=== PATIENT | female | born 1985 | race Caucasian/White ===

== ENCOUNTER 2016-05-12 15:27 | Observation (INO) | payer MEDICAID, OTHER ==
[~2016-05-12] VITALS: Ht 167.6 cm; Wt 60.0 kg
[~2016-05-12 15:27] MED LIST: HYDR-3533 PO; ROBA500T PO
[2016-05-12 15:28] VITALS: BP 114/69; PULSE 90; RESP 16; TEMP 98.4; O2SAT 98
--- NOTE | 2016-05-12 16:40 | PD ---
HPI Chief Complaint: Skin Problem Time Seen by Provider: 16:31 Travel History International Travel<30 days: No Contact w/Intl Traveler<30days: No Traveled to known affect area: No History of Present Illness HPI The patient was seen and examined in the presence of the nurse. This patient complains of infection in the left ankle. Duration one week. Severity is moderate. She has a large abscess near the medial malleolus. This is the site of an IV drug injection site done 7 days ago she reports. Heroin was injected there. She denies fever. No alleviating factors. PFSH Past Medical History Asthma: Yes Anxiety: Yes Diminished Hearing: No Tetanus Vaccination: < 5 Years Influenza Vaccination: No ?: Not LMP: 1 WEEK AGO : 3 Para: 3 Past Surgical History Surgical History: No Previous Surgery Social History Alcohol Use: No Tobacco Use: Yes Substance Use: Yes (METH, HEROIN- LAST WEEK LAST TIME) Allergies-Medications (Allergen,Severity, Reaction): Coded Allergies: Clindamycin (Verified Allergy, Severe, Hives, 05/12/16) Toradol (Verified Allergy, Severe, Hives, 05/12/16) Vancomycin (Verified Allergy, Severe, Hives, 05/12/16) Reported Meds & Prescriptions Reported Meds & Active Scripts Active No Active Prescriptions or Reported Medications Review of Systems General / Constitutional: No: Fever Eyes: No: Visual changes HENT: No: Headaches Cardiovascular: No: Chest Pain or Discomfort Respiratory: No: Shortness of Breath Gastrointestinal: No: Abdominal Pain Genitourinary: No: Dysuria Musculoskeletal: Positive: Pain Skin: Positive Lesions, No Rash Neurologic: No: Weakness Psychiatric: Positive: Substance Abuse, No: Depression Endocrine: No: Polydipsia Hematologic/Lymphatic: No: Easy Bruising Physical Exam Narrative GENERAL: Well-nourished, well-developed patient with a left ankle abscess. SKIN: Warm and dry. She has multiple areas of track todd HEAD: Atraumatic. Normocephalic. EYES: Pupils equal and round. No scleral icterus. No injection or drainage. ENT: No nasal bleeding or discharge. Mucous membranes pink and moist. NECK: Trachea midline. No JVD. CARDIOVASCULAR: Regular rate and rhythm. No murmur appreciated. RESPIRATORY: No accessory muscle use. Clear to auscultation. Breath sounds equal bilaterally. GASTROINTESTINAL: Abdomen soft, non-tender, nondistended. Hepatic and splenic margins not palpable. MUSCULOSKELETAL: No obvious deformities. No clubbing. No cyanosis. No edema. Has an abscess near the medial malleolus of the left ankle. It's fluctuant and tender. There is some surrounding erythema. NEUROLOGICAL: Awake and alert. No obvious cranial nerve deficits. Motor grossly within normal limits. Normal speech. PSYCHIATRIC: Appropriate mood and affect; insight and judgment normal. Data Data Last Documented VS Vital Signs Date Time Temp Pulse Resp B/P Pulse Ox O2 Delivery O2 Flow Rate FiO2 05/12/16 18:29 83 16 110/61 99 Room Air 05/12/16 15:28 98.4 Orders Iv Access Insert/Monitor (05/12/16 16:31) Complete Blood Count With Diff (05/12/16 16:31) Comprehensive Metabolic Panel (05/12/16 16:31) Beta Hcg (Quant/Titer) (05/12/16 16:31) Wound Culture And Gram Stain (05/12/16 16:31) Lidocai-Epi 1%-1:100,000 Inj (Xylocaine- (05/12/16 16:45) Lidocai-Epi 1%-1:100,000 Inj (Xylocaine- (05/12/16 16:45) Oxycodone-Acetamin 5-325 Mg (Percocet (05/12/16 16:45) Blood Culture (05/12/16 17:15) Vascular Access Team Consult PRN (05/12/16 17:15) Vascular Poc Ultrasound (05/12/16 ) Daptomycin Inj (Cubicin Inj) (05/12/16 18:00) Admit Order (Ed Use Only) (05/12/16 18:46) Labs Laboratory Tests Test 05/12/16 18:10 White Blood Count 10.6 TH/MM3 Red Blood Count 3.70 MIL/MM3 Hemoglobin 10.9 GM/DL Hematocrit 32.3 % Mean Corpuscular Volume 87.2 FL Mean Corpuscular Hemoglobin 29.4 PG Mean Corpuscular Hemoglobin 33.7 % Concent Red Cell Distribution Width 13.7 % Platelet Count 264 TH/MM3 Mean Platelet Volume 9.9 FL Neutrophils (%) (Auto) 74.8 % Lymphocytes (%) (Auto) 16.0 % Monocytes (%) (Auto) 8.0 % Eosinophils (%) (Auto) 1.0 % Basophils (%) (Auto) 0.2 % Neutrophils # (Auto) 7.9 TH/MM3 Lymphocytes # (Auto) 1.7 TH/MM3 Monocytes # (Auto) 0.8 TH/MM3 Eosinophils # (Auto) 0.1 TH/MM3 Basophils # (Auto) 0.0 TH/MM3 CBC Comment DIFF FINAL Differential Comment MDM Medical Decision Making Medical Screen Exam Complete: Yes Emergency Medical Condition: Yes Medical Record Reviewed: Yes Differential Diagnosis Abscess, cellulitis, boil Narrative Course I have reviewed the patient's electronic medical record. Patient very challenging IV access Vascular access team is placed a ultrasound guided IV in her left arm I gave her dose of daptomycin IV Labs have been sent but are unlikely to director strategic account management here which will be an admission for IV antibiotics given her significant left ankle area infection, combination of cellulitis and abscess Patient is verbal consent to incision and drainage of abscess SKIN: There is an indurated area in the left ankle which measures about 3 cm in diameter. It is fluctuant but there is no pointing or drainage. There is a zone of inflammation around it but no lymphangitis. I anesthetized with 5 cc of lidocaine with 1% epinephrine I opened it with an 11 blade scalpel and drained some thick yellow pus I obtained it for culture and Gram stain Tolerated reasonably well Patient requires further IV antibiotics Blood cultures were sent I reviewed with medical residents who will admit Diagnosis Primary Impression: Cellulitis of left ankle Additional Impression: Abscess Admitting Information Admitting Physician Requests: Admit Scripts No Active Prescriptions or Reported Meds Isidro Poole MD May 12, 2016 16:40
[2016-05-12] MEDS ORDERED: oxyCODONE/ACETAMINOPHEN 5 MG/325 MG TAB PO ONE (16:45)
[2016-05-12] MEDS ORDERED: LIDOCAINE 1%/EPINEPHrine 1:100,000 SOLN 20 ML VIAL INFIL ONE ×2 (16:45)
[2016-05-12] MEDS ORDERED: DAPTOMYCIN IV ONE (18:00)
[2016-05-12] MEDS ORDERED: SODIUM CHLORIDE 0.9% IV ONE (18:00)
[2016-05-12 18:29] VITALS: BP 110/61; PULSE 83; RESP 16; O2SAT 99
[2016-05-12 18:51] LABS: AUTOMATED NEUTROPHIL # 7.9 TH/MM3 (1.8-7.7); BASOPHIL % 0.2 % (0.0-2.0); EOSINOPHIL # 0.1 TH/MM3 (0-0.4); HEMATOCRIT 32.3 % (35.0-46.0); HEMO FLAGS DIFF FINAL; LYMPHOCYTE # 1.7 TH/MM3 (1.0-4.8); MEAN CELL VOLUME 87.2 FL (80.0-100.0); MEAN CORPUSCULAR HEMOGLOBIN 29.4 PG (27.0-34.0); MEAN CORPUSCULAR HGB CONC 33.7 % (32.0-36.0); NEUT % 74.8 % (16.0-70.0); PLATELET COUNT 264 TH/MM3 (150-450); RED CELL DISTRIBUTION WIDTH 13.7 % (11.6-17.2); WHITE BLOOD COUNT 10.6 TH/MM3 (4.0-11.0)
[2016-05-12 19:08] LABS: ANION GAP 8 MEQ/L (5-15); AST (GOT) 30 U/L (15-37); BICARBONATE 27.8 MEQ/L (21.0-32.0); BLOOD UREA NITROGEN 5 MG/DL (7-18); CHLORIDE 101 MEQ/L (98-107); GLOMERULAR FILTRATION RATE 123 ML/MIN (>89); POTASSIUM 3.5 MEQ/L (3.5-5.1); SODIUM (NA) 137 MEQ/L (136-145)
[2016-05-12 19:13] LABS: ALKALINE PHOSPHATASE 71 U/L (45-117); ALT (GPT) 34 U/L (10-53); BETA HCG QUANT LESS THAN 1 MIU/ML (0-5); TOTAL BILIRUBIN ADULT 0.3 MG/DL (0.2-1.0)
--- NOTE | 2016-05-12 19:14 | HHI.HP ---
HPI Service Family Medicine Primary Care Physician No Primary Care Physician Admission Diagnosis L ankle cellulitis/abcess Diagnoses: International Travel<30 Days: No Contact w/Intl Traveler<30days: No Known Affected Area: No History of Present Illness CC: Left ankle pain HPI: Approximately one week ago she was using IV drugs and injecting them into the Left ankle. Her missed the vein and injecting the drug into the surrounding tissue.She has been using IVD for approximately 1-2 years. Sine this time, her leg has been painful. Today, the foot and ankle "looked really bad". The pain is excruciating when she tries to stand on the leg. She also has constant pain in her foot. It has been changing color, more specifically from a flesh color skin to purple and red, and spreading up her leg. The lesion has been draining blood and pus; this being the main reason she came in. Pain is still present after I&D in ED. ROS: ++Chills but not fevers. Denies CP, SOB, change in vision, painful fingers or toes, abdominal pain, N, V, D, back pain, dysuria, change in vision, no sore throat. MRSA + previous skin infection arm -- 2016 (Left) (Karan Martin MD R2) Past Family Social History Past Medical History MRSA infection Left arm, Sepsis Blood clot left arm 2016 at [facility] Denies Hep C, and no HIV Past Surgical History No surgeries (Karan Martin MD R2) Allergies: Coded Allergies: Clindamycin (Verified Allergy, Severe, Hives, 05/12/16) Toradol (Verified Allergy, Severe, Hives, 05/12/16) Vancomycin (Verified Allergy, Severe, Hives, 05/12/16) Family History Mother - y/o 52 healthy Father - y/o 54 healthy Siblin brothers - healthy Social History Born in [place] , moved to [facility], ex-boyfriend Lives with -- supportive, IVDU - heroin Using IVD 2 years now, drug of choice heroin Methamphetamines for past 2 years Unemployed No etoh use Tob - 2 cigarettes day. (Karan Martin MD R2) Physical Exam Vital Signs Vital Signs Date Time Temp Pulse Resp B/P Pulse Ox O2 Delivery O2 Flow Rate FiO2 05/12/16 18:29 83 16 110/61 99 Room Air 05/12/16 18:26 18 05/12/16 16:28 92 17 05/12/16 15:28 98.4 90 16 114/69 98 Room Air Physical Exam GENERAL: NAD, crying on exam. SKIN: Erythematous around left ankle, moreover the medial malleolus. 2 cm round vesicle the is draining serosanguineous fluid. No fluctuance under the skin or crepitus on palpation. HEAD: Atraumatic. Normocephalic. No temporal or scalp tenderness. EYES: Pupils equal round and reactive. Extraocular motions intact. ENT: Nose without bleeding NECK: Trachea midline. No JVD or lymphadenopathy. CARDIOVASCULAR: Regular rate and rhythm without murmurs, gallops, or rubs. RESPIRATORY: Clear to auscultation. GASTROINTESTINAL: Abdomen soft, non-tender, nondistended. MUSCULOSKELETAL: Left ankle swollen with some erythema around medial malleolus NEUROLOGICAL: Awake and alert. Laboratory Laboratory Tests Test 05/12/16 18:10 White Blood Count 10.6 Red Blood Count 3.70 Hemoglobin 10.9 Hematocrit 32.3 Mean Corpuscular Volume 87.2 Mean Corpuscular Hemoglobin 29.4 Mean Corpuscular Hemoglobin 33.7 Concent Red Cell Distribution Width 13.7 Platelet Count 264 Mean Platelet Volume 9.9 Neutrophils (%) (Auto) 74.8 Lymphocytes (%) (Auto) 16.0 Monocytes (%) (Auto) 8.0 Eosinophils (%) (Auto) 1.0 Basophils (%) (Auto) 0.2 Neutrophils # (Auto) 7.9 Lymphocytes # (Auto) 1.7 Monocytes # (Auto) 0.8 Eosinophils # (Auto) 0.1 Basophils # (Auto) 0.0 CBC Comment DIFF FINAL Differential Comment Date/Time Procedure Status Source Growth 05/12/16 18:13 Aerobic Blood Culture Received Blood Peripheral Pending 05/12/16 18:13 Anaerobic Blood Culture Received Blood Peripheral Pending 05/12/16 17:10 Gram Stain Received Wound Ankle Pending 05/12/16 17:10 Wound Culture Received Wound Ankle Pending (Karan Martin MD R2) Result Diagram: 05/12/16 1810 Septic Shock Reassessment Heart: Regular rate and rhythm Lungs: Clear Skin: Warm Peripheral Pulses: Weak Right Posterior Tibial Weak Left Posterior Tibial Capillary Refill: <2 seconds (Karan Martin MD R2) Assessment and Plan Assessment and Plan Mrs. Luna is a 31 y/o CF with PMHx sign for sepsis, right arm cellulitis, IVDU, and new abscess of left medial malleolus. She is s/p I&D in ED and was started on daptomycin given Vanc allergy. We expanded coverge against Gram negative MOs and anaerobes with Zosyn. She will be admitted for pain control, blood and wound cultures, and IV antibiotics. Problem # 1: Left ankle Abscess Likely polymicrobial will give broad spectrum abx including MRSA coverage -Daptomycin 250 mg q 24 hours -Zosyn 3.375 q 6 hours IV -IVF 84 ml/hr NS -Percocet 5 mg pain 1-5, 10 mg pain 6-10, Morphine 2 mg q 3 hr IV breakthrough pain. -Blood cultures, no signs of infectious endocarditis at the current time (i.e. murmurs, vasculitis, immune complex deposition, etc) Problem # 2: IVDU Consult CM for inpatient rehab services upon discharge. Limit use of IV morphine, and use only as breakthrough medication after PO Meds have been given. Problem # 3: FEN Fluids as above Electrolytes at goal Nutrion - reg diet as tolerated. dvt ppx: lovenox 40 units sq daily wdw Dr. Mosher Code Status Full Code. (Karan Martin MD R2) Attending Attestation THIS CASE WAS DISCUSSED WITH THE RESIDENT PHYSICIAN. I HAVE REVIEWED THE RECORD AND AGREE WITH THE ABOVE NOTE AND PLAN OF CARE WAS DISCUSSED. I HAVE AUTHORIZED THE ORDER FOR PLACEMENT IN OUT-PATIENT OBSERVATION STATUS. (Yoni Mosher MD) Problem List: (1) Cellulitis of left ankle Status: Acute (2) Polysubstance (including opioids) dependence with physiological dependence Status: Acute (3) Nutrition, metabolism, and development symptoms Status: Acute (4) Abscess Status: Acute (Karan Martin MD R2) Karan Martin MD R2 May 12, 2016 19:14 Yoni Mosher MD May 13, 2016 11:23
[2016-05-12] MEDS ORDERED: NALOXONE HCL 0.4 MG/ML AMP IV PRN (19:15)
[2016-05-12] MEDS ORDERED: oxyCODONE/ACETAMINOPHEN 10 MG/325 MG TAB PO PRN (19:45)
[2016-05-12] MEDS: PIPERACIL-TAZO 3.375 GM PREMIX 50 ML IV SCH (20:12)
[2016-05-12] MEDS: SODIUM CHLOR 0.9% 1000 ML INJ 1,000 ML IV SCH (20:12)
[2016-05-12 20:34] VITALS: BP 115/70
[2016-05-12 21:15] VITALS: BP 114/66; PULSE 86; RESP 18; TEMP 98.2; O2SAT 96
[2016-05-12] MEDS: MORPHINE SULFATE 4 MG/ML INJ IV PUSH PRN (22:27)
[2016-05-13] VITALS (7 sets, daily range): BP systolic 97–118; BP diastolic 57–73; PULSE 68–87; RESP 17–18; TEMP 97–98.8; O2SAT 97–100
[2016-05-13] MEDS: PIPERACIL-TAZO 3.375 GM PREMIX 50 ML IV SCH ×4 (02:54→22:18)
[2016-05-13] MEDS: MORPHINE SULFATE 4 MG/ML INJ IV PUSH PRN ×4 (02:55→20:01)
[2016-05-13 04:59] LABS: AUTOMATED NEUTROPHIL # 6.2 TH/MM3 (1.8-7.7); BASOPHIL % 0.4 % (0.0-2.0); EOSINOPHIL # 0.1 TH/MM3 (0-0.4); EOSINOPHIL % 1.3 % (0.0-4.0); HEMATOCRIT 29.4 % (35.0-46.0); HEMO FLAGS DIFF FINAL; LYMPH % 16.5 % (9.0-44.0); LYMPHOCYTE # 1.4 TH/MM3 (1.0-4.8); MEAN CELL VOLUME 86.4 FL (80.0-100.0); MEAN CORPUSCULAR HEMOGLOBIN 29.4 PG (27.0-34.0); MONO % 7.2 % (0.0-8.0); NEUT % 74.6 % (16.0-70.0); PLATELET COUNT 262 TH/MM3 (150-450); RED CELL DISTRIBUTION WIDTH 13.7 % (11.6-17.2); WHITE BLOOD COUNT 8.3 TH/MM3 (4.0-11.0)
[2016-05-13 05:03] LABS: BICARBONATE 31.3 MEQ/L (21.0-32.0); POTASSIUM 3.4 MEQ/L (3.5-5.1)
[2016-05-13] MEDS: oxyCODONE/ACETAMINOPHEN 10 MG/325 MG TAB PO PRN ×2 (05:38→11:49)
[2016-05-13] MEDS: ENOXAPARIN SODIUM 40 MG/0.4 ML SYRINGE SQ SCH (09:00)
[2016-05-13] MEDS: SODIUM CHLOR 0.9% 1000 ML INJ 1,000 ML IV SCH ×2 (09:14→22:18)
--- NOTE | 2016-05-13 11:22 | HHI.FPPN ---
Subjective Remarks Patient continues to have pain on the top of the left foot this morning requiring pain medication both by mouth and through the IV. She does feel that the swelling and "pressure" has seemed to have decreased and that the erythema has decreased. She denies any fevers or chills, denies significant pain with passive movement of the ankle. Denies chest pain, palpitations, or nausea/ vomiting. In summary this is a 31-year-old female with a history of IV drug use who presents with a one-week progressive cellulitis/abscess over the left dorsum of the foot. This occurred after injecting IV drugs into the subcutaneous tissue because she missed the vein. She describes it as starting off as a small areas of redness and swelling that is progressively becoming more swollen and painful to the point where she has been unable to walk on the left foot. She does note some drainage of blood and purulent material prior to admission to the hospital. In the emergency department there was an incision and drainage performed. She does have a history of skin infections in the past and has a known history of MRSA abscess of her arm in 2016. Past Medical History MRSA infection Left arm, Sepsis Blood clot left arm 2016 at [facility] Denies Hep C, and no HIV Past Surgical History No surgeries Family History Mother - y/o 52 healthy Father - y/o 54 healthy Siblin brothers - healthy Social History Born in [place] , moved to [facility], ex-boyfriend Lives with -- supportive, IVDU - heroin Using IVD 2 years now, drug of choice heroin Methamphetamines for past 2 years Unemployed No etoh use Tob - 2 cigarettes day. Objective Vitals Vital Signs Date Time Temp Pulse Resp B/P Pulse Ox O2 Delivery O2 Flow Rate FiO2 05/13/16 07:33 97.0 77 17 97/58 98 05/13/16 05:03 97.9 87 18 108/68 97 05/13/16 00:13 98.1 72 18 118/73 97 05/12/16 21:15 98.2 86 18 114/66 96 05/12/16 20:34 80 18 115/70 98 05/12/16 18:29 83 16 110/61 99 Room Air 05/12/16 18:26 18 05/12/16 16:28 92 17 05/12/16 15:28 98.4 90 16 114/69 98 Room Air I/O 05/12/16 05/12/16 05/12/16 05/13/16 05/13/16 05/13/16 07:00 15:00 23:00 07:00 15:00 23:00 Intake Total 480 ml 844 ml Balance 480 ml 844 ml Intake Oral 480 ml 240 ml IV Total 604 ml Result Diagram: 05/13/1642905/13/16429 Objective Remarks GENERAL: Healthy-appearing young female, lying in bed comfortably, in no obvious distress SKIN: Dorsum of left foot with 3 cm area of swelling that is draining purulent and bloody material. Erythema has withdrawn from line drawn around foot. She does have some swelling of the dorsum of the foot and distal lower extremity. The area is warm and tender to touch NECK: Trachea midline. No JVD or lymphadenopathy. CARDIOVASCULAR: Regular rate and rhythm without murmurs, gallops, or rubs. RESPIRATORY: Clear to auscultation. GASTROINTESTINAL: Abdomen soft, non-tender, nondistended. MUSCULOSKELETAL: Left ankle swollen with skin findings as above NEUROLOGICAL: Awake and alert. A/P Assessment and Plan Mrs. Luna is a 31 y/o CF with PMHx sign for sepsis, right arm cellulitis, IVDU, and new abscess of left medial malleolus. She is s/p I&D in ED and was started on daptomycin given Vanc allergy. We expanded coverge against Gram negative MOs and anaerobes with Zosyn. She will be admitted for pain control, blood and wound cultures, and IV antibiotics. Problem List: (1) Cellulitis of left ankle Status: Acute Plan: Status post incision and drainage in the emergency department with removal of purulent material - Wound culture pending - Blood cultures pending She has remained afebrile with no leukocytosis She does have a history of MRSA skin infections in the past due to IV drug use Continue IV antibiotics as below: - Daptomycin 250 mg IV every 24 hours - Zosyn 3.375 g IV every 6 hours Pain control with Percocet oral medication and morphine as needed for breakthrough pain Follow wound cultures and physical exam daily (2) Abscess Status: Acute Plan: Status post incision and drainage in the emergency department Antibiotic treatment as above (3) Polysubstance (including opioids) dependence with physiological dependence Status: Acute Plan: Consult CM for inpatient rehab services upon discharge. Limit use of IV morphine, and use only as breakthrough medication after PO Meds have been given. (4) Nutrition, metabolism, and development symptoms Status: Acute Plan: Fluids with normal saline at 84 mL per hour Electrolytes at goal Nutrion - reg diet as tolerated. dvt ppx: lovenox 40 units sq daily Yoni Mosher MD May 13, 2016 11:22
[2016-05-13] MEDS: IBUPROFEN 800 MG TAB PO SCH ×2 (13:06→17:09)
[2016-05-13] MEDS: DAPTOMYCIN IV SCH (22:18)
[2016-05-13] MEDS: SODIUM CHLORIDE 0.9% IV SCH (22:18)
[2016-05-14] MEDS: IBUPROFEN 800 MG TAB PO SCH ×4 (01:13→17:21)
[2016-05-14] MEDS: MORPHINE SULFATE 4 MG/ML INJ IV PUSH PRN ×2 (01:14→05:06)
[2016-05-14] MEDS: PIPERACIL-TAZO 3.375 GM PREMIX 50 ML IV SCH ×4 (02:41→20:39)
[2016-05-14 03:55] VITALS: BP 101/55; PULSE 62; RESP 18; TEMP 98.8; O2SAT 98
[2016-05-14 06:16] LABS: AUTOMATED NEUTROPHIL # 2.4 TH/MM3 (1.8-7.7); BASOPHIL % 0.5 % (0.0-2.0); EOSINOPHIL # 0.1 TH/MM3 (0-0.4); EOSINOPHIL % 2.5 % (0.0-4.0); HEMATOCRIT 28.5 % (35.0-46.0); HEMO FLAGS DIFF FINAL; LYMPH % 38.5 % (9.0-44.0); LYMPHOCYTE # 1.8 TH/MM3 (1.0-4.8); MEAN CELL VOLUME 87.8 FL (80.0-100.0); MEAN CORPUSCULAR HEMOGLOBIN 29.4 PG (27.0-34.0); MEAN CORPUSCULAR HGB CONC 33.5 % (32.0-36.0); MONO % 8.7 % (0.0-8.0); NEUT % 49.8 % (16.0-70.0); PLATELET COUNT 222 TH/MM3 (150-450); RED BLOOD COUNT 3.25 MIL/MM3 (4.00-5.30); RED CELL DISTRIBUTION WIDTH 13.9 % (11.6-17.2); WHITE BLOOD COUNT 4.8 TH/MM3 (4.0-11.0)
[2016-05-14 06:24] LABS: BICARBONATE 28.7 MEQ/L (21.0-32.0); POTASSIUM 4.1 MEQ/L (3.5-5.1)
[2016-05-14] MEDS ORDERED: BACT800T5 PO (06:55)
[2016-05-14] MEDS ORDERED: OXYC1TAB36 PO (06:58)
[2016-05-14] MEDS ORDERED: IBUP800T23 PO (06:58)
--- NOTE | 2016-05-14 06:58 | HHI.DCPOC ---
Discharge Care Plan Diagnosis: (1) Cellulitis of left ankle (2) Abscess Goals to Promote Your Health * To prevent worsening of your condition and complications * To maintain your health at the optimal level Directions to Meet Your Goals Take your medications as prescribed Follow your dietary instruction Follow activity as directed Keep your appointments as scheduled Take your immunizations and boosters as scheduled If your symptoms worsen call your PCP, if no PCP go to Urgent Care Center or Emergency Room Smoking is Dangerous to Your Health. Avoid second hand smoke Call the 24-hour hour crisis hotline for domestic abuse at Lauren Alas MD R1 May 14, 2016 06:58
[2016-05-14 07:39] VITALS: BP 100/66; PULSE 68; RESP 17; TEMP 97.9; O2SAT 97
[2016-05-14] MEDS: SODIUM CHLOR 0.9% 1000 ML INJ 1,000 ML IV SCH (08:42)
[2016-05-14] MEDS: ENOXAPARIN SODIUM 40 MG/0.4 ML SYRINGE SQ SCH (08:43)
[2016-05-14] MEDS: oxyCODONE/ACETAMINOPHEN 10 MG/325 MG TAB PO PRN ×3 (08:50→20:39)
--- NOTE | 2016-05-14 09:08 | HHI.FPPN ---
Subjective Remarks Today foot feels the same but it looking better. Denies F C CP or SOB. Eating ok. Not ambulating 2/2 pain. (Karan Martin MD R2) Objective Vitals Vital Signs Date Time Temp Pulse Resp B/P Pulse Ox O2 Delivery O2 Flow Rate FiO2 05/14/16 07:39 97.9 68 17 100/66 97 05/14/16 03:55 98.8 62 18 101/55 98 05/13/16 23:23 98.8 68 18 105/59 97 05/13/16 21:37 97.8 76 18 107/59 98 05/13/16 16:15 98.2 72 18 100/57 100 05/13/16 12:03 97.0 75 17 105/60 97 I/O 05/13/16 05/13/16 05/13/16 05/14/16 05/14/16 05/14/16 07:00 15:00 23:00 07:00 15:00 23:00 Intake Total 844 ml 1632 ml 845 ml Balance 844 ml 1632 ml 845 ml Intake Oral 240 ml 960 ml 240 ml IV Total 604 ml 672 ml 605 ml # Voids 3 2 (Karan Martin MD R2) Result Diagram: 05/14/16 0530 05/14/16 0550 Objective Remarks GENERAL: Healthy-appearing young female, lying in bed comfortably, in no obvious distress SKIN: Dorsum of left foot with 3 cm area of swelling that is draining purulent and bloody material. Erythema has withdrawn from line drawn around foot. She does have some swelling of the dorsum of the foot and distal lower extremity. The area is warm and tender to touch. Painful w/ movement. NECK: Trachea midline. No JVD or lymphadenopathy. CARDIOVASCULAR: Regular rate and rhythm without murmurs, gallops, or rubs. RESPIRATORY: Clear to auscultation. GASTROINTESTINAL: Abdomen soft, non-tender, nondistended. MUSCULOSKELETAL: Left ankle swollen with skin findings as above NEUROLOGICAL: Awake and alert. (Karan Martin MD R2) A/P Assessment and Plan Mrs. Luna is a 31 y/o CF with PMHx sign for sepsis, right arm cellulitis, IVDU, and new abscess of left medial malleolus. She is s/p I&D in ED and was started on daptomycin given Vanc allergy. We expanded coverage against Gram negative MOs and anaerobes with Zosyn. She will be admitted for pain control, blood and wound cultures, and IV antibiotics. (Karan Martin MD R2) Attending Attestation Pt. examined and case discussed with resident physicians I have read the above note and agree with the assessment/plan as discussed with me I was involved in all medical decision making for this patient Yoni Lal MD (Yoni Lal MD) Problem List: (1) Cellulitis of left ankle Status: Acute Plan: Status post incision and drainage in the emergency department with removal of purulent material - Wound culture pending no growth x 24 hrs. - Blood cultures pending no growth x 24 hrs. - Get ESR / CRP and Xray of foot, exam concerning for possible intra-articular infection. Consult Orthopedic surgery if not improving on abx and elevated ESR. May require tap with fluid analysis. She has remained afebrile with no leukocytosis She does have a history of MRSA skin infections in the past due to IV drug use Continue IV antibiotics as below: - Daptomycin 250 mg IV every 24 hours (05/12 -- present) - Zosyn 3.375 g IV every 6 hours(05/12 -- present) Pain control with Percocet oral medication and morphine as needed for breakthrough pain Follow wound cultures and physical exam daily (2) Abscess Status: Acute Plan: Status post incision and drainage in the emergency department Antibiotic treatment as above (3) Polysubstance (including opioids) dependence with physiological dependence Status: Acute Plan: Consult CM for inpatient rehab services upon discharge. Limit use of IV morphine, and use only as breakthrough medication after PO Meds have been given. (4) Nutrition, metabolism, and development symptoms Status: Acute Plan: Fluids with normal saline at 84 mL per hour - dc IVF. Electrolytes at goal Nutrion - reg diet as tolerated. dvt ppx: lovenox 40 units sq daily dw Dr. lal. (Karan Martin MD R2) Karan Martin MD R2 May 14, 2016 09:08 Yoni Lal MD May 14, 2016 19:06
--- NOTE | 2016-05-14 09:49 | RADRPT ---
EXAM DATE/TIME: 05/14/2016 09:12 [facility] COMPARISON: No previous studies available for comparison. INDICATIONS : Needle stick to left ankle, possible infection. MEDICAL HISTORY : MRSA SURGICAL HISTORY : None. ENCOUNTER: Initial ACUITY: 2 days PAIN SCORE: Non-responsive. LOCATION: Left ankle FINDINGS: Three view exam was performed of the left ankle. The bony structures are in normal alignment. No ev idence of fracture, dislocation, or soft tissue swelling. The ankle mortise is intact. No radiopaqu e foreign bodies are seen. Bony mineralization is normal. CONCLUSION: Negative for fracture or dislocation. Follow up in 7-10 days is suggested if symptoms persist. Ta Schwartz MD FACR on May 14, 2016 at 9:47 Board Certified Radiologist. This report was verified electronically.
[2016-05-14 11:43] VITALS: BP 96/54; PULSE 59; RESP 18; TEMP 98; O2SAT 97
[2016-05-14 15:29] VITALS: BP 111/66; PULSE 72; RESP 20; TEMP 97.8; O2SAT 95
[2016-05-14] MEDS ORDERED: IOHEXOL 350 MG/ML 10 ML VIAL (for RAD DIAG) IV ONE (16:09)
--- NOTE | 2016-05-14 16:39 | RADRPT ---
EXAM DATE/TIME: 05/14/2016 16:04 [facility] COMPARISON: No previous studies available for comparison. INDICATIONS : Joint pain; evaluate for septic joint. IV CONTRAST: 75 cc Omnipaque 350 (iohexol) IV RADIATION DOSE: 7.29 CTDIvol (mGy) MEDICAL HISTORY : None SURGICAL HISTORY : None. ENCOUNTER: Initial ACUITY: 1 day PAIN SCALE: 5/10 LOCATION: Left ankle TECHNIQUE: Volumetric scanning of the ankle was performed. Using automated exposure control and adjustment of t he mA and/or kV according to patient size, radiation dose was kept as low as reasonably achievable to obtain optimal diagnostic quality images. FINDINGS: There is generalized soft tissue swelling. I do not see any significant joint effusion. I do not see any bony destruction. CONCLUSION: Limited exam to exclude a septic joint. MRI with contrast would be of benefit. Ta Schwartz MD FACR on May 14, 2016 at 16:29 Board Certified Radiologist. This report was verified electronically.
[2016-05-14 17:10] VITALS: BP 105/61; PULSE 63; RESP 18; TEMP 95.7; O2SAT 98
--- NOTE | 2016-05-14 19:01 | RADRPT ---
EXAM DATE/TIME: 05/14/2016 18:15 [facility] COMPARISON: CT ANKLE LEFT W CONTRAST, May 14, 2016, 16:04. INDICATIONS : Abscess. Rule out septic joint CONTRAST: 12 cc Omniscan (gadodiamide) IV MEDICAL HISTORY : IVDO SURGICAL HISTORY : Lumpectomy of left breast. ENCOUNTER: Initial ACUITY: 1 week PAIN SCORE: 5/10 LOCATION: Medial TECHNIQUE: Multiplanar, multisequence MRI examination was performed without contrast and after the intravenous a dministration of gadolinium. FINDINGS: There is diffuse subcutaneous edema overlying the medial and to a lesser extent lateral malleoli. Th ere is a small superficial subcutaneous abscess collection in the region of the medial malleolus janie uring 2.3 x 0.9 cm. The underlying bony structures are unremarkable without marrow edema or erosive changes. There is no significant ankle joint effusion. There is a miniscule amount of fluid within the posterior ankle joint. The visualized ligaments and tendons of the ankle are intact. There is n o fracture or dislocation. CONCLUSION: 1. Small superficial subcutaneous abscess along the medial malleolus measuring 2.3 x 0.9 cm. There i s associated subcutaneous edema which is more prominent medially than laterally. 2. No evidence of bony, ligamentous, or tendinous abnormality. 3. No evidence of significant joint effusion. Priyank Peters MD on May 14, 2016 at 18:51 Board Certified Radiologist. This report was verified electronically.
[2016-05-14 20:00] VITALS: BP 109/56; PULSE 65; RESP 21; TEMP 97.3; O2SAT 99
[2016-05-14] MEDS ORDERED: GADODIAMIDE PF 287 MG/ML 5 ML VIAL (for RAD MRI) IV ONE (20:00)
[2016-05-14] MEDS: DAPTOMYCIN IV SCH (20:39)
[2016-05-14] MEDS: SODIUM CHLORIDE 0.9% IV SCH (20:39)
[2016-05-15] VITALS: BP 98/53; PULSE 64; RESP 21; TEMP 97; O2SAT 98
[2016-05-15] MEDS: PIPERACIL-TAZO 3.375 GM PREMIX 50 ML IV SCH ×3 (02:40→14:32)
[2016-05-15] MEDS: oxyCODONE/ACETAMINOPHEN 10 MG/325 MG TAB PO PRN ×3 (02:40→14:23)
[2016-05-15] MEDS: IBUPROFEN 800 MG TAB PO SCH ×3 (03:26→12:04)
[2016-05-15 05:14] LABS: AUTOMATED NEUTROPHIL # 2.8 TH/MM3 (1.8-7.7); BASOPHIL % 0.5 % (0.0-2.0); EOSINOPHIL # 0.1 TH/MM3 (0-0.4); EOSINOPHIL % 2.4 % (0.0-4.0); HEMATOCRIT 29.5 % (35.0-46.0); HEMO FLAGS DIFF FINAL; LYMPH % 38.1 % (9.0-44.0); MEAN CELL VOLUME 87.3 FL (80.0-100.0); MEAN CORPUSCULAR HEMOGLOBIN 29.8 PG (27.0-34.0); MEAN CORPUSCULAR HGB CONC 34.1 % (32.0-36.0); MONO % 6.1 % (0.0-8.0); NEUT % 52.9 % (16.0-70.0); PLATELET COUNT 281 TH/MM3 (150-450); RED BLOOD COUNT 3.37 MIL/MM3 (4.00-5.30); RED CELL DISTRIBUTION WIDTH 13.4 % (11.6-17.2); WHITE BLOOD COUNT 5.3 TH/MM3 (4.0-11.0)
[2016-05-15 05:41] LABS: BICARBONATE 30.1 MEQ/L (21.0-32.0); POTASSIUM 3.7 MEQ/L (3.5-5.1)
[2016-05-15 08:00] VITALS: BP 102/55; PULSE 65; RESP 16; TEMP 96; O2SAT 97
[2016-05-15] MEDS: ENOXAPARIN SODIUM 40 MG/0.4 ML SYRINGE SQ SCH (09:00)
--- NOTE | 2016-05-15 11:13 | HHI.FPPN ---
Subjective Remarks Ankle feels "much better" she is able to move her ankle without pain and the redness and swelling has gone down. Asking about rehab facilities. She denies fevers chills or chest pain. No change in vision. Pain is controlled. (Karan Martin MD R2) Objective Vitals Vital Signs Date Time Temp Pulse Resp B/P Pulse Ox O2 Delivery O2 Flow Rate FiO2 05/15/16 09:37 18 05/15/16 08:00 96.0 65 16 102/55 97 05/15/16 00:00 97.0 64 21 98/53 98 05/14/16 20:00 97.3 65 21 109/56 99 05/14/16 17:10 95.7 63 18 105/61 98 05/14/16 15:29 97.8 72 20 111/66 95 05/14/16 11:43 98.0 59 18 96/54 97 I/O 05/14/16 05/14/16 05/14/16 05/15/16 05/15/16 05/15/16 07:00 15:00 23:00 07:00 15:00 23:00 Intake Total 845 ml 240 ml 480 ml Balance 845 ml 240 ml 480 ml Intake Oral 240 ml 240 ml 480 ml IV Total 605 ml # Voids 2 2 2 # Bowel Movements 0 0 (Karan Martin MD R2) Result Diagram: 05/15/16 0420 05/15/16 0420 Imaging Last Impressions Lower Extremity CT 05/14/16 0000 Signed Impressions: Service Date/Time: Saturday, May 14, 2016 16:04 - CONCLUSION: Limited exam to exclude a septic joint. MRI with contrast would be of benefit. Ta Schwartz MD FACR Ankle X-Ray 05/14/16 0000 Signed Impressions: Service Date/Time: Saturday, May 14, 2016 09:12 - CONCLUSION: Negative for fracture or dislocation. Follow up in 7-10 days is suggested if symptoms persist. Ta Schwartz MD FACR Ankle MRI 05/14/16 0000 Signed Impressions: Service Date/Time: Saturday, May 14, 2016 18:15 - CONCLUSION: 1. Small superficial subcutaneous abscess along the medial malleolus measuring 2.3 x 0.9 cm. There is associated subcutaneous edema which is more prominent medially than laterally. 2. No evidence of bony, ligamentous, or tendinous abnormality. 3. No evidence of significant joint effusion. Priyank Peters MD Objective Remarks GENERAL: Healthy-appearing young female, lying in bed comfortably, in no obvious distress SKIN: Dorsum of left foot with 3 cm area of swelling that is draining purulent and bloody material. Swelling reduced. Erythema has withdrawn from line drawn around foot. The area is warm and tender to touch. NECK: Trachea midline. No JVD or lymphadenopathy. CARDIOVASCULAR: Regular rate and rhythm without murmurs, gallops, or rubs. RESPIRATORY: Clear to auscultation. GASTROINTESTINAL: Abdomen soft, non-tender, nondistended. MUSCULOSKELETAL: Left ankle swollen with skin findings as above NEUROLOGICAL: Awake and alert. (Karan Martin MD R2) A/P Assessment and Plan Mrs. Luna is a 31 y/o CF with PMHx sign for sepsis, right arm cellulitis, IVDU, and new abscess of left medial malleolus. She is s/p I&D in ED and was started on daptomycin given Vanc allergy. We expanded coverage against Gram negative MOs and anaerobes with Zosyn. She will be admitted for pain control, blood and wound cultures, and IV antibiotics. (Karan Martin MD R2) Attending Attestation Pt. examined and case discussed with resident physician I have read the above note and agree with the assessment/plan as discussed with me I was involved in all medical decision making for this patient Yoni Lal MD (Yoni Lal MD) Problem List: (1) Cellulitis of left ankle Status: Acute Plan: Status post incision and drainage in the emergency department with removal of purulent material - Wound culture pending no growth x 2 days - heavy growth with normal skin kori. - Blood cultures pending no growth x 2 days - ESR elevated to 39 likely 2/2 from infection XRAY foot: Negative for fracture or dislocation. MRI Ankle: "Small superficial subcutaneous abscess along the medial malleolus measuring 2.3 x 0.9 cm. There are associated subcutaneous edema which is more prominent medially than laterally. No evidence of bony, ligamentous, or tendon this abnormality. No evidence of significant joint effusion." She has remained afebrile with no leukocytosis She does have a history of MRSA skin infections in the past due to IV drug use Continue IV antibiotics as below: - Daptomycin 250 mg IV every 24 hours (05/12 -- present) - Zosyn 3.375 g IV every 6 hours (05/12 -- present) Switch to PO antibiotics (Bactrim 800 mg q 12 hours) for 7 additional days and appropriate wound care recs. Pain control with Percocet oral medication. (2) Abscess Status: Acute Plan: Status post incision and drainage in the emergency department Antibiotic treatment as above (3) Polysubstance (including opioids) dependence with physiological dependence Status: Acute Plan: Consult CM for inpatient rehab services upon discharge. Have provided information on inpatient rehab. Patient will need to schedule an apt for an evaluation -- she says she is willing to do this. Sig other in room also suffering from drug addiction. Limit use of IV morphine, and use only as breakthrough medication after PO Meds have been given. (4) Nutrition, metabolism, and development symptoms Status: Acute Plan: Fluids with normal saline at 84 mL per hour - dc IVF. Electrolytes at goal Nutrion - reg diet as tolerated. dvt ppx: lovenox 40 units sq daily dw Dr. lal. (Karan Martin MD R2) Karan Martin MD R2 May 15, 2016 11:13 Yoni Lal MD May 15, 2016 16:19
[2016-05-15 12:00] VITALS: BP 102/54; PULSE 61; RESP 16; TEMP 97.1; O2SAT 98
[2016-05-15 15:14] VITALS: RESP 18
--- NOTE | 2016-05-16 11:10 | HHI.DS ---
Discharge Summary Admission Date May 12, 2016 at 18:47 Admitting Diagnosis L ankle cellulitis/abcess (1) Cellulitis of left ankle Plan: Status post incision and drainage in the emergency department with removal of purulent material - Wound culture pending no growth x 2 days - heavy growth with normal skin kori. - Blood cultures pending no growth x 2 days - ESR elevated to 39 likely 2/2 from infection XRAY foot: Negative for fracture or dislocation. MRI Ankle: "Small superficial subcutaneous abscess along the medial malleolus measuring 2.3 x 0.9 cm. There are associated subcutaneous edema which is more prominent medially than laterally. No evidence of bony, ligamentous, or tendon this abnormality. No evidence of significant joint effusion." She has remained afebrile with no leukocytosis She does have a history of MRSA skin infections in the past due to IV drug use Continue IV antibiotics as below: - Daptomycin 250 mg IV every 24 hours (05/12 -- present) - Zosyn 3.375 g IV every 6 hours (05/12 -- present) Switch to PO antibiotics (Bactrim 800 mg q 12 hours) for 7 additional days and appropriate wound care recs. Pain control with Percocet oral medication. (2) Abscess Plan: Status post incision and drainage in the emergency department Antibiotic treatment as above (3) Polysubstance (including opioids) dependence with physiological dependence Plan: Consult CM for inpatient rehab services upon discharge. Have provided information on inpatient rehab. Patient will need to schedule an apt for an evaluation -- she says she is willing to do this. Sig other in room also suffering from drug addiction. Limit use of IV morphine, and use only as breakthrough medication after PO Meds have been given. (4) Nutrition, metabolism, and development symptoms Plan: Fluids with normal saline at 84 mL per hour - dc IVF. Electrolytes at goal Nutrion - reg diet as tolerated. dvt ppx: lovenox 40 units sq daily dw Dr. lal. Brief History CC: Left ankle pain HPI: Approximately one week ago she was using IV drugs and injecting them into the Left ankle. Her missed the vein and injecting the drug into the surrounding tissue.She has been using IVD for approximately 1-2 years. Sine this time, her leg has been painful. Today, the foot and ankle "looked really bad". The pain is excruciating when she tries to stand on the leg. She also has constant pain in her foot. It has been changing color, more specifically from a flesh color skin to purple and red, and spreading up her leg. The lesion has been draining blood and pus; this being the main reason she came in. Pain is still present after I&D in ED. ROS: ++Chills but not fevers. Denies CP, SOB, change in vision, painful fingers or toes, abdominal pain, N, V, D, back pain, dysuria, change in vision, no sore throat. MRSA + previous skin infection arm -- 2016 (Left) CBC/BMP: 05/15/16 0420 05/15/16 0420 Significant Findings Laboratory Tests Test 05/14/16 05/14/16 05/14/16 05/15/16 05:20 05:30 05:50 04:20 Erythrocyte Sedimentation Rate 39 mm/hr (0-20) Red Blood Count 3.25 MIL/MM3 3.37 MIL/MM3 (4.00-5.30) (4.00-5.30) Hemoglobin 9.6 GM/DL 10.0 GM/DL (11.6-15.3) (11.6-15.3) Hematocrit 28.5 % 29.5 % (35.0-46.0) (35.0-46.0) Monocytes (%) (Auto) 8.7 % (0.0-8.0) Chloride Level 108 MEQ/L (98-107) Calcium Level 8.3 MG/DL (8.5-10.1) Random Glucose 111 MG/DL (74-106) Imaging Last 72 hours Impressions Lower Extremity CT 05/14/16 0000 Signed Impressions: Service Date/Time: Saturday, May 14, 2016 16:04 - CONCLUSION: Limited exam to exclude a septic joint. MRI with contrast would be of benefit. Ta Schwartz MD FACR Ankle X-Ray 05/14/16 0000 Signed Impressions: Service Date/Time: Saturday, May 14, 2016 09:12 - CONCLUSION: Negative for fracture or dislocation. Follow up in 7-10 days is suggested if symptoms persist. Ta Schwartz MD FACR Ankle MRI 05/14/16 0000 Signed Impressions: Service Date/Time: Sanjeev, May 14, 2016 18:15 - CONCLUSION: 1. Small superficial subcutaneous abscess along the medial malleolus measuring 2.3 x 0.9 cm. There is associated subcutaneous edema which is more prominent medially than laterally. 2. No evidence of bony, ligamentous, or tendinous abnormality. 3. No evidence of significant joint effusion. Priyank Peters MD PE at Discharge GENERAL: Healthy-appearing young female, lying in bed comfortably, in no obvious distress SKIN: Dorsum of left foot with 3 cm area of swelling that is draining purulent and bloody material. Swelling reduced. Erythema has withdrawn from line drawn around foot. The area is warm and tender to touch. NECK: Trachea midline. No JVD or lymphadenopathy. CARDIOVASCULAR: Regular rate and rhythm without murmurs, gallops, or rubs. RESPIRATORY: Clear to auscultation. GASTROINTESTINAL: Abdomen soft, non-tender, nondistended. MUSCULOSKELETAL: Left ankle swollen with skin findings as above NEUROLOGICAL: Awake and alert. Hospital Course Ms. Luna 31 yo female with a past medical history of MRSA septicemia, opiate dependence, intravenous drug use. She was admitted with a left medial malleolus abscess, that was incised and drained in the emergency department. Cultures grew normal skin kori. She was treated with daptomycin for 3 days. Her pain was controlled with IV morphine. Blood cultures were negative, and she was not septic. In order to rule out septic arthritis, we got an MRI ankle which was benign. She was discharged home on Bactrim, as well as pain control. Wound care provided instructions on dressing changes, and the patient was counseled on warning signs that would warrant a return to the hospital. She will try to seek inpatient rehabilitation for her drug addiction. Pt Condition on Discharge: Stable Discharge Disposition: Discharge Home Discharge Instructions DIET: Follow Instructions for: As Tolerated, No Restrictions Activities you can perform: Regular-No Restrictions Karan Martin MD R2 May 16, 2016 11:10
== END 2016-05-15 16:48 | disposition home or self-care (01) ==
LOC: NEPE 15:27 → INTOOBSV 18:47 → NEDA 18:47 → NEPGCP 21:05 → N07A 05-14 17:08
PROVIDERS: ADMIT Family Medicine; ATTEND Family Medicine
DX: L03.116 Cellulitis of left lower limb (principal); L02.416 Cutaneous abscess of left lower limb; F19.20 Other psychoactive substance dependence, uncomplicated; F11.20 Opioid dependence, uncomplicated; F17.210 Nicotine dependence, cigarettes, uncomplicated; Z88.8 Allergy status to other drugs, medicaments and biological substances; Z88.1 Allergy status to other antibiotic agents
CPT/HCPCS: 10060; 73610; 73701; 73723; 76937; 80048; 80053; 82948; 84702; 85025; 85652; 87040; 87070; 87205; 87641; 99284; A9579; G0378; J0878; J2270; J2543; J7030; Q9967

== ENCOUNTER 2016-08-02 10:15 | Inpatient (IN) | payer SELFPAY ==
[2016-08-02] VITALS (9 sets, daily range): BP systolic 106–136; BP diastolic 55–93; PULSE 97–116; RESP 14–20; TEMP 99.8–103.3; O2SAT 99–100
[~2016-08-02] VITALS: Ht 165.1 cm; Wt 59.7 kg
[~2016-08-02 10:15] MED LIST changes: +BACT800T5 PO; -HYDR-3533 PO; +IBUP800T23 PO; +OXYC1TAB36 PO; -ROBA500T PO
[2016-08-02] MEDS ORDERED: SODIUM CHLOR 0.9% 1000 ML INJ 400 ML IV ONE (10:30)
[2016-08-02] MEDS ORDERED: SODIUM CHLOR 0.9% 1000 ML INJ 1,000 ML IV ONE ×2 (10:30)
[2016-08-02 10:53] LABS: BLOOD GAS VENOUS BASE EXCESS -0.2 mmol/L (-2-2); BLOOD GAS VENOUS HCO3 25 mmol/L (22-26); BLOOD GAS VENOUS O2 CONTENT 4.8 Vol % (9.0-17.0); BLOOD GAS VENOUS O2 HGB SAT 33 % (70-76); BLOOD GAS VENOUS PCO2 44 mmHg (44-48); BLOOD GAS VENOUS PO2 21 mmHg (35-40); BLOOD GAS VENOUS pH 7.36 (7.360-7.400); CRITICAL VALUE YES; TEMP CORR TO 98.6
[2016-08-02 10:54] LABS: FIO2 21 %; OXYGEN DEVICE RA; STAT YES
[2016-08-02 11:17] LABS: APTT (PATIENT) 26.6 SEC (24.3-30.1)
[2016-08-02] MEDS ORDERED: LORazepam 2 MG/ML VIAL ONE (11:17)
[2016-08-02 11:23] LABS: ANION GAP 12 MEQ/L (5-15); AST (GOT) 54 U/L (15-37); BICARBONATE 23.6 MEQ/L (21.0-32.0); BLOOD UREA NITROGEN 4 MG/DL (7-18); CHLORIDE 104 MEQ/L (98-107); GLOMERULAR FILTRATION RATE 97 ML/MIN (>89); MAGNESIUM 1.3 MG/DL (1.5-2.5); POTASSIUM 3.6 MEQ/L (3.5-5.1); SODIUM (NA) 140 MEQ/L (136-145)
[2016-08-02 11:27] LABS: AUTOMATED NEUTROPHIL # 1.9 TH/MM3 (1.8-7.7); BASOPHIL % 0.3 % (0.0-2.0); EOSINOPHIL % 0.4 % (0.0-4.0); HEMATOCRIT 32.7 % (35.0-46.0); HEMO FLAGS DIFF FINAL; LYMPH % 12.4 % (9.0-44.0); LYMPHOCYTE # 0.3 TH/MM3 (1.0-4.8); MEAN CELL VOLUME 84.4 FL (80.0-100.0); MEAN CORPUSCULAR HEMOGLOBIN 27.1 PG (27.0-34.0); MEAN CORPUSCULAR HGB CONC 32.2 % (32.0-36.0); MONO % 0.7 % (0.0-8.0); NEUT % 86.2 % (16.0-70.0); PLATELET COUNT 188 TH/MM3 (150-450); RED BLOOD COUNT 3.88 MIL/MM3 (4.00-5.30); RED CELL DISTRIBUTION WIDTH 14.6 % (11.6-17.2); WHITE BLOOD COUNT 2.2 TH/MM3 (4.0-11.0)
[2016-08-02] MEDS ORDERED: LORazepam 2 MG/ML VIAL IV PUSH ONE (11:30)
[2016-08-02] MEDS ORDERED: CEFEPIME INJ 2,000 MG in SODIUM CHLORIDE 0.9% INJ 100 ML IV ONE (11:30)
[2016-08-02] MEDS ORDERED: LINEZOLID 600 MG PREMIX 300 ML IV ONE (11:30)
[2016-08-02 11:31] LABS: ALKALINE PHOSPHATASE 129 U/L (45-117); ALT (GPT) 48 U/L (10-53); BETA HCG QUANT LESS THAN 1 MIU/ML (0-5); CALCIUM-PROTEIN CORRECTED 7.8 MG/DL (8.5-10.1); TOTAL BILIRUBIN ADULT 0.5 MG/DL (0.2-1.0)
[2016-08-02 11:32] LABS: CREATINE KINASE 45 U/L (26-192)
--- NOTE | 2016-08-02 11:34 | PD ---
HPI Chief Complaint: Alcohol/Drug Intoxication Time Seen by Provider: 10:20 Travel History International Travel<30 days: No Contact w/Intl Traveler<30days: No Traveled to known affect area: No History of Present Illness HPI Patient is a 31-year-old female presents emergency department fever and altered mental status. According to EMS the patient admitted on scene to taking some "stephneson heroin" by IV route earlier this morning. She barely became febrile shortly after that and had some mild altered mental status. Her boyfriend apparently called 911. On arrival the patient is complaining of dental pain back pain abdominal pain nausea vomiting and shortness of breath as well as chest pain. She is fairly delirious and agitated, take some effort to redirect her into bed. Apparently yesterday prior to going to bed she felt just fine. Fever at 103 per EMS. PFSH Past Medical History Asthma: Yes Blood Disorders: No Anxiety: Yes Depression: Yes Cancer: No Cardiovascular Problems: No Diminished Hearing: No Endocrine: No Genitourinary: No Immune Disorder: No Musculoskeletal: No Neurologic: No Psychiatric: Yes Reproductive: No Respiratory: Yes ?: Unknown : 3 Para: 3 Social History Alcohol Use: No Tobacco Use: Yes Substance Use: Yes (Heroin, meth) Allergies-Medications (Allergen,Severity, Reaction): Coded Allergies: Clindamycin (Verified Allergy, Severe, Hives, 05/12/16) Toradol (Verified Allergy, Severe, Hives, 05/12/16) Vancomycin (Verified Allergy, Severe, Hives, 05/12/16) Reported Meds & Prescriptions Reported Meds & Active Scripts Active Oxycodone-Acetaminophen 10-325 mg Tab 1-2 Tab PO Q6H PRN Take 1-2 tabs every 6 hours as needed for pain >6/10 in severity. Ibuprofen 800 Mg Tab 800 Mg PO Q6HR Bactrim DS (Sulfamethoxazole-Trimethoprim) 800-160 Mg Tab 1 Tab PO BID Review of Systems Except as stated in HPI: all other systems reviewed are Neg Physical Exam Narrative GENERAL: Well-developed, appears older than stated age, agitated delirium. SKIN: Hot and dry. HEAD: Atraumatic. Normocephalic. EYES: Pupils equal and round. No scleral icterus. No injection or drainage. ENT: No nasal bleeding or discharge. Mucous membranes pink and moist. No obvious dental abscess, NECK: Trachea midline. No JVD. neck is supple, no lymphadenopathy. CARDIOVASCULAR: Regular rhythm with tachycardia. There is 2+ systolic murmur best heard in the left sternal border. 2+ bilateral equal pulses in all 4 extremities, no Osler nodes, no splinter hemorrhages. RESPIRATORY: No accessory muscle use. Clear to auscultation. Breath sounds equal bilaterally. GASTROINTESTINAL: Abdomen soft, non-tender, nondistended. Hepatic and splenic margins not palpable. MUSCULOSKELETAL: No obvious deformities. No clubbing. No cyanosis. No edema. No midline CT or L-spine tenderness. NEUROLOGICAL: Awake and alert. No obvious cranial nerve deficits. Motor grossly within normal limits. Normal speech. PSYCHIATRIC: Appropriate mood and affect; insight and judgment normal. Data Data Last Documented VS Vital Signs Date Time Temp Pulse Resp B/P Pulse Ox O2 Delivery O2 Flow Rate FiO2 08/02/16 13:30 110 15 116/68 100 Nasal Cannula 2 08/02/16 11:50 99.8 Orders Electrocardiogram (08/02/16 10:30) Complete Blood Count With Diff (08/02/16 10:30) Comprehensive Metabolic Panel (08/02/16 10:30) Beta Hcg (Quant/Titer) (08/02/16 10:30) Prothrombin Time / Inr (Pt) (08/02/16 10:30) Act Partial Throm Time (Ptt) (08/02/16 10:30) Lactic Acid Sepsis Protocol (08/02/16 10:30) Magnesium (Mg) (08/02/16 10:30) Phosphorus (Po4) (08/02/16 10:30) Lipase (08/02/16 10:30) Ckmb (Isoenzyme) Profile (08/02/16 10:30) Troponin I (08/02/16 10:30) Urinalysis - C+S If Indicated (08/02/16 10:30) Blood Culture (08/02/16 10:30) Chest, Single Ap (08/02/16 10:30) Blood Gas Venous (Vbg) (08/02/16 10:30) Blood Glucose (08/02/16 10:30) Ecg Monitoring (08/02/16 10:30) Iv Access Insert/Monitor (08/02/16 10:30) Oximetry (08/02/16 10:30) Oxygen Administration (08/02/16 10:30) Sodium Chlor 0.9% 1000 Ml Inj (Ns 1000 M (08/02/16 10:30) Sodium Chlor 0.9% 1000 Ml Inj (Ns 1000 M (08/02/16 10:30) Sodium Chlor 0.9% 1000 Ml Inj (Ns 1000 M (08/02/16 10:30) Mri C Spine W&W/O Contrast (08/02/16 ) Mri L Spine W&W/O Contrast (08/02/16 ) Mri T Spine W & W/O Contrast (08/02/16 ) Lorazepam Inj (Ativan Inj) (08/02/16 11:30) Lorazepam Inj (Ativan Inj) (08/02/16 11:17) Linezolid 600 Mg Premix (Zyvox 600 Mg Pr (08/02/16 11:30) Cefepime Inj (Maxipime Inj) (08/02/16 11:30) Ammonia (08/02/16 11:35) Diphenhydramine Inj (Benadryl Inj) (08/02/16 11:45) Haloperidol Inj (Haldol Inj) (08/02/16 11:45) Mri Brain W&W/O Contrast (08/02/16 ) Urine Culture (08/02/16 12:00) Magnesium Sulfate 1 Gm Premix (Magnesium (08/02/16 14:00) Calcium Gluconate Inj (Calcium Gluconate (08/02/16 14:00) Drug Screen, Random Urine (08/02/16 13:54) Admit Order (Ed Use Only) (08/02/16 ) Labs Laboratory Tests Test 08/02/16 08/02/16 08/02/16 08/02/16 10:25 10:42 11:01 12:00 White Blood Count 2.2 TH/MM3 Red Blood Count 3.88 MIL/MM3 Hemoglobin 10.5 GM/DL Hematocrit 32.7 % Mean Corpuscular Volume 84.4 FL Mean Corpuscular Hemoglobin 27.1 PG Mean Corpuscular Hemoglobin 32.2 % Concent Red Cell Distribution Width 14.6 % Platelet Count 188 TH/MM3 Mean Platelet Volume 9.2 FL Neutrophils (%) (Auto) 86.2 % Lymphocytes (%) (Auto) 12.4 % Monocytes (%) (Auto) 0.7 % Eosinophils (%) (Auto) 0.4 % Basophils (%) (Auto) 0.3 % Neutrophils # (Auto) 1.9 TH/MM3 Lymphocytes # (Auto) 0.3 TH/MM3 Monocytes # (Auto) 0.0 TH/MM3 Eosinophils # (Auto) 0.0 TH/MM3 Basophils # (Auto) 0.0 TH/MM3 CBC Comment DIFF FINAL Differential Comment Prothrombin Time 11.0 SEC Prothromb Time International 1.0 RATIO Ratio Activated Partial 26.6 SEC Thromboplast Time Sodium Level 140 MEQ/L Potassium Level 3.6 MEQ/L Chloride Level 104 MEQ/L Carbon Dioxide Level 23.6 MEQ/L Anion Gap 12 MEQ/L Blood Urea Nitrogen 4 MG/DL Creatinine 0.71 MG/DL Estimat Glomerular Filtration 97 ML/MIN Rate Random Glucose 162 MG/DL Calcium Level 7.4 MG/DL Protein Corrected Calcium 7.8 MG/DL Phosphorus Level 1.4 MG/DL Magnesium Level 1.3 MG/DL Total Bilirubin 0.5 MG/DL Aspartate Amino Transf 54 U/L (AST/SGOT) Alanine Aminotransferase 48 U/L (ALT/SGPT) Alkaline Phosphatase 129 U/L Total Creatine Kinase 45 U/L Troponin I LESS THAN 0.02 NG/ML Total Protein 6.3 GM/DL Albumin 2.7 GM/DL Lipase 48 U/L Human Chorionic Gonadotropin, LESS THAN 1 Quant MIU/ML Blood Gas Puncture Site IV BY RN Blood Gas Patient Temperature 98.6 Venous Blood pH 7.36 Venous Blood Partial Pressure 44 mmHg CO2 Venous Blood Partial Pressure 21 mmHg O2 Venous Blood HCO3 25 mmol/L Venous Blood Oxygen Saturation 33 % Venous Blood Oxygen Content 4.8 Vol % Venous Blood Base Excess -0.2 mmol/L Oxygen Delivery Device RA Blood Gas Inspired Oxygen 21 % Lactic Acid Level 3.0 mmol/L Ammonia 20 MCMOL/L Urine Color LIGHT-YELLOW Urine Turbidity CLEAR Urine pH 5.0 Urine Specific [place] 1.004 Urine Protein NEG mg/dL Urine Glucose (UA) NEG mg/dL Urine Ketones NEG mg/dL Urine Occult Blood NEG Urine Nitrite NEG Urine Bilirubin NEG Urine Urobilinogen LESS THAN 2.0 MG/DL Urine Leukocyte Esterase LARGE Urine RBC 2 /hpf Urine WBC 40 /hpf Urine Squamous Epithelial 2 /hpf Cells Urine Bacteria OCC /hpf Microscopic Urinalysis Comment CULTURE INDICATED Urine Opiates Screen NEG Urine Barbiturates Screen NEG Urine Amphetamines Screen NEG Urine Benzodiazepines Screen NEG Urine Cocaine Screen NEG Urine Cannabinoids Screen NEG MDM Medical Decision Making Medical Screen Exam Complete: Yes Emergency Medical Condition: Yes Interpretation(s) EKG shows sinus tachycardia rate of 116, normal axis and normal R-wave progression. Finer ST segment changes are limited interpretation given baseline artifact and inferior leads. No concerning ST-T segment changes seen in the other leads. This is a abnormal EKG secondary to rate. Differential Diagnosis Sepsis, bacteremia, endocarditis, spinal epidural abscess, urinary tract infection, pneumonia, septic pulmonary emboli. Narrative Course Patient is a 31-year-old female IV drug abuser who presents agitated delirium with fever and tachycardia. Delirium was controlled with Benadryl Ativan and Haldol. Chest x-ray was negative patient does have some evidence for UTI. Given her back pain history MRI was warranted which shows no epidural abscess. The patient may ultimately need a spinal tap however it is not safe to do so currently with her agitated delirium. Sometime later the patient's delirium is much better controlled, she is examined again and has no nuchal rigidity no Kernig's or Brudzinski signs. Patient was initially discussed with Dr. Julio for consultation and at this point with the patient appearing much better vital signs normalized and she thinks the patient is stable for floor, at this point on the reassessment I agree. The patient was discussed with Dr. [place] for admission. Light abnormality is a patient was replaced with calcium and magnesium. Critical Care Narrative Aggregate critical care time was [35 minutes. Time to perform other separately billable procedures was not included in the critical care time. My time did not include minutes spent treating any other patients simultaneously or on activities that did not directly contribute to the patient's treatment. The services I provided to this patient were to treat and/or prevent clinically significant deterioration that could result in: , disability, organ failure. I provided critical care services requiring my management, as noted below: Chart data review, documentation time, medication orders and management, vital sign assessments/reviewing monitor data, ordering and reviewing lab tests, ordering and interpreting/reviewing x-rays and diagnostic studies, care of the patient and discussion of the patient with the admitting physicians. Sepsis Criteria SIRS Criteria (2 or more): Temp > 100.9 or < 96.8, Heart rate over 90, WBC > 91760, < 4000 or > 10% bands Severe Sepsis (+one): Lactate >2 Diagnosis Primary Impression: Sepsis Additional Impressions: Urinary tract infection Hypocalcemia Admitting Information Admitting Physician Requests: Admit Condition: Stable Priyank Rosado MD Aug 02, 2016 11:34
[2016-08-02] MEDS ORDERED: diphenhydrAMINE HCL 50 MG/ML VIAL IV PUSH ONE (11:45)
[2016-08-02] MEDS ORDERED: HALOPERIDOL LACTATE 5 MG/ML AMP IM ONE (11:45)
--- NOTE | 2016-08-02 12:00 | RADRPT ---
EXAM DATE/TIME: 08/02/2016 10:31 [facility] COMPARISON: CHEST SINGLE AP, December 02, 2015, 20:50. INDICATIONS : Fever of unknown orgin. MEDICAL HISTORY : None. SURGICAL HISTORY : None. ENCOUNTER: Initial ACUITY: 1 day PAIN SCORE: 0/10 LOCATION: Bilateral chest FINDINGS: A single view of the chest demonstrates the lungs to be symmetrically aerated without evidence of mas s, infiltrate or effusion. The cardiomediastinal contours are unremarkable. Osseous structures are intact. CONCLUSION: No acute disease. David Nam MD on August 02, 2016 at 11:58 Board Certified Radiologist. This report was verified electronically.
[2016-08-02 12:58] LABS: BACTERIA, URINE OCC /hpf; BLOOD, URINE NEG (NEG); COMMENT (UR) CULTURE INDICATED; CULTURE IF INDICATED CULTURE INDICATED; GLUCOSE,URINE NEG (NEG); KETONE, URINE NEG (NEG); NITRITE,URINE NEG (NEG); SQUAMOUS EPITHELIAL CELL URINE 2 /hpf (0-5); URINE COLOR LIGHT-YELLOW (YELLW/STRAW)
[2016-08-02 13:17] LABS: LACTIC ACID GHOST NOT REPORTABLE
[2016-08-02] MEDS ORDERED: CALCIUM GLUCONATE 10% 1 GM/10 ML VIAL IV PUSH ONE (13:30)
[2016-08-02] MEDS ORDERED: MAGNESIUM SULFATE 1 GM PREMIX 100 ML IV ONE ×2 (14:00→23:00)
[2016-08-02] MEDS ORDERED: CALCIUM GLUCONATE INJ 1 GM in SODIUM CHLORIDE 0.9% INJ 100 ML IV ONE (14:00)
[2016-08-02] MEDS ORDERED: GADODIAMIDE PF 287 MG/ML 10 ML VIAL (for RAD MRI) IV ONE (14:37)
--- NOTE | 2016-08-02 14:54 | RADRPT ---
EXAM DATE/TIME: 08/02/2016 13:45 [facility] COMPARISON: MRI ANKLE LEFT W & W/O CONTRAST, May 14, 2016, 18:15. INDICATIONS : Encephalitis. CONTRAST: 10 cc Omniscan (gadodiamide) IV MEDICAL HISTORY : None. SURGICAL HISTORY : Breast biopsy. ENCOUNTER: Initial ACUITY: 1 day PAIN SCORE: 0/10 LOCATION: Head. TECHNIQUE: Multiplanar, multisequence MRI of the brain was performed both prior to and following the administrat ion of paramagnetic contrast. FINDINGS: CEREBRUM: The ventricles are normal for age. No evidence of midline shift, mass lesion, hemorrhage or acute in farction. No extraaxial fluid collections are seen. The pituitary gland and suprasellar cistern are normal in configuration. WHITE MATTER: No significant signal abnormalities are seen in the white matter. POSTERIOR FOSSA: The cerebellum and brainstem are intact. The 4th ventricle is midline. The cerebellopontine angle is unremarkable. The cerebellar tonsils are normal in position. DIFFUSION IMAGING: No focal areas of restricted diffusion are seen. No evidence of acute infarction. EXTRACRANIAL: The visualized portions of the orbits is unremarkable. The exam does demonstrate mucoperiosteal thick ening involving the left frontal sinus. POST-CONTRAST: No abnormal areas of parenchymal or dural enhancement. No evidence of blood-brain barrier breakdown. CONCLUSION: 1. Left frontal sinusitis. 2. The appearance of the brain parenchyma is unremarkable. No abnormal enhancement is identified. Librado Schwartz MD on August 02, 2016 at 14:49 Board Certified Radiologist. This report was verified electronically.
--- NOTE | 2016-08-02 15:05 | RADRPT ---
EXAM DATE/TIME: 08/02/2016 13:45 [facility] COMPARISON: No previous studies available for comparison. INDICATIONS : Abscess. CONTRAST: 10 cc Omniscan (gadodiamide) IV MEDICAL HISTORY : None. SURGICAL HISTORY : Breast biopsy. ENCOUNTER: Initial ACUITY: 1 day PAIN SCORE: 5/10 LOCATION: Back. TECHNIQUE: Multiplanar multisequence MRI of the lumbar spine was performed with and without contrast. FINDINGS: The most caudal appearing lumbar vertebra is numbered as L5. VERTEBRAE: Homogeneous signal. Normal alignment. CONUS: Normal level and configuration. POST CONTRAST: No abnormal areas of contrast enhancement are seen. T12-L1: The thecal sac has a normal diameter. No evidence of disc bulge or protrusion. The neural foramina are patent bilaterally. L1-L2: The thecal sac has a normal diameter. No evidence of disc bulge or protrusion. The neural foramina are patent bilaterally. L2-L3: The thecal sac has a normal diameter. No evidence of disc bulge or protrusion. The neural foramina are patent bilaterally. L3-L4: The thecal sac has a normal diameter. No evidence of disc bulge or protrusion. The neural foramina are patent bilaterally. L4-L5: The thecal sac has a normal diameter. No evidence of disc bulge or protrusion. The neural foramina are patent bilaterally. L5-S1: The thecal sac has a normal diameter. No evidence of disc bulge or protrusion. The neural foramina are patent bilaterally. CONCLUSION: Normal examination. David Nam MD on August 02, 2016 at 15:01 Board Certified Radiologist. This report was verified electronically.
--- NOTE | 2016-08-02 15:06 | RADRPT ---
EXAM DATE/TIME: 08/02/2016 13:45 [facility] COMPARISON: No previous studies available for comparison. INDICATIONS : Abscess. CONTRAST: 10 cc Omniscan (gadodiamide) IV MEDICAL HISTORY : None. SURGICAL HISTORY : Breast biopsy. ENCOUNTER: Initial ACUITY: 1 day PAIN SCORE: 4/10 LOCATION: Back. TECHNIQUE: Multiplanar, multisequence MRI examination of the cervical spine was performed. FINDINGS: VERTEBRAE: Normal vertebral body height. Homogeneous marrow signal. ALIGNMENT: No evidence of subluxation. CORD: Normal configuration and signal. POST FOSSA: The cerebellar tonsils are normal in position. POST-CONTRAST: No abnormal areas of enhancement are seen. C2-C3: The thecal sac has a normal configuration. There is no evidence of disc herniation or spinal canal stenosis. The neural foramina are patent bilaterally. C3-C4: The thecal sac has a normal configuration. There is no evidence of disc herniation or spinal canal s tenosis. The neural foramina are patent bilaterally. C4-C5: The thecal sac has a normal configuration. There is no evidence of disc herniation or spinal canal s tenosis. The neural foramina are patent bilaterally. C5-C6: The thecal sac has a normal configuration. There is no evidence of disc herniation or spinal canal s tenosis. The neural foramina are patent bilaterally. C6-C7: The thecal sac has a normal configuration. There is no evidence of disc herniation or spinal canal s tenosis. The neural foramina are patent bilaterally. C7-T1: The thecal sac has a normal configuration. There is no evidence of disc herniation or spinal canal s tenosis. The neural foramina are patent bilaterally. CONCLUSION: No acute disease. No evidence of abscess, myelitis, discitis or osteomyelitis. David Nam MD on August 02, 2016 at 15:02 Board Certified Radiologist. This report was verified electronically.
--- NOTE | 2016-08-02 15:14 | RADRPT ---
EXAM DATE/TIME: 08/02/2016 13:45 [facility] COMPARISON: No previous studies available for comparison. INDICATIONS : Abscess. CONTRAST: 10 cc Omniscan (gadodiamide) IV MEDICAL HISTORY : None. SURGICAL HISTORY : Breast biopsy. ENCOUNTER: Initial ACUITY: 1 day PAIN SCORE: 5/10 LOCATION: Back. TECHNIQUE: Multiplanar multisequence MRI of the thoracic spine was performed. FINDINGS: VERTEBRA: Normal vertebral body height. Homogeneous marrow signal. ALIGNMENT: Normal. CORD: Normal position and configuration. POST CONTRAST: No abnormal areas of contrast enhancement seen. T1-T2: Normal. T2-T3: The thecal sac has a normal diameter. No evidence of disc bulge or protrusion. T3-T4: The thecal sac has a normal diameter. No evidence of disc bulge or protrusion. T4-T5: The thecal sac has a normal diameter. No evidence of disc bulge or protrusion. T5-T6: The thecal sac has a normal diameter. No evidence of disc bulge or protrusion. T6-T7: The thecal sac has a normal diameter. No evidence of disc bulge or protrusion. T7-T8: The thecal sac has a normal diameter. No evidence of disc bulge or protrusion. T8-T9: The thecal sac has a normal diameter. No evidence of disc bulge or protrusion. T9-T10: The thecal sac has a normal diameter. No evidence of disc bulge or protrusion. T10-T11: The thecal sac has a normal diameter. No evidence of disc bulge or protrusion. T11-T12: The thecal sac has a normal diameter. No evidence of disc bulge or protrusion. T12-L1: The thecal sac has a normal diameter. No evidence of disc bulge or protrusion. CONCLUSION: No acute disease. David Nam MD on August 02, 2016 at 15:05 Board Certified Radiologist. This report was verified electronically.
[2016-08-02 15:35] LABS: AMPHETAMINE, URINE NEG (NEG); BARBITURATES, URINE NEG (NEG); COCAINE, URINE NEG (NEG)
[2016-08-02] MEDS ORDERED: SODIUM CHLORIDE 0.9% FLUSH 10 ML FLUSH IV FLUSH PRN (15:45)
[2016-08-02] MEDS ORDERED: NALOXONE HCL 0.4 MG/ML AMP IV PRN (15:45)
[2016-08-02] MEDS ORDERED: MAGNESIUM HYDROXIDE SUSP 30 ML CUP PO PRN (15:45)
[2016-08-02] MEDS ORDERED: ONDANSETRON HCL 4 MG/2 ML VIAL IVP PRN (15:45)
[2016-08-02] MEDS ORDERED: LACTULOSE SYRUP 20 GM/30 ML CUP PO PRN (15:45)
[2016-08-02] MEDS ORDERED: BISACODYL 10 MG SUPP RECTAL PRN (15:45)
[2016-08-02] MEDS ORDERED: SENNOSIDES 8.6 MG TAB PO PRN (15:45)
--- NOTE | 2016-08-02 16:29 | HHI.HP ---
HPI Service [facility] Primary Care Physician No Primary Care Physician Admission Diagnosis Sepsis Diagnoses: Chief Complaint: Heroin overdose Travel History International Travel<30 Days: No Contact w/Intl Traveler <30 Da: No Traveled to Known Affected Are: No History of Present Illness 31-year-old female with history of poly-substance abuse and IV drug use drug of choice is heroin who presented with heroin overdose. Patient is at the bedside. Patient's stated that symptoms started about 1 hour after she used heroine through an IV. He stated otherwise she's been relatively healthy. Patient's stated that the past few days she has been fatigued and thought it was because she was withdrawing. He stated that patient did not complain of any fevers or chills. She did complain of lower back pain. Otherwise he stated that she's been relatively normal. Patient was initially admitted to the pick pulling machine tender care physician but since she showed improvement in the emergency department she was downgraded. Patient was given Zyvox and cefepime in emergency department. She was also given multiple boluses in the emergency department. This improved her tachycardia. Review of Systems ROS Limitations: Intoxication, Unresponsive Past Family Social History Past Medical History Patient is sedated and unable to give a history. History obtained from recent admission in the EMR. hx of MRSA infection Blood clot left arm 2016 at [facility] Past Surgical History Denies any past medical history. History obtained from EMR. Reported Medications Per patient is not taking any medication home except for heroin. Allergies: Coded Allergies: Clindamycin (Verified Allergy, Severe, Hives, 05/12/16) Toradol (Verified Allergy, Severe, Hives, 05/12/16) Vancomycin (Verified Allergy, Severe, Hives, 05/12/16) Active Ordered Medications Current Medications Sodium Chloride 1,000 ml @ 1,000 mls/hr Q1H ONCE IV Last administered on t 10:42; Start 08/02/16 at 10:30; Stop 08/02/16 at 11:29; Status DC Sodium Chloride 1,000 ml @ 1,000 mls/hr Q1H ONCE IV Last administered on 10:42; Start 08/02/16 at 10:30; Stop 08/02/16 at 11:29; Status DC Sodium Chloride (NS 1000 ml Inj) 400 ml @ 1,000 mls/hr Q24M ONCE IV Last administered on 08/02/16 10:42; Start 08/02/16 at 10:30; Stop 08/02/16 at 10:53 ; Status DC Lorazepam (Ativan Inj) 2 mg ONCE ONCE IV PUSH Last administered on 08/02/16 11:20; Start 08/02/16 at 11:30; Stop 08/02/16 at 11:31; Status DC Lorazepam 2 mg 2 mg STK-MED ONCE .ROUTE ; Start 08/02/16 at 11:17; Stop at 11:18; Status DC Linezolid 300 ml @ 300 mls/hr ONCE ONCE IV Last administered on 08/02/16 11: 38; Start 08/02/16 at 11:30; Stop 08/02/16 at 12:29; Status DC Cefepime HCl/ Sodium Chloride (Maxipime Inj/NS Inj) 100 ml @ 200 mls/hr ONCE ONCE IV Last administered on 08/02/16 12:11; Start 08/02/16 at 11:30; Stop at 11:59; Status DC Diphenhydramine HCl (Benadryl Inj) 25 mg ONCE ONCE IV PUSH ; Start 08/02/16 at 11:45; Stop 08/02/16 at 11:46; Status DC Haloperidol Lactate (Haldol Inj) 5 mg ONCE ONCE IM Last administered on 13:27; Start 08/02/16 at 11:45; Stop 08/02/16 at 11:46; Status DC Calcium Gluconate 1 gm 1 gm ONCE ONCE IV PUSH ; Start 08/02/16 at 13:30; Stop 08/02/16 at 13:31; Status UNV Magnesium Sulfate/ Dextrose 100 ml @ 100 mls/hr ONCE ONCE IV ; Start 08/02/16 at 14:00; Stop 08/02/16 at 14:59; Status DC Calcium Gluconate/ Sodium Chloride (Calcium Gluconate Inj/NS Inj) 110 ml @ 110 mls/hr ONCE ONCE IV ; Start 08/02/16 at 14:00; Stop 08/02/16 at 14:59; Status DC Gadodiamide 10 ml 10 ml STK-MED ONCE IV Last administered on 08/02/16t 14:37; Start 08/02/16 at 14:37; Stop 08/02/16 at 14:38; Status DC Sodium Chloride (NS 1000 ml Inj) 1,000 ml @ 100 mls/hr Q10H IV ; Start at 16:00 Sodium Chloride (NS Flush) 2 ml UNSCH PRN IV FLUSH FLUSH AFTER USING IV ACCESS ; Start 08/02/16 at 15:45 Sodium Chloride (NS Flush) 2 ml BID IV FLUSH ; Start 08/02/16 at 21:00 Ondansetron HCl (Zofran Inj) 4 mg Q6H PRN IVP NAUSEA OR VOMITING; Start at 15:45 Naloxone HCl (Narcan Inj) 0.4 mg UNSCH PRN IV SEE LABEL COMMENTS; Start at 15:45 Senna/Docusate Sodium (Dede-Colace) 1 tab BID PO ; Start 08/02/16 at 21:00 Magnesium Hydroxide (Milk Of Magnesia Liq) 30 ml Q12H PRN PO MILD - MODERATE CONSTIPATION; Start 08/02/16 at 15:45 Sennosides (Senokot) 17.2 mg Q12H PRN PO MODERATE - SEVERE CONSTIPATION; Start 08/02/16 at 15:45 Bisacodyl (Dulcolax Supp) 10 mg DAILY PRN RECTAL SEVERE CONSITIPATION; Start at 15:45 Lactulose 30 ml 30 ml DAILY PRN PO SEVERE CONSITIPATION; Start 08/02/16 at 15: 45 Ceftriaxone Sodium 1000 mg/ Sodium Chloride 100 ml @ 200 mls/hr Q24H IV ; Start 08/02/16 at 22:00 Linezolid (Zyvox 600 Mg Premix) 300 ml @ 300 mls/hr Q12H IV ; Start 08/02/16 at 22:00; Status UNV Family History Mother - y/o 52 healthy Father - y/o 54 healthy [place] brothers - healthy Social History Born in [place] , moved to [facility], ex-boyfriend Lives with -- supportive, IVDU - heroin Using IVD 2 years now, drug of choice heroin Methamphetamines for past 2 years Unemployed No etoh use Tob - 2 cigarettes day. Physical Exam Vital Signs Vital Signs Date Time Temp Pulse Resp B/P Pulse Ox O2 Delivery O2 Flow Rate FiO2 08/02/16 13:30 110 15 116/68 100 Nasal Cannula 2 08/02/16 11:50 97 Nasal Cannula 2 08/02/16 11:50 99.8 111 15 129/80 99 Nasal Cannula 2 08/02/16 10:23 100.4 116 18 136/93 99 08/02/16 10:20 120 18 97 Room Air Physical Exam GENERAL: Patient is sedated due to heroin overdose. She is in no acute distress. She nods to a couple questions otherwise could not get a history. SKIN: No rashes, ecchymoses or lesions. Body is very warm. HEAD: Atraumatic. Normocephalic. No temporal or scalp tenderness. EYES: Pupils equal round and reactive.No scleral icterus. No injection or drainage. ENT: Nose without bleeding, purulent drainage or septal hematoma. Throat without erythema, tonsillar hypertrophy or exudate. Uvula midline. Airway patent. NECK: Trachea midline. No JVD or lymphadenopathy. Supple, nontender, no meningeal signs. CARDIOVASCULAR: Regular rate and rhythm. Positive for a 4/6 systolic murmur. RESPIRATORY: Clear to auscultation. Breath sounds equal bilaterally. No wheezes , rales, or rhonchi. GASTROINTESTINAL: Abdomen soft, non-tender, nondistended. No hepato-splenomegaly , or palpable masses. No guarding. MUSCULOSKELETAL: Extremities without clubbing, cyanosis, or edema. No joint tenderness, effusion, or edema noted. No calf tenderness. Negative Homans sign bilaterally. NEUROLOGICAL: Sedated, but able to arouse quickly. Motor grossly intact. Laboratory Laboratory Tests Test 08/02/16 08/02/16 08/02/16 08/02/16 10:25 10:42 11:01 12:00 White Blood Count 2.2 Red Blood Count 3.88 Hemoglobin 10.5 Hematocrit 32.7 Mean Corpuscular Volume 84.4 Mean Corpuscular Hemoglobin 27.1 Mean Corpuscular Hemoglobin 32.2 Concent Red Cell Distribution Width 14.6 Platelet Count 188 Mean Platelet Volume 9.2 Neutrophils (%) (Auto) 86.2 Lymphocytes (%) (Auto) 12.4 Monocytes (%) (Auto) 0.7 Eosinophils (%) (Auto) 0.4 Basophils (%) (Auto) 0.3 Neutrophils # (Auto) 1.9 Lymphocytes # (Auto) 0.3 Monocytes # (Auto) 0.0 Eosinophils # (Auto) 0.0 Basophils # (Auto) 0.0 CBC Comment DIFF FINAL Differential Comment Prothrombin Time 11.0 Prothromb Time International 1.0 Ratio Activated Partial 26.6 Thromboplast Time Sodium Level 140 Potassium Level 3.6 Chloride Level 104 Carbon Dioxide Level 23.6 Anion Gap 12 Blood Urea Nitrogen 4 Creatinine 0.71 Estimat Glomerular Filtration 97 Rate Random Glucose 162 Calcium Level 7.4 Protein Corrected Calcium 7.8 Phosphorus Level 1.4 Magnesium Level 1.3 Total Bilirubin 0.5 Aspartate Amino Transf 54 (AST/SGOT) Alanine Aminotransferase 48 (ALT/SGPT) Alkaline Phosphatase 129 Total Creatine Kinase 45 Troponin I LESS THAN 0.02 Total Protein 6.3 Albumin 2.7 Lipase 48 Human Chorionic Gonadotropin, LESS THAN 1 Quant Blood Gas Puncture Site IV BY RN Blood Gas Patient Temperature 98.6 Venous Blood pH 7.36 Venous Blood Partial Pressure 44 CO2 Venous Blood Partial Pressure 21 O2 Venous Blood HCO3 25 Venous Blood Oxygen Saturation 33 Venous Blood Oxygen Content 4.8 Venous Blood Base Excess -0.2 Oxygen Delivery Device RA Blood Gas Inspired Oxygen 21 Lactic Acid Level 3.0 Ammonia 20 Urine Color LIGHT-YELLOW Urine Turbidity CLEAR Urine pH 5.0 Urine Specific [place] 1.004 Urine Protein NEG Urine Glucose (UA) NEG Urine Ketones NEG Urine Occult Blood NEG Urine Nitrite NEG Urine Bilirubin NEG Urine Urobilinogen LESS THAN 2.0 Urine Leukocyte Esterase LARGE Urine RBC 2 Urine WBC 40 Urine Squamous Epithelial 2 Cells Urine Bacteria OCC Microscopic Urinalysis Comment CULTURE INDICATED Urine Opiates Screen NEG Urine Barbiturates Screen NEG Urine Amphetamines Screen NEG Urine Benzodiazepines Screen NEG Urine Cocaine Screen NEG Urine Cannabinoids Screen NEG Date/Time Procedure Status Source Growth 08/02/16 12:00 Urine Culture Received Urine Clean Catch Pending 08/02/16 11:00 Aerobic Blood Culture Received Blood Peripheral Pending 08/02/16 11:00 Anaerobic Blood Culture Received Blood Peripheral Pending Result Diagram: 08/02/16 1025 08/02/16 1025 Imaging Last Impressions Chest X-Ray 08/02/16 1030 Signed Impressions: Service Date/Time: July 10:31 - CONCLUSION: No acute disease. David Nam MD Thoracic Spine MRI 08/02/16 0000 Signed Impressions: Service Date/Time: July 13:45 - CONCLUSION: No acute disease. David Nam MD Lumbar Spine MRI 08/02/16 Signed Impressions: Service Date/Time: July 13:45 - CONCLUSION: Normal examination. David Nam MD Cervical Spine MRI 08/02/16 Signed Impressions: Service Date/Time: July 13:45 - CONCLUSION: No acute disease. No evidence of abscess, myelitis, discitis or osteomyelitis. David Nam MD Brain MRI 08/02/16 0000 Signed Impressions: Service Date/Time: July 13:45 - CONCLUSION: 1. Left frontal sinusitis. 2. The appearance of the brain parenchyma is unremarkable. No abnormal enhancement is identified. Librado Schwartz MD Assessment and Plan Assessment and Plan 31-year-old female with current IV drug use with heroin Metabolic encephalopathy/heroin overdose -Improving where patient was downgraded to Med Surg floor from the ICU. -Labs reviewed. -Will continue with supportive care with IV fluids. -Neuro checks. -Continue to monitor clinically. Fever -May be due to heroin overdose. -Patient does have a new cardiac murmur. We'll get an echo to rule out any vegetation/endocarditis. Patient also received an MRI of her back which was all negative. Patient was given Zyvox and cefepime in the ED. Will continue with Zyvox and give Rocephin. -Blood cultures already obtained. -Patient also received multiple boluses of IV fluids in emergency department. We will continue with IV maintenance fluids. DVT prophylaxis -Lovenox. Code Status Full code Discussed Condition With Patient's at bedside. Physician Certification 2 Midnight Certification Type: Admission for Inpatient Services Order for Inpatient Services The services are ordered in accordance with Medicare regulations or non- Medicare payer requirements, as applicable. In the case of services not specified as inpatient-only, they are appropriately provided as inpatient services in accordance with the 2-midnight benchmark. Estimated LOS (days): 3 3 days is the estimated time the patient will need to remain in the hospital, assuming treatment plan goals are met and no additional complications. Post-Hospital Plan: Ev Foster MD Aug 02, 2016 16:29
[2016-08-02] MEDS: SODIUM CHLOR 0.9% 1000 ML INJ 1,000 ML IV SCH (16:38)
[2016-08-02] MEDS: ENOXAPARIN SODIUM 40 MG/0.4 ML SYRINGE SQ SCH (18:18)
[2016-08-02] MEDS: SODIUM CHLORIDE 0.9% FLUSH 10 ML FLUSH IV FLUSH SCH (20:53)
[2016-08-02] MEDS: DOCUSATE SODIUM 50 MG/SENNA 8.6 MG TAB PO SCH (20:53)
[2016-08-02] MEDS: cefTRIAXone INJ 1,000 MG in SODIUM CHLORIDE 0.9% INJ 100 ML IV SCH (20:53)
[2016-08-02] MEDS: LINEZOLID 600 MG PREMIX 300 ML IV SCH (22:19)
[2016-08-02] MEDS ORDERED: ACETAMINOPHEN 325 MG TAB PO ONE (23:00)
[2016-08-02] MEDS ORDERED: LORazepam 0.5 MG TAB PO ONE (23:15)
[2016-08-03] VITALS: BP 97/55; PULSE 81; RESP 16; TEMP 98; O2SAT 98
[2016-08-03] MEDS: SODIUM CHLOR 0.9% 1000 ML INJ 1,000 ML IV SCH ×3 (00:12→22:00)
[2016-08-03 04:00] VITALS: BP 99/52; PULSE 82; RESP 16; TEMP 98; O2SAT 99
[2016-08-03 08:00] VITALS: BP 102/56; PULSE 93; RESP 18; TEMP 98.6; O2SAT 98
[2016-08-03 08:37] LABS: HEMATOCRIT 28.8 % (35.0-46.0); MEAN CELL VOLUME 82.5 FL (80.0-100.0); MEAN CORPUSCULAR HEMOGLOBIN 27.6 PG (27.0-34.0); MEAN CORPUSCULAR HGB CONC 33.5 % (32.0-36.0); PLATELET COUNT 173 TH/MM3 (150-450); RED BLOOD COUNT 3.49 MIL/MM3 (4.00-5.30); RED CELL DISTRIBUTION WIDTH 14.8 % (11.6-17.2); REVIEW FLAG FINAL; WHITE BLOOD COUNT 16.9 TH/MM3 (4.0-11.0)
[2016-08-03] MEDS: SODIUM CHLORIDE 0.9% FLUSH 10 ML FLUSH IV FLUSH SCH ×2 (09:00→21:00)
[2016-08-03 09:13] LABS: BICARBONATE 26.1 MEQ/L (21.0-32.0); POTASSIUM 3.1 MEQ/L (3.5-5.1)
--- NOTE | 2016-08-03 10:25 | HHI.PR ---
Subjective Remarks Follow-up for overdose on heroin when and possible infection Patient lying in bed comfortably taxing on her phone. When I introduced myself to the patient she continued to text on her phone. She made no eye contact. When I asked patient she had any concerns she said no. I explained to patient what happened and she stated okay. I also explained to patient current lab results, possible diagnosis and management and patient stated okay. Last fever was last night. Objective Vitals Vital Signs Date Time Temp Pulse Resp B/P Pulse Ox O2 Delivery O2 Flow Rate FiO2 08/03/16 08:00 98.6 93 18 102/56 98 08/03/16 04:00 98.0 82 16 99/52 99 08/03/16 03:17 98 Room Air 08/03/16 00:00 98.0 81 16 97/55 98 08/02/16 21:32 97 08/02/16 20:45 99.8 103 20 107/56 99 08/02/16 20:04 103.3 102 14 110/60 99 Room Air 08/02/16 19:08 100 14 120/58 100 Room Air 08/02/16 18:00 108 16 106/57 99 Room Air 08/02/16 16:30 104 16 108/55 100 Room Air 08/02/16 13:30 110 15 116/68 100 Nasal Cannula 2 08/02/16 11:50 97 Nasal Cannula 2 08/02/16 11:50 99.8 111 15 129/80 99 Nasal Cannula 2 08/02/16 10:23 100.4 116 18 136/93 99 I/O 08/02/16 08/02/16 08/02/16 08/03/16 08/03/16 08/03/16 07:00 15:00 23:00 07:00 15:00 23:00 Intake Total 200 ml 792 ml Balance 200 ml 792 ml Intake Oral 0 ml 0 ml IV Total 200 ml 792 ml # Voids 0 2 Result Diagram: 08/03/16 0759 08/03/16 0759 Imaging Last Impressions Chest X-Ray 08/02/16 1030 Signed Impressions: Service Date/Time: July 10:31 - CONCLUSION: No acute disease. David Nam MD Thoracic Spine MRI 08/02/16 0000 Signed Impressions: Service Date/Time: July 13:45 - CONCLUSION: No acute disease. David Nam MD Lumbar Spine MRI 08/02/16 0000 Signed Impressions: Service Date/Time: July 13:45 - CONCLUSION: Normal examination. David Nam MD Cervical Spine MRI 08/02/16 0000 Signed Impressions: Service Date/Time: July 13:45 - CONCLUSION: No acute disease. No evidence of abscess, myelitis, discitis or osteomyelitis. David Nam MD Brain MRI 08/02/16 0000 Signed Impressions: Service Date/Time: July 13:45 - CONCLUSION: 1. Left frontal sinusitis. 2. The appearance of the brain parenchyma is unremarkable. No abnormal enhancement is identified. Librado Schwartz MD Objective Remarks GENERAL: In no acute distress. Laying in bed comfortably detecting on her phone. SKIN: Warm and dry. HEAD: Normocephalic. EYES: No scleral icterus. No injection or drainage. NECK: Supple, trachea midline. No JVD or lymphadenopathy. CARDIOVASCULAR: Regular rate and rhythm positive for a 6 systolic murmur. RESPIRATORY: Breath sounds equal bilaterally. No accessory muscle use. GASTROINTESTINAL: Abdomen soft, non-tender, nondistended. MUSCULOSKELETAL: No cyanosis, or edema. BACK: Nontender without obvious deformity. No CVA tenderness. Medications and IVs Current Medications Sodium Chloride 1,000 ml @ 1,000 mls/hr Q1H ONCE IV Last administered on 10:42; Start 08/02/16 at 10:30; Stop 08/02/16 at 11:29; Status DC Sodium Chloride 1,000 ml @ 1,000 mls/hr Q1H ONCE IV Last administered on 10:42; Start 08/02/16 at 10:30; Stop 08/02/16 at 11:29; Status DC Sodium Chloride (NS 1000 ml Inj) 400 ml @ 1,000 mls/hr Q24M ONCE IV Last administered on 08/02/16 10:42; Start 08/02/16 at 10:30; Stop 08/02/16 at 10:53 ; Status DC Lorazepam (Ativan Inj) 2 mg ONCE ONCE IV PUSH Last administered on 08/02/16 11:20; Start 08/02/16 at 11:30; Stop 08/02/16 at 11:31; Status DC Lorazepam 2 mg 2 mg STK-MED ONCE .ROUTE ; Start 08/02/16 at 11:17; Stop at 11:18; Status DC Linezolid 300 ml @ 300 mls/hr ONCE ONCE IV Last administered on 08/02/16 11: 38; Start 08/02/16 at 11:30; Stop 08/02/16 at 12:29; Status DC Cefepime HCl/ Sodium Chloride (Maxipime Inj/NS Inj) 100 ml @ 200 mls/hr ONCE ONCE IV Last administered on 08/02/16 12:11; Start 08/02/16 at 11:30; Stop at 11:59; Status DC Diphenhydramine HCl (Benadryl Inj) 25 mg ONCE ONCE IV PUSH ; Start 08/02/16 at 11:45; Stop 08/02/16 at 11:46; Status DC Haloperidol Lactate (Haldol Inj) 5 mg ONCE ONCE IM Last administered on 13:27; Start 08/02/16 at 11:45; Stop 08/02/16 at 11:46; Status DC Calcium Gluconate 1 gm 1 gm ONCE ONCE IV PUSH ; Start 08/02/16 at 13:30; Stop 08/02/16 at 13:31; Status UNV Magnesium Sulfate/ Dextrose 100 ml @ 100 mls/hr ONCE ONCE IV Last administered on 08/02/16 16:36; Start 08/02/16 at 14:00; Stop 08/02/16 at 14:59 ; Status DC Calcium Gluconate/ Sodium Chloride (Calcium Gluconate Inj/NS Inj) 110 ml @ 110 mls/hr ONCE ONCE IV Last administered on 08/02/16 16:38; Start 08/02/16 at 14 :00; Stop 08/02/16 at 14:59; Status DC Gadodiamide 10 ml 10 ml STK-MED ONCE IV Last administered on 08/02/16 14:37; Start 08/02/16 at 14:37; Stop 08/02/16 at 14:38; Status DC Sodium Chloride (NS 1000 ml Inj) 1,000 ml @ 100 mls/hr Q10H IV Last administered on 08/03/16 00:12; Start 08/02/16 at 16:00 Sodium Chloride (NS Flush) 2 ml UNSCH PRN IV FLUSH FLUSH AFTER USING IV ACCESS ; Start 08/02/16 at 15:45 Sodium Chloride (NS Flush) 2 ml BID IV FLUSH ; Start 08/02/16 at 21:00 Ondansetron HCl (Zofran Inj) 4 mg Q6H PRN IVP NAUSEA OR VOMITING; Start at 15:45 Naloxone HCl (Narcan Inj) 0.4 mg UNSCH PRN IV SEE LABEL COMMENTS; Start at 15:45 Senna/Docusate Sodium (Dede-Colace) 1 tab BID PO Last administered on 20:53; Start 08/02/16 at 21:00 Magnesium Hydroxide (Milk Of Magnesia Liq) 30 ml Q12H PRN PO MILD - MODERATE CONSTIPATION; Start 08/02/16 at 15:45 Sennosides (Senokot) 17.2 mg Q12H PRN PO MODERATE - SEVERE CONSTIPATION; Start 08/02/16 at 15:45 Bisacodyl (Dulcolax Supp) 10 mg DAILY PRN RECTAL SEVERE CONSITIPATION; Start at 15:45 Lactulose 30 ml 30 ml DAILY PRN PO SEVERE CONSITIPATION; Start 08/02/16 at 15: 45 Ceftriaxone Sodium 1000 mg/ Sodium Chloride 100 ml @ 200 mls/hr Q24H IV Last administered on 08/02/16 20:53; Start 08/02/16 at 22:00 Linezolid (Zyvox 600 Mg Premix) 300 ml @ 300 mls/hr Q12H IV Last administered on 08/02/16 22:19; Start 08/02/16 at 23:00 Enoxaparin Sodium 40 mg 40 mg Q24H SQ Last administered on 08/02/16 18:18; Start 08/02/16 at 18:00 Magnesium Sulfate/ Dextrose (Magnesium Sulfate 1 Gm Premix) 100 ml @ 100 mls/ hr ONCE ONCE IV Last administered on 08/03/16 01:10; Start 08/02/16 at 23:00 ; Stop 08/02/16 at 23:59; Status DC Acetaminophen (Tylenol) 650 mg ONCE ONCE PO ; Start 08/02/16 at 23:00; Stop at 23:03; Status DC Lorazepam (Ativan) 0.5 mg ONCE ONCE PO ; Start 08/02/16 at 23:15; Stop at 23:16; Status DC A/P Assessment and Plan 31-year-old female with current IV drug use with heroin Metabolic encephalopathy/heroin overdose -resolved. Secondary to heroin overdose. Fever -May be due to heroin overdose versus infection. -Patient does have a new cardiac murmur. Pending Echo vegetation/endocarditis. Patient also received an MRI of her back which was all negative. Currently on Zyvox and Rocephin. -Blood cultures already obtained and 1 out of 4 positive for gram positive cocci. Patient is on Zyvox and Rocephin. She is allergic to vancomycin and clindamycin. -Consult infectious disease for possible bacteremia and endocarditis. Hypokalemia -Replenish when necessary. DVT prophylaxis -Lovenox. Discharge Planning Patient has 1 culture positive for gram-positive cocci. Will needs to continue with IV antibiotic since patient is high risk for infection due to IV drug use pending further workup. Ev Washington MD Aug 03, 2016 10:25
[2016-08-03] MEDS ORDERED: POTASSIUM CHLORIDE 10 MEQ CONTROLLED RELEASE TAB PO ONE (10:30)
[2016-08-03] MEDS ORDERED: MELATONIN 5 MG TAB PO PRN (10:30)
[2016-08-03 12:00] VITALS: BP 102/56; PULSE 75; RESP 18; TEMP 97.3; O2SAT 100
--- NOTE | 2016-08-03 12:32 | PD.ID.CON ---
History of Present Illness Service ID Consult Requested By Dr Van Reason for Consult bactermia Primary Care Physician No Primary Care Physician Diagnoses: History of Present Illness 31 yo F with active IVDU presented yday with fever of 103.3 and altered mental status. According to EMS the patient admitted on scene to taking some "stephenson heroin" by IV route earlier this morning. On arrival the patient was complaining of dental pain back pain abdominal pain nausea vomiting and shortness of breath as well as chest pain and was delirious and agitated She has lactic acidosis on arrival which she cleared and leukopenia ,now WBC up to 16K BC growing coag neg staph 02/21 reports allegic reaction to vancomycin in the form f hives she was started onzyvox and Rocephin She is afebrile for > 24 hrs CXR showed No acute disease. MRI entrire spine was negative Brain MRI with sinusitis SHe c/o "withdrawl" SHe is not very cooperative and prefers to dose off Yasmin does acknowledge to shareing needles occasionally KLAst HIV test negative in 2011 Review of Systems ROS Limitations: Poor Historian Past Family Social History Allergies: Coded Allergies: Clindamycin (Verified Allergy, Severe, Hives, 05/12/16) Toradol (Verified Allergy, Severe, Hives, 05/12/16) Vancomycin (Verified Allergy, Severe, Hives, 05/12/16) Past Medical History IVDU hx of MRSA infection Blood clot left arm 2016 at [facility] Past Surgical History none indicated Active Ordered Medications Medications where reviewed in EMR Antibiotics Include: CFTX zyvox Family History Mother - y/o 52 healthy Father - y/o 54 healthy Siblin brothers - healthy Social History IVDU Using IVD 2 years now, drug of choice heroin Methamphetamines for past 2 years No etoh use Tob - 2 cigarettes day Physical Exam Vital Signs Vital Signs Date Time Temp Pulse Resp B/P Pulse Ox O2 Delivery O2 Flow Rate FiO2 08/03/16 12:00 97.3 75 18 102/56 100 08/03/16 08:00 98.6 93 18 102/56 98 08/03/16 04:00 98.0 82 16 99/52 99 08/03/16 03:17 98 Room Air 08/03/16 00:00 98.0 81 16 97/55 98 08/02/16 21:32 97 08/02/16 20:45 99.8 103 20 107/56 99 08/02/16 20:04 103.3 102 14 110/60 99 Room Air 08/02/16 19:08 100 14 120/58 100 Room Air 08/02/16 18:00 108 16 106/57 99 Room Air 08/02/16 16:30 104 16 108/55 100 Room Air 08/02/16 13:30 110 15 116/68 100 Nasal Cannula 2 Physical Exam CONSTITUTIONAL/GENERAL: This is an adequately nourished patient, in no apparent distress. TUBES/LINES/DRAINS: SKIN: No jaundice, rashes, or lesions. Skin temperature appropriate. Not diaphoretic. HEAD: Atraumatic. Normocephalic. EYES: Pupils equal and round and reactive. Extraocular motions intact. No scleral icterus. No injection or drainage. Fundi not examined. ENT: Hearing grossly normal. Nose without bleeding or purulent drainage. Throat without visible erythema, exudates, masses, or lesions. NECK: Trachea midline. Supple, nontender. No palpable thyroid enlargement or nodularity. CARDIOVASCULAR: Regular rate and rhythm without murmurs, gallops, or rubs. No JVD. Peripheral pulses symmetric. RESPIRATORY/CHEST: Symmetric, unlabored respirations. Clear to auscultation. Breath sounds equal bilaterally. No wheezes, rales, or rhonchi. GASTROINTESTINAL: Abdomen soft, non-tender, nondistended. No hepato-splenomegaly , or palpable masses. No guarding. Bowel sounds present. GENITOURINARY: Without palpable bladder distension. MUSCULOSKELETAL: Extremities without clubbing, cyanosis, or edema. No joint tenderness or effusion noted. No calf tenderness. No mottling or clubbing. LYMPHATICS: No palpable cervical or supraclavicular adenopathy. NEUROLOGICAL:Sleepy but arousable. WHen awake is oriented x 3 . Motor and sensory grossly within normal limits. Follows commands. Clear speech. Moves all extremities. PSYCHIATRIC: No obvious anxiety/depression. calm Laboratory Laboratory Tests Test 08/02/16 08/02/16 08/03/16 17:00 20:00 07:59 Lactic Acid Level 1.1 Magnesium Level 1.4 2.0 White Blood Count 16.9 Red Blood Count 3.49 Hemoglobin 9.7 Hematocrit 28.8 Mean Corpuscular Volume 82.5 Mean Corpuscular Hemoglobin 27.6 Mean Corpuscular Hemoglobin 33.5 Concent Red Cell Distribution Width 14.8 Platelet Count 173 Mean Platelet Volume 9.5 Sodium Level 141 Potassium Level 3.1 Chloride Level 106 Carbon Dioxide Level 26.1 Anion Gap 9 Blood Urea Nitrogen 10 Creatinine 0.58 Estimat Glomerular Filtration 123 Rate Random Glucose 94 Calcium Level 8.0 Date/Time Procedure Status Source Growth 08/02/16 12:00 Urine Culture Received Urine Clean Catch Pending 08/02/16 11:00 Aerobic Blood Culture - Preliminary Resulted Blood Peripheral Staphylococcus Epidermidis 08/02/16 11:00 Anaerobic Blood Culture - Preliminary Resulted Blood Peripheral NO GROWTH IN 1 DAY Result Diagram: 08/03/16 0759 08/03/16 0759 Imaging Last Impressions Chest X-Ray 08/02/16 1030 Signed Impressions: Service Date/Time: July 10:31 - CONCLUSION: No acute disease. David Nam MD Thoracic Spine MRI 08/02/16 0000 Signed Impressions: Service Date/Time: July 13:45 - CONCLUSION: No acute disease. David Nam MD Lumbar Spine MRI 08/02/16 0000 Signed Impressions: Service Date/Time: July 13:45 - CONCLUSION: Normal examination. David Nam MD Cervical Spine MRI 08/02/16 0000 Signed Impressions: Service Date/Time: July 13:45 - CONCLUSION: No acute disease. No evidence of abscess, myelitis, discitis or osteomyelitis. David Nam MD Brain MRI 08/02/16 0000 Signed Impressions: Service Date/Time: July 13:45 - CONCLUSION: 1. Left frontal sinusitis. 2. The appearance of the brain parenchyma is unremarkable. No abnormal enhancement is identified. Librado Schwartz MD Assessment and Plan Assessment and Plan Fever in IVDU - fever resolved with abx - low grade bacteremia, 1/4 IVDU, presented with mental status change andf fever, both resolved - ? related to drugs Staph epi low grade bactermeia, doubt clin significance - no e/o endocarditis on PE, no septic emboli on High risk for HIV Puyria, ? UTI REC's: leukopenia on presentation, now leukocytosis dc zyvox if no more + BC MACARIO cont cefepime for now then change to levaquine after screened fro - repeat UA, C+S - 2 D echo Scarlet Power MD Aug 03, 2016 12:32
[2016-08-03] MEDS: LINEZOLID 600 MG PREMIX 300 ML IV SCH ×2 (12:33→22:55)
[2016-08-03] MEDS: DOCUSATE SODIUM 50 MG/SENNA 8.6 MG TAB PO SCH ×2 (12:33→21:00)
[2016-08-03 16:00] VITALS: BP 96/63; PULSE 82; RESP 20; TEMP 97.9; O2SAT 100
[2016-08-03 17:31] LABS: BETA HCG QUANT LESS THAN 1 MIU/ML (0-5)
--- NOTE | 2016-08-03 17:33 | ECHRPT ---
Indication: Endocarditis and heart valve disorders in diseases classified elsewhere CONCLUSIONS Normal left ventricular size and wall thickness. The left ventricular systolic function is normal wi th an estimated ejection fraction in the range of 60-65%. Left ventricular diastolic function parameters a re normal. Structurally normal tricuspid valve. There is mild tricuspid valve regurgitation. The estimated pulmonary arterial pressure is 36 mmHg. BP: 136 / 93 HR: 120 Rhythm: Sinus MEASUREMENTS (Male / Female) Normal Values Technical Quality:Good 2D ECHO LV Diastolic Diameter PLAX 4.6 cm 4.2 - 5.9 / 3.9 - 5.3 cm LV Systolic Diameter PLAX 3.3 cm IVS Diastolic Thickness 0.9 cm 0.6 - 1.0 / 0.6 - 0.9 cm LVPW Diastolic Thickness 0.9 cm 0.6 - 1.0 / 0.6 - 0.9 cm LV Relative Wall Thickness 0.4 LVOT Diameter 1.9 cm M-MODE Aortic Root Diameter MM 2.5 cm LA Systolic Diameter MM 3.0 cm LA Ao Ratio MM 1.2 AV Cusp Separation MM 2.3 cm DOPPLER AV Peak Velocity 185.0 cm/s AV Peak Gradient 13.7 mmHg LVOT Peak Velocity 135.0 cm/s LVOT Peak Gradient 7.3 mmHg AV Area Cont Eq pk 2.1 cm Mitral E Point Velocity 90.8 cm/s Mitral A Point Velocity 44.9 cm/s Mitral E to A Ratio 2.0 LV E' Lateral Velocity 18.5 cm/s Mitral E to LV E' Lateral Ratio 4.9 LV E' Septal Velocity 15.4 cm/s Mitral E to LV E' Septal Ratio 5.9 TR Peak Velocity 255.0 cm/s TR Peak Gradient 26.0 mmHg PV Peak Velocity 144.0 cm/s PV Peak Gradient 8.3 mmHg FINDINGS LEFT VENTRICLE Normal left ventricular size and wall thickness. The left ventricular systolic function is normal wi th an estimated ejection fraction in the range of 60-65%. Left ventricular diastolic function parameters a re normal. RIGHT VENTRICLE Normal right ventricular size and systolic function. LEFT ATRIUM The left atrial size is normal. RIGHT ATRIUM The right atrial size is normal. ATRIAL SEPTUM Normal atrial septal thickness without atrial level shunting by limited color doppler interrogation. AORTA The aortic root and proximal ascending aorta are normal in size on limited imaging. MITRAL VALVE Structurally normal mitral valve. No mitral valve stenosis or regurgitation. AORTIC VALVE Trileaflet aortic valve. No aortic valve stenosis or regurgitation. TRICUSPID VALVE Structurally normal tricuspid valve. There is mild tricuspid valve regurgitation. The estimated pulmonary arterial pressure is 36 mmHg. PULMONARY VALVE The pulmonary valve is not well visualized. VESSELS The inferior vena cava is normal in size. PERICARDIUM No pericardial effusion. Jalil Power MD, FACC, [facility] [place] (Electronically Signed) Final Date:03 August 2016 17:32
[2016-08-03] MEDS: ENOXAPARIN SODIUM 40 MG/0.4 ML SYRINGE SQ SCH (18:00)
[2016-08-03 20:00] VITALS: BP 104/59; PULSE 63; PULSE 74; RESP 16; TEMP 97.8; O2SAT 100
[2016-08-03] MEDS: cefTRIAXone INJ 1,000 MG in SODIUM CHLORIDE 0.9% INJ 100 ML IV SCH (22:00)
--- NOTE | 2016-08-03 22:58 | EKG ---
Date Performed: 08/02/2016 Time Performed: 10:36:32 PTAGE: 31 years EKG: SINUS TACHYCARDIA NONSPECIFIC ST & T-WAVE ABNORMALITY ABNORMAL RHYTHM ECG PREVIOUS TRACING : 04/18/2011 20.51 DOCTOR: Kavya Vargas Interpretating Date/Time 08/03/2016 22:58:12
[2016-08-04] VITALS (8 sets, daily range): BP systolic 97–113; BP diastolic 50–68; PULSE 50–99; RESP 16–20; TEMP 97.5–98.4; O2SAT 96–100
[2016-08-04] MEDS: DOCUSATE SODIUM 50 MG/SENNA 8.6 MG TAB PO SCH ×2 (08:28→19:44)
[2016-08-04] MEDS: SODIUM CHLORIDE 0.9% FLUSH 10 ML FLUSH IV FLUSH SCH ×2 (08:29→19:45)
[2016-08-04] MEDS: SODIUM CHLOR 0.9% 1000 ML INJ 1,000 ML IV SCH (08:29)
[2016-08-04] MEDS ORDERED: TETANUS IMMUNE GLOBULIN (HUMAN) 250 UNITS/ML SYRINGE IM ONE (10:45)
--- NOTE | 2016-08-04 10:51 | HHI.PR ---
Subjective Remarks f/u for ? infection patient stated she cannot speak because of she feels like her jaw wont open up. When I initially saw patient her mouth was shut closed but then I told her to open and close her mouth and she did it was no difficulty. other bermeo she had no complaints. When I left the room she began to yell stating "I can't close my jaw!" Patient later ran out her room hysterical. d/w patient's nurse who stated early this morning patient was talking normally and was able to open and close her mouth with no difficulty, otherwise patient remains afebrile. patient stated she last got her tetanus shot about 5 years ago. Objective Vitals Vital Signs Date Time Temp Pulse Resp B/P Pulse Ox O2 Delivery O2 Flow Rate FiO2 08/04/16 08:45 Room Air 08/04/16 08:00 98.0 99 18 106/68 99 08/04/16 04:00 Room Air 08/04/16 04:00 98.4 65 20 97/54 100 08/04/16 00:00 Room Air 08/04/16 00:00 97.9 71 16 113/60 99 08/03/16 22:00 Room Air 08/03/16 20:00 97.8 74 16 104/59 100 08/03/16 20:00 63 08/03/16 16:00 97.9 82 20 96/63 100 08/03/16 12:00 97.3 75 18 102/56 100 I/O 08/03/16 08/03/16 08/03/16 08/04/16 08/04/16 08/04/16 07:00 15:00 23:00 07:00 15:00 23:00 Intake Total 792 ml 1030 ml 1919 ml 1080 ml Output Total 1 ml Balance 792 ml 1029 ml 1919 ml 1080 ml Intake Oral 0 ml 1030 ml 720 ml 1080 ml IV Total 792 ml 1199 ml Output Stool Total 1 ml # Voids 2 2 2 6 # Bowel Movements 2 4 Result Diagram: 08/03/16 0759 08/03/16 0759 Objective Remarks GENERAL: In no acute distress. Laying in bed comfortably with her at her bedside. SKIN: Warm and dry. HEAD: Normocephalic. EYES: No scleral icterus. No injection or drainage. JAW: no muscle spasm noted and she was open to close and open mouth with no difficulty when I asked her to, but when I she would answered my questions she wouldnt close her mouth completely. Later when I came back to see patient since she was screaming patient would not close her mouth. no spasm noted. NECK: Supple, trachea midline. No JVD or lymphadenopathy. CARDIOVASCULAR: Regular rate and rhythm positive 4/6 systolic murmur. RESPIRATORY: Breath sounds equal bilaterally. No accessory muscle use. GASTROINTESTINAL: Abdomen soft, non-tender, nondistended. MUSCULOSKELETAL: No cyanosis, or edema. normal muscle tome. BACK: Nontender without obvious deformity. No CVA tenderness. Medications and IVs Current Medications Sodium Chloride 1,000 ml @ 1,000 mls/hr Q1H ONCE IV Last administered on 10:42; Start 08/02/16 at 10:30; Stop 08/02/16 at 11:29; Status DC Sodium Chloride 1,000 ml @ 1,000 mls/hr Q1H ONCE IV Last administered on 10:42; Start 08/02/16 at 10:30; Stop 08/02/16 at 11:29; Status DC Sodium Chloride (NS 1000 ml Inj) 400 ml @ 1,000 mls/hr Q24M ONCE IV Last administered on 08/02/16 10:42; Start 08/02/16 at 10:30; Stop 08/02/16 at 10:53 ; Status DC Lorazepam (Ativan Inj) 2 mg ONCE ONCE IV PUSH Last administered on 08/02/16 11:20; Start 08/02/16 at 11:30; Stop 08/02/16 at 11:31; Status DC Lorazepam 2 mg 2 mg STK-MED ONCE .ROUTE ; Start 08/02/16 at 11:17; Stop at 11:18; Status DC Linezolid 300 ml @ 300 mls/hr ONCE ONCE IV Last administered on 08/02/16 11: 38; Start 08/02/16 at 11:30; Stop 08/02/16 at 12:29; Status DC Cefepime HCl/ Sodium Chloride (Maxipime Inj/NS Inj) 100 ml @ 200 mls/hr ONCE ONCE IV Last administered on 08/02/16 12:11; Start 08/02/16 at 11:30; Stop at 11:59; Status DC Diphenhydramine HCl (Benadryl Inj) 25 mg ONCE ONCE IV PUSH ; Start 08/02/16 at 11:45; Stop 08/02/16 at 11:46; Status DC Haloperidol Lactate (Haldol Inj) 5 mg ONCE ONCE IM Last administered on 13:27; Start 08/02/16 at 11:45; Stop 08/02/16 at 11:46; Status DC Calcium Gluconate 1 gm 1 gm ONCE ONCE IV PUSH ; Start 08/02/16 at 13:30; Stop 08/02/16 at 13:31; Status UNV Magnesium Sulfate/ Dextrose 100 ml @ 100 mls/hr ONCE ONCE IV Last administered on 08/02/16 16:36; Start 08/02/16 at 14:00; Stop 08/02/16 at 14:59 ; Status DC Calcium Gluconate/ Sodium Chloride (Calcium Gluconate Inj/NS Inj) 110 ml @ 110 mls/hr ONCE ONCE IV Last administered on 08/02/16 16:38; Start 08/02/16 at 14 :00; Stop 08/02/16 at 14:59; Status DC Gadodiamide 10 ml 10 ml STK-MED ONCE IV Last administered on 08/02/16 14:37; Start 08/02/16 at 14:37; Stop 08/02/16 at 14:38; Status DC Sodium Chloride (NS 1000 ml Inj) 1,000 ml @ 100 mls/hr Q10H IV Last administered on 08/04/16 08:29; Start 08/02/16 at 16:00 Sodium Chloride (NS Flush) 2 ml UNSCH PRN IV FLUSH FLUSH AFTER USING IV ACCESS ; Start 08/02/16 at 15:45 Sodium Chloride (NS Flush) 2 ml BID IV FLUSH Last administered on 08/04/16 08: 29; Start 08/02/16 at 21:00 Ondansetron HCl (Zofran Inj) 4 mg Q6H PRN IVP NAUSEA OR VOMITING; Start at 15:45 Naloxone HCl (Narcan Inj) 0.4 mg UNSCH PRN IV SEE LABEL COMMENTS; Start at 15:45 Senna/Docusate Sodium (Dede-Colace) 1 tab BID PO Last administered on 12:33; Start 08/02/16 at 21:00 Magnesium Hydroxide (Milk Of Magnmaria m Liq) 30 ml Q12H PRN PO MILD - MODERATE CONSTIPATION; Start 08/02/16 at 15:45 Sennosides (Senokot) 17.2 mg Q12H PRN PO MODERATE - SEVERE CONSTIPATION; Start 08/02/16 at 15:45 Bisacodyl (Dulcolax Supp) 10 mg DAILY PRN RECTAL SEVERE CONSITIPATION; Start at 15:45 Lactulose 30 ml 30 ml DAILY PRN PO SEVERE CONSITIPATION; Start 08/02/16 at 15: 45 Ceftriaxone Sodium 1000 mg/ Sodium Chloride 100 ml @ 200 mls/hr Q24H IV Last administered on 08/03/16 22:00; Start 08/02/16 at 22:00; Stop 08/04/16 at 11:15 ; Status DC Linezolid (Zyvox 600 Mg Premix) 300 ml @ 300 mls/hr Q12H IV Last administered on 08/03/16 22:55; Start 08/02/16 at 23:00; Stop 08/04/16 at 11:15; Status DC Enoxaparin Sodium 40 mg 40 mg Q24H SQ Last administered on 08/02/16 18:18; Start 08/02/16 at 18:00 Magnesium Sulfate/ Dextrose (Magnesium Sulfate 1 Gm Premix) 100 ml @ 100 mls/ hr ONCE ONCE IV Last administered on 08/03/16 01:10; Start 08/02/16 at 23:00 ; Stop 08/02/16 at 23:59; Status DC Acetaminophen (Tylenol) 650 mg ONCE ONCE PO ; Start 08/02/16 at 23:00; Stop at 23:03; Status DC Lorazepam (Ativan) 0.5 mg ONCE ONCE PO ; Start 08/02/16 at 23:15; Stop at 23:16; Status DC Potassium Chloride (KCl) 30 meq ONCE ONCE PO Last administered on 08/03/16 12 :33; Start 08/03/16 at 10:30; Stop 08/03/16 at 13:44; Status DC Acetaminophen (Tylenol) 500 mg Q6H PRN PO pain 1-10; Start 08/03/16 at 10:30 Melatonin (Melatonin) 5 mg HS PRN PO insomnia; Start 08/03/16 at 10:30 Loperamide HCl 2 mg 2 mg Q4H PRN PO diarrhea; Start 08/04/16 at 09:30 Metronidazole (Flagyl 500 Mg Inj) 100 ml @ 100 mls/hr Q6H IV Last administered on 08/04/16 11:00; Start 08/04/16 at 11:00 Tetanus Immune Globulin (Hypertet S/D) 1,000 units ONCE ONCE IM Last administered on 08/04/16 11:14; Start 08/04/16 at 10:45; Stop 08/04/16 at 10:46 ; Status DC Lorazepam (Ativan Inj) 1 mg Q6H PRN IV PUSH anxiety Last administered on 11:00; Start 08/04/16 at 10:45 Tetanus/ Diphtheria Toxoids 0.5 ml 0.5 ml ONCE ONCE IM Last administered on 11:15; Start 08/04/16 at 11:00; Stop 08/04/16 at 11:01; Status DC Levofloxacin/ Dextrose (Levaquin 500 Mg Premix Inj) 100 ml @ 100 mls/hr Q24H IV ; Start 08/04/16 at 12:00 A/P Assessment and Plan 31-year-old female with current IV drug use with heroin Metabolic encephalopathy -resolved. urine drug screen negative. -per patient she was using heroin. Fever -May be due to heroin overdose versus infection. -Patient does have a new cardiac murmur. Pending Echo negative which suggest most likely flow murmur. Patient also received an MRI of her back which was all negative. d/c Zyvox and Rocephin today. -Blood cultures already obtained and 1 out of 4 positive for s/p staph epidermitis which most likely containment. -+ UTI so started on levaquin. -ID ff. ? lock jaw -symptoms were abrupt and not consistent -able to talk in morning and move jaw then quickly cannot move jaw. patient tone is normal. no spasm noted on exam. -? psych vs tetanus -? tdap about 5 years ago. -since patient high risk due to IVDU she is being treated empirically for tetanus by ID. patient on Flagyl IV, TDAP immunization today, and tetanus immunoglobulin. Hypokalemia -Replenish when necessary. anxiety/depression -noted in EMR. -patient not on any medication. -will give ativan PRN. DVT prophylaxis -Lovenox. Discharge Planning treating empirically for tetanus Ev Washington MD Aug 04, 2016 10:51
[2016-08-04] MEDS: LORazepam 2 MG/ML VIAL IV PUSH PRN ×3 (11:00→23:09)
[2016-08-04] MEDS ORDERED: TETANUS/DIPHTHERIA TOXOID ADULT 0.5 ML VIAL IM ONE (11:00)
[2016-08-04] MEDS: metroNIDAZOLE 500 MG INJ 100 ML IV SCH ×3 (11:00→22:19)
--- NOTE | 2016-08-04 11:13 | HHI.IDPN ---
Subjective Subjective Remarks pt is co sever jaw lock , spasm unable to close her mouth at all drooling crying on the floor from pain Last tetanus shot unknown per records, pt thinks 5 yrs or so Uses R FA for injections no fever Antibiotics zyvox cftx Allergies: Coded Allergies: Clindamycin (Verified Allergy, Severe, Hives, 05/12/16) Toradol (Verified Allergy, Severe, Hives, 05/12/16) Vancomycin (Verified Allergy, Severe, Hives, 05/12/16) Objective . Vital Signs Date Time Temp Pulse Resp B/P Pulse Ox O2 Delivery O2 Flow Rate FiO2 08/04/16 08:45 Room Air 08/04/16 08:00 98.0 99 18 106/68 99 08/04/16 04:00 Room Air 08/04/16 04:00 98.4 65 20 97/54 100 08/04/16 00:00 Room Air 08/04/16 00:00 97.9 71 16 113/60 99 08/03/16 22:00 Room Air 08/03/16 20:00 97.8 74 16 104/59 100 08/03/16 20:00 63 08/03/16 16:00 97.9 82 20 96/63 100 08/03/16 12:00 97.3 75 18 102/56 100 08/03/16 08/03/16 08/04/16 15:00 23:00 07:00 Intake Total 1030 ml 1919 ml 1080 ml Output Total 1 ml Balance 1029 ml 1919 ml 1080 ml Intake Oral 1030 ml 720 ml 1080 ml IV Total 1199 ml Output Stool Total 1 ml # Voids 2 2 6 # Bowel Movements 2 4 . Laboratory Tests Test 08/03/16 07:59 White Blood Count 16.9 TH/MM3 Red Blood Count 3.49 MIL/MM3 Hemoglobin 9.7 GM/DL Hematocrit 28.8 % Mean Corpuscular Volume 82.5 FL Mean Corpuscular Hemoglobin 27.6 PG Mean Corpuscular Hemoglobin 33.5 % Concent Red Cell Distribution Width 14.8 % Platelet Count 173 TH/MM3 Mean Platelet Volume 9.5 FL Laboratory Tests Test 08/02/16 08/02/16 08/03/16 08/03/16 17:00 20:00 07:59 16:13 Lactic Acid Level 1.1 mmol/L Magnesium Level 1.4 MG/DL 2.0 MG/DL Sodium Level 141 MEQ/L Potassium Level 3.1 MEQ/L Chloride Level 106 MEQ/L Carbon Dioxide Level 26.1 MEQ/L Anion Gap 9 MEQ/L Blood Urea Nitrogen 10 MG/DL Creatinine 0.58 MG/DL Estimat Glomerular Filtration 123 ML/MIN Rate Random Glucose 94 MG/DL Calcium Level 8.0 MG/DL Human Chorionic Gonadotropin, LESS THAN 1 Quant MIU/ML Microbiology Date/Time Procedure Status Source Growth 08/02/16 10:25 Aerobic Blood Culture - Preliminary Resulted Blood Peripheral NO GROWTH IN 1 DAY 08/02/16 10:25 Anaerobic Blood Culture - Preliminary Resulted Blood Peripheral NO GROWTH IN 1 DAY 08/02/16 11:00 Aerobic Blood Culture - Preliminary Resulted Blood Peripheral Staphylococcus Epidermidis 08/02/16 11:00 Anaerobic Blood Culture - Preliminary Resulted Blood Peripheral NO GROWTH IN 1 DAY 08/02/16 12:00 Urine Culture - Final Complete Urine Clean Catch 50-100,000 CFU/ML MIXED CORAL... Imaging Last Impressions Chest X-Ray 08/02/16 1030 Signed Impressions: Service Date/Time: July 10:31 - CONCLUSION: No acute disease. David Nam MD Thoracic Spine MRI 08/02/16 0000 Signed Impressions: Service Date/Time: July 13:45 - CONCLUSION: No acute disease. David Nam MD Lumbar Spine MRI 08/02/16 0000 Signed Impressions: Service Date/Time: July 13:45 - CONCLUSION: Normal examination. David Nam MD Cervical Spine MRI 08/02/16 0000 Signed Impressions: Service Date/Time: July 13:45 - CONCLUSION: No acute disease. No evidence of abscess, myelitis, discitis or osteomyelitis. David Nam MD Brain MRI 08/02/16 0000 Signed Impressions: Service Date/Time: July 13:45 - CONCLUSION: 1. Left frontal sinusitis. 2. The appearance of the brain parenchyma is unremarkable. No abnormal enhancement is identified. Librado Schwartz MD Physical Exam CONSTITUTIONAL/GENERAL: This is an adequately nourished patient, in major distress.2/2 paulie and inability to close her mouth TUBES/LINES/DRAINS: SKIN: No jaundice, rashes, or lesions. Skin temperature appropriate. Not diaphoretic. HEAD: Atraumatic. Normocephalic. EYES: Pupils equal and round and reactive. Extraocular motions intact. No scleral icterus. No injection or drainage. Fundi not examined. ENT: Jaw wide open unable to close, muscles firm Throat without visible erythema, exudates, masses, or lesions. Drooling Teeth w/o acute infx NECK: Trachea midline. Supple, nontender. CARDIOVASCULAR: Regular rate and rhythm without murmurs, gallops, or rubs. No JVD. Peripheral pulses symmetric. RESPIRATORY/CHEST: Symmetric, unlabored respirations. Clear to auscultation. Breath sounds equal bilaterally. No wheezes, rales, or rhonchi. GASTROINTESTINAL: Abdomen soft, non-tender, nondistended. No hepato-splenomegaly , or palpable masses. No guarding. Bowel sounds present. MUSCULOSKELETAL: Extremities without clubbing, cyanosis, or edema. No joint tenderness or effusion noted. No calf tenderness. No mottling or clubbing. NEUROLOGICAL fully awake and alert . Motor and sensory grossly within normal limits. Follows commands. Speech is markedly slurred . Moves all extremities. PSYCHIATRIC: Agitated, Assessment & Plan Remarks Fever in IVDU - fever resolved with abx - low grade bacteremia, 1/4 IVDU, presented with mental status change andf fever, both resolved - ? related to drugs Staph epi low grade bactermeia, doubt clin significance - no e/o endocarditis on PE, no septic emboli on - 2 D echo negative High risk for HIV Puyria, ? UTI Jaw lock ? tetauns risk factor: IV heroin use reports last booster 5 yrs, no record confirmation REC's: leukopenia on presentation, now leukocytosis dc zyvox if no more + BC MACARIO dc cefepime start levaquine for UTI - repeat UA, C+S start IV flagyl Tetanus immunoglobulin + booster - observe for respp issue dw RN dw pharmacist Scarlet Macdonald Dr, MD Aug 04, 2016 11:13
[2016-08-04 12:30] LABS: AUTOMATED NEUTROPHIL # 11.1 TH/MM3 (1.8-7.7); BASOPHIL % 0.1 % (0.0-2.0); EOSINOPHIL % 0.1 % (0.0-4.0); HEMO FLAGS DIFF FINAL; LYMPH % 8.9 % (9.0-44.0); LYMPHOCYTE # 1.1 TH/MM3 (1.0-4.8); MEAN CELL VOLUME 83.5 FL (80.0-100.0); MEAN CORPUSCULAR HEMOGLOBIN 27.4 PG (27.0-34.0); MEAN CORPUSCULAR HGB CONC 32.8 % (32.0-36.0); MONO % 2.9 % (0.0-8.0); PLATELET COUNT 191 TH/MM3 (150-450); RED BLOOD COUNT 3.96 MIL/MM3 (4.00-5.30); RED CELL DISTRIBUTION WIDTH 14.7 % (11.6-17.2); WHITE BLOOD COUNT 12.5 TH/MM3 (4.0-11.0)
[2016-08-04 12:50] LABS: ALT (GPT) 43 U/L (10-53); ANION GAP 6 MEQ/L (5-15); AST (GOT) 38 U/L (15-37); BICARBONATE 29.6 MEQ/L (21.0-32.0); BLOOD UREA NITROGEN 7 MG/DL (7-18); CHLORIDE 107 MEQ/L (98-107); GLOMERULAR FILTRATION RATE 121 ML/MIN (>89); POTASSIUM 3.3 MEQ/L (3.5-5.1); SODIUM (NA) 143 MEQ/L (136-145)
[2016-08-04 12:54] LABS: ALKALINE PHOSPHATASE 149 U/L (45-117); CREATINE KINASE 140 U/L (26-192); TOTAL BILIRUBIN ADULT 0.2 MG/DL (0.2-1.0)
[2016-08-04] MEDS: LEVOFLOXACIN 500 MG PREMIX INJ 100 ML IV SCH (13:47)
[2016-08-04] MEDS: LOPERAMIDE HCL 2 MG CAP PO PRN (13:50)
[2016-08-04] MEDS: ACETAMINOPHEN 500 MG CPLT PO PRN ×2 (13:53→19:44)
[2016-08-04] MEDS ORDERED: POTASSIUM CHLORIDE 10 MEQ CONTROLLED RELEASE TAB PO ONE (14:00)
[2016-08-04] MEDS: CALCIUM CARBONATE 500 MG CHEWABLE TAB CHEW SCH ×2 (16:02→18:00)
[2016-08-04] MEDS: ENOXAPARIN SODIUM 40 MG/0.4 ML SYRINGE SQ SCH (17:06)
[2016-08-05] VITALS: BP 132/58; PULSE 70; RESP 16; TEMP 97.9; O2SAT 100
[2016-08-05 04:00] VITALS: BP 118/69; PULSE 69; RESP 16; TEMP 98; O2SAT 100
[2016-08-05] MEDS: metroNIDAZOLE 500 MG INJ 100 ML IV SCH ×2 (04:48→10:37)
[2016-08-05] MEDS: LORazepam 2 MG/ML VIAL IV PUSH PRN ×2 (04:48→11:26)
[2016-08-05 08:00] VITALS: BP 122/60; PULSE 65; RESP 20; TEMP 98.3; O2SAT 98
[2016-08-05] MEDS: DOCUSATE SODIUM 50 MG/SENNA 8.6 MG TAB PO SCH (08:06)
[2016-08-05] MEDS: ACETAMINOPHEN 500 MG CPLT PO PRN (08:10)
[2016-08-05] MEDS: CALCIUM CARBONATE 500 MG CHEWABLE TAB CHEW SCH ×2 (08:10→12:43)
[2016-08-05] MEDS: LOPERAMIDE HCL 2 MG CAP PO PRN (08:10)
[2016-08-05] MEDS: SODIUM CHLORIDE 0.9% FLUSH 10 ML FLUSH IV FLUSH SCH (08:10)
[2016-08-05 08:14] VITALS: PULSE 68
--- NOTE | 2016-08-05 10:10 | HHI.PR ---
Subjective Remarks Follow-up for shaw Patient stated that her shaw went away last night. She has no complaints she. She stated that her jaw is normal now and she is able to talk without any difficulty. Patient remains afebrile. Her was at the bedside also had no complaints. Objective Vitals Vital Signs Date Time Temp Pulse Resp B/P Pulse Ox O2 Delivery O2 Flow Rate FiO2 08/05/16 08:14 Room Air 08/05/16 08:14 68 08/05/16 08:00 98.3 65 20 122/60 98 08/05/16 04:00 Room Air 08/05/16 04:00 98.0 69 16 118/69 100 08/05/16 00:00 Room Air 08/05/16 00:00 97.9 70 16 132/58 100 08/04/16 20:00 Room Air 08/04/16 20:00 97.5 79 16 105/58 100 08/04/16 19:57 57 08/04/16 16:00 98.0 50 18 113/67 100 08/04/16 16:00 Room Air 08/04/16 12:00 Room Air 08/04/16 12:00 97.9 72 20 100/50 99 I/O 08/04/16 08/04/16 08/04/16 08/05/16 08/05/16 08/05/16 07:00 15:00 23:00 07:00 15:00 23:00 Intake Total 1080 ml 816 ml 720 ml 960 ml Balance 1080 ml 816 ml 720 ml 960 ml Intake Oral 1080 ml 360 ml 720 ml 960 ml IV Total 456 ml # Voids 6 4 3 4 # Bowel Movements 4 3 4 3 Result Diagram: 08/04/16 1148 08/04/16 1141 Objective Remarks GENERAL: In no acute distress. sleeping in bed, but when I woke her up she answers questions but keeps her eyes closed. SKIN: Warm and dry. HEAD: Normocephalic. EYES: No scleral icterus. No injection or drainage. JAW: No spasms noted in the jaw. Patient has full range of motion. NECK: Supple, trachea midline. No JVD or lymphadenopathy. CARDIOVASCULAR: Regular rate and rhythm positive 4/6 systolic murmur. RESPIRATORY: Breath sounds equal bilaterally. No accessory muscle use. GASTROINTESTINAL: Abdomen soft, non-tender, nondistended. MUSCULOSKELETAL: No cyanosis, or edema. normal muscle tome. BACK: Nontender without obvious deformity. No CVA tenderness. Medications and IVs Current Medications Sodium Chloride 1,000 ml @ 1,000 mls/hr Q1H ONCE IV Last administered on 10:42; Start 08/02/16 at 10:30; Stop 08/02/16 at 11:29; Status DC Sodium Chloride 1,000 ml @ 1,000 mls/hr Q1H ONCE IV Last administered on 10:42; Start 08/02/16 at 10:30; Stop 08/02/16 at 11:29; Status DC Sodium Chloride (NS 1000 ml Inj) 400 ml @ 1,000 mls/hr Q24M ONCE IV Last administered on 08/02/16 10:42; Start 08/02/16 at 10:30; Stop 08/02/16 at 10:53 ; Status DC Lorazepam (Ativan Inj) 2 mg ONCE ONCE IV PUSH Last administered on 08/02/16 11:20; Start 08/02/16 at 11:30; Stop 08/02/16 at 11:31; Status DC Lorazepam 2 mg 2 mg STK-MED ONCE .ROUTE ; Start 08/02/16 at 11:17; Stop at 11:18; Status DC Linezolid 300 ml @ 300 mls/hr ONCE ONCE IV Last administered on 08/02/16 11: 38; Start 08/02/16 at 11:30; Stop 08/02/16 at 12:29; Status DC Cefepime HCl/ Sodium Chloride (Maxipime Inj/NS Inj) 100 ml @ 200 mls/hr ONCE ONCE IV Last administered on 08/02/16 12:11; Start 08/02/16 at 11:30; Stop at 11:59; Status DC Diphenhydramine HCl (Benadryl Inj) 25 mg ONCE ONCE IV PUSH ; Start 08/02/16 at 11:45; Stop 08/02/16 at 11:46; Status DC Haloperidol Lactate (Haldol Inj) 5 mg ONCE ONCE IM Last administered on 13:27; Start 08/02/16 at 11:45; Stop 08/02/16 at 11:46; Status DC Calcium Gluconate 1 gm 1 gm ONCE ONCE IV PUSH ; Start 08/02/16 at 13:30; Stop 08/02/16 at 13:31; Status UNV Magnesium Sulfate/ Dextrose 100 ml @ 100 mls/hr ONCE ONCE IV Last administered on 08/02/16 16:36; Start 08/02/16 at 14:00; Stop 08/02/16 at 14:59 ; Status DC Calcium Gluconate/ Sodium Chloride (Calcium Gluconate Inj/NS Inj) 110 ml @ 110 mls/hr ONCE ONCE IV Last administered on 08/02/16 16:38; Start 08/02/16 at 14 :00; Stop 08/02/16 at 14:59; Status DC Gadodiamide 10 ml 10 ml STK-MED ONCE IV Last administered on 08/02/16 14:37; Start 08/02/16 at 14:37; Stop 08/02/16 at 14:38; Status DC Sodium Chloride (NS 1000 ml Inj) 1,000 ml @ 100 mls/hr Q10H IV Last administered on 08/04/16 08:29; Start 08/02/16 at 16:00; Stop 08/04/16 at 14:56 ; Status DC Sodium Chloride (NS Flush) 2 ml UNSCH PRN IV FLUSH FLUSH AFTER USING IV ACCESS ; Start 08/02/16 at 15:45 Sodium Chloride (NS Flush) 2 ml BID IV FLUSH Last administered on 08/05/16 08: 10; Start 08/02/16 at 21:00 Ondansetron HCl (Zofran Inj) 4 mg Q6H PRN IVP NAUSEA OR VOMITING; Start at 15:45 Naloxone HCl (Narcan Inj) 0.4 mg UNSCH PRN IV SEE LABEL COMMENTS; Start at 15:45 Senna/Docusate Sodium (Dede-Colace) 1 tab BID PO Last administered on 19:44; Start 08/02/16 at 21:00 Magnesium Hydroxide (Milk Of Magnesia Liq) 30 ml Q12H PRN PO MILD - MODERATE CONSTIPATION; Start 08/02/16 at 15:45 Sennosides (Senokot) 17.2 mg Q12H PRN PO MODERATE - SEVERE CONSTIPATION; Start 08/02/16 at 15:45 Bisacodyl (Dulcolax Supp) 10 mg DAILY PRN RECTAL SEVERE CONSITIPATION; Start at 15:45 Lactulose 30 ml 30 ml DAILY PRN PO SEVERE CONSITIPATION; Start 08/02/16 at 15: 45 Ceftriaxone Sodium 1000 mg/ Sodium Chloride 100 ml @ 200 mls/hr Q24H IV Last administered on 08/03/16 22:00; Start 08/02/16 at 22:00; Stop 08/04/16 at 11:15 ; Status DC Linezolid (Zyvox 600 Mg Premix) 300 ml @ 300 mls/hr Q12H IV Last administered on 08/03/16 22:55; Start 08/02/16 at 23:00; Stop 08/04/16 at 11:15; Status DC Enoxaparin Sodium 40 mg 40 mg Q24H SQ Last administered on 08/04/16 17:06; Start 08/02/16 at 18:00 Magnesium Sulfate/ Dextrose (Magnesium Sulfate 1 Gm Premix) 100 ml @ 100 mls/ hr ONCE ONCE IV Last administered on 08/03/16 01:10; Start 08/02/16 at 23:00 ; Stop 08/02/16 at 23:59; Status DC Acetaminophen (Tylenol) 650 mg ONCE ONCE PO ; Start 08/02/16 at 23:00; Stop at 23:03; Status DC Lorazepam (Ativan) 0.5 mg ONCE ONCE PO ; Start 08/02/16 at 23:15; Stop at 23:16; Status DC Potassium Chloride (KCl) 30 meq ONCE ONCE PO Last administered on 08/03/16 12 :33; Start 08/03/16 at 10:30; Stop 08/03/16 at 13:44; Status DC Acetaminophen (Tylenol) 500 mg Q6H PRN PO pain 1-10 Last administered on 08:10; Start 08/03/16 at 10:30 Melatonin (Melatonin) 5 mg HS PRN PO insomnia Last administered on 08/04/16 23 :08; Start 08/03/16 at 10:30 Loperamide HCl 2 mg 2 mg Q4H PRN PO diarrhea Last administered on 08/05/16 08: 10; Start 08/04/16 at 09:30 Metronidazole (Flagyl 500 Mg Inj) 100 ml @ 100 mls/hr Q6H IV Last administered on 08/05/16 04:48; Start 08/04/16 at 11:00 Tetanus Immune Globulin (Hypertet S/D) 1,000 units ONCE ONCE IM Last administered on 08/04/16 11:14; Start 08/04/16 at 10:45; Stop 08/04/16 at 10:46 ; Status DC Lorazepam (Ativan Inj) 1 mg Q6H PRN IV PUSH anxiety Last administered on 04:48; Start 08/04/16 at 10:45 Tetanus/ Diphtheria Toxoids 0.5 ml 0.5 ml ONCE ONCE IM Last administered on 11:15; Start 08/04/16 at 11:00; Stop 08/04/16 at 11:01; Status DC Levofloxacin/ Dextrose (Levaquin 500 Mg Premix Inj) 100 ml @ 100 mls/hr Q24H IV Last administered on 08/04/16 13:47; Start 08/04/16 at 12:00 Calcium Carbonate (Tums Chew) 500 mg TID CHEW Last administered on 08/05/16 08 :10; Start 08/04/16 at 14:00 Potassium Chloride (KCl) 30 meq ONCE ONCE PO Last administered on 08/04/16 16 :03; Start 08/04/16 at 14:00; Stop 08/04/16 at 14:03; Status DC A/P Assessment and Plan 31-year-old female with current IV drug use with heroin Metabolic encephalopathy -resolved. urine drug screen negative. -per patient she was using heroin but urine drug screen is negative. Fever -May be due to heroin overdose versus infection. -Patient does have a new cardiac murmur. Echo negative which suggest most likely flow murmur. Patient also received an MRI of her back which was all negative. d/c Zyvox and Rocephin om 08/04 -Blood cultures already obtained and 1 out of 4 positive for s/p staph epidermitis which most likely containment. -+ UTI so on levaquin. -ID ff. ? lock jaw -? psych -symptoms were abrupt and not consistent. Resolved last night. -Patient was treated empirically for tetanus by infectious disease. She was given tetanus immunoglobulin and T2. Patients on Flagyl. -Symptoms resolved. Pending recommendations from infectious disease. Hypokalemia -Replenish when necessary. anxiety/depression -noted in EMR. -patient not on any medication. - ativan PRN. DVT prophylaxis -Lovenox. Discharge Planning At the moment patient is asymptomatic. She is being treated empirically for tetanus. Ev Washington MD Aug 05, 2016 10:10
[2016-08-05 12:00] VITALS: BP 120/61; PULSE 68; RESP 20; TEMP 98.1; O2SAT 95
[2016-08-05 12:17] LABS: AUTOMATED NEUTROPHIL # 5.6 TH/MM3 (1.8-7.7); BASOPHIL % 0.4 % (0.0-2.0); EOSINOPHIL % 0.1 % (0.0-4.0); HEMATOCRIT 33.5 % (35.0-46.0); HEMO FLAGS AUTO DIFF; LYMPH % 21.3 % (9.0-44.0); LYMPHOCYTE # 1.6 TH/MM3 (1.0-4.8); MEAN CELL VOLUME 86.2 FL (80.0-100.0); MEAN CORPUSCULAR HEMOGLOBIN 27.5 PG (27.0-34.0); MEAN CORPUSCULAR HGB CONC 31.9 % (32.0-36.0); MONO % 3.8 % (0.0-8.0); NEUT % 74.4 % (16.0-70.0); PLATELET COUNT 196 TH/MM3 (150-450); RED BLOOD COUNT 3.88 MIL/MM3 (4.00-5.30); RED CELL DISTRIBUTION WIDTH 15.1 % (11.6-17.2); WHITE BLOOD COUNT 7.5 TH/MM3 (4.0-11.0)
[2016-08-05 12:33] LABS: BANDS 4 % (0-6); MYELOCYTES 1 % (0-0); NEUTROPHIL # MANUAL DIFF 5.9 TH/MM3 (1.8-7.7); POLYS (SEG NEUTROPHILS) 73 % (16-70); WBC DIFF SAMPLE 100
[2016-08-05 12:35] LABS: SCAN/DIFF FINAL DIFF MANUAL
[2016-08-05 12:37] LABS: BICARBONATE 27.5 MEQ/L (21.0-32.0); POTASSIUM 3.7 MEQ/L (3.5-5.1)
[2016-08-05] MEDS: LEVOFLOXACIN 500 MG PREMIX INJ 100 ML IV SCH (12:42)
[2016-08-05] MEDS ORDERED: METR-1 PO (15:04)
--- NOTE | 2016-08-05 15:07 | HHI.DCPOC ---
Discharge Care Plan Diagnosis: (1) Metabolic encephalopathy (2) jaw locked Goals to Promote Your Health * To prevent worsening of your condition and complications * To maintain your health at the optimal level Directions to Meet Your Goals Take your medications as prescribed Follow your dietary instruction Follow activity as directed Keep your appointments as scheduled Take your immunizations and boosters as scheduled If your symptoms worsen call your PCP, if no PCP go to Urgent Care Center or Emergency Room Smoking is Dangerous to Your Health. Avoid second hand smoke Call the 24-hour hour crisis hotline for domestic abuse at Ev Washington MD Aug 05, 2016 15:07
--- NOTE | 2016-08-05 15:11 | HHI.DS ---
Discharge Summary Admission Date Aug 02, 2016 at 14:02 Discharge Date: Aug 05, 2016 Admitting Diagnosis Sepsis (1) Metabolic encephalopathy ICD Code: G93.41 Diagnosis: Principal (2) jaw locked Diagnosis: Principal (3) Anxiety ICD Code: F41.9 Diagnosis: Principal (4) Heroin abuse ICD Code: F11.10 Diagnosis: Principal Procedures see hospital course Brief History - From Admission 31-year-old female with history of poly-substance abuse and IV drug use drug of choice is heroin who presented with heroin overdose. Patient is at the bedside. Patient's stated that symptoms started about 1 hour after she used heroine through an IV. He stated otherwise she's been relatively healthy. Patient's stated that the past few days she has been fatigued and thought it was because she was withdrawing. He stated that patient did not complain of any fevers or chills. She did complain of lower back pain. Otherwise he stated that she's been relatively normal. Patient was initially admitted to the [facility] care physician but since she showed improvement in the emergency department she was downgraded. Patient was given Zyvox and cefepime in emergency department. She was also given multiple boluses in the emergency department. This improved her tachycardia. CBC/BMP: 08/05/16 1201 08/05/16 1201 Significant Findings Laboratory Tests Test 08/02/16 08/03/16 08/04/16 08/04/16 20:00 07:59 11:41 11:48 Magnesium Level 1.4 MG/DL (1.5-2.5) White Blood Count 16.9 TH/MM3 12.5 TH/MM3 (4.0-11.0) (4.0-11.0) Red Blood Count 3.49 MIL/MM3 3.96 MIL/MM3 (4.00-5.30) (4.00-5.30) Hemoglobin 9.7 GM/DL 10.8 GM/DL (11.6-15.3) (11.6-15.3) Hematocrit 28.8 % 33.0 % (35.0-46.0) (35.0-46.0) Potassium Level 3.1 MEQ/L 3.3 MEQ/L (3.5-5.1) (3.5-5.1) Calcium Level 8.0 MG/DL 8.4 MG/DL (8.5-10.1) (8.5-10.1) Random Glucose 113 MG/DL (74-106) Aspartate Amino Transf 38 U/L (15-37) (AST/SGOT) Alkaline Phosphatase 149 U/L (45-117) Albumin 2.9 GM/DL (3.4-5.0) Neutrophils (%) (Auto) 88.0 % (16.0-70.0) Lymphocytes (%) (Auto) 8.9 % (9.0-44.0) Neutrophils # (Auto) 11.1 TH/MM3 (1.8-7.7) Test 08/05/16 12:01 Red Blood Count 3.88 MIL/MM3 (4.00-5.30) Hemoglobin 10.7 GM/DL (11.6-15.3) Hematocrit 33.5 % (35.0-46.0) Mean Corpuscular Hemoglobin 31.9 % Concent (32.0-36.0) Neutrophils (%) (Auto) 74.4 % (16.0-70.0) Neutrophils % (Manual) 73 % (16-70) Myelocytes 1 % (0-0) Chloride Level 108 MEQ/L (98-107) Blood Urea Nitrogen 3 MG/DL (7-18) Calcium Level 8.3 MG/DL (8.5-10.1) Imaging Last Impressions Chest X-Ray 08/02/16 1030 Signed Impressions: Service Date/Time: July 10:31 - CONCLUSION: No acute disease. David Nam MD Thoracic Spine MRI 08/02/16 0000 Signed Impressions: Service Date/Time: July 13:45 - CONCLUSION: No acute disease. David Nam MD Lumbar Spine MRI 08/02/16 0000 Signed Impressions: Service Date/Time: July 13:45 - CONCLUSION: Normal examination. David Nam MD Cervical Spine MRI 08/02/16 0000 Signed Impressions: Service Date/Time: July 13:45 - CONCLUSION: No acute disease. No evidence of abscess, myelitis, discitis or osteomyelitis. David Nam MD Brain MRI 08/02/16 0000 Signed Impressions: Service Date/Time: July 13:45 - CONCLUSION: 1. Left frontal sinusitis. 2. The appearance of the brain parenchyma is unremarkable. No abnormal enhancement is identified. Librado Schwartz MD PE at Discharge GENERAL: In no acute distress. sleeping in bed, but when I woke her up she answers questions but keeps her eyes closed. SKIN: Warm and dry. HEAD: Normocephalic. EYES: No scleral icterus. No injection or drainage. JAW: No spasms noted in the jaw. Patient has full range of motion. NECK: Supple, trachea midline. No JVD or lymphadenopathy. CARDIOVASCULAR: Regular rate and rhythm positive 4/6 systolic murmur. RESPIRATORY: Breath sounds equal bilaterally. No accessory muscle use. GASTROINTESTINAL: Abdomen soft, non-tender, nondistended. MUSCULOSKELETAL: No cyanosis, or edema. normal muscle tome. BACK: Nontender without obvious deformity. No CVA tenderness. Hospital Course 31-year-old female with current IV drug use with heroin Metabolic encephalopathy -resolved quickly the next day. urine drug screen negative. -per patient she was using heroin but urine drug screen is negative. Fever -May be due to heroin overdose versus infection. --ID was consulted and helped with management. -Patient did have a new cardiac murmur. Echo negative which suggest most likely flow murmur. Patient also received an MRI of her back which was all negative. treated empirically with zyvox and rocephin. d/c Zyvox and Rocephin on 08/04 -Blood cultures already obtained and 1 out of 4 positive for s/p staph epidermitis which most likely containment. -treated empirically for UTI based on UA with levaquin but then cultures suggest a containment and asymptomatic so d/c on discharge. . ? lock jaw -? psych vs tetanus -symptoms were abrupt and not consistent. symptoms resolved the same day. -Patient was treated empirically for tetanus by infectious disease. She was given tetanus immunoglobulin and TDAP and flagy since she was high risk due to IVDU and was symptomatic with lock jawed. d/w Dr. Power on day of discharge and she stated can send home with total of 7 days of flagyl. Hypokalemia -Replenish when necessary. anxiety/depression -noted in EMR. -patient not on any medication. - ativan PRN. Pt Condition on Discharge: Good Discharge Disposition: Discharge Home Discharge Time: <= 30 minutes Discharge Instructions DIET: Follow Instructions for: As Tolerated, No Restrictions Activities you can perform: Regular-No Restrictions Follow up Referrals: PCP Follow-up - 1 Week New Medications: Metronidazole (Flagyl) 500 Mg Tab 500 MG PO QID Infection Days 6 Ref 0 TAB Discontinued Medications: Ibuprofen (Ibuprofen) 800 Mg Tab 800 MG PO Q6HR #30 TAB Oxycodone-Acetaminophen (Oxycodone-Acetaminophen) 10-325 mg Tab 1-2 TAB PO Q6H Take 1-2 tabs every 6 hours as needed for pain >6/10 in severity. PRN PAIN SCALE 6 TO 10 #40 TAB Sulfamethoxazole-Trimethoprim (Bactrim DS) 800-160 Mg Tab 1 TAB PO BID Infection #14 Ref 0 TAB Ev Washington MD Aug 05, 2016 15:11
== END 2016-08-05 16:15 | disposition home or self-care (01) | DRG 917 ==
LOC: NEPC 10:15 → NEDA 14:02 → N04A 20:34
PROVIDERS: ADMIT Family Medicine; ATTEND Family Medicine
DX: T40.1X1A Poisoning by heroin, accidental (unintentional), initial encounter (principal); G93.41 Metabolic encephalopathy; N39.0 Urinary tract infection, site not specified; E83.42 Hypomagnesemia; E83.51 Hypocalcemia; J45.909 Unspecified asthma, uncomplicated; F32.9 Major depressive disorder, single episode, unspecified; F41.9 Anxiety disorder, unspecified; F17.210 Nicotine dependence, cigarettes, uncomplicated; F11.10 Opioid abuse, uncomplicated; F15.10 Other stimulant abuse, uncomplicated; E87.6 Hypokalemia; E83.39 Other disorders of phosphorus metabolism
CPT/HCPCS: 70553; 71010; 72156; 72157; 72158; 76937; 80048; 80053; 80307; 81001; 82140; 82550; 82805; 83605; 83690; 83735; 84100; 84484; 84702; 85007; 85025; 85027; 85610; 85730; 86703; 87040; 87086; 87149; 87186; 87205; 90714; 93005; 93306; 96361; 96365; 96368; 96375; A9579; J0610; J0692; J0696; J1630; J1650; J1670; J1956; J2020; J2060; J3475; J7030

== ENCOUNTER 2017-08-25 10:45 | Inpatient (IN) ==
[2017-08-25] MEDS ORDERED: Acetaminophen 325 MG Tablet PO ONE (11:20)
[2017-08-25] MEDS ORDERED: Morphine Inj 4 MG/ML Vial IV.PUSH ONE (11:20)
[2017-08-25] MEDS ORDERED: Sod Chloride 0.9% Inj 1,000 ML IV.SIG ONE ×3 (11:20→14:50)
[2017-08-25] MEDS ORDERED: Piperacil/Tazo 3.375 GM Premix 50 ML IV.SIG ONE (11:46)
[2017-08-25 11:52] LABS: Baso % (Auto) 0.3 % (0.0-2.0); Eos % (Auto) 0.1 % (0.0-4.0); Hematocrit 33.3 % (35.0-46.0); Hemoglobin 10.8 gm/dL (11.6-15.3); Lymph # (Auto) 0.6 th/mm3 (1.0-4.8); Lymph % (Auto) 4.8 % (9.0-44.0); Mean Corpuscular HGB Conc 32.5 % (32.0-36.0); Mean Corpuscular Hemoglobin 26.9 pg (27.0-34.0); Mean Corpuscular Volume 82.8 fL (80.0-100.0); Mean Platelet Volume 8.8 fL (7.0-11.0); Mono # (Auto) 0.3 th/mm3 (0.0-0.9); Mono % (Auto) 2.6 % (0.0-8.0); Neut # (Auto) 11.5 th/mm3 (1.8-7.7); Neut % (Auto) 92.2 % (16.0-70.0); Platelet Count 279 th/mm3 (150-450); Red Blood Count 4.02 mil/mm3 (4.00-5.30); Red Cell Distribution Width 14.2 % (11.6-17.2); White Blood Count 12.5 th/mm3 (4.0-11.0)
--- NOTE | 2017-08-25 11:54 | XR ---
EXAM DATE: 08/25/2017 11:50 AM EDT AGE/SEX: 32 years / Female INDICATIONS: Chest pain and shortness of breath. CLINICAL DATA: This is the patient's initial encounter. Patient reports that signs and symptoms have been present for 1 day and indicates a pain score of 6/10. MEDICAL/SURGICAL HISTORY: None. None. COMPARISON: [facility] [place], [place]. . FINDINGS: A single AP view of the chest demonstrates diminished lung volumes and minimal bibasilar densities. N o evidence of mass, infiltrate or effusion. The cardiomediastinal contours are unremarkable. Osseou s structures are intact. CONCLUSION: Diminished lung volumes with bibasilar atelectasis Electronically signed by: Tony Tripp MD 08/25/2017 11:53 AM EDT
[2017-08-25 12:01] LABS: Activated Partial Thrombo Time 30.7 sec (24.3-30.1); Prothrombin Time 10.5 sec (9.8-11.6)
[2017-08-25 12:18] LABS: Alanine Aminotransferase 55 U/L (10-53); Albumin 2.9 g/dL (3.4-5.0); Anion Gap 10 meq/L (5-15); Aspartate Aminotransferase 36 U/L (15-37); Blood Urea Nitrogen 6 mg/dL (7-18); Carbon Dioxide 27.2 meq/L (21.0-32.0); Chloride 102 meq/L (98-107); Glomerular Filtration Rate 83 mL/min (>89); Glucose,Random 113 mg/dL (74-106); Potassium 3.1 meq/L (3.5-5.1); Sodium 139 meq/L (136-145)
[2017-08-25 12:22] LABS: Alkaline Phosphatase 143 U/L (45-117); Total Protein 7.2 g/dL (6.4-8.2)
--- NOTE | 2017-08-25 12:32 | CT ---
EXAM DATE: 08/25/2017 12:12 PM EDT AGE/SEX: 32 years / Female INDICATIONS: Left side chest pain. CLINICAL DATA: This is the patient's initial encounter. Patient reports that signs and symptoms have been present for 1 day and indicates a pain score of 6/10. MEDICAL/SURGICAL HISTORY: . Blood clot in arm. . Blood clot removed from arm. RADIATION DOSE: 8.56 CTDI (mGy) COMPARISON: [facility], CHEST 1V SINGLE AP, 08/25/2017. . TECHNIQUE: Volumetric scanning was performed using a multi-row detector CT scanner during bolus infu sarah of 100 ml Omnipaque 350 (iohexol) nonionic water-soluble contrast as a cumulative dose for mult iple exams. The data was post processed with a variety of visualization algorithms including full vol ume maximum intensity projection and sliding thin slab reformation. Using automated exposure control and adjustment of the mA and/or kV according to patient size, radiation dose was kept as low as reaso nably achievable to obtain optimal diagnostic quality images. DICOM format image data is available e lectronically for review and comparison. FINDINGS: Pulmonary Arteries: No filling defects are seen in the pulmonary arteries out to the subsegmental ve ssels. The left and right pulmonary arteries are normal in diameter. Lung: Scattered bilateral groundglass nodules including one in the right upper lobe posteriorly janie uring 15 mm. One in the right lower lobe measures 14 mm. Peripheral one in the left lower lobe measur es 2 cm. Multiple other smaller nodules bilaterally. There is congestion of some minimal cavitation. Effusion: None. Mediastinum: No evidence of mediastinal or hilar adenopathy. Other: Prominent right axillary lymph node. CONCLUSION: 1. Bilateral scattered groundglass nodules with suggestion of minimal cavitation likely infectious/i nflammatory. Septic emboli is also a consideration. Treatment and follow-up. 2. No evidence for pulmonary motion. 3. Prominent right axillary lymph node. Electronically signed by: Tony Tripp MD 08/25/2017 12:31 PM EDT
[2017-08-25 12:40] LABS: Creatine Kinase 36 U/L (26-192)
[2017-08-25] MEDS ORDERED: Ibuprofen 600 MG Tablet PO ONE (13:11)
--- NOTE | 2017-08-25 13:12 | CT ---
EXAM DATE: 08/25/2017 1:00 PM EDT AGE/SEX: 32 years / Female INDICATIONS: Right arm pain and swelling. CLINICAL DATA: This is the patient's initial encounter. Patient reports that signs and symptoms have been present for 2 days and indicates a pain score of 8/10. MEDICAL/SURGICAL HISTORY: . Blood clot in arm. IV drug abuse. . Blood clot removed from arm. RADIATION DOSE: 31.38 CTDI (mGy) ; Combined studies COMPARISON: [facility], CT HAND RIGHT W CONTRAST, 08/25/2017. . TECHNIQUE: Multiple contiguous axial images were acquired using a multi-row detector CT scanner afte r the intravenous administration of 100 ml Omnipaque 350 (iohexol) nonionic water-soluble contrast a s a cumulative dose for multiple exams. Multiplanar reconstruction was performed in the sagittal an d coronal planes. Using automated exposure control and adjustment of the mA and/or kV according to p atient size, radiation dose was kept as low as reasonably achievable to obtain optimal diagnostic ramin lity images. DICOM format image data is available electronically for review and comparison. FINDINGS: Bones: The bony structures about the forefoot are in normal alignment. The metatarsi, phalanges, an d distal tarsal row osseous structures are intact. No fracture is seen. Joints: No significant arthropathy or bony hypertrophy is seen. Soft Tissues: Diffuse soft tissue swelling. There is a broken needle seen within the posterior soft tissues of the mid forearm posteriorly measuring 3 and 8 mm. A second broken needle is seen within th e soft tissues posteriorly measuring 3 to 5 mm in the distal forearm at the level of the patient's wr ist band. No abscess. Other: No foreign bodies seen. Post Contrast: No abnormal areas of enhancement are seen in the marrow or soft tissues. CONCLUSION: 1. 2 needles are seen within the soft tissue as described above. 2. No abscess. 3. Diffuse soft tissue swelling likely cellulitis. Electronically signed by: Tony rTipp MD 08/25/2017 1:10 PM EDT
--- NOTE | 2017-08-25 13:13 | CT ---
EXAM DATE: 08/25/2017 12:51 PM EDT AGE/SEX: 32 years / Female INDICATIONS: Right arm swelling and pain. CLINICAL DATA: This is the patient's initial encounter. Patient reports that signs and symptoms have been present for 2 days and indicates a pain score of 9/10. MEDICAL/SURGICAL HISTORY: . Blood clot in arm, IV drug abuse. . Blood clot removed from arm. RADIATION DOSE: 31.38 CTDI (mGy) COMPARISON: [facility] – [place], CT FOREARM RIGHT W CONTRAST, 08/25/2017. . TECHNIQUE: Multiple contiguous axial images were acquired using a multi-row detector CT scanner afte r the intravenous administration of 100 ml Omnipaque 350 (iohexol) nonionic water-soluble contrast a s a cumulative dose for multiple exams. Multiplanar reconstruction was performed in the sagittal an d coronal planes. Using automated exposure control and adjustment of the mA and/or kV according to p atient size, radiation dose was kept as low as reasonably achievable to obtain optimal diagnostic ramin lity images. DICOM format image data is available electronically for review and comparison. FINDINGS: Bones: The bony structures about the hand are in normal alignment. The distal radius, distal ulna a nd carpus are intact. No fracture is seen. Joints: No significant arthropathy or bony hypertrophy is seen. Soft Tissues: Soft tissue swelling. Other: No foreign bodies seen. Post Contrast: No abnormal areas of enhancement are seen in the marrow or soft tissues. CONCLUSION: 1. Soft tissue swelling without abscess or fluid collection. Electronically signed by: Tony Tripp MD 08/25/2017 1:12 PM EDT
--- NOTE | 2017-08-25 13:50 | ED ---
HPI General Chief complaint: Fever Stated complaint: EVAC/fever,sob Time Seen by Provider: 08/25/17 11:06 Source: patient Mode of arrival: EMS Limitations: no limitations History of Present Illness HPI narrative: Patient is a 32-year-old female who comes in complaining of chest pain and shortness of breath. States that this started in the past couple of days and is gotten worse. She says the pain is in her left side of her chest. She says it hurts to take a deep breath. She used IV heroin yesterday. She has not taken anything to help with her symptoms. She also has large swelling to her right hand and right forearm, which she says has been there for about a week. Severity is moderate. Related Data Home Medications Medication Instructions Recorded Confirmed No Known Home Medications 08/25/17 08/25/17 Allergies Allergy/AdvReac Type Severity Reaction Status Date / Time clindamycin Allergy Severe Hives Verified 08/25/17 11:06 ketorolac Allergy Severe Hives Verified 08/25/17 11:06 vancomycin Allergy Severe Hives Verified 08/25/17 11:06 Review of Systems Except as stated in HPI: all other systems reviewed are negative Constitutional Reports fever(s) Cardiovascular Reports chest pain, Reports edema and Reports dyspnea Respiratory Reports dyspnea Gastrointestinal Denies nausea and Denies vomiting Musculoskeletal Reports myalgias and Reports arthralgias Integumentary/Breasts Reports change in pigmentation and Reports lesions Neurologic Denies focal weakness PMFSH Medical History Medical History Arm vein blood clot (Acute) Surgical History Surgical History History of surgery on arm (Acute) Social History Social History Substance History: Active Abuse Second Hand Smoke Exposure: Yes Smoking Status: Current some day smoker Tobacco Type: Cigarettes How Often Do You Have a Drink Containing Alcohol: Never Recent Travel in [facility] within the Last 8 Weeks: No Recent Out of Country Travel within the Last 8 Weeks: No Substance Abuse Detail Heroin: Substance Use Status: Active Route Used Substance Abuse: Intravenously Substance Frequency: DAILY Last Used: YESTERDAY Immunization History Tetanus Immunization: <5 Years Tetanus Immunization Year if Known: 2018 Hx Influenza Vaccine This Season: No Exam Narrative Exam Narrative: GENERAL: Awake and alert, in mild distress due to pain. SKIN: Erythema and warmth to the right forearm and right thumb. HEAD: Atraumatic. Normocephalic. EYES: Pupils equal and round. No scleral icterus. ENT: Mucous membranes pink and moist. NECK: Trachea midline. No JVD. CARDIOVASCULAR: Tachycardia. No murmur appreciated. RESPIRATORY: No accessory muscle use. Clear to auscultation. Breath sounds equal bilaterally. GASTROINTESTINAL: Abdomen soft, non-tender, nondistended. MUSCULOSKELETAL: No obvious deformities. No clubbing. No cyanosis. Large edema of the right forearm, tender to palpation. Distal tip of the right thumb is purple in color. No defined abscess seen. Radial pulse intact. NEUROLOGICAL: Awake and alert. No obvious cranial nerve deficits. Motor grossly within normal limits. Normal speech. PSYCHIATRIC: Appropriate mood and affect; insight and judgment normal. Course Hospital Course: IV established, labs sent. Patient given IV fluids, Tylenol, antibiotics. CT chest performed to rule out PE. CT of the forearm and hand performed to look for abscess. Reevaluation(s) Reevaluation #1: Patient resting comfortably. Still febrile, given ibuprofen. Given additional fluids. Time: 13:39 Initial Documented Vital Signs Temperature 99.8 F H 08/25/17 10:57 Pulse Rate 102 H 08/25/17 10:57 Respiratory Rate 22 08/25/17 10:57 Blood Pressure 133/74 08/25/17 10:57 Pulse Oximetry 99 08/25/17 10:57 Last Documented Vital Signs Temperature 103.0 F H 08/25/17 13:01 Pulse Rate 100 H 08/25/17 13:59 Respiratory Rate 16 08/25/17 13:59 Blood Pressure 141/77 H 08/25/17 13:59 Pulse Oximetry 100 08/25/17 13:59 Medical Decision Making [facility] Narrative Medical decision making narrative: Patient is a 32-year-old female who comes in complaining of chest pain and shortness of breath. She also has large swelling to her right arm. Exam shows tachycardia, erythema and warmth to the right arm. IV established, labs sent. Labs show a lactic acid of 3.4. CTA of the chest is concerning for septic emboli. Patient covered with Zosyn and linezolid, as she is allergic to vancomycin. CT of the forearm and hand shows large swelling, no defined abscess. There are 2 needles stuck in the patient's arm as well. Patient will be admitted to medicine for further management. Differential Diagnosis Differential Diagnosis: Endocarditis versus septic emboli versus pneumonia versus cellulitis versus abscess Medical Records Medical records reviewed: Yes I reviewed the patient's medical records. Lab Data Lab results reviewed: Yes I reviewed the patient's lab results. Result diagrams: 08/25/17 11:20 08/25/17 11:20 Lab Results 08/25/17 08/25/17 08/25/17 Range/Units 11:20 11:20 11:20 WBC 12.5 H (4.0-11.0) th/mm3 RBC 4.02 (4.00-5.30) mil/mm3 Hgb 10.8 L (11.6-15.3) gm/dL Hct 33.3 L (35.0-46.0) % MCV 82.8 (80.0-100.0) fL MCH 26.9 L (27.0-34.0) pg MCHC 32.5 (32.0-36.0) % RDW 14.2 (11.6-17.2) % Plt Count 279 (150-450) th/mm3 MPV 8.8 (7.0-11.0) fL Neut % (Auto) 92.2 H (16.0-70.0) % Lymph % (Auto) 4.8 L (9.0-44.0) % [place] % (Auto) 2.6 (0.0-8.0) % Eos % (Auto) 0.1 (0.0-4.0) % Baso % (Auto) 0.3 (0.0-2.0) % Neut # (Auto) 11.5 H (1.8-7.7) th/mm3 Lymph # (Auto) 0.6 L (1.0-4.8) th/mm3 [place] # (Auto) 0.3 (0.0-0.9) th/mm3 Eos # (Auto) 0.0 (0.0-0.4) th/mm3 Baso # (Auto) 0.0 (0.0-0.2) th/mm3 WBC Differential . Differential Comment Auto diff final PT 10.5 (9.8-11.6) sec INR 1.0 Ratio APTT 30.7 H (24.3-30.1) sec Sodium 139 (136-145) meq/L Potassium 3.1 L (3.5-5.1) meq/L Chloride 102 (98-107) meq/L Carbon Dioxide 27.2 (21.0-32.0) meq/L Anion Gap 10 (5-15) meq/L BUN 6 L (7-18) mg/dL Creatinine 0.81 (0.50-1.00) mg/dL Estimated GFR 83 L (>89) mL/min POC Glucose (68-110) mg/dl Random Glucose 113 H (74-106) mg/dL Lactic Acid (0.4-2.0) mmol/L Calcium 8.0 L (8.5-10.1) mg/dL Total Bilirubin 0.3 (0.2-1.0) mg/dL AST 36 (15-37) U/L ALT 55 H (10-53) U/L Alkaline Phosphatase 143 H (45-117) U/L Total Creatine Kinase 36 (26-192) U/L Troponin I Less than 0.02 L (0.02-0.05) ng/mL Total Protein 7.2 (6.4-8.2) g/dL Albumin 2.9 L (3.4-5.0) g/dL 08/25/17 08/25/17 Range/Units 11:20 11:32 WBC (4.0-11.0) th/mm3 RBC (4.00-5.30) mil/mm3 Hgb (11.6-15.3) gm/dL Hct (35.0-46.0) % MCV (80.0-100.0) fL MCH (27.0-34.0) pg MCHC (32.0-36.0) % RDW (11.6-17.2) % Plt Count (150-450) th/mm3 MPV (7.0-11.0) fL Neut % (Auto) (16.0-70.0) % Lymph % (Auto) (9.0-44.0) % [place] % (Auto) (0.0-8.0) % Eos % (Auto) (0.0-4.0) % Baso % (Auto) (0.0-2.0) % Neut # (Auto) (1.8-7.7) th/mm3 Lymph # (Auto) (1.0-4.8) th/mm3 [place] # (Auto) (0.0-0.9) th/mm3 Eos # (Auto) (0.0-0.4) th/mm3 Baso # (Auto) (0.0-0.2) th/mm3 WBC Differential Differential Comment PT (9.8-11.6) sec INR Ratio APTT (24.3-30.1) sec Sodium (136-145) meq/L Potassium (3.5-5.1) meq/L Chloride (98-107) meq/L Carbon Dioxide (21.0-32.0) meq/L Anion Gap (5-15) meq/L BUN (7-18) mg/dL Creatinine (0.50-1.00) mg/dL Estimated GFR (>89) mL/min POC Glucose 111 H (68-110) mg/dl Random Glucose (74-106) mg/dL Lactic Acid 3.4 H (0.4-2.0) mmol/L Calcium (8.5-10.1) mg/dL Total Bilirubin (0.2-1.0) mg/dL AST (15-37) U/L ALT (10-53) U/L Alkaline Phosphatase (45-117) U/L Total Creatine Kinase (26-192) U/L Troponin I (0.02-0.05) ng/mL Total Protein (6.4-8.2) g/dL Albumin (3.4-5.0) g/dL Imaging Data Radiologist's impression: ITS Impressions Chest X-Ray 08/25/17 11:20 CONCLUSION: Diminished lung volumes with bibasilar atelectasis Chest CTA 08/25/17 11:22 CONCLUSION: 1. Bilateral scattered groundglass nodules with suggestion of minimal cavitation likely infectious/inflammatory. Septic emboli is also a consideration. Treatment and follow-up. 2. No evidence for pulmonary motion. 3. Prominent right axillary lymph node. Forearm CT 08/25/17 11:22 CONCLUSION: 1. 2 needles are seen within the soft tissue as described above. 2. No abscess. 3. Diffuse soft tissue swelling likely cellulitis. Hand CT 08/25/17 11:22 CONCLUSION: 1. Soft tissue swelling without abscess or fluid collection. Discharge Plan Discharge Disposition Patient Disposition: 32 Still Patient Discharge Condition Condition: Stable Discharge Details Discharge Problem: Sepsis, Acute septic pulmonary embolism, Cellulitis Physicians Team ED Provider: Josefa Jim Primary Care Provider: UNKNOWN, Rxs /Orders / Referrals /Forms Prescriptions: No Action No Known Home Medications RF: 0 Status ED Status: With Nurse
--- NOTE | 2017-08-25 14:00 | ECG ---
Date Performed: 08/25/2017 Time Performed: 11:21:48 PTAGE: 32 years EKG: Sinus rhythm NORMAL ECG PREVIOUS TRACING : 08/02/2016 10.36 Compared to previous tracing, nonspecific ST changes have r esolved. DOCTOR: Km Llamas Interpretating Date/Time 08/25/2017 13:59:47
--- NOTE | 2017-08-25 14:35 | P.HPFP ---
History of Present Illness Primary Care Physician: UNKNOWN History of Present Illness: This patient is a 32 year old F who presents with 1 day history of chest pain and right arm/ hand swelling. Patient reports that the chest pain started at 8am this morning, is constant, characterized as sharp and does not radiate. There are no aggravating or alleviating factors. The pain is located just under the left breast. She reports nausea, vomiting, chills and fever that began last night which was also the time that she noticed her right arm/ hand beginning to swell. Patient reports chest pain is worse when breathing but unrelated to position, food or activity. 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 She also reports that uses her left hand to shoot up and not her right. Of note: At time of examination patient was difficult to awaken and was not conversational due to the pain but became more awake and cooperative towards the end of interview. - Diagnosis (1) Sepsis (2) Acute septic pulmonary embolism (3) Cellulitis (4) Nutrition, metabolism, and development symptoms Inpatient Certification: I certify that the inpatient services were ordered in accordance with Medicare regulations governing the order. This includes certification that hospital inpatient services are reasonable and necessary and in the case of services not specified as inpatient-only under 42 CFR 419.22(n), that they are appropriately provided as inpatient services in accordance to with the 2-midnight benchmark under 43 CFR 412.3(e) Review of Systems Constitutional: Reports body ache(s), Reports chills, Reports fever(s), Reports malaise, Reports weakness Eyes: Denies blurry vision Cardiovascular: Reports chest pain, Reports chest pain at rest, Reports shortness of breath, Denies chest pain with activity, Denies fainting, Denies rapid, pounding, or irregular heartbeat Respiratory: Denies cough Gastrointestinal: Reports nausea, Reports vomiting, Denies abdominal pain, Denies belching Comments: Right thumb is noticable swollen with cyanosis on tip of the first digit. Patient also has right mid forearm swelling. Neurologic: Reports abnormal speech, Reports behavioral changes PMFSH - History History Provided By: Patient - Medical History Medical History: Medical History (Last Reviewed 08/25/17 @ 13:51 by Josefa Jim MD) Arm vein blood clot - Surgical History Surgical History: Surgical History (Last Reviewed 08/25/17 @ 13:51 by Josefa Jim MD) History of surgery on arm - Tobacco History Second Hand Smoke Exposure: Yes Tobacco Use In Past 30 Days: Yes Smoking Status: Current some day smoker Tobacco Type: Cigarettes - Alcohol History How Often Do You Have a Drink Containing Alcohol: Never - Substance Use History Substance History: Active Abuse - Substance Use Type Heroin Status: Active Route Used: Intravenously Frequency: DAILY Last Used: YESTERDAY - Travel History Recent Travel in the [place] Within the Last 8 Weeks: No Recent Travel Out of the Country Within the Last 8 Weeks: No - Immunization History Tetanus Immunization: <5 Years Tetanus Immunization Year if Known: 2017 Hx Influenza Vaccine This Season: No Medications and Allergies Allergies Allergy/AdvReac Type Severity Reaction Status Date / Time clindamycin Allergy Severe Hives Verified 08/25/17 11:06 ketorolac Allergy Severe Hives Verified 08/25/17 11:06 vancomycin Allergy Severe Hives Verified 08/25/17 11:06 Home Medications Medication Instructions Recorded Confirmed Type No Known Home Medications 08/25/17 08/25/17 History Exam Vital signs: Vital Signs 08/25/17 10:57 08/25/17 11:05 08/25/17 11:26 Temperature 99.8 F H 99.8 F H Pulse Rate 102 H 102 H 96 H Respiratory Rate 22 22 Blood Pressure 133/74 133/74 Pulse Oximetry 99 99 100 08/25/17 13:01 08/25/17 13:59 Temperature 103.0 F H Pulse Rate 92 H 100 H Respiratory Rate 15 16 Blood Pressure 140/78 141/77 H Pulse Oximetry 100 100 Intake & Output 08/24/17 08/25/17 08/25/17 18:59 06:59 18:59 Intake Total 1050 / 1050 Balance 1050 / 1050 Weight 53.524 kg Intake: IV 1050 / 1050 Zosyn 3.375 GM Premix 50 ML @ 50 / 50 100 mls/hr IV.SIG ONCE ONE Rx#: [id number] NS Inj 1,000 ML @ Wide Open IV. 1000 / 1000 SIG BOLUS ONE Rx#:[id number] - Constitutional moderate distress, thin, chronically ill appearing, somnolent - Routine HEENT Exam Head: Present: normocephalic, atraumatic - Routine Respiratory Exam Present: decreased breath sounds, CTA bilaterally. Absent: rales, rhonchi, stridor, wheezes, crackles - Routine Cardiovascular Exam Present: RRR, murmur Comments: 3/6 Holosystolic murmur that does not radiate - Routine Abdominal Exam Present: soft, normoactive bowel sounds. Absent: tenderness, guarding - Routine Skin Exam Present: cyanosis, lesions, wounds Comments: Patient has cyanotic right thumb and swollen right forearm with breaks in skin across her arm - Routine Neurological Exam Present: altered mental status, moving all extremities. Absent: alert, motor deficit, normal speech Patient was initially difficult but after repeated awakening was able to give a brief and short history Results - Labs Result diagrams: 08/25/17 11:20 08/25/17 11:20 Abnormal lab results 08/25/17 08/25/17 08/25/17 Range/Units 11:20 11:20 11:20 WBC 12.5 H (4.0-11.0) th/mm3 Hgb 10.8 L (11.6-15.3) gm/dL Hct 33.3 L (35.0-46.0) % MCH 26.9 L (27.0-34.0) pg Neut % (Auto) 92.2 H (16.0-70.0) % Lymph % (Auto) 4.8 L (9.0-44.0) % Neut # (Auto) 11.5 H (1.8-7.7) th/mm3 Lymph # (Auto) 0.6 L (1.0-4.8) th/mm3 APTT 30.7 H (24.3-30.1) sec Potassium 3.1 L (3.5-5.1) meq/L BUN 6 L (7-18) mg/dL Estimated GFR 83 L (>89) mL/min POC Glucose (68-110) mg/dl Random Glucose 113 H (74-106) mg/dL Lactic Acid (0.4-2.0) mmol/L Calcium 8.0 L (8.5-10.1) mg/dL ALT 55 H (10-53) U/L Alkaline Phosphatase 143 H (45-117) U/L Troponin I Less than 0.02 L (0.02-0.05) ng/mL Albumin 2.9 L (3.4-5.0) g/dL 08/25/17 08/25/17 Range/Units 11:20 11:32 WBC (4.0-11.0) th/mm3 Hgb (11.6-15.3) gm/dL Hct (35.0-46.0) % MCH (27.0-34.0) pg Neut % (Auto) (16.0-70.0) % Lymph % (Auto) (9.0-44.0) % Neut # (Auto) (1.8-7.7) th/mm3 Lymph # (Auto) (1.0-4.8) th/mm3 APTT (24.3-30.1) sec Potassium (3.5-5.1) meq/L BUN (7-18) mg/dL Estimated GFR (>89) mL/min POC Glucose 111 H (68-110) mg/dl Random Glucose (74-106) mg/dL Lactic Acid 3.4 H (0.4-2.0) mmol/L Calcium (8.5-10.1) mg/dL ALT (10-53) U/L Alkaline Phosphatase (45-117) U/L Troponin I (0.02-0.05) ng/mL Albumin (3.4-5.0) g/dL Short CBC 08/25/17 Range/Units 11:20 WBC 12.5 H (4.0-11.0) th/mm3 Hgb 10.8 L (11.6-15.3) gm/dL Hct 33.3 L (35.0-46.0) % Plt Count 279 (150-450) th/mm3 BMP 08/25/17 11:20 Sodium 139 Potassium 3.1 L Chloride 102 Carbon Dioxide 27.2 BUN 6 L Creatinine 0.81 Calcium 8.0 L Cardiac Enzymes 08/25/17 Range/Units 11:20 Total Creatine Kinase 36 (26-192) U/L Troponin I Less than 0.02 L (0.02-0.05) ng/mL Liver Function 08/25/17 Range/Units 11:20 Total Bilirubin 0.3 (0.2-1.0) mg/dL AST 36 (15-37) U/L ALT 55 H (10-53) U/L Alkaline Phosphatase 143 H (45-117) U/L Albumin 2.9 L (3.4-5.0) g/dL - Imaging Impressions Chest X-Ray 08/25/17 11:20 CONCLUSION: Diminished lung volumes with bibasilar atelectasis Chest CTA 08/25/17 11:22 CONCLUSION: 1. Bilateral scattered groundglass nodules with suggestion of minimal cavitation likely infectious/inflammatory. Septic emboli is also a consideration. Treatment and follow-up. 2. No evidence for pulmonary motion. 3. Prominent right axillary lymph node. Forearm CT 08/25/17 11:22 CONCLUSION: 1. 2 needles are seen within the soft tissue as described above. 2. No abscess. 3. Diffuse soft tissue swelling likely cellulitis. Hand CT 08/25/17 11:22 CONCLUSION: 1. Soft tissue swelling without abscess or fluid collection. EK08/25/17 Normal Sinus rhythm Caprini VTE Risk Assessment Caprini VTE Risk Assessment: No/Low Risk (score <= 1) Caprini Risk Assessment Model: Point Value = 1 Point Value = 2 Point Value = 3 Point Value = 5 Age 41-60 Minor surgery BMI > 25 kg/m2 Swollen legs Varicose veins or History of unexplained or recurrent spontaneous Oral contraceptives or hormone replacement Sepsis (< 1 month) Serious lung disease, including pneumonia (< 1 month) Abnormal pulmonary function Acute myocardial infarction Congestive heart failure (< 1 month) History of inflammatory bowel disease Medical patient at bed rest Age 61-74 Arthroscopic surgery Major open surgery (> 45 min) Laparoscopic surgery (> 45 min) Malignancy Confined to bed (> 72 hours) Immobilizing plaster cast Central venous access Age >= 75 History of VTE Family history of VTE Factor V Leiden Prothrombin [id number] Lupus anticoagulant Anticardiolipin antibodies Elevated serum homocysteine Heparin-induced thrombocytopenia Other congenital or acquired thrombophilia Stroke (< 1 month) Elective arthroplasty Hip, pelvis, or leg fracture Acute spinal cord injury (< 1 month) Prophylaxis Regimen: Total Risk Factor Score Risk Level Prophylaxis Regimen 0-1 Low Early ambulation 2 Moderate Order ONE of the following: *Sequential Compression Device (SCD) *Heparin 5000 units SQ BID 3-4 Higher Order ONE of the following medications: *Heparin 5000 units SQ TID *Enoxaparin/Lovenox 40 mg SQ daily (WT < 150 kg, CrCl > 30 mL/min) *Enoxaparin/Lovenox 30 mg SQ daily (WT < 150 kg, CrCl > 10-29 mL/min) *Enoxaparin/Lovenox 30 mg SQ BID (WT < 150 kg, CrCl > 30 mL/min) AND/OR *Sequential Compression Device (SCD) 5 or more Highest Order ONE of the following medications: *Heparin 5000 units SQ TID (Preferred with Epidurals) *Enoxaparin/Lovenox 40 mg SQ daily (WT < 150 kg, CrCl > 30 mL/min) *Enoxaparin/Lovenox 30 mg SQ daily (WT < 150 kg, CrCl > 10-29 mL/min) *Enoxaparin/Lovenox 30 mg SQ BID (WT < 150 kg, CrCl > 30 mL/min) AND *Sequential Compression Device (SCD) Assessment and Plan - Assessment (1) Sepsis Code(s): A41.9 - Sepsis, unspecified organism Status: Acute Plan: This patient presented to the ED with a Tmax of 103.0, pulse of 92, RR 15 and lactic acid of 3.4 in the setting of chest pain, prior IV drug use, cellulitis, WBC of 12.5 and a CXR showing ground glass opacities and cavitations. Patient received Linezolid due to vanco contraindication as well as zosyn in the ED. Lactic acid now 0.8 and Temp now 98.9. - Sepsis work up - Follow up with ID consult and recommendations - Follow up with blood cultures - Continue linexolid and zosyn until blood cultures and sensitivities return - Trend Lactic Acid - Monitor vitals Nutition: Normal diet FNE: NS IV DVT Prophylaxis: SCDs (2) Acute septic pulmonary embolism Code(s): I26.90 - Septic pulmonary embolism without acute cor pulmonale Status : Acute Plan: Patients presents with 1 day history of acute chest pain. Her chest CT shows patchy opacities and cavitations most consistent with septic embolism in the setting of sepsis and new heart murmur in known IV drug user. These findings lead to likely infective endocarditis vs ACS. US venous doppler lower extremities was negative for DVT. - Continue zosyn and linezolid until cultures and sensitives return - Follow up with 2D echo - Follow up with serial EKG - Monitor on Telemetry - Continue to trend troponin - Continue to trend CK-MB - Monitor Vitals - Monitor CBC (3) Cellulitis Code(s): L03.90 - Cellulitis, unspecified Status: Acute Plan: Patient presents with significant hand and arm swelling in the setting of sepsis and known IV drug use. On presentation in the ED hand CT showed soft tissue swelling without abscess or fluid collection. Ct of forearm showed 2 needles within the soft tissue, no abscess, and diffuse soft tissue swelling likely cellulitis. - Continue Zosyn and Linezolid until cultures and sensitivities return - Follow up with general surgery for needle removal - Follow up with ID consult and recommendations - Follow with blood cultures - Trend Temp - Trend CBC (4) Nutrition, metabolism, and development symptoms Code(s): R63.8 - Other symptoms and signs concerning food and fluid intake Status: Acute Plan: Patient received a total of 3 fluid boluses of NS and is currently on a maintenance fluid rate of 100 ml/ hour. Resume normal diet as tolerated DVT Prophylaxis: SCDs (1) Sepsis Qualifiers: Sepsis type: sepsis due to unspecified organism Qualified Code(s): A41.9 - Sepsis, unspecified organism (2) Acute septic pulmonary embolism Qualifiers: Acute cor pulmonale presence: without acute cor pulmonale Qualified Code(s): I26.90 - Septic pulmonary embolism without acute cor pulmonale (3) Cellulitis Qualifiers: Site of cellulitis: extremity Site of cellulitis of extremity: upper extremity Laterality: right Qualified Code(s): L03.113 - Cellulitis of right upper limb
[2017-08-25] MEDS ORDERED: Bisacodyl 10 MG Supp RECTAL PRN (14:38)
[2017-08-25] MEDS ORDERED: Senna/Docusate Sodium 8.6/50 MG Tablet PO PRN (14:38)
[2017-08-25 14:42] LABS: Bacteria,Urine Occasional /hpf; Bilirubin,Urine Negative (Negative); Clarity,Urine Clear (Clear); Color,Urine Yellow (Yellw/Straw); Glucose,Urine (UA) Negative (Negative); Leukocyte Esterase,Urine Trace (Negative); Mucus,Urine Few /lpf (Occasional); Nitrite,Urine Negative (Negative); Specific Gravity,Urine 1.033 (1.002-1.035); Squamous Epithelial Cell,Urine 1 /hpf (0-5)
[2017-08-25] MEDS ORDERED: Acetaminophen 325 MG Tablet PO PRN (14:51)
[2017-08-25] MEDS ORDERED: Naloxone Inj 0.4 MG/ML Vial IV.PUSH PRN (14:51)
[2017-08-25] MEDS: Sod Chloride 0.9% Inj 1,000 ML IV.CONT SCH (15:44)
--- NOTE | 2017-08-25 16:21 | US ---
EXAM DATE: 08/25/2017 4:10 PM EDT AGE/SEX: 32 years / Female INDICATIONS: Left leg swelling. CLINICAL DATA: This is the patient's initial encounter. Patient reports that signs and symptoms have been present for 1 day and indicates a pain score of Nonresponsive. MEDICAL/SURGICAL HISTORY: . Deep vein arm thrombosis. . Arm surgery. COMPARISON: No prior exams available for comparison. TECHNIQUE: Venous ultrasound of both lower extremities was performed from the inguinal ligament to t he proximal calf. Real-time, color Doppler and spectral tracing, compression and augmentation techni ques were used. FINDINGS: Normal compression of the deep venous system from the inguinal region to the proximal calf . No echogenic clot is seen. Normal response of the venous system to augmentation and respiration. CONCLUSION: 1. The study is negative for lower extremity deep venous thrombosis. Electronically signed by: Volodymyr Trevino MD 08/25/2017 4:20 PM EDT
[2017-08-25 18:27] LABS: Creatine Kinase 28 U/L (26-192)
[2017-08-25] MEDS: Piperacil/Tazo 4.5 GM Premix 4.5 GM/100 ML BAG IV.SIG SCH (19:52)
[2017-08-25 23:37] LABS: Creatine Kinase 36 U/L (26-192)
[2017-08-25] MEDS: Morphine Inj 4 MG/ML Vial IV.PUSH PRN (23:59)
[2017-08-26] MEDS: Piperacil/Tazo 4.5 GM Premix 4.5 GM/100 ML BAG IV.SIG SCH ×4 (01:22→20:44)
[2017-08-26] MEDS: Sod Chloride 0.9% Inj 1,000 ML IV.CONT SCH ×3 (01:23→23:56)
[2017-08-26 01:30] LABS: Amphetamine Screen,Urine Neg (Neg); Barbiturate Screen,Urine Neg (Neg); Cannabinoid Screen,Urine Neg (Neg); Cocaine Screen,Urine Pos (Neg)
[2017-08-26 01:32] LABS: Opiate Screen,Urine Pos (Neg)
[2017-08-26] MEDS: Morphine Inj 4 MG/ML Vial IV.PUSH PRN ×4 (05:57→23:23)
--- NOTE | 2017-08-26 09:53 | ECG ---
Date Performed: 08/25/2017 Time Performed: 22:31:29 PTAGE: 32 years EKG: SINUS TACHYCARDIA NONSPECIFIC T-WAVE ABNORMALITY ABNORMAL RHYTHM ECG Since the PREVIOUS TRACING , no significant change noted PREVIOUS TRACIN08/25/2017 17.36 DOCTOR: Orlin Alas Interpretating Date/Time 08/26/2017 09:49:48
--- NOTE | 2017-08-26 09:57 | P.HPFP ---
History of Present Illness Primary Care Physician: UNKNOWN History of Present Illness: Shira Luna is a 32 year old F who presented with 1 day history of chest pain and right arm/ hand swelling. Patient reports that the chest pain started at 8am this morning, is constant, characterized as sharp and does not radiate. There are no aggravating or alleviating factors. The pain is located just under the left breast. She reports nausea, vomiting, chills and fever that began last night which was also the time that she noticed her right arm/ hand beginning to swell. Patient reports chest pain is worse when breathing but unrelated to position, food or activity. 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 She also reports that uses her left hand to shoot up and not her right. Of note: At time of examination patient was difficult to awaken and was not conversational due to the pain but became more awake and cooperative towards the end of interview. Her was in her room today and reported she had been sick for a week with respiratory problems. She has had worsening of her hand and arm overnight. Her hand had minimal or no edema yesterday but today is very swollen and she cannot make a fist. Also, she was sedated yesterday and hard to wake up and remained "in and out" with more somnolence than the average patient. when awakened she could answer the orientation questions but then would fall back asleep. during today's interview, she complained of feeling very SOB. Her respiratory rate was quite elevated over 30 even when she was lying still with her eyes closed. Because of her very swollen and worsening hand/arm and her dyspnea a Halicat was called and she was transferred to the [facility] [place]. On discussions with her , she wants to be placed on a ventilator if necessary. Her did have a big bag in the room with him when we entered and left with the bag when told that people would be coming with the Halicat. It is unknown what was in his bag. He reported her friend that she would shoot up with a few weeks ago from "blood poisoning". - Diagnosis (1) Sepsis (2) Acute septic pulmonary embolism (3) Cellulitis (4) Nutrition, metabolism, and development symptoms (5) Endocarditis (6) Compartment syndrome of left upper extremity Inpatient Certification: I certify that the inpatient services were ordered in accordance with Medicare regulations governing the order. This includes certification that hospital inpatient services are reasonable and necessary and in the case of services not specified as inpatient-only under 42 CFR 419.22(n), that they are appropriately provided as inpatient services in accordance to with the 2-midnight benchmark under 43 CFR 412.3(e) Estimated Total Length of Stay (Days): 7 Plans for Post Hospital Care: Not yet determined Review of Systems unobtainable due to mental status see ROS from H&P done yesterday PMFSH - History History Provided By: Patient - Medical History Medical History: Medical History (Last Reviewed 08/26/17 @ 10:59 by Lashon Carney) Arm vein blood clot - Surgical History Surgical History: Surgical History (Last Reviewed 08/25/17 @ 13:51 by Josefa Jim MD) History of surgery on arm - Tobacco History Second Hand Smoke Exposure: Yes Tobacco Use In Past 30 Days: Yes Smoking Status: Current some day smoker Tobacco Type: Cigarettes - Alcohol History How Often Do You Have a Drink Containing Alcohol: Never - Substance Use History Substance History: Active Abuse - Substance Use Type Heroin Status: Active Route Used: Intravenously Frequency: DAILY Last Used: YESTERDAY Reason for Use: Feels Good, Peer Pressure - Travel History Recent Travel in the [place] Within the Last 8 Weeks: No Recent Travel Out of the Country Within the Last 8 Weeks: No - Immunization History Tetanus Immunization: <5 Years Tetanus Immunization Year if Known: 2017 Hx Influenza Vaccine This Season: No Medications and Allergies Active Medications: Active Medications Acetaminophen (Tylenol) 650 mg PO Q6HR PRN PRN Reason: PAIN SCALE 1 TO 2 Hydrocodone Bitart/Acetaminophen ([place] 5/325) 1 tab PO Q4H PRN PRN Reason: PAIN SCALE 3 TO 5 Hydrocodone Bitart/Acetaminophen ([place] 10/325) 1 tab PO Q4H PRN PRN Reason: PAIN SCALE 6 TO 10 Last Admin: 08/26/17 08:50 Dose: 1 tab Al Hydroxide/Mg Hydroxide (Milk Of Magnesia Liq) 30 ml PO Q12H PRN PRN Reason: Mild Constipation Bisacodyl (Dulcolax Supp) 10 mg RECTAL DAILY PRN PRN Reason: SEVERE CONSITIPATION Sodium Chloride (Ns Inj) 1,000 mls @ 100 mls/hr IV.CONT .Q10H [facility] Last Admin: 08/26/17 01:23 Dose: 100 mls/hr Linezolid (Zyvox 600 Mg Premix) 300 mls @ 300 mls/hr IV.SIG Q12H [facility] Last Infusion: 08/26/17 01:22 Dose: Infused Piperacillin/Tazobactam/Dextrose (Zosyn 4.5 Gm Premix) 4.5 gm in 100 mls @ 200 mls/hr IV.SIG Q6H [facility] Last Admin: 08/26/17 08:50 Dose: 200 mls/hr Lactulose (Lactulose Liq) 30 ml PO DAILY PRN PRN Reason: SEVERE CONSITIPATION Lorazepam (Ativan Inj) 1 mg IV.PUSH Q4H PRN PRN Reason: ANXIETY Last Admin: 08/26/17 05:58 Dose: 1 mg Morphine Sulfate (Morphine Inj) 2 mg IV.PUSH Q3H PRN PRN Reason: BREAKTHROUGH PAIN Last Admin: 08/26/17 05:57 Dose: 2 mg Naloxone HCl (Narcan Inj) 0.4 mg IV.PUSH UNSCH PRN PRN Reason: SEE LABEL COMMENTS Ondansetron HCl (Zofran Inj) 4 mg IV.PUSH Q6H PRN PRN Reason: NAUSEA OR VOMITING Senna/Docusate Sodium (Dede-Colace) 1 tab PO BID PRN PRN Reason: CONSTIPATION Sennosides (Senokot) 17.2 mg PO Q12H PRN PRN Reason: Moderate Constipation Temazepam (Restoril) 15 mg PO HS PRN PRN Reason: INSOMNIA Allergies Allergy/AdvReac Type Severity Reaction Status Date / Time clindamycin Allergy Severe Hives Verified 08/25/17 11:06 ketorolac Allergy Severe Hives Verified 08/25/17 11:06 vancomycin Allergy Severe Hives Verified 08/25/17 11:06 Home Medications Medication Instructions Recorded Confirmed Type No Known Home Medications 08/25/17 08/25/17 History Exam Vital signs: Vital Signs 08/25/17 10:57 08/25/17 11:05 08/25/17 11:26 Temperature 99.8 F H 99.8 F H Pulse Rate 102 H 102 H 96 H Respiratory Rate 22 22 Blood Pressure 133/74 133/74 Pulse Oximetry 99 99 100 08/25/17 13:01 08/25/17 13:59 08/25/17 14:23 Temperature 103.0 F H Pulse Rate 92 H 100 H 89 Respiratory Rate 15 16 18 Blood Pressure 140/78 141/77 H 117/66 Pulse Oximetry 100 100 100 08/25/17 15:38 08/25/17 15:40 08/25/17 16:22 Temperature 98.9 F Pulse Rate 78 82 Respiratory Rate 16 20 Blood Pressure 119/70 119/70 Pulse Oximetry 98 98 98 08/25/17 16:48 08/25/17 20:00 08/26/17 00:00 Temperature 96.2 F L 98.7 F 98.5 F Pulse Rate 74 93 H 103 H Respiratory Rate 19 16 16 Blood Pressure 117/64 119/67 120/69 Pulse Oximetry 97 96 98 08/26/17 02:01 08/26/17 03:26 08/26/17 03:57 Temperature 98.9 F Pulse Rate 112 H 107 H Respiratory Rate 18 19 Blood Pressure 121/85 Pulse Oximetry 97 08/26/17 08:00 Temperature 98.8 F Pulse Rate 107 H Respiratory Rate 19 Blood Pressure 136/82 Pulse Oximetry 97 Intake & Output 08/25/17 08/26/17 08/26/17 18:59 06:59 18:59 Intake Total 1050 / 1050 5500 / 5500 Balance 1050 / 1050 5500 / 5500 Weight 53.524 kg 52.9 kg Intake: IV 1050 / 1050 1500 / 1500 NS Inj 1,000 ML @ 100 mls/hr IV 1000 / 1000 .CONT .Q10H [facility] Rx#:[id number] Zyvox 600 mg Premix 300 ML @ 300 / 300 300 mls/hr IV.SIG Q12H [facility] Rx#: [id number] Zosyn 3.375 GM Premix 50 ML @ 50 / 50 100 mls/hr IV.SIG ONCE ONE Rx#: [id number] Zosyn 4.5 GM Premix 4.5 gm In 200 / 200 100 ml @ 200 mls/hr IV.SIG Q6H [facility] Rx#:[id number] NS Inj 1,000 ML @ Wide Open IV. 1000 / 1000 SIG BOLUS ONE Rx#:[id number] Oral 4000 / 4000 Other: # Voids 3 - Constitutional moderate distress, cachectic, chronically ill appearing, somnolent - Routine HEENT Exam Head: Present: normocephalic Eye: Present: EOMI ENT: Present: mucous membranes moist - Routine Neck Exam Present: supple - Routine Chest/Breast/Axilla Exam Chest wall: Absent: pacemaker - Routine Respiratory Exam Present: accessory muscle use, respiratory distress. Absent: patient mechanically ventilated - Routine Cardiovascular Exam Present: RRR, murmur (systolic ). Absent: irregular rhythm, irregularly irregular - Routine Abdominal Exam Absent: distended, ostomy - Routine Extremities Exam Present: cyanosis, edema, pulses intact. Absent: calf tenderness, joint swelling, extremity cold to touch - Routine Skin Exam Present: erythema, mottling, ecchymosis. Absent: petechiae, scars - Routine Neurological Exam Present: oriented X3, altered mental status. Absent: sensory deficit, motor deficit Results - Labs Result diagrams: 08/26/17 10:14 08/26/17 10:14 Abnormal lab results 08/25/17 08/25/17 08/25/17 Range/Units 11:20 11:20 11:20 WBC 12.5 H (4.0-11.0) th/mm3 Hgb 10.8 L (11.6-15.3) gm/dL Hct 33.3 L (35.0-46.0) % MCH 26.9 L (27.0-34.0) pg Neut % (Auto) 92.2 H (16.0-70.0) % Lymph % (Auto) 4.8 L (9.0-44.0) % Neut # (Auto) 11.5 H (1.8-7.7) th/mm3 Lymph # (Auto) 0.6 L (1.0-4.8) th/mm3 APTT 30.7 H (24.3-30.1) sec Potassium 3.1 L (3.5-5.1) meq/L BUN 6 L (7-18) mg/dL Estimated GFR 83 L (>89) mL/min POC Glucose (68-110) mg/dl Random Glucose 113 H (74-106) mg/dL Lactic Acid (0.4-2.0) mmol/L Calcium 8.0 L (8.5-10.1) mg/dL ALT 55 H (10-53) U/L Alkaline Phosphatase 143 H (45-117) U/L Troponin I Less than 0.02 L (0.02-0.05) ng/mL Albumin 2.9 L (3.4-5.0) g/dL Urine Occult Blood (Negative) Ur Leukocyte Esterase (Negative) Urine WBC (0-5) /hpf Urine Bacteria (None) /hpf Urine Mucus (Occasional) /lpf Urine Opiates Screen (Neg) 08/25/17 08/25/17 08/25/17 Range/Units 11:20 11:32 14:05 WBC (4.0-11.0) th/mm3 Hgb (11.6-15.3) gm/dL Hct (35.0-46.0) % MCH (27.0-34.0) pg Neut % (Auto) (16.0-70.0) % Lymph % (Auto) (9.0-44.0) % Neut # (Auto) (1.8-7.7) th/mm3 Lymph # (Auto) (1.0-4.8) th/mm3 APTT (24.3-30.1) sec Potassium (3.5-5.1) meq/L BUN (7-18) mg/dL Estimated GFR (>89) mL/min POC Glucose 111 H (68-110) mg/dl Random Glucose (74-106) mg/dL Lactic Acid 3.4 H (0.4-2.0) mmol/L Calcium (8.5-10.1) mg/dL ALT (10-53) U/L Alkaline Phosphatase (45-117) U/L Troponin I (0.02-0.05) ng/mL Albumin (3.4-5.0) g/dL Urine Occult Blood Small H (Negative) Ur Leukocyte Esterase Trace H (Negative) Urine WBC 29 H (0-5) /hpf Urine Bacteria Occasional H (None) /hpf Urine Mucus Few H (Occasional) /lpf Urine Opiates Screen (Neg) 08/25/17 08/25/17 08/25/17 Range/Units 14:05 17:31 22:57 WBC (4.0-11.0) th/mm3 Hgb (11.6-15.3) gm/dL Hct (35.0-46.0) % MCH (27.0-34.0) pg Neut % (Auto) (16.0-70.0) % Lymph % (Auto) (9.0-44.0) % Neut # (Auto) (1.8-7.7) th/mm3 Lymph # (Auto) (1.0-4.8) th/mm3 APTT (24.3-30.1) sec Potassium (3.5-5.1) meq/L BUN (7-18) mg/dL Estimated GFR (>89) mL/min POC Glucose (68-110) mg/dl Random Glucose (74-106) mg/dL Lactic Acid (0.4-2.0) mmol/L Calcium (8.5-10.1) mg/dL ALT (10-53) U/L Alkaline Phosphatase (45-117) U/L Troponin I Less than 0.02 L Less than 0.02 L (0.02-0.05) ng/mL Albumin (3.4-5.0) g/dL Urine Occult Blood (Negative) Ur Leukocyte Esterase (Negative) Urine WBC (0-5) /hpf Urine Bacteria (None) /hpf Urine Mucus (Occasional) /lpf Urine Opiates Screen Pos H (Neg) Short CBC 08/25/17 Range/Units 11:20 WBC 12.5 H (4.0-11.0) th/mm3 Hgb 10.8 L (11.6-15.3) gm/dL Hct 33.3 L (35.0-46.0) % Plt Count 279 (150-450) th/mm3 BMP 08/25/17 11:20 Sodium 139 Potassium 3.1 L Chloride 102 Carbon Dioxide 27.2 BUN 6 L Creatinine 0.81 Calcium 8.0 L Cardiac Enzymes 08/25/17 08/25/17 08/25/17 Range/Units 11:20 17:31 22:57 Total Creatine Kinase 36 28 36 (26-192) U/L Troponin I Less than 0.02 L Less than 0.02 L Less than 0.02 L (0.02-0.05) ng/mL Liver Function 08/25/17 Range/Units 11:20 Total Bilirubin 0.3 (0.2-1.0) mg/dL AST 36 (15-37) U/L ALT 55 H (10-53) U/L Alkaline Phosphatase 143 H (45-117) U/L Albumin 2.9 L (3.4-5.0) g/dL Urine 08/25/17 Range/Units 14:05 Urine Color Yellow (Yellw/Straw) Urine Clarity Clear (Clear) Urine pH 6.0 (5.0-8.5) Ur Specific [place]ell 1.033 (1.002-1.035) Urine Protein Negative (Neg-Trace) mg/dL Urine Glucose (UA) Negative (Negative) mg/dL - Imaging Impressions Venous Doppler Study 08/25/17 00:00 CONCLUSION: 1. The study is negative for lower extremity deep venous thrombosis. Chest X-Ray 08/25/17 11:20 CONCLUSION: Diminished lung volumes with bibasilar atelectasis Chest CTA 08/25/17 11:22 CONCLUSION: 1. Bilateral scattered groundglass nodules with suggestion of minimal cavitation likely infectious/inflammatory. Septic emboli is also a consideration. Treatment and follow-up. 2. No evidence for pulmonary motion. 3. Prominent right axillary lymph node. Forearm CT 08/25/17 11:22 CONCLUSION: 1. 2 needles are seen within the soft tissue as described above. 2. No abscess. 3. Diffuse soft tissue swelling likely cellulitis. Hand CT 08/25/17 11:22 CONCLUSION: 1. Soft tissue swelling without abscess or fluid collection. Caprini VTE Risk Assessment Caprini VTE Risk Assessment: No/Low Risk (score <= 1) Caprini Risk Assessment Model: Point Value = 1 Point Value = 2 Point Value = 3 Point Value = 5 Age 41-60 Minor surgery BMI > 25 kg/m2 Swollen legs Varicose veins or History of unexplained or recurrent spontaneous Oral contraceptives or hormone replacement Sepsis (< 1 month) Serious lung disease, including pneumonia (< 1 month) Abnormal pulmonary function Acute myocardial infarction Congestive heart failure (< 1 month) History of inflammatory bowel disease Medical patient at bed rest Age 61-74 Arthroscopic surgery Major open surgery (> 45 min) Laparoscopic surgery (> 45 min) Malignancy Confined to bed (> 72 hours) Immobilizing plaster cast Central venous access Age >= 75 History of VTE Family history of VTE Factor V Leiden Prothrombin 54022L Lupus anticoagulant Anticardiolipin antibodies Elevated serum homocysteine Heparin-induced thrombocytopenia Other congenital or acquired thrombophilia Stroke (< 1 month) Elective arthroplasty Hip, pelvis, or leg fracture Acute spinal cord injury (< 1 month) Prophylaxis Regimen: Total Risk Factor Score Risk Level Prophylaxis Regimen 0-1 Low Early ambulation 2 Moderate Order ONE of the following: *Sequential Compression Device (SCD) *Heparin 5000 units SQ BID 3-4 Higher Order ONE of the following medications: *Heparin 5000 units SQ TID *Enoxaparin/Lovenox 40 mg SQ daily (WT < 150 kg, CrCl > 30 mL/min) *Enoxaparin/Lovenox 30 mg SQ daily (WT < 150 kg, CrCl > 10-29 mL/min) *Enoxaparin/Lovenox 30 mg SQ BID (WT < 150 kg, CrCl > 30 mL/min) AND/OR *Sequential Compression Device (SCD) 5 or more Highest Order ONE of the following medications: *Heparin 5000 units SQ TID (Preferred with Epidurals) *Enoxaparin/Lovenox 40 mg SQ daily (WT < 150 kg, CrCl > 30 mL/min) *Enoxaparin/Lovenox 30 mg SQ daily (WT < 150 kg, CrCl > 10-29 mL/min) *Enoxaparin/Lovenox 30 mg SQ BID (WT < 150 kg, CrCl > 30 mL/min) AND *Sequential Compression Device (SCD) Assessment and Plan - Assessment (1) Sepsis Code(s): A41.9 - Sepsis, unspecified organism Status: Acute Plan: This patient presented to the ED with a Tmax of 103.0, pulse of 92, RR 15 and lactic acid of 3.4 in the setting of chest pain, prior IV drug use, cellulitis, WBC of 12.5 and a CXR showing ground glass opacities and cavitations. Patient received Linezolid due to vanco contraindication as well as zosyn in the ED. Lactic acid now 0.8 and Temp now 98.9. - Sepsis work up initiated - Follow up with ID consult and recommendations - Follow up with blood cultures - Continue linexolid and zosyn until blood cultures and sensitivities return - Trend Lactic Acid - Monitor vitals she was transferred to [facility] with her condition deteriorating. She may have compartment syndrome. Her antibiotics were broadened to include anaerobes with her arm looking worse. her blood cultures are 4/4 positive for gram positives. Nutition: Normal diet FNE: NS IV DVT Prophylaxis: SCDs (2) Acute septic pulmonary embolism Code(s): I26.90 - Septic pulmonary embolism without acute cor pulmonale Status : Acute Plan: Patients presents with 1 day history of acute chest pain. Her chest CT shows patchy opacities and cavitations most consistent with septic embolism in the setting of sepsis and new heart murmur in known IV drug user. These findings lead to likely infective endocarditis vs ACS. US venous doppler lower extremities was negative for DVT. - Continue zosyn and linezolid until cultures and sensitives return - Follow up with 2D echo - Follow up with serial EKG - Monitor on Telemetry - Continue to trend troponin - Continue to trend CK-MB - Monitor Vitals - Monitor CBC (3) Cellulitis Code(s): L03.90 - Cellulitis, unspecified Status: Acute Plan: Patient presents with significant hand and arm swelling in the setting of sepsis and known IV drug use. On presentation in the ED hand CT showed soft tissue swelling without abscess or fluid collection. Ct of forearm showed 2 needles within the soft tissue, no abscess, and diffuse soft tissue swelling likely cellulitis. - Continue Zosyn and Linezolid until cultures and sensitivities return - Follow up with general surgery for needle removal - Follow up with ID consult and recommendations - Follow with blood cultures - Trend Temp - Trend CBC (4) Nutrition, metabolism, and development symptoms Code(s): R63.8 - Other symptoms and signs concerning food and fluid intake Status: Acute Plan: Patient received a total of 3 fluid boluses of NS and is currently on a maintenance fluid rate of 100 ml/ hour. Resume normal diet as tolerated DVT Prophylaxis: SCDs (5) Endocarditis Code(s): I38 - Endocarditis, valve unspecified Status: Acute Plan: With her new murmur, septic pulmonary emboli and 4/4 positive blood cultures, she has endocarditis. echo ordered as she is an iv drug abuser specifically heroin and the presence and size of any vegetation needs to be noted. appreciate help of ID (6) Compartment syndrome of left upper extremity Code(s): T79.A12A - Traumatic compartment syndrome of left upper extremity, initial encounter Status: Acute Onset Date: ~08/26/17 Plan: consulted orthopedics and hand surgery. her hand has become significantly more swollen overnight. she does have pulses but her skin is cyanotic on her thumb H&P: Quality - VTE Deep Vein Thrombosis/Pulmonary Embolism Present on Admission: Yes (1) Sepsis Qualifiers: Sepsis type: sepsis due to unspecified organism Qualified Code(s): A41.9 - Sepsis, unspecified organism (2) Acute septic pulmonary embolism Qualifiers: Acute cor pulmonale presence: without acute cor pulmonale Qualified Code(s): I26.90 - Septic pulmonary embolism without acute cor pulmonale (3) Cellulitis Qualifiers: Site of cellulitis: extremity Site of cellulitis of extremity: upper extremity Laterality: right Qualified Code(s): L03.113 - Cellulitis of right upper limb (5) Endocarditis Qualifiers: Endocarditis type: infective Infective endocarditis organism: bacterial Chronicity: acute Qualified Code(s): I33.0 - Acute and subacute infective endocarditis (6) Compartment syndrome of left upper extremity Qualifiers: Encounter type: initial encounter Qualified Code(s): T79.A12A - Traumatic compartment syndrome of left upper extremity, initial encounter
[2017-08-26 10:27] LABS: ABG Base Excess 3.5 mmol/L (-2-2); ABG PCO2 44 mmHg (38-42); ABG PO2 36 mmHg (61-120)
[2017-08-26 10:31] LABS: Baso # (Auto) 0.1 th/mm3 (0.0-0.2); Baso % (Auto) 0.4 % (0.0-2.0); Hematocrit 32.3 % (35.0-46.0); Hemoglobin 10.7 gm/dL (11.6-15.3); Lymph # (Auto) 0.9 th/mm3 (1.0-4.8); Lymph % (Auto) 5.7 % (9.0-44.0); Mean Corpuscular HGB Conc 33.1 % (32.0-36.0); Mean Corpuscular Hemoglobin 27.1 pg (27.0-34.0); Mean Corpuscular Volume 81.8 fL (80.0-100.0); Mean Platelet Volume 8.2 fL (7.0-11.0); Mono # (Auto) 0.4 th/mm3 (0.0-0.9); Mono % (Auto) 2.6 % (0.0-8.0); Neut # (Auto) 15.1 th/mm3 (1.8-7.7); Neut % (Auto) 91.3 % (16.0-70.0); Platelet Count 282 th/mm3 (150-450); Red Blood Count 3.95 mil/mm3 (4.00-5.30); Red Cell Distribution Width 14.2 % (11.6-17.2); White Blood Count 16.6 th/mm3 (4.0-11.0)
--- NOTE | 2017-08-26 10:34 | XR ---
EXAM DATE: 08/26/2017 10:30 AM EDT AGE/SEX: 32 years / Female INDICATIONS: Shortness of breath. Possible pneumonia. CLINICAL DATA: This is the patient's subsequent encounter. Patient reports that signs and symptoms h ave been present for 2 days and indicates a pain score of 4/10. MEDICAL/SURGICAL HISTORY: . Deep vein arm thrombosis. . Arm surgery. . Deep vein arm thrombosi s. . Arm surgery. COMPARISON: [facility] [place], CHEST 1V SINGLE AP, 08/25/2017. . FINDINGS: Lungs are under aerated. Cardiac silhouette is prominent. Increasing parenchymal changes of air bronc hograms in left base. Right lung reasonably clear. No significant failure. No pneumothorax. CONCLUSION: Increasing consolidative changes left base with developing air bronchograms. Electronically signed by: Ta Schwartz MD 08/26/2017 10:33 AM EDT
[2017-08-26] MEDS ORDERED: Morphine Sulfate Inj 8 MG/ML Vial ONE (10:47)
[2017-08-26] MEDS: GENTAMICIN IV.SIG SCH ×2 (11:02→21:29)
[2017-08-26] MEDS: SODIUM CHLOR 0.9% IV.SIG SCH ×3 (11:02→21:29)
[2017-08-26 11:04] LABS: Albumin 2.2 g/dL (3.4-5.0); Anion Gap 11 meq/L (5-15); Blood Urea Nitrogen 7 mg/dL (7-18); Calcium 8.3 mg/dL (8.5-10.1); Carbon Dioxide 25.1 meq/L (21.0-32.0); Chloride 102 meq/L (98-107); Glomerular Filtration Rate Greater Than 89 mL/min (>89); Glucose,Random 127 mg/dL (74-106); Potassium 3.6 meq/L (3.5-5.1); Sodium 138 meq/L (136-145)
[2017-08-26 11:08] LABS: Alanine Aminotransferase 40 U/L (10-53); Alkaline Phosphatase 154 U/L (45-117); Aspartate Aminotransferase 22 U/L (15-37); Total Protein 6.6 g/dL (6.4-8.2)
--- NOTE | 2017-08-26 11:13 | P.CONCC ---
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 Her chest pain is pleuritic in nature located underneath the left breast and worsens with deep breath. She also reported subjective chills and fever and increasing swelling of the right upper extremity. Patient's workup included a CT pulmonary angiogram which did not show any large pulmonary artery embolus, but showed multiple scattered septic emboli. Also patient was started by ID on linezolid and Zosyn. Today a Halicat was called as patient was in severe respiratory distress, and severe right arm pain. I evaluated the patient immediately in the ICU. She complains of severe pain in the right upper extremity which is swollen and tender with blister formation, possible abscess dorsum of right thumb. Her respiratory distress seems to be predominantly from pain and anxiety, also from chest pain preventing deep breaths. She is severely septic and ID has added daptomycin and tobramycin. Blood cultures are growing GPC 4 out of 4 bottles. Consult from hand surgery had been requested and is pending at this time. 2D Echo aslo pending Review of Systems unobtainable due to mental condition, other (Severe distress prevents detailed review of system) PMFSH - History History Provided By: Patient - Medical / Surgical Hx Neg / Unobtainable Medical Problems Denied: Unable to Obtain - Medical History Medical History: Medical History (Last Reviewed 08/26/17 @ 10:59 by Lashon Carney) Arm vein blood clot - Surgical History Surgical History: Surgical History (Last Reviewed 08/25/17 @ 13:51 by Josefa Jim MD) History of surgery on arm - Tobacco History Second Hand Smoke Exposure: Yes Tobacco Use In Past 30 Days: Yes Smoking Status: Current some day smoker Tobacco Type: Cigarettes - Alcohol History How Often Do You Have a Drink Containing Alcohol: Never - Substance Use History Substance History: Active Abuse - Substance Use Type Heroin Status: Active Route Used: Intravenously Frequency: DAILY Last Used: YESTERDAY Reason for Use: Feels Good, Peer Pressure - Travel History Recent Travel in the [place] Within the Last 8 Weeks: No Recent Travel Out of the Country Within the Last 8 Weeks: No - Immunization History Tetanus Immunization: <5 Years Tetanus Immunization Year if Known: 2017 Hx Influenza Vaccine This Season: No Medications and Allergies Active Medications: Active Medications Acetaminophen (Tylenol) 650 mg PO Q6HR PRN PRN Reason: PAIN SCALE 1 TO 2 Hydrocodone Bitart/Acetaminophen ([place] 5/325) 1 tab PO Q4H PRN PRN Reason: PAIN SCALE 3 TO 5 Hydrocodone Bitart/Acetaminophen ([place] 10/325) 1 tab PO Q4H PRN PRN Reason: PAIN SCALE 6 TO 10 Last Admin: 08/26/17 08:50 Dose: 1 tab Al Hydroxide/Mg Hydroxide (Milk Of Magnesia Liq) 30 ml PO Q12H PRN PRN Reason: Mild Constipation Bisacodyl (Dulcolax Supp) 10 mg RECTAL DAILY PRN PRN Reason: SEVERE CONSITIPATION Hydromorphone HCl (Dilaudid Pf Inj) 2 mg IV.PUSH Q4H PRN PRN Reason: AGITATION AND/OR HALLUCINATION Sodium Chloride (Ns Inj) 1,000 mls @ 100 mls/hr IV.CONT .Q10H VANESSA Last Infusion: 08/26/17 10:58 Dose: Infused Linezolid (Zyvox 600 Mg Premix) 300 mls @ 300 mls/hr IV.SIG Q12H VANESSA Last Infusion: 08/26/17 01:22 Dose: Infused Piperacillin/Tazobactam/Dextrose (Zosyn 4.5 Gm Premix) 4.5 gm in 100 mls @ 200 mls/hr IV.SIG Q6H VANESSA Last Admin: 08/26/17 08:50 Dose: 200 mls/hr Daptomycin 416 mg/ Sodium (Chloride) 100 mls @ 200 mls/hr IV.SIG Q24H VANESSA Gentamicin Sulfate 50 mg/ (Sodium Chloride) 101.25 mls @ 100 mls/hr IV.SIG Q8H VANESSA Last Admin: 08/26/17 11:02 Dose: 100 mls/hr Lactulose (Lactulose Liq) 30 ml PO DAILY PRN PRN Reason: SEVERE CONSITIPATION Lorazepam (Ativan Inj) 1 mg IV.PUSH Q4H PRN PRN Reason: ANXIETY Last Admin: 08/26/17 05:58 Dose: 1 mg Morphine Sulfate (Morphine Inj) 2 mg IV.PUSH Q3H PRN PRN Reason: BREAKTHROUGH PAIN Last Admin: 08/26/17 05:57 Dose: 2 mg Naloxone HCl (Narcan Inj) 0.4 mg IV.PUSH UNSCH PRN PRN Reason: SEE LABEL COMMENTS Ondansetron HCl (Zofran Inj) 4 mg IV.PUSH Q6H PRN PRN Reason: NAUSEA OR VOMITING Senna/Docusate Sodium (Dede-Colace) 1 tab PO BID PRN PRN Reason: CONSTIPATION Sennosides (Senokot) 17.2 mg PO Q12H PRN PRN Reason: Moderate Constipation Temazepam (Restoril) 15 mg PO HS PRN PRN Reason: INSOMNIA Allergies Allergy/AdvReac Type Severity Reaction Status Date / Time clindamycin Allergy Severe Hives Verified 08/25/17 11:06 ketorolac Allergy Severe Hives Verified 08/25/17 11:06 vancomycin Allergy Severe Hives Verified 08/25/17 11:06 Home Medications Medication Instructions Recorded Confirmed Type No Known Home Medications 08/25/17 08/25/17 History Physical Exam Vital signs: Vital Signs 08/25/17 11:26 08/25/17 13:01 08/25/17 13:59 Temperature 103.0 F H Pulse Rate 96 H 92 H 100 H Respiratory Rate 15 16 Blood Pressure 140/78 141/77 H Pulse Oximetry 100 100 100 08/25/17 14:23 08/25/17 15:38 08/25/17 15:40 Temperature 98.9 F Pulse Rate 89 78 Respiratory Rate 18 16 Blood Pressure 117/66 119/70 Pulse Oximetry 100 98 98 08/25/17 16:22 08/25/17 16:48 08/25/17 20:00 Temperature 96.2 F L 98.7 F Pulse Rate 82 74 93 H Respiratory Rate 20 19 16 Blood Pressure 119/70 117/64 119/67 Pulse Oximetry 98 97 96 08/26/17 00:00 08/26/17 02:01 08/26/17 03:26 Temperature 98.5 F Pulse Rate 103 H 112 H Respiratory Rate 16 18 Blood Pressure 120/69 Pulse Oximetry 98 08/26/17 03:57 08/26/17 08:00 08/26/17 10:10 Temperature 98.9 F 98.8 F Pulse Rate 107 H 107 H Respiratory Rate 19 19 20 Blood Pressure 121/85 136/82 Pulse Oximetry 97 97 08/26/17 10:25 08/26/17 10:58 Temperature Pulse Rate Respiratory Rate Blood Pressure Pulse Oximetry 98 95 Intake & Output 08/25/17 08/26/17 08/26/17 18:59 06:59 18:59 Intake Total 1050 / 1050 5500 / 5500 1000 / 1000 Balance 1050 / 1050 5500 / 5500 1000 / 1000 Weight 53.524 kg 52.9 kg Intake: IV 1050 / 1050 1500 / 1500 1000 / 1000 NS Inj 1,000 ML @ 100 mls/hr IV 1000 / 1000 1000 / 1000 .CONT .Q10H VANESSA Rx#:[id number] Zyvox 600 mg Premix 300 ML @ 300 / 300 300 mls/hr IV.SIG Q12H VANESSA Rx#: [id number] Zosyn 3.375 GM Premix 50 ML @ 50 / 50 100 mls/hr IV.SIG ONCE ONE Rx#: [id number] Zosyn 4.5 GM Premix 4.5 gm In 200 / 200 100 ml @ 200 mls/hr IV.SIG Q6H VANESSA Rx#:[id number] NS Inj 1,000 ML @ Wide Open IV. 1000 / 1000 SIG BOLUS ONE Rx#:[id number] Oral 4000 / 4000 Other: # Voids 3 Narrative: Exam Narrative: GENERAL: Awake and alert, in moderate to severe distress due to pain and tachypnea respiratory distress SKIN/MSK: Lower right arm and right forearm is erythematous, tender to palpation and edematous with blister formation. Distal tip of the right thumb is purple with probable abscess formation on dorsum. Radial pulses are palpable HEAD: Atraumatic. Normocephalic. EYES: Pupils equal and round. No scleral icterus. ENT: Mucous membranes pink and moist. NECK: Trachea midline. No JVD. CARDIOVASCULAR: Tachycardia. No murmur appreciated. RESPIRATORY: Tachypneic breathing about 35-40 breaths per minute. Clear to auscultation anteriorly. GASTROINTESTINAL: Abdomen soft, non-tender, nondistended. NEUROLOGICAL: Awake and alert. Motor grossly within normal limits. Normal speech. Septic Shock Reassessment Septic shock perfusion: reassessment completed Assessment and Plan - Assessment and Plan Plan: ASSESSMENT: Severe sepsis Probable infective endocarditis GPC bacteremia Pulmonary septic emboli Right thumb dorsum abscess R/o RUE compartment syndrome PLAN: NEURO: -As needed IV Dilaudid, p.o. [place] for pain. Ativan as needed for anxiety -Watch for drug withdrawal RESP: -Nasal cannula oxygen -DuoNeb every 6 hours -Pulmonary angiogram shows bilateral pulmonary septic emboli without evidence of pulmonary arterial embolism -No indication for anticoagulation at this time CV: -Normal saline IV fluids 1L and 100 ml per hour -wait for 2d echo, follow troponin. Bedside echo shows probable TV vegetation -Chest pain seems to be pleuritic in nature GI: -Heart healthy diet -IV famotidine : -Monitor renal function closely. Place Navarrete catheter if needed. ID: -Patient is currently on Zyvox and Zosyn, ID has added daptomycin and tobramycin -2D echo pending, GPC in 4 out of 4 bottles -Clinical picture consistent with infective endocarditis -Hand surgery consulted for abscess formation of the dorsum of right thumb and possible compartment syndrome -Broad-spectrum antibiotics as above will cover HEME: -Monitor CBC, CMP, coag ENDO: -Electrolyte replacement per protocol PROPH: -Bilateral lower extremity SCDs. Start Lovenox in 24 hours if no OR intervention planned by hand surgery LINES: -Utilize peripheral IVs, central line if needed CC time 45 min Code Status: Full Discussed Condition With: Dr. Hannon, Dr. Rudolph, patient and , bedside RN
[2017-08-26] MEDS ORDERED: Potassium Chlor 20 mEq Premix 20 MEQ/100 ML PIGGYBACK IV.SIG PRN ×2 (11:39)
[2017-08-26] MEDS ORDERED: Potassium Phosphate Inj 30 MMOL in Sodium Chlor 0.9% Inj 250 ML IV.SIG PRN (11:39)
[2017-08-26] MEDS: DAPTOMYCIN IV.SIG SCH (11:39)
[2017-08-26] MEDS ORDERED: Magnesium Sulfate Inj 4 GM in Sodium Chlor 0.9% Inj 92 ML IV.SIG PRN (11:39)
[2017-08-26] MEDS ORDERED: Sodium Phosphate Inj 30 MMOL in Sodium Chlor 0.9% Inj 250 ML IV.SIG PRN (11:39)
[2017-08-26] MEDS ORDERED: Magnesium Sulfate Inj 2 GM in Sodium Chlor 0.9% Inj 96 ML IV.SIG PRN (11:39)
[2017-08-26] MEDS ORDERED: Potassium Phosphate 500 MG Soluble Tablet PO PRN ×2 (11:39)
[2017-08-26] MEDS ORDERED: Magnesium Oxide 400 MG Tablet PO PRN (11:39)
[2017-08-26] MEDS ORDERED: Potassium Chlor 40 mEq Premix 40 MEQ/100 ML PIGGYBACK IV.SIG PRN ×2 (11:39)
[2017-08-26] MEDS ORDERED: Potassium Chloride 25 MEQ Effervescent Tablet PO PRN (11:39)
--- NOTE | 2017-08-26 12:05 | US ---
EXAM DATE: 08/26/2017 12:00 PM EDT AGE/SEX: 32 years / Female INDICATIONS: Right arm redness, pain, and swelling. CLINICAL DATA: This is the patient's initial encounter. Patient reports that signs and symptoms have been present for 1 week and indicates a pain score of 10/10. MEDICAL/SURGICAL HISTORY: . Upper extremity blood clot. Substance abuse. . Surgery on right a rm. COMPARISON: [facility] [place], CT FOREARM RIGHT W CONTRAST, 08/25/2017. . FINDINGS: There is no abscess. Extensive induration is noted with thrombosis of the cephalic vein. The deep venous system is currently patent. Again seen are the metallic foreign bodies thought to be retained needle fragments. CONCLUSION: 1. No drainable abscess is yet. Excessive induration over the cephalic vein partial thrombosis of th e cephalic vein. Electronically signed by: Ta Schwartz MD 08/26/2017 12:03 PM EDT
[2017-08-26] MEDS: HYDROmorphone PF Inj 2 MG/ML Vial IV.PUSH PRN ×3 (12:38→21:12)
--- NOTE | 2017-08-26 13:02 | MB ---
cc: Lorraine Hannon MD DATE: 08/26/2017 REQUESTING PHYSICIAN: Dr. Miguelina Irwin REASON FOR CONSULTATION: Possible forearm compartment syndrome. HISTORY OF PRESENT ILLNESS: The patient is a 32-year-old female with a history of IV drug abuse, who presents with 1-day history of chest pain, right arm pain and swelling. The patient reports that the chest pain started at 8:00 o'clock this morning. This is apparently localized in the left breast. In addition to her symptoms, the patient notes that some needles broke off in her forearm approximately 2 months ago. She also notes that she shoots up into her left arm, but not her right arm. The patient had a CT scan of her right upper extremity, which noted no evidence of an abscess. She also had an ultrasound which showed no evidence of DVT or abscess formation. Consultation is requested regarding evaluation and treatment of this patient. PAST MEDICAL HISTORY: The patient has a history of arm vein clot. SURGICAL HISTORY: The patient did have surgery on one of her arms. SOCIAL HISTORY: Tobacco history is positive. The patient does smoke. Alcohol history, the patient denies alcohol use, although she admits to IV drug abuse. MEDICATIONS: Listed on the chart. PHYSICAL EXAMINATION: GENERAL: The patient is lying in bed. She is complaining of pain in her right upper extremity. VITAL SIGNS: Her temperature is 98.8, pulse 107, respirations 19, blood pressure 136/82, pulse oximetry is 95 percent on 2 liters of oxygen. HEAD, EARS, EYES, NOSE AND THROAT: Her extraocular muscles are intact. Pupils are equal, round and reactive to light. Her mouth is clear. EXTREMITIES: Examination of her right upper extremity reveals some swelling to the dorsal aspect of the arm. The swelling is mid forearm over the radial side. It does not appear to be fluctuant. The volar surface of the forearm is soft. The areas where there are retained needles, which appear to be mid ulnar bone and distal ulna bone ulnar side are completely soft and without evidence of involvement. The dorsal swelling is quite distant from the areas of these retained bodies. The patient does have swelling of her hand. She has a very obvious abscess involving the dorsal radial aspect of her thumb. There appears to be quite a significant amount of pus and the skin is quite thinned over it constituting an abscess and a blister. IMPRESSION: 1. There is no evidence of compartment syndrome. 2. The foreign bodies which are retained and have been there for a while are insignificant regarding this patient's present admission. 3. There is a significant abscess of the thumb, which is full of pus and should be drained. PLAN: I have offered the patient drainage at the bedside. She has been waiting for pain medicine. If she allows me, I will drain the abscess at the bedside. MD DARYL Bonilla/LAKESHIA , 12:37 PM , 01:00 PM
--- NOTE | 2017-08-26 13:34 | MP ---
cc: Lorraine Hannon MD DATE OF OPERATION: 08/26/2017 PREOPERATIVE DIAGNOSIS: Superficial abscess of right thumb. POSTOPERATIVE DIAGNOSIS: Superficial abscess of right thumb. PROCEDURE PERFORMED: 1. Incision and drainage of abscess, right thumb. 2. Excisional debridement of skin of abscess of right thumb. ANESTHESIA: None. SURGEON: Lorraine Hannon MD INDICATIONS: A 32-year-old female with a superficial abscess, possibly septic embolism to the dorsal aspect of her right thumb. It measured initially 2.5 x 1.5 cm in dimension. Upon incising it, the fluid did squirt out approximately 4 inches indicating that there was significant amount of pressure. After debriding, it was noted that there was some pus beneath the nail plate. This may necessitate removal of the nail plate in the future. PROCEDURE: The patient was in a supine position and gave verbal consent for the operation. The thumb was prepped with Betadine and draped in the usual sterile fashion. A sterile 11 blade was used to make the incision with the findings as above. Thick pus came out approximately 3 mL. This was cultured. The tissue, which was blistered and devitalized, was removed surgically. The patient was then given back to the care of the ICU staff for soaking and wound care. Orders were written. Lorraine Hannon MD LHB/DL , 01:20 PM , 01:32 PM
[2017-08-26 13:59] LABS: Hepatitits B Surface Antigen Nonreactive (Nonreactive)
--- NOTE | 2017-08-26 13:59 | ECG ---
Date Performed: 08/25/2017 Time Performed: 17:36:32 PTAGE: 32 years EKG: Sinus rhythm NONSPECIFIC T-WAVE ABNORMALITY BORDERLINE ECG Compared to PREVIOUS TRACING NON SPECIFIC T WAVE CHANGES ARE NOW PRESENT PREVIOUS TRACIN 8 11.21 DOCTOR: Orlin Alas Interpretating Date/Time 08/26/2017 13:58:38
[2017-08-26 14:28] LABS: Hepatitis A IgM Antibody Nonreactive (Nonreactive)
--- NOTE | 2017-08-26 14:47 | MB ---
cc: Connor Kauffman MD DATE: 08/26/2017 REQUESTING PHYSICIAN: Dr. Irwin. REASON FOR CONSULTATION: Septic emboli, history of IV drug use, recommendations on antibiotics course. HISTORY OF PRESENT ILLNESS: This is a 32-year-old white female who uses IV drugs. The patient reports that she last used IV drugs 2 days ago. She was brought to the emergency department complaining of chest pain and shortness of breath. She reportedly noted that it started a couple days ago. The pain is located at the left side of her chest and she has difficulty breathing. The patient used IV heroin prior to the admission. She was noted to have large area of swelling and erythema on the right forearm and hand, which is markedly swollen and she has an area of grayish discoloration with swelling at the right thumb. She was evaluated in the emergency department. She had temperature of 99.8 and heart rate of 102 and the temperature increased to 103 degrees and a white blood cell count was elevated at 12.5. Lactic acid was 3.4. The patient had blood cultures taken and all 4 bottles of the blood cultures have gram-positive cocci. White blood cell count has increased to 16.6. She HAS ALLERGY TO VANCOMYCIN AND CLINDAMYCIN. She was started on Zyvox. There was concern about possible fasciitis of the left upper extremity. Hand surgeon was called to evaluate the patient and the right thumb was debrided. She is moaning in pain, but otherwise awake. The patient reports that she had sepsis back in 2016 and at that time, she also had deep venous thrombosis of her left arm. PAST MEDICAL HISTORY: Left upper extremity deep venous thrombosis, history of sepsis, IV drug abuse. ALLERGIES: 1. VANCOMYCIN. 2. CLINDAMYCIN. 3. KETOROLAC. MEDICATIONS: 1. Daptomycin. 2. Mcwilliams 10 p.r.n. 3. Dilaudid p.r.n. 4. Ativan. 5. Zyvox 6. Morphine sulfate p.r.n. 7. Piperacillin/tazobactam. 8. Gentamicin. SOCIAL HISTORY: Positive for IV drug use. Positive tobacco use. No alcohol. FAMILY HISTORY: Noncontributory. REVIEW OF SYSTEMS: Significant for pain in the right arm and shortness of breath and also chest pain. PHYSICAL EXAMINATION: GENERAL: Slender female who is in moderate distress because of pain. She is otherwise awake, although appears drowsy. VITAL SIGNS: Includes a temperature 98.8, blood pressure 136/82, heart rate 101. The patient is on 2 liters O2 and O2 saturation 88%. HEAD, EARS, EYES, NOSE AND THROAT: Her head is atraumatic. Extraocular movements are grossly intact. Pupils reactive to light. No icterus. No conjunctival erythema. Oropharynx mucosa is moist. No visible lesions. NECK: Supple without adenopathy. LUNGS: Decreased breath sounds bilaterally. HEART: Regular rate and rhythm without audible murmurs, rubs or gallops. ABDOMEN: Bowel sounds present. Soft, no tenderness appreciated. RECTAL: Not performed. EXTREMITIES: Marked swelling with erythema at the upper aspect of the right forearm with area of pale discoloration at the mid forearm. The dorsum of the right hand is markedly swollen and the thumb is post-debridement with the epidermis having been debrided revealing underlying granular tissue. Multiple track todd at the upper extremities. Right arm above the elbow is also swollen, but not erythematous. No visible embolic lesions. SKIN: No diffuse rash. NEUROLOGIC: No gross focal findings. PSYCHOLOGIC: The patient is calm and cooperative. LABORATORY DATA: WBC 16.6, platelet count 282, 91% neutrophils, hemoglobin 10.7, creatinine 0.72, estimated GFR greater than 89. LFTs normal. CTA of the chest shows bilateral scattered ground glass nodules with suggestion of minimal cavitary, likely infectious/inflammatory. Septic emboli is also a consideration. IMPRESSION: 1. Sepsis due to gram-positive bacteria. 2. Septic emboli of the lung. 3. Severe cellulitis of the right forearm with abscess of the left thumb. 4. IV drug abuse. 5. Hypoxemia. 6. Probable endocarditis in a patient with IV drug abuse. RECOMMENDATIONS: 1. Continue Zyvox for pulmonary coverage. 2. Continue daptomycin until further information on the blood culture becomes available. 3. Continue gentamicin. 4. I will monitor the clinical status and monitor blood cultures and white blood cell count. Also, follow the echocardiogram, which has been ordered in order to rule out endocarditis. Thank you for this consultation. I will follow the patient's progress along with you and will make further recommendations upon followup. Connor F. Dontfraid, MD FFD/TL , 01:56 PM , 02:45 PM MTDJai
--- NOTE | 2017-08-26 16:24 | ECHRPT ---
Indication: SEPSIS CONCLUSIONS The left ventricular systolic function is normal with an estimated ejection fraction in the range of 55-60%. Left ventricular diastolic function parameters are normal. Trace mitral valve regurgitation. There is trace tricuspid valve regurgitation. BP: / HR: Rhythm: Sinus MEASUREMENTS (Male / Female) Normal Values Technical Quality:Excellent 2D ECHO LV Diastolic Diameter PLAX 4.7 cm 4.2 - 5.9 / 3.9 - 5.3 cm LV Systolic Diameter PLAX 3.5 cm IVS Diastolic Thickness 0.9 cm 0.6 - 1.0 / 0.6 - 0.9 cm LVPW Diastolic Thickness 1.0 cm 0.6 - 1.0 / 0.6 - 0.9 cm LV Relative Wall Thickness 0.4 LVOT Diameter 1.9 cm LA Systolic Diameter LX 2.8 cm 3.0 - 4.0 / 2.7 - 3.8 cm LV Ejection Fraction MOD 4C 55.1 % LV Ejection Fraction 4C AL 56.6 % M-MODE Aortic Root Diameter MM 1.7 cm AV Cusp Separation MM 2.2 cm DOPPLER AV Peak Velocity 191.0 cm/s AV Peak Gradient 14.6 mmHg LVOT Peak Velocity 139.0 cm/s LVOT Peak Gradient 7.7 mmHg AV Area Cont Eq pk 2.1 cm MV Area PHT 3.8 cm Mitral E Point Velocity 83.9 cm/s Mitral A Point Velocity 65.6 cm/s Mitral E to A Ratio 1.3 LV E' Lateral Velocity 15.1 cm/s Mitral E to LV E' Lateral Ratio 5.6 LV E' Septal Velocity 14.2 cm/s Mitral E to LV E' Septal Ratio 5.9 TR Peak Velocity 270.0 cm/s TR Peak Gradient 29.2 mmHg Right Atrial Pressure 10.0 mmHg Pulmonary Artery Systolic Pressu 39.2 mmHg Right Ventricular Systolic Press 39.2 mmHg PV Peak Velocity 111.0 cm/s PV Peak Gradient 4.9 mmHg FINDINGS LEFT VENTRICLE The left ventricular systolic function is normal with an estimated ejection fraction in the range of 55-60%. Normal left ventricular size. Wall thickness is normal. No regional wall motion abnormalities are present. Left ventricular diastolic function parameters are normal. RIGHT VENTRICLE Normal right ventricular size and systolic function. LEFT ATRIUM The left atrial size is normal. RIGHT ATRIUM The right atrial size is normal. ATRIAL SEPTUM Normal atrial septal thickness AORTA The aortic root and proximal ascending aorta are normal in size on limited imaging. MITRAL VALVE Structurally normal mitral valve. Trace mitral valve regurgitation. No mitral valve stenosis. AORTIC VALVE Trileaflet aortic valve. No aortic valve stenosis or regurgitation. TRICUSPID VALVE Structurally normal tricuspid valve. No tricuspid valve stenosis. There is trace tricuspid valve regurgitation. PULMONARY VALVE No pulmonary valve regurgitation or stenosis. VESSELS The inferior vena cava is normal in size. PERICARDIUM No pericardial effusion. Phill Leung DO (Electronically Signed) Final Date:26 August 2017 16:23
[2017-08-26] MEDS: Famotidine PF Inj 20 MG/2 ML Vial IV.PUSH SCH (20:44)
[2017-08-27] MEDS: HYDROmorphone PF Inj 2 MG/ML Vial IV.PUSH PRN ×6 (01:25→22:06)
[2017-08-27] MEDS: Piperacil/Tazo 4.5 GM Premix 4.5 GM/100 ML BAG IV.SIG SCH ×2 (01:40→07:23)
[2017-08-27] MEDS: Morphine Inj 4 MG/ML Vial IV.PUSH PRN ×5 (03:09→20:02)
[2017-08-27] MEDS: SODIUM CHLOR 0.9% IV.SIG SCH ×4 (03:10→19:17)
[2017-08-27] MEDS: GENTAMICIN IV.SIG SCH ×3 (03:10→19:17)
[2017-08-27] MEDS: Famotidine PF Inj 20 MG/2 ML Vial IV.PUSH SCH ×2 (08:41→20:05)
[2017-08-27] MEDS: Sod Chloride 0.9% Inj 1,000 ML IV.CONT SCH ×2 (08:41→22:14)
--- NOTE | 2017-08-27 09:23 | P.PNCC ---
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 Her chest pain is pleuritic in nature located underneath the left breast and worsens with deep breath. She also reported subjective chills and fever and increasing swelling of the right upper extremity. Patient's workup included a CT pulmonary angiogram which did not show any large pulmonary artery embolus, but showed multiple scattered septic emboli. Also patient was started by ID on linezolid and Zosyn. Today a Halicat was called as patient was in severe respiratory distress, and severe right arm pain. I evaluated the patient immediately in the ICU. She complains of severe pain in the right upper extremity which is swollen and tender with blister formation, possible abscess dorsum of right thumb. Her respiratory distress seems to be predominantly from pain and anxiety, also from chest pain preventing deep breaths. She is severely septic and ID has added daptomycin and tobramycin. Blood cultures are growing GPC 4 out of 4 bottles. Consult from hand surgery had been requested and is pending at this time. 2D Echo aslo pending 08/27: Lying in bed complains about pleuritic chest pain but clinically improving. RN reports pain medicine seeking behavior. Patient apparently refuses to take p.o. pain medication requests IV Dilaudid only. 2D echo did not show any evidence of vegetation. Objective Vital Signs / I&O: Vital Signs 08/26/17 10:10 08/26/17 10:25 08/26/17 10:58 Temperature Pulse Rate Respiratory Rate 20 Blood Pressure Pulse Oximetry 98 95 08/26/17 11:18 08/26/17 12:00 08/26/17 12:01 Temperature Pulse Rate 100 H 97 H 98 H Respiratory Rate Blood Pressure 131/94 H Pulse Oximetry 100 98 65 L 08/26/17 12:20 08/26/17 13:00 08/26/17 13:01 Temperature Pulse Rate 55 L 100 H 99 H Respiratory Rate Blood Pressure 135/84 Pulse Oximetry 100 98 08/26/17 13:08 08/26/17 14:00 08/26/17 14:15 Temperature Pulse Rate 99 H Respiratory Rate 12 12 Blood Pressure 128/83 Pulse Oximetry 100 08/26/17 15:00 08/26/17 16:00 08/26/17 17:00 Temperature Pulse Rate 101 H 102 H 109 H Respiratory Rate Blood Pressure 120/76 124/80 138/90 Pulse Oximetry 100 97 97 08/26/17 17:55 08/26/17 18:00 08/26/17 19:00 Temperature Pulse Rate 109 H 120 H Respiratory Rate 15 Blood Pressure 129/74 136/79 Pulse Oximetry 08/26/17 19:34 08/26/17 20:00 08/26/17 20:47 Temperature 100.0 F H Pulse Rate 123 H Respiratory Rate 16 26 H Blood Pressure 137/74 Pulse Oximetry 97 97 08/27/17 00:00 08/27/17 04:00 08/27/17 07:00 Temperature 99.9 F H 98.2 F 98 F Pulse Rate 121 H 113 H 105 H Respiratory Rate 25 H 24 16 Blood Pressure 136/82 130/77 124/64 Pulse Oximetry 97 100 100 08/27/17 07:28 08/27/17 07:30 08/27/17 08:00 Temperature Pulse Rate 111 H 108 H Respiratory Rate Blood Pressure 123/74 132/76 Pulse Oximetry 100 100 100 Intake & Output 08/26/17 08/27/17 08/27/17 18:59 06:59 18:59 Intake Total 2420 / 2420 2663.75 / 2663.75 1100 / 1100 Output Total 2550 / 2550 Balance 2420 / 2420 113.75 / 113.75 1100 / 1100 Weight 54.3 kg Intake: IV 1700 / 1700 1703.75 / 1703.75 1100 / 1100 NS Inj 1,000 ML @ 100 mls/hr IV 1000 / 1000 1000 / 1000 1000 / 1000 .CONT .Q10H VANESSA Rx#:[id number] Cubicin Inj 416 MG In NS Inj 100 / 100 100 ML @ 200 mls/hr IV.SIG Q24H VANESSA Rx#:[id number] Gentamicin Inj 50 MG In NS Inj 100 / 100 203.75 / 203.75 100 ML @ 100 mls/hr IV.SIG Q8H VANESSA Rx#:[id number] Zyvox 600 mg Premix 300 ML @ 300 / 300 300 / 300 300 mls/hr IV.SIG Q12H VANESSA Rx#: [id number] Zosyn 4.5 GM Premix 4.5 gm In 200 / 200 200 / 200 100 / 100 100 ml @ 200 mls/hr IV.SIG Q6H VANESSA Rx#:[id number] Oral 720 / 720 960 / 960 Output: Urine 2550 / 2550 Other: # Voids 2 2 # Bowel Movements 0 Result Diagrams: 08/26/17 10:14 08/26/17 10:14 Objective Remarks: GENERAL: Awake and alert, in pain and tachypneic SKIN/MSK: Right forearm is erythematous, tender to palpation and edematous with blister formation. Right thumb dose of the abscess drained now dressing in place. Blister formation on forearm HEAD: Atraumatic. Normocephalic. EYES: Pupils equal and round. No scleral icterus. ENT: Mucous membranes pink and moist. NECK: Trachea midline. No JVD. CARDIOVASCULAR: Tachycardia. No murmur appreciated. Limited bedside echo no vegetation RESPIRATORY: Tachypneic. Clear to auscultation anteriorly. Complaints of left- sided pleuritic chest pain GASTROINTESTINAL: Abdomen soft, non-tender, nondistended. NEUROLOGICAL: Awake and alert. Motor grossly within normal limits. Normal speech. Assessment and Plan - Assessment and Plan Plan: ASSESSMENT: Severe sepsis Probable infective endocarditis GPC bacteremia Pulmonary septic emboli Right thumb dorsum abscess R/o RUE compartment syndrome PLAN: NEURO: -As needed IV Dilaudid, p.o. Narco for pain. Ativan as needed for anxiety -Watch for drug withdrawal -Patient is showing drug-seeking behavior however she has pleuritic pain from septic pulmonary emboli -We will treat acute pain as above RESP: -Nasal cannula oxygen -DuoNeb every 6 hours -Pulmonary angiogram shows bilateral pulmonary septic emboli without evidence of pulmonary arterial embolism -No indication for anticoagulation at this time CV: -Normal saline 100 ml per hour -2D echo did not show any vegetation -Chest pain seems to be pleuritic in nature GI: -Heart healthy diet -IV famotidine : -Monitor renal function closely. ID: -Patient is currently on Zyvox, Zosyn, daptomycin and tobramycin -2D echo no vegetation but clinical picture consistent with infective endocarditis, GPC in 4 out of 4 bottles-staph aureus in 1 bottle -Hand surgery consulted for abscess formation of the dorsum of right thumb - status post bedside drainage HEME: -Monitor CBC, CMP, coag ENDO: -Electrolyte replacement per protocol PROPH: -Bilateral lower extremity SCDs. Start Lovenox in 24 hours if no OR intervention planned by hand surgery LINES: -Utilize peripheral IVs, central line if needed Level2 Critical care will sign off, transfer to [facility]. Discussed with the family practice residents
[2017-08-27] MEDS: Povidone Iodine 10% Top Soln 118 ML Bottle TOPICAL SCH ×2 (10:39→10:46)
--- NOTE | 2017-08-27 12:15 | P.PNFP ---
Subjective Interval history: Patient was seen this morning at bedside in the ICU. At examination her Trino was present. This morning upon initial encounter the patient was sleeping and difficult to awaken but eventually did wake up and respond. Patient continues to report chest pain as well as pain in the right arm. She also reports being hungry but unable to eat due to the pain and requested "8 of dilauded". She did not respond to any other questioning. <Jomar Madison - 08/27/17 15:07> Results - Labs Result diagrams: 08/28/17 05:10 08/28/17 05:10 <Miguelina Irwin - 08/28/17 14:09> Abnormal lab results 08/28/17 08/28/17 Range/Units 05:10 05:10 RBC 3.15 L (4.00-5.30) mil/mm3 Hgb 8.6 L D (11.6-15.3) gm/dL Hct 26.0 L (35.0-46.0) % Random Glucose 121 H (74-106) mg/dL Calcium 8.2 L (8.5-10.1) mg/dL Short CBC 08/28/17 Range/Units 05:10 WBC 7.8 (4.0-11.0) th/mm3 Hgb 8.6 L D (11.6-15.3) gm/dL Hct 26.0 L (35.0-46.0) % Plt Count 275 (150-450) th/mm3 BMP 08/28/17 05:10 Sodium 141 Potassium 3.7 Chloride 105 Carbon Dioxide 26.0 BUN 7 Creatinine 0.67 Calcium 8.2 L <Miguelina Irwin - 08/28/17 14:09> Abnormal lab results 08/26/17 Range/Units 12:38 Hep C IgG Ab Reactive H (Nonreactive) <Jomar Madison - 08/27/17 12:15> - Imaging Echocardiogram 08/26/17 CONCLUSIONS The left ventricular systolic function is normal with an estimated ejection fraction in the range of 55-60%. Left ventricular diastolic function parameters are normal. Trace mitral valve regurgitation. There is trace tricuspid valve regurgitation. <Jomar Madison - 08/27/17 15:07> Physical Exam Vital signs: Vital Signs 08/27/17 16:00 08/27/17 20:00 07/11/18 00:00 Temperature 98.1 F 98.2 F 99.3 F Pulse Rate 110 H 121 H 116 H Respiratory Rate 18 24 22 Blood Pressure 121/64 137/77 135/75 Pulse Oximetry 97 95 92 L 08/28/17 04:00 08/28/17 08:00 08/28/17 12:00 Temperature 97.5 F L 97.6 F 98.3 F Pulse Rate 94 H 76 101 H Respiratory Rate 20 16 16 Blood Pressure 108/55 L 124/57 L 111/70 Pulse Oximetry 97 98 96 Intake & Output 08/27/17 08/28/17 08/28/17 18:59 06:59 18:59 Intake Total 2450 / 2450 2407.75 / 2407.75 200 / 200 Output Total 1500 / 1500 Balance 2450 / 2450 907.75 / 907.75 200 / 200 Weight 55.5 kg Intake: IV 2450 / 2450 1603.75 / 1603.75 200 / 200 NS Inj 1,000 ML @ 100 mls/hr IV 1999 / 1999 1000 / 1000 .CONT .Q10H VANESSA Rx#:[id number] Cubicin Inj 416 MG In NS Inj 100 / 100 100 ML @ 200 mls/hr IV.SIG Q24H VANESSA Rx#:[id number] Gentamicin Inj 50 MG In NS Inj 0 / 0 303.75 / 303.75 100 ML @ 100 mls/hr IV.SIG Q8H VANESSA Rx#:[id number] Zyvox 600 mg Premix 300 ML @ 150 / 150 300 mls/hr IV.SIG Q12H VANESSA Rx#: [id number] Prostaphlin Inj 2 GM In NS Inj 100 / 100 300 / 300 200 / 200 100 ML @ 200 mls/hr IV.SIG Q4H VANESSA Rx#:[id number] Zosyn 4.5 GM Premix 4.5 gm In 100 / 100 100 ml @ 200 mls/hr IV.SIG Q6H VANESSA Rx#:[id number] Oral 804 / 804 Output: Urine 1500 / 1500 Other: # Bowel Movements 0 <Miguelina Irwin - 08/28/17 14:09> Vital Signs 08/26/17 12:20 08/26/17 13:00 08/26/17 13:01 Temperature Pulse Rate 55 L 100 H 99 H Respiratory Rate Blood Pressure 135/84 Pulse Oximetry 100 98 08/26/17 13:08 08/26/17 14:00 08/26/17 14:15 Temperature Pulse Rate 99 H Respiratory Rate 12 12 Blood Pressure 128/83 Pulse Oximetry 100 08/26/17 15:00 08/26/17 16:00 08/26/17 17:00 Temperature Pulse Rate 101 H 102 H 109 H Respiratory Rate Blood Pressure 120/76 124/80 138/90 Pulse Oximetry 100 97 97 08/26/17 17:55 08/26/17 18:00 08/26/17 19:00 Temperature Pulse Rate 109 H 120 H Respiratory Rate 15 Blood Pressure 129/74 136/79 Pulse Oximetry 08/26/17 19:34 08/26/17 20:00 08/26/17 20:47 Temperature 100.0 F H Pulse Rate 123 H Respiratory Rate 16 26 H Blood Pressure 137/74 Pulse Oximetry 97 97 08/27/17 00:00 08/27/17 04:00 08/27/17 07:00 Temperature 99.9 F H 98.2 F 98 F Pulse Rate 121 H 113 H 105 H Respiratory Rate 25 H 24 16 Blood Pressure 136/82 130/77 124/64 Pulse Oximetry 97 100 100 08/27/17 07:28 08/27/17 07:30 08/27/17 08:00 Temperature Pulse Rate 111 H 108 H Respiratory Rate Blood Pressure 123/74 132/76 Pulse Oximetry 100 100 100 08/27/17 09:00 08/27/17 10:39 Temperature Pulse Rate 95 H Respiratory Rate 16 Blood Pressure Pulse Oximetry Intake & Output 08/26/17 08/27/17 08/27/17 18:59 06:59 18:59 Intake Total 2420 / 2420 2663.75 / 2663.75 1100 / 1100 Output Total 2550 / 2550 Balance 2420 / 2420 113.75 / 113.75 1100 / 1100 Weight 54.3 kg Intake: IV 1700 / 1700 1703.75 / 1703.75 1100 / 1100 NS Inj 1,000 ML @ 100 mls/hr IV 1000 / 1000 1000 / 1000 1000 / 1000 .CONT .Q10H VANESSA Rx#:[id number] Cubicin Inj 416 MG In NS Inj 100 / 100 100 ML @ 200 mls/hr IV.SIG Q24H VANESSA Rx#:[id number] Gentamicin Inj 50 MG In NS Inj 100 / 100 203.75 / 203.75 0 / 0 100 ML @ 100 mls/hr IV.SIG Q8H VANESSA Rx#:[id number] Zyvox 600 mg Premix 300 ML @ 300 / 300 300 / 300 300 mls/hr IV.SIG Q12H VANESSA Rx#: [id number] Zosyn 4.5 GM Premix 4.5 gm In 200 / 200 200 / 200 100 / 100 100 ml @ 200 mls/hr IV.SIG Q6H VANESSA Rx#:[id number] Oral 720 / 720 960 / 960 Output: Urine 2550 / 2550 Other: # Voids 2 2 # Bowel Movements 0 <Jomar Madison 08/27/17 12:15> - Constitutional moderate distress, thin, chronically ill appearing, somnolent <Jomar Madison 08/27/17 15:07> - Routine HEENT Exam Head: Present: normocephalic, atraumatic <Jomar Madison 08/27/17 15:07> - Routine Respiratory Exam Present: CTA bilaterally, diminished air movement. Absent: accessory muscle use , rhonchi, stridor, wheezes, crackles <Jomar Madison 08/27/17 15:07> Comments: Patient initially breathing normally while sleeping but became very tachypneic once she was awaken. Tachypnea decreased to normal whilst speaking. <Jomar Madison 08/27/17 15:07> - Routine Cardiovascular Exam Present: RRR, murmur. Absent: gallop, rubs <Jomar Madison 08/27/17 15:07> Comments: Holosystolic murmur that does not radiate <Jomar Madison 08/27/17 15:07> - Routine Abdominal Exam Present: soft, normoactive bowel sounds. Absent: tenderness, distended, rebound , guarding <Jomar Madison 08/27/17 15:07> - Routine Extremities Exam Present: cyanosis, edema, pulses intact <Jomar Mdaison 08/27/17 15:07> Comments: Right arm was very similar to yesterday's examination with exception of a newly formed abscess on the anterior surface of the midforearm that was estimated to be about 8-10cm in length but was not measured at the time. Abscess had white tip at its apex and looked like it was close to draining naturally. Pulses in all extremities were intact and capillary refill was less than 2 seconds in right fingertips. <Jomar Madison - 08/27/17 15:07> - Routine Neurological Exam Present: altered mental status, moving all extremities. Absent: alert, oriented X3, sensory deficit, motor deficit <Jomar Madison 08/27/17 15:07> Patient difficult to arouse and was not conversational. <Jomar Madison Candice 08/27/17 15:07> - Detailed Neurological Exam: Coma Scale Eye Opening: To sound <Jomar Madison 08/27/17 15:07> Verbal Response: Confused <Jomar Madison 08/27/17 15:07> Motor Response: Obey commands <Jomar Madison 08/27/17 15:07> Donnell[place] Coma Scale Total: 13 <Jomar Madison Candice 08/28/17 06:09> - Routine Psychiatric Exam Present: unable to assess. Absent: normal affect, normal thought process < Jomar Madison 08/27/17 15:07> Assessment and Plan - Assessment (1) Sepsis Code(s): A41.9 - Sepsis, unspecified organism Status: Acute (2) Endocarditis Code(s): I38 - Endocarditis, valve unspecified Status: Resolved (3) Acute septic pulmonary embolism Code(s): I26.90 - Septic pulmonary embolism without acute cor pulmonale Status : Acute (4) Cellulitis Code(s): L03.90 - Cellulitis, unspecified Status: Acute (5) Compartment syndrome of left upper extremity Code(s): T79.A12A - Traumatic compartment syndrome of left upper extremity, initial encounter Status: Suspected Onset Date: ~08/26/17 (6) Nutrition, metabolism, and development symptoms Code(s): R63.8 - Other symptoms and signs concerning food and fluid intake Status: Acute <Miguelina Irwin - 08/28/17 14:09> (1) Sepsis Code(s): A41.9 - Sepsis, unspecified organism Status: Acute Plan: This patient presented to the ED with a Tmax of 103.0, pulse of 92, RR 15 and lactic acid of 3.4 in the setting of chest pain, prior IV drug use, cellulitis, WBC of 12.5 and a CXR showing ground glass opacities and cavitations. Patient received Linezolid due to vanco contraindication as well as zosyn in the ED. Patient consulted by ID who stopped zyvox and daptomycin, and zosyn and started oxacillin. Blood cultures grew staph aureus in 4 bottles. Patient in ICU this morning and transferred to the floors. - Follow ID recommendations - Continue Gentamicin - Continue Oxacillin - Trend Lactic Acid - Monitor vitals (2) Endocarditis Code(s): I38 - Endocarditis, valve unspecified Status: Resolved Plan: Patient known IV drug user who according to was sharing needles with friend who has unfortunately last week due to bacteremia. Alejo criteria level at possible. Patient presented with a previously existing murmur , septic pulmonary emboli and 4/4 positive blood cultures for staph aureus, it is extremely likely that she has endocarditis. Transthoracic echo showed trace mitral and tricuspid regurgitation but no vegetations. Chest CT showed most likely septic emboli with cavitations. ID following. - Continue with ID recommendations - Consider SETH - Repeat blood cultures in 4 days (3) Acute septic pulmonary embolism Code(s): I26.90 - Septic pulmonary embolism without acute cor pulmonale Status : Acute Plan: Patients presents with 1 day history of acute chest pain. Her chest CT shows patchy opacities and cavitations most consistent with septic embolism in the setting of sepsis and new heart murmur in known IV drug user. These findings lead to likely infective endocarditis vs ACS. US venous Doppler lower extremities was negative for DVT. Transthoracic echo negative for vegetations. Patient tachypneic yesterday but breathing at a more regular pace today and satting well. - Continue with ID recommendations - Monitor O2 saturation - Monitor CBC (4) Cellulitis Code(s): L03.90 - Cellulitis, unspecified Status: Acute Plan: Patient presents with significant hand and arm swelling in the setting of sepsis and known IV drug use. On presentation in the ED hand CT showed soft tissue swelling without abscess or fluid collection. Ct of forearm showed 2 needles within the soft tissue, no abscess, and diffuse soft tissue swelling likely cellulitis. Patient developed abcess on right thumb which was drained on 08/26/17. Right thumb wound culture grew staph aureus. This morning patient has developed another abscess on right anterior forearm over night that looks like it will rupture and drain naturally. Per surgery needles in arm are not of critical concern, removal will not be attempted during inpatient therapy. - Continue with ID recommendations - Follow up with general surgery for needle removal - Reassess abscess in AM for possible I&D at bedside - Trend Temp - Trend CBC (5) Compartment syndrome of left upper extremity Code(s): T79.A12A - Traumatic compartment syndrome of left upper extremity, initial encounter Status: Suspected Onset Date: ~08/26/17 Plan: Hand surgery consulter, compartment syndrome not likely at this point and time. Hand and forearm still swollen but radial pulse is 2+ in right hand and capillary refill less than 2 seconds in right finger tips. - Continue to monitor (6) Nutrition, metabolism, and development symptoms Code(s): R63.8 - Other symptoms and signs concerning food and fluid intake Status: Acute Plan: Patient received a total of 3 fluid boluses of NS and is currently on a maintenance fluid rate of 100 ml/ hour. Resume normal diet as tolerated DVT Prophylaxis: SCDs <Jomar Madison - 08/28/17 06:08> - Attending Attestation The exam, history, and the medical decision-making described in the above note were completed with the assistance of the resident physician. I reviewed and agree with the findings presented. I attest that I had a [id number] encounter with the patient on the same day, and personally performed and documented my assessment and findings in the medical record. Fortunately she has remained stable clinically and will be able to transfer to a medical floor later today <Miguelina Irwin M - 08/28/17 14:09> <Jomar Madison O - Last Filed: 08/28/17 06:08> (1) Sepsis Qualifiers: Sepsis type: sepsis due to unspecified organism Qualified Code(s): A41.9 - Sepsis, unspecified organism (2) Endocarditis Qualifiers: Endocarditis type: infective Infective endocarditis organism: bacterial Chronicity: acute Qualified Code(s): I33.0 - Acute and subacute infective endocarditis (3) Acute septic pulmonary embolism Qualifiers: Acute cor pulmonale presence: without acute cor pulmonale Qualified Code(s): I26.90 - Septic pulmonary embolism without acute cor pulmonale (4) Cellulitis Qualifiers: Site of cellulitis: extremity Site of cellulitis of extremity: upper extremity Laterality: right Qualified Code(s): L03.113 - Cellulitis of right upper limb (5) Compartment syndrome of left upper extremity Qualifiers: Encounter type: initial encounter Qualified Code(s): T79.A12A - Traumatic compartment syndrome of left upper extremity, initial encounter <Miguelina Irwin M - Last Filed: 08/28/17 14:09> (1) Sepsis Qualifiers: Sepsis type: sepsis due to unspecified organism Qualified Code(s): A41.9 - Sepsis, unspecified organism (2) Endocarditis Qualifiers: Endocarditis type: infective Infective endocarditis organism: bacterial Chronicity: acute Qualified Code(s): I33.0 - Acute and subacute infective endocarditis (3) Acute septic pulmonary embolism Qualifiers: Acute cor pulmonale presence: without acute cor pulmonale Qualified Code(s): I26.90 - Septic pulmonary embolism without acute cor pulmonale (4) Cellulitis Qualifiers: Site of cellulitis: extremity Site of cellulitis of extremity: upper extremity Laterality: right Qualified Code(s): L03.113 - Cellulitis of right upper limb (5) Compartment syndrome of left upper extremity Qualifiers: Encounter type: initial encounter Qualified Code(s): T79.A12A - Traumatic compartment syndrome of left upper extremity, initial encounter <Jomar Madison O - Last Filed: 08/28/17 06:08> (1) Sepsis Qualifiers: Sepsis type: sepsis due to unspecified organism Qualified Code(s): A41.9 - Sepsis, unspecified organism (2) Endocarditis Qualifiers: Endocarditis type: infective Infective endocarditis organism: bacterial Chronicity: acute Qualified Code(s): I33.0 - Acute and subacute infective endocarditis (3) Acute septic pulmonary embolism Qualifiers: Acute cor pulmonale presence: without acute cor pulmonale Qualified Code(s): I26.90 - Septic pulmonary embolism without acute cor pulmonale (4) Cellulitis Qualifiers: Site of cellulitis: extremity Site of cellulitis of extremity: upper extremity Laterality: right Qualified Code(s): L03.113 - Cellulitis of right upper limb (5) Compartment syndrome of left upper extremity Qualifiers: Encounter type: initial encounter Qualified Code(s): T79.A12A - Traumatic compartment syndrome of left upper extremity, initial encounter <Miguelina Irwin M - Last Filed: 08/28/17 14:09> (1) Sepsis Qualifiers: Sepsis type: sepsis due to unspecified organism Qualified Code(s): A41.9 - Sepsis, unspecified organism (2) Endocarditis Qualifiers: Endocarditis type: infective Infective endocarditis organism: bacterial Chronicity: acute Qualified Code(s): I33.0 - Acute and subacute infective endocarditis (3) Acute septic pulmonary embolism Qualifiers: Acute cor pulmonale presence: without acute cor pulmonale Qualified Code(s): I26.90 - Septic pulmonary embolism without acute cor pulmonale (4) Cellulitis Qualifiers: Site of cellulitis: extremity Site of cellulitis of extremity: upper extremity Laterality: right Qualified Code(s): L03.113 - Cellulitis of right upper limb (5) Compartment syndrome of left upper extremity Qualifiers: Encounter type: initial encounter Qualified Code(s): T79.A12A - Traumatic compartment syndrome of left upper extremity, initial encounter
[2017-08-27] MEDS: DAPTOMYCIN IV.SIG SCH (12:25)
--- NOTE | 2017-08-27 13:55 | P.PNID ---
Subjective Remarks: Patient is moaning with pain. Notes that she has severe pain in her right hand and right arm. Afebrile. No other complaints. Culture has staph aureus. This is a 32-year-old white female who uses IV drugs. The patient reports that she last used IV drugs 2 days ago. She was brought to the emergency department complaining of chest pain and shortness of breath. She reportedly noted that it started a couple days ago. The pain is located at the left side of her chest and she has difficulty breathing. The patient used IV heroin prior to the admission. She was noted to have large area of swelling and erythema on the right forearm and hand, which is markedly swollen and she has an area of grayish discoloration with swelling at the right thumb. She was evaluated in the emergency department. She had temperature of 99.8 and heart rate of 102 and the temperature increased to 103 degrees and a white blood cell count was elevated at 12.5. Lactic acid was 3.4. The patient had blood cultures taken and all 4 bottles of the blood cultures have gram-positive cocci. White blood cell count has increased to 16.6. There was concern about possible fasciitis of the left upper extremity. Hand surgeon was called to evaluate the patient and the right thumb was debrided. She is moaning in pain, but otherwise awake. The patient reports that she had sepsis back in 2016 and at that time, she also had deep venous thrombosis of her left arm. Antibiotics: Gentamicin Daptomycin Linezolid Piperacillin/tazobactam Lines: Peripheral IV Allergies/Adverse Reactions: Allergies clindamycin Allergy (Severe, Verified 08/25/17 11:06) Hives "CAN'T BREATHE" ketorolac Allergy (Severe, Verified 08/25/17 11:06) Hives "CAN'T BREATHE" vancomycin Allergy (Severe, Verified 08/25/17 11:06) Hives "CAN'T BREATHE" Objective Vital Signs Temp Pulse Resp BP Pulse Ox 08/27/17 12:00 132/76 08/27/17 10:39 16 08/27/17 09:00 95 H 08/27/17 08:00 108 H 132/76 100 08/27/17 07:30 111 H 123/74 100 08/27/17 07:28 100 08/27/17 07:00 98 F 105 H 16 124/64 100 08/27/17 04:00 98.2 F 113 H 24 130/77 100 08/25/17 11:25 Blood - Peripheral Aerobic Blood Culture - Preliminary Staphylococcus aureus 08/25/17 11:25 Blood - Peripheral Anaerobic Blood Culture - Preliminary Staphylococcus aureus 08/25/17 11:20 Blood - Peripheral Aerobic Blood Culture - Preliminary Staphylococcus aureus 08/25/17 11:20 Blood - Peripheral Anaerobic Blood Culture - Preliminary Staphylococcus aureus 08/26/17 13:00 Wound - Thumb Gram Stain - Final 08/26/17 13:00 Wound - Thumb Wound Culture - Pending 08/26/17 11:00 Wound - Finger Gram Stain - Final 08/26/17 11:00 Wound - Finger Wound Culture - Pending 08/25/17 14:05 Clean Catch Urine Urine Culture - Final 10-50,000 cfu/mL mixed kori (probable contaminants) Lab - Hematology Results 08/26/17 10:14 WBC 16.6 H RBC 3.95 L Hgb 10.7 L Hct 32.3 L MCV 81.8 MCH 27.1 MCHC 33.1 RDW 14.2 Plt Count 282 MPV 8.2 Neut % (Auto) 91.3 H Lymph % (Auto) 5.7 L Benson % (Auto) 2.6 Eos % (Auto) 0.0 Baso % (Auto) 0.4 Neut # (Auto) 15.1 H Lymph # (Auto) 0.9 L Benson # (Auto) 0.4 Eos # (Auto) 0.0 Baso # (Auto) 0.1 WBC Differential . Differential Comment Auto diff final Lab - Chemistry Results 08/25/17 08/25/17 08/25/17 16:00 17:31 22:57 Sodium Potassium Chloride Carbon Dioxide Anion Gap BUN Creatinine Estimated GFR POC Glucose Random Glucose Lactic Acid 0.8 Calcium Total Bilirubin AST ALT Alkaline Phosphatase Total Creatine Kinase 28 36 Troponin I Less than 0.02 L Less than 0.02 L Total Protein Albumin 08/25/17 08/26/17 08/26/17 22:57 10:10 10:14 Sodium 138 Potassium 3.6 Chloride 102 Carbon Dioxide 25.1 Anion Gap 11 BUN 7 Creatinine 0.72 Estimated GFR Greater than 89 POC Glucose 166 H Random Glucose 127 H Lactic Acid 1.6 Calcium 8.3 L Total Bilirubin 0.5 AST 22 ALT 40 Alkaline Phosphatase 154 H Total Creatine Kinase Troponin I Total Protein 6.6 D Albumin 2.2 L D Venous Doppler Study 08/25/17 00:00 CONCLUSION: 1. The study is negative for lower extremity deep venous thrombosis. Chest CTA 08/25/17 11:22 CONCLUSION: 1. Bilateral scattered groundglass nodules with suggestion of minimal cavitation likely infectious/inflammatory. Septic emboli is also a consideration. Treatment and follow-up. 2. No evidence for pulmonary motion. 3. Prominent right axillary lymph node. Forearm CT 08/25/17 11:22 CONCLUSION: 1. 2 needles are seen within the soft tissue as described above. 2. No abscess. 3. Diffuse soft tissue swelling likely cellulitis. Hand CT 08/25/17 11:22 CONCLUSION: 1. Soft tissue swelling without abscess or fluid collection. Upper Extremity Ultrasound 08/26/17 00:00 CONCLUSION: 1. No drainable abscess is yet. Excessive induration over the cephalic vein partial thrombosis of the cephalic vein. Chest X-Ray 08/26/17 10:03 CONCLUSION: Increasing consolidative changes left base with developing air bronchograms. Imaging: ITS Impressions Physical Exam: PHYSICAL EXAMINATION: GENERAL: Slender female who is in moderate distress because of pain. Appears drowsy. HEAD, EARS, EYES, NOSE AND THROAT: head is atraumatic. Extraocular movements are grossly intact. Pupils reactive to light. No icterus. No conjunctival erythema. Oropharynx mucosa is moist. No visible lesions. NECK: Supple without adenopathy. LUNGS: Decreased breath sounds. HEART: Regular rate and rhythm without audible murmurs, rubs or gallops. ABDOMEN: Bowel sounds present. Soft, no tenderness appreciated. EXTREMITIES: Marked swelling with erythema at the upper aspect of the right forearm with area of pale discoloration at the mid forearm. The dorsum of the right hand is markedly swollen and the thumb is post-debridement with the epidermis having been debrided revealing underlying granular tissue. No visible embolic lesions. SKIN: No diffuse rash. NEUROLOGIC: No gross focal findings. PSYCHOLOGIC: Calm and cooperative. Assessment and Plan - Plan IMPRESSION: 1. Sepsis due to staph aureus. 2. Septic emboli of the lung. 3. Severe cellulitis of the right forearm with abscess of the left thumb. 4. IV drug abuse. 5. Hypoxemia. 6. Probable endocarditis in a patient with IV drug abuse. RECOMMENDATIONS: 1. Stop Zyvox. 2. Stop Daptomycin. 3. Continue Gentamicin. 4. Begin Oxacillin for staph aureus bacteremia/possible endocarditis. 5. Stop piperacillin/tazobactam. 6. Follow echocardiogram. 7. Monitor arm swelling.
--- NOTE | 2017-08-27 16:14 | P.PNPLA ---
Subjective Remarks: The patient is complaining of pain. Objective Vital Signs: Vital Signs - 24 hr 08/26/17 17:00 08/26/17 17:55 08/26/17 18:00 Temperature Pulse Rate 109 H 109 H Respiratory Rate 15 Blood Pressure 138/90 129/74 Pulse Oximetry 97 08/26/17 19:00 08/26/17 19:34 08/26/17 20:00 Temperature 100.0 F H Pulse Rate 120 H 123 H Respiratory Rate 16 26 H Blood Pressure 136/79 137/74 Pulse Oximetry 97 08/26/17 20:47 08/27/17 00:00 08/27/17 04:00 Temperature 99.9 F H 98.2 F Pulse Rate 121 H 113 H Respiratory Rate 25 H 24 Blood Pressure 136/82 130/77 Pulse Oximetry 97 97 100 08/27/17 07:00 08/27/17 07:28 08/27/17 07:30 Temperature 98 F Pulse Rate 105 H 111 H Respiratory Rate 16 Blood Pressure 124/64 123/74 Pulse Oximetry 100 100 100 08/27/17 08:00 08/27/17 09:00 08/27/17 10:39 Temperature Pulse Rate 108 H 95 H Respiratory Rate 16 Blood Pressure 132/76 Pulse Oximetry 100 08/27/17 12:00 Temperature Pulse Rate Respiratory Rate Blood Pressure 132/76 Pulse Oximetry Intake & Output 08/25/17 08/26/17 08/27/17 08/28/17 06:59 06:59 06:59 06:59 Intake Total 6550 / 6550 5083.75 / 5083.75 1350 / 1350 Output Total 2550 / 2550 Balance 6550 / 6550 2533.75 / 2533.75 1350 / 1350 Weight 52.9 kg 54.3 kg Laboratory Results: Laboratory Results - last 24 hr 08/26/17 12:38 HIV (1&2) Ag & Ab Refer Negative Microbiology 08/26/17 13:00 Gram Stain - Final Wound - Thumb Wound Culture - Preliminary Staphylococcus aureus 08/26/17 11:00 Gram Stain - Final Wound - Finger Wound Culture - Preliminary Staphylococcus aureus 08/25/17 11:25 Aerobic Blood Culture - Preliminary Blood - Peripheral Staphylococcus aureus Anaerobic Blood Culture - Preliminary Staphylococcus aureus 08/25/17 11:20 Aerobic Blood Culture - Preliminary Blood - Peripheral Staphylococcus aureus Anaerobic Blood Culture - Preliminary Staphylococcus aureus 08/25/17 14:05 Urine Culture - Final Clean Catch Urine 10-50,000 cfu/mL mixed kori (probable contaminants) Result Diagrams: 08/26/17 10:14 08/26/17 10:14 Exam Findings: The swollen area on the dorsum of the forearm is now a small blister of pus. The swelling of the forearm has diminished. There is no tension of the forearm soft tissues. The thumb dressing is intact. Assessment and Plan - Plan Impression: The patient has improved and now has a superficial abscess on the dorsum of the forearm. Plan: The patient is offered incision and drainage of the forearm abscess but declined intervention at this point.
[2017-08-28] MEDS: Morphine Inj 4 MG/ML Vial IV.PUSH PRN ×3 (00:14→09:44)
[2017-08-28] MEDS: HYDROmorphone PF Inj 2 MG/ML Vial IV.PUSH PRN ×5 (02:18→22:15)
[2017-08-28] MEDS: Sod Chloride 0.9% Inj 1,000 ML IV.CONT SCH ×2 (03:19→18:45)
[2017-08-28] MEDS: SODIUM CHLOR 0.9% IV.SIG SCH ×2 (03:21→10:54)
[2017-08-28] MEDS: GENTAMICIN IV.SIG SCH ×2 (03:21→10:54)
[2017-08-28 05:58] LABS: Hemoglobin 8.6 gm/dL (11.6-15.3); Mean Corpuscular HGB Conc 33.2 % (32.0-36.0); Mean Corpuscular Hemoglobin 27.5 pg (27.0-34.0); Mean Corpuscular Volume 82.7 fL (80.0-100.0); Mean Platelet Volume 8.3 fL (7.0-11.0); Platelet Count 275 th/mm3 (150-450); Red Blood Count 3.15 mil/mm3 (4.00-5.30); Red Cell Distribution Width 14.1 % (11.6-17.2); White Blood Count 7.8 th/mm3 (4.0-11.0)
[2017-08-28 06:04] LABS: Anion Gap 10 meq/L (5-15); Blood Urea Nitrogen 7 mg/dL (7-18); Calcium 8.2 mg/dL (8.5-10.1); Chloride 105 meq/L (98-107); Glomerular Filtration Rate Greater Than 89 mL/min (>89); Glucose,Random 121 mg/dL (74-106); Potassium 3.7 meq/L (3.5-5.1); Sodium 141 meq/L (136-145)
[2017-08-28] MEDS: Famotidine PF Inj 20 MG/2 ML Vial IV.PUSH SCH ×2 (09:43→20:40)
--- NOTE | 2017-08-28 09:44 | P.PNFP ---
Subjective Interval history: Patient was seen this morning at bedside. Patient was sleeping comfortably in her bed and was somewhat difficult to arouse but much easier to arouse than yesterday. Patient was a little more conversational than before and reports continued pain in chest and in arm. She also reports being hungry but unable to eat due to the pain. She denies shortness of breath, subjective fever, chills, nausea or vomiting. She had no questions at this time. <Jomar Madison O - 08/28/17 11:55> Results - Labs Result diagrams: 08/28/17 05:10 08/28/17 05:10 <Miguelina Irwin M - 08/28/17 14:11> Abnormal lab results 08/28/17 08/28/17 Range/Units 05:10 05:10 RBC 3.15 L (4.00-5.30) mil/mm3 Hgb 8.6 L D (11.6-15.3) gm/dL Hct 26.0 L (35.0-46.0) % Random Glucose 121 H (74-106) mg/dL Calcium 8.2 L (8.5-10.1) mg/dL Short CBC 08/28/17 Range/Units 05:10 WBC 7.8 (4.0-11.0) th/mm3 Hgb 8.6 L D (11.6-15.3) gm/dL Hct 26.0 L (35.0-46.0) % Plt Count 275 (150-450) th/mm3 BMP 08/28/17 05:10 Sodium 141 Potassium 3.7 Chloride 105 Carbon Dioxide 26.0 BUN 7 Creatinine 0.67 Calcium 8.2 L <Miguelina Irwin M - 08/28/17 14:11> Abnormal lab results 08/28/17 08/28/17 Range/Units 05:10 05:10 RBC 3.15 L (4.00-5.30) mil/mm3 Hgb 8.6 L D (11.6-15.3) gm/dL Hct 26.0 L (35.0-46.0) % Random Glucose 121 H (74-106) mg/dL Calcium 8.2 L (8.5-10.1) mg/dL Short CBC 08/28/17 Range/Units 05:10 WBC 7.8 (4.0-11.0) th/mm3 Hgb 8.6 L D (11.6-15.3) gm/dL Hct 26.0 L (35.0-46.0) % Plt Count 275 (150-450) th/mm3 BMP 08/28/17 05:10 Sodium 141 Potassium 3.7 Chloride 105 Carbon Dioxide 26.0 BUN 7 Creatinine 0.67 Calcium 8.2 L <Jomar Madison O - 08/28/17 09:44> Physical Exam Vital signs: Vital Signs 08/27/17 16:00 08/27/17 20:00 08/28/17 00:00 Temperature 98.1 F 98.2 F 99.3 F Pulse Rate 110 H 121 H 116 H Respiratory Rate 18 24 22 Blood Pressure 121/64 137/77 135/75 Pulse Oximetry 97 95 92 L 08/28/17 04:00 08/28/17 08:00 08/28/17 12:00 Temperature 97.5 F L 97.6 F 98.3 F Pulse Rate 94 H 76 101 H Respiratory Rate 20 16 16 Blood Pressure 108/55 L 124/57 L 111/70 Pulse Oximetry 97 98 96 Intake & Output 08/27/17 08/28/17 08/28/17 18:59 06:59 18:59 Intake Total 2450 / 2450 2407.75 / 2407.75 200 / 200 Output Total 1500 / 1500 Balance 2450 / 2450 907.75 / 907.75 200 / 200 Weight 55.5 kg Intake: IV 2450 / 2450 1603.75 / 1603.75 200 / 200 NS Inj 1,000 ML @ 100 mls/hr IV 1999 / 1999 1000 / 1000 .CONT .Q10H VANESSA Rx#:[id number] Cubicin Inj 416 MG In NS Inj 100 / 100 100 ML @ 200 mls/hr IV.SIG Q24H VANESSA Rx#:[id number] Gentamicin Inj 50 MG In NS Inj 0 / 0 303.75 / 303.75 100 ML @ 100 mls/hr IV.SIG Q8H VANESSA Rx#:[id number] Zyvox 600 mg Premix 300 ML @ 150 / 150 300 mls/hr IV.SIG Q12H VANESSA Rx#: [id number] Prostaphlin Inj 2 GM In NS Inj 100 / 100 300 / 300 200 / 200 100 ML @ 200 mls/hr IV.SIG Q4H VANESSA Rx#:[id number] Zosyn 4.5 GM Premix 4.5 gm In 100 / 100 100 ml @ 200 mls/hr IV.SIG Q6H VANESSA Rx#:[id number] Oral 804 / 804 Output: Urine 1500 / 1500 Other: # Bowel Movements 0 <Miguelina Irwin M - 08/28/17 14:11> Vital Signs 08/27/17 10:39 08/27/17 12:00 08/27/17 14:00 Temperature 98.0 F Pulse Rate 119 H Respiratory Rate 16 18 Blood Pressure 132/76 120/65 Pulse Oximetry 100 08/27/17 16:00 08/27/17 20:00 08/28/17 00:00 Temperature 98.1 F 98.2 F 99.3 F Pulse Rate 110 H 121 H 116 H Respiratory Rate 18 24 22 Blood Pressure 121/64 137/77 135/75 Pulse Oximetry 97 95 92 L 08/28/17 04:00 Temperature 97.5 F L Pulse Rate 94 H Respiratory Rate 20 Blood Pressure 108/55 L Pulse Oximetry 97 Intake & Output 08/27/17 08/28/17 08/28/17 18:59 06:59 18:59 Intake Total 2450 / 2450 2407.75 / 2407.75 Output Total 1500 / 1500 Balance 2450 / 2450 907.75 / 907.75 Weight 55.5 kg Intake: IV 2450 / 2450 1603.75 / 1603.75 NS Inj 1,000 ML @ 100 mls/hr IV 2000 / 2000 1000 / 1000 .CONT .Q10H VANESSA Rx#:[id number] Cubicin Inj 416 MG In NS Inj 100 / 100 100 ML @ 200 mls/hr IV.SIG Q24H VANESSA Rx#:[id number] Gentamicin Inj 50 MG In NS Inj 0 / 0 303.75 / 303.75 100 ML @ 100 mls/hr IV.SIG Q8H VANESSA Rx#:[id number] Zyvox 600 mg Premix 300 ML @ 150 / 150 300 mls/hr IV.SIG Q12H VANESSA Rx#: [id number] Prostaphlin Inj 2 GM In NS Inj 100 / 100 300 / 300 100 ML @ 200 mls/hr IV.SIG Q4H VANESSA Rx#:[id number] Zosyn 4.5 GM Premix 4.5 gm In 100 / 100 100 ml @ 200 mls/hr IV.SIG Q6H VANESSA Rx#:[id number] Oral 804 / 804 Output: Urine 1500 / 1500 Other: # Bowel Movements 0 <Jomar Madison 08/28/17 09:44> - Constitutional mild distress, chronically ill appearing, somnolent <Jomar Madison 08/28/17 10:28> - Routine HEENT Exam Head: Present: normocephalic, atraumatic <Jomar Madison 08/28/17 10:28> - Routine Neck Exam Present: lymphadenopathy <Jomar Madison 08/28/17 10:28> Comments: 2 pea sized submandibular nodes palpated on left side <Jomar Madison 08/28/17 10:28> - Routine Respiratory Exam Present: CTA bilaterally. Absent: accessory muscle use, prolonged expiratory phase, rales, respiratory distress, rhonchi, stridor, wheezes, crackles, distant breath sounds <Jomar Madison 08/28/17 10:28> - Routine Cardiovascular Exam Present: RRR, murmur. Absent: gallop, rubs <Jomar Madison 08/28/17 10:28> Comments: Holosystolic murmur without radiation to axilla or carotids <Jomar Madison 08/28/17 10:28> - Routine Abdominal Exam Present: soft, normoactive bowel sounds. Absent: tenderness, distended, rebound , guarding <Jomar Madison 08/28/17 10:28> - Routine Extremities Exam Present: pulses intact, normal capillary refill. Absent: cyanosis, clubbing, calf tenderness <Jomar Madison 08/28/17 10:28> Comments: Abscess on right arm appears smaller and the skin over it less tense than yesterday. Swelling of dorsum of right hand decreased in size overnight. No Osler nodes, Janeway lesions, or petechia noted on extremities. Nail beds not visualized due to nail urdu. <Jomar Madison 08/28/17 10:46> - Routine Skin Exam Present: intact. Absent: cyanosis, erythema, petechiae <Jomar Madison 08/28 10:28> - Routine Neurological Exam Present: altered mental status, moving all extremities. Absent: alert, motor deficit <Jomar Madison 08/28/17 10:28> Patient very groggy and non-conversational, mental status difficult to assess. <Jomar Madison 08/28/17 10:28> - Detailed Neurological Exam: Coma Scale Eye Opening: To sound <Jomar Madison 08/28/17 10:28> Verbal Response: Confused <Jomar Madison 08/28/17 10:28> Motor Response: Obey commands <Jomar Madison 08/28/17 10:28> Rakesh Coma Scale Total: 13 <Jomar Madison 08/28/17 11:55> - Routine Psychiatric Exam Present: unable to assess <Jomar Madison 08/28/17 10:28> Assessment and Plan - Assessment (1) Sepsis Code(s): A41.9 - Sepsis, unspecified organism Status: Acute (2) Endocarditis Code(s): I38 - Endocarditis, valve unspecified Status: Resolved (3) Acute septic pulmonary embolism Code(s): I26.90 - Septic pulmonary embolism without acute cor pulmonale Status : Acute (4) Cellulitis Code(s): L03.90 - Cellulitis, unspecified Status: Acute (5) Compartment syndrome of left upper extremity Code(s): T79.A12A - Traumatic compartment syndrome of left upper extremity, initial encounter Status: Suspected Onset Date: ~08/26/17 (6) Nutrition, metabolism, and development symptoms Code(s): R63.8 - Other symptoms and signs concerning food and fluid intake Status: Acute <Miguelina Irwin - 08/28/17 14:11> (1) Sepsis Code(s): A41.9 - Sepsis, unspecified organism Status: Acute Plan: This patient presented to the ED with a Tmax of 103.0, pulse of 92, RR 15 and lactic acid of 3.4 in the setting of chest pain, prior IV drug use, cellulitis, WBC of 12.5 and a CXR showing ground glass opacities and cavitations. Patient initially received Linezolid due to vanco contraindication as well as zosyn in the ED. Patient consulted by ID who stopped zyvox and daptomycin, and zosyn and started oxacillin. Blood cultures grew staph aureus in 4 bottles as well as would cultures from drained arm abscess. Patient looking much better today and was able to be aroused easier than previous days. She is still having significant chest pain as well as arm pain. Patient afebrile, with normal heart and respiratory rate and satting well. - Follow ID recommendations - Continue Gentamicin - Continue Oxacillin - Monitor vitals (2) Endocarditis Code(s): I38 - Endocarditis, valve unspecified Status: Resolved Plan: Patient known IV drug user who according to was sharing needles with friend who has unfortunately last week due to bacteremia. Alejo criteria level at possible. Patient presented with a previously existing murmur , septic pulmonary emboli and 4/4 positive blood cultures for staph aureus, as well as wound cultures from arm abscess also grew staph aureus. It is extremely likely that she has infective endocarditis. Transthoracic echo showed trace mitral and tricuspid regurgitation but no vegetations. Chest CT showed most likely septic emboli with cavitations. ID following. - Continue with ID recommendations - Consider SETH - Repeat blood cultures in 4 days (3) Acute septic pulmonary embolism Code(s): I26.90 - Septic pulmonary embolism without acute cor pulmonale Status : Acute Plan: Patients presents with 1 day history of acute chest pain. Her chest CT shows patchy opacities and cavitations most consistent with septic embolism in the setting of sepsis and new heart murmur in known IV drug user. These findings lead to likely infective endocarditis vs ACS. US venous Doppler lower extremities was negative for DVT. Transthoracic echo negative for vegetations. Patient tachypneic previously but breathing at a more regular pace today and satting well. - Continue with ID recommendations - Monitor O2 saturation - Monitor CBC (4) Cellulitis Code(s): L03.90 - Cellulitis, unspecified Status: Acute Plan: Patient presents with significant hand and arm swelling in the setting of sepsis and known IV drug use. On presentation in the ED hand CT showed soft tissue swelling without abscess or fluid collection. Ct of forearm showed 2 needles within the soft tissue, no abscess, and diffuse soft tissue swelling likely cellulitis. Patient developed abscess on right thumb which was drained on 08/26/17. Right thumb wound culture grew staph aureus. Yesterday patient has developed another abscess on right anterior forearm over that today appears much smaller and overlying skin less tense. Patient refused initial I&D of forearm abscess by hand surgery. Per surgery needles in arm are not of critical concern, removal will not be attempted during inpatient therapy. - Continue with ID recommendations - Reassess abscess tomorrow AM - Trend Temp - Trend CBC (5) Compartment syndrome of left upper extremity Code(s): T79.A12A - Traumatic compartment syndrome of left upper extremity, initial encounter Status: Suspected Onset Date: ~08/26/17 Plan: Hand surgery consulter, compartment syndrome not likely at this point and time. Hand and forearm still swollen but radial pulse is 2+ in right hand and capillary refill less than 2 seconds in right finger tips. - Continue to monitor (6) Nutrition, metabolism, and development symptoms Code(s): R63.8 - Other symptoms and signs concerning food and fluid intake Status: Acute Plan: Fluids: 100ml/hr NS for maintenance. Electrolytes: Replete as needed Diet: Normal diet as tolerated. DVT Prophylaxis: SCDs <Jomar Madison O - 08/28/17 11:50> - Attending Attestation The exam, history, and the medical decision-making described in the above note were completed with the assistance of the resident physician. I reviewed and agree with the findings presented. I attest that I had a [id number] encounter with the patient on the same day, and personally performed and documented my assessment and findings in the medical record. She is somnolent nearly every time I have seen her. I asked and she said she stays up all night normally and she is a "night owl" and is always sleepy during the day. Her arm does not need to be I&D today <Miguelina Irwin M - 08/28/17 14:11> <MadisonJomar gan O - Last Filed: 08/28/17 11:50> (1) Sepsis Qualifiers: Sepsis type: sepsis due to unspecified organism Qualified Code(s): A41.9 - Sepsis, unspecified organism (2) Endocarditis Qualifiers: Endocarditis type: infective Infective endocarditis organism: bacterial Chronicity: acute Qualified Code(s): I33.0 - Acute and subacute infective endocarditis (3) Acute septic pulmonary embolism Qualifiers: Acute cor pulmonale presence: without acute cor pulmonale Qualified Code(s): I26.90 - Septic pulmonary embolism without acute cor pulmonale (4) Cellulitis Qualifiers: Site of cellulitis: extremity Site of cellulitis of extremity: upper extremity Laterality: right Qualified Code(s): L03.113 - Cellulitis of right upper limb (5) Compartment syndrome of left upper extremity Qualifiers: Encounter type: initial encounter Qualified Code(s): T79.A12A - Traumatic compartment syndrome of left upper extremity, initial encounter <Miguelina Irwin M - Last Filed: 08/28/17 14:11> (1) Sepsis Qualifiers: Sepsis type: sepsis due to unspecified organism Qualified Code(s): A41.9 - Sepsis, unspecified organism (2) Endocarditis Qualifiers: Endocarditis type: infective Infective endocarditis organism: bacterial Chronicity: acute Qualified Code(s): I33.0 - Acute and subacute infective endocarditis (3) Acute septic pulmonary embolism Qualifiers: Acute cor pulmonale presence: without acute cor pulmonale Qualified Code(s): I26.90 - Septic pulmonary embolism without acute cor pulmonale (4) Cellulitis Qualifiers: Site of cellulitis: extremity Site of cellulitis of extremity: upper extremity Laterality: right Qualified Code(s): L03.113 - Cellulitis of right upper limb (5) Compartment syndrome of left upper extremity Qualifiers: Encounter type: initial encounter Qualified Code(s): T79.A12A - Traumatic compartment syndrome of left upper extremity, initial encounter <Jomar Madison O - Last Filed: 08/28/17 11:50> (1) Sepsis Qualifiers: Sepsis type: sepsis due to unspecified organism Qualified Code(s): A41.9 - Sepsis, unspecified organism (2) Endocarditis Qualifiers: Endocarditis type: infective Infective endocarditis organism: bacterial Chronicity: acute Qualified Code(s): I33.0 - Acute and subacute infective endocarditis (3) Acute septic pulmonary embolism Qualifiers: Acute cor pulmonale presence: without acute cor pulmonale Qualified Code(s): I26.90 - Septic pulmonary embolism without acute cor pulmonale (4) Cellulitis Qualifiers: Site of cellulitis: extremity Site of cellulitis of extremity: upper extremity Laterality: right Qualified Code(s): L03.113 - Cellulitis of right upper limb (5) Compartment syndrome of left upper extremity Qualifiers: Encounter type: initial encounter Qualified Code(s): T79.A12A - Traumatic compartment syndrome of left upper extremity, initial encounter <Miguelina Irwin M - Last Filed: 08/28/17 14:11> (1) Sepsis Qualifiers: Sepsis type: sepsis due to unspecified organism Qualified Code(s): A41.9 - Sepsis, unspecified organism (2) Endocarditis Qualifiers: Endocarditis type: infective Infective endocarditis organism: bacterial Chronicity: acute Qualified Code(s): I33.0 - Acute and subacute infective endocarditis (3) Acute septic pulmonary embolism Qualifiers: Acute cor pulmonale presence: without acute cor pulmonale Qualified Code(s): I26.90 - Septic pulmonary embolism without acute cor pulmonale (4) Cellulitis Qualifiers: Site of cellulitis: extremity Site of cellulitis of extremity: upper extremity Laterality: right Qualified Code(s): L03.113 - Cellulitis of right upper limb (5) Compartment syndrome of left upper extremity Qualifiers: Encounter type: initial encounter Qualified Code(s): T79.A12A - Traumatic compartment syndrome of left upper extremity, initial encounter
--- NOTE | 2017-08-28 18:02 | P.PNID ---
Subjective Remarks: Patient complains of pain in the r. arm. Also C/O pain in the left chest and left abdomen with inspiration. Afebrile. Right arm wound culture has staph aureus. Blood culture has staph aureus. ECHO 2D on 08/26/17 without mention of vegetations. This is a 32-year-old white female who uses IV drugs. The patient reports that she last used IV drugs 2 days ago. She was brought to the emergency department complaining of chest pain and shortness of breath. She reportedly noted that it started a couple days ago. The pain is located at the left side of her chest and she has difficulty breathing. The patient used IV heroin prior to the admission. She was noted to have large area of swelling and erythema on the right forearm and hand, which is markedly swollen and she has an area of grayish discoloration with swelling at the right thumb. She was evaluated in the emergency department. She had temperature of 99.8 and heart rate of 102 and the temperature increased to 103 degrees and a white blood cell count was elevated at 12.5. Lactic acid was 3.4. The patient had blood cultures taken and all 4 bottles of the blood cultures have gram-positive cocci. White blood cell count has increased to 16.6. Hand surgeon was called to evaluate the patient and the right thumb was debrided. Antibiotics: Gentamicin Oxacillin Lines: Peripheral IV Past Medical History: Medical History (Last Reviewed 08/27/17 @ 07:41 by SHIRLEY Molina) Arm vein blood clot (Acute) Allergies/Adverse Reactions: Allergies clindamycin Allergy (Severe, Verified 08/25/17 11:06) Hives "CAN'T BREATHE" ketorolac Allergy (Severe, Verified 08/25/17 11:06) Hives "CAN'T BREATHE" vancomycin Allergy (Severe, Verified 08/25/17 11:06) Hives "CAN'T BREATHE" Objective Vital Signs 08/27/17 20:00 08/28/17 00:00 08/28/17 04:00 Temperature 98.2 F 99.3 F 97.5 F L Pulse Rate 121 H 116 H 94 H Respiratory Rate 24 22 20 Blood Pressure 137/77 135/75 108/55 L Pulse Oximetry 95 92 L 97 08/28/17 08:00 08/28/17 12:00 Temperature 97.6 F 98.3 F Pulse Rate 76 101 H Respiratory Rate 16 16 Blood Pressure 124/57 L 111/70 Pulse Oximetry 98 96 Intake & Output 08/27/17 08/28/17 08/28/17 18:59 06:59 18:59 Intake Total 2450 / 2450 2407.75 / 2407.75 200 / 200 Output Total 1500 / 1500 Balance 2450 / 2450 907.75 / 907.75 200 / 200 Weight 55.5 kg Intake: IV 2450 / 2450 1603.75 / 1603.75 200 / 200 NS Inj 1,000 ML @ 100 mls/hr IV 2000 / 2000 1000 / 1000 .CONT .Q10H VANESSA Rx#:[id number] Cubicin Inj 416 MG In NS Inj 100 / 100 100 ML @ 200 mls/hr IV.SIG Q24H VANESSA Rx#:[id number] Gentamicin Inj 50 MG In NS Inj 0 / 0 303.75 / 303.75 100 ML @ 100 mls/hr IV.SIG Q8H VANESSA Rx#:[id number] Zyvox 600 mg Premix 300 ML @ 150 / 150 300 mls/hr IV.SIG Q12H VANESSA Rx#: [id number] Prostaphlin Inj 2 GM In NS Inj 100 / 100 300 / 300 200 / 200 100 ML @ 200 mls/hr IV.SIG Q4H VANESSA Rx#:[id number] Zosyn 4.5 GM Premix 4.5 gm In 100 / 100 100 ml @ 200 mls/hr IV.SIG Q6H VANESSA Rx#:[id number] Oral 804 / 804 Output: Urine 1500 / 1500 Other: # Bowel Movements 0 08/25/17 11:25 Blood - Peripheral Aerobic Blood Culture - Final Staphylococcus aureus 08/25/17 11:25 Blood - Peripheral Anaerobic Blood Culture - Final Staphylococcus aureus 08/25/17 11:20 Blood - Peripheral Aerobic Blood Culture - Final Staphylococcus aureus 08/25/17 11:20 Blood - Peripheral Anaerobic Blood Culture - Final Staphylococcus aureus 08/26/17 13:00 Wound - Thumb Gram Stain - Final 08/26/17 13:00 Wound - Thumb Wound Culture - Final Staphylococcus aureus 08/26/17 11:00 Wound - Finger Gram Stain - Final 08/26/17 11:00 Wound - Finger Wound Culture - Final Staphylococcus aureus 08/25/17 14:05 Clean Catch Urine Urine Culture - Final 10-50,000 cfu/mL mixed kori (probable contaminants) Lab - Hematology Results 08/28/17 05:10 WBC 7.8 RBC 3.15 L Hgb 8.6 L D Hct 26.0 L MCV 82.7 MCH 27.5 MCHC 33.2 RDW 14.1 Plt Count 275 MPV 8.3 Lab - Chemistry Results 08/28/17 05:10 Sodium 141 Potassium 3.7 Chloride 105 Carbon Dioxide 26.0 Anion Gap 10 BUN 7 Creatinine 0.67 Estimated GFR Greater than 89 Random Glucose 121 H Calcium 8.2 L Imaging: ITS Impressions Venous Doppler Study 08/25/17 00:00 CONCLUSION: 1. The study is negative for lower extremity deep venous thrombosis. Chest CTA 08/25/17 11:22 CONCLUSION: 1. Bilateral scattered groundglass nodules with suggestion of minimal cavitation likely infectious/inflammatory. Septic emboli is also a consideration. Treatment and follow-up. 2. No evidence for pulmonary motion. 3. Prominent right axillary lymph node. Forearm CT 08/25/17 11:22 CONCLUSION: 1. 2 needles are seen within the soft tissue as described above. 2. No abscess. 3. Diffuse soft tissue swelling likely cellulitis. Hand CT 08/25/17 11:22 CONCLUSION: 1. Soft tissue swelling without abscess or fluid collection. Upper Extremity Ultrasound 08/26/17 00:00 CONCLUSION: 1. No drainable abscess is yet. Excessive induration over the cephalic vein partial thrombosis of the cephalic vein. Chest X-Ray 08/26/17 10:03 CONCLUSION: Increasing consolidative changes left base with developing air bronchograms. Physical Exam: GENERAL: No acute distress. HEAD, EARS, EYES, NOSE AND THROAT: head is atraumatic. Extraocular movements are grossly intact. Pupils reactive to light. No icterus. No conjunctival erythema. Oropharynx mucosa is moist. No visible lesions. NECK: Supple without adenopathy. LUNGS: Decreased breath sounds. HEART: Regular rate and rhythm without audible murmurs, rubs or gallops. ABDOMEN: Bowel sounds present. Soft, no tenderness appreciated. EXTREMITIES: Less swelling with erythema at the aspect of the right forearm with erythema at the mid forearm. The dorsum of the right hand is less swollen and the thumb is post-debridement No visible embolic lesions. SKIN: No diffuse rash. NEUROLOGIC: No gross focal findings. PSYCHOLOGIC: Calm and cooperative. Assessment and Plan - Plan IMPRESSION: 1. Sepsis due to staph aureus. 2. Septic emboli of the lung. 3. Severe cellulitis of the right forearm with abscess of the left thumb. 4. IV drug abuse. 5. Hypoxemia. 6. Probable endocarditis in a patient with IV drug abuse. RECOMMENDATIONS: 1. Continue Oxacillin. 2. Stop Gentamicin. 3. Repeat blood culture. 4. Monitor arm swelling.
[2017-08-28] MEDS: Povidone Iodine 10% Top Soln 118 ML Bottle TOPICAL SCH (18:16)
[2017-08-28] MEDS: Acetaminophen 325 MG Tablet PO SCH ×3 (18:45→23:25)
[2017-08-29] MEDS: HYDROmorphone PF Inj 2 MG/ML Vial IV.PUSH PRN ×5 (02:13→21:18)
[2017-08-29] MEDS: Sod Chloride 0.9% Inj 1,000 ML IV.CONT SCH ×3 (02:43→22:56)
[2017-08-29] MEDS: Acetaminophen 325 MG Tablet PO SCH ×4 (05:59→23:05)
--- NOTE | 2017-08-29 10:33 | P.PNFP ---
Subjective Interval history: Patient was seen this morning at bedside. Patient was sleeping comfortably in her bed and was easy to arouse. Patient was more conversational than before and reports continued pain in chest and in arm. Overnight patient reports picking at her abscess and draining it herself because "it looked like it was about to pop". She denies shortness of breath, subjective fever, chills, nausea or vomiting. Her only question involved changing her medication. She requested that we give Dilaudid 4mg because the morphine did not work. Her pain scale and deescalation of pain medication was discussed and patient was okay with the plan. <Jomar Madison O - 08/29/17 10:33> Results - Labs Result diagrams: 08/30/17 14:19 08/30/17 14:24 <Miguelina Irwin - 08/31/17 09:20> Abnormal lab results 08/30/17 08/30/17 Range/Units 14:19 14:24 RBC 3.67 L (4.00-5.30) mil/mm3 Hgb 10.0 L (11.6-15.3) gm/dL Hct 30.3 L (35.0-46.0) % Random Glucose 107 H (74-106) mg/dL Calcium 8.3 L (8.5-10.1) mg/dL Short CBC 08/30/17 Range/Units 14:19 WBC 10.3 (4.0-11.0) th/mm3 Hgb 10.0 L (11.6-15.3) gm/dL Hct 30.3 L (35.0-46.0) % Plt Count 438 (150-450) th/mm3 BMP 08/30/17 14:24 Sodium 139 Potassium 4.0 Chloride 103 Carbon Dioxide 26.9 BUN 10 Creatinine 0.55 Calcium 8.3 L <Miguelina Irwin - 08/31/17 09:20> Physical Exam Vital signs: Vital Signs 08/30/17 09:34 08/30/17 12:00 08/30/17 12:09 Temperature 98.1 F Pulse Rate 88 92 H Respiratory Rate 18 17 Blood Pressure 101/61 Pulse Oximetry 95 08/30/17 16:00 08/30/17 17:44 08/30/17 20:00 Temperature 98.9 F 97.7 F Pulse Rate 92 H 96 H Respiratory Rate 17 18 Blood Pressure 106/61 101/55 L Pulse Oximetry 94 L 94 L 98 08/30/17 21:38 08/30/17 23:44 08/31/17 00:00 Temperature 98.2 F Pulse Rate 94 H 92 H 93 H Respiratory Rate 16 Blood Pressure 103/58 L Pulse Oximetry 95 08/31/17 04:00 08/31/17 04:01 Temperature 97.3 F L Pulse Rate 77 78 Respiratory Rate 16 Blood Pressure 97/58 L Pulse Oximetry 97 Intake & Output 08/30/17 08/31/17 08/31/17 18:59 06:59 18:59 Intake Total 4100 / 4100 300 / 300 100 / 100 Output Total 1500 / 1500 Balance 2600 / 2600 300 / 300 100 / 100 Weight 58 kg Intake: IV 2300 / 2300 300 / 300 100 / 100 NS Inj 1,000 ML @ 100 mls/hr IV 1999 / 1999 .CONT .Q10H VANESSA Rx#:[id number] Prostaphlin Inj 2 GM In NS Inj 300 / 300 300 / 300 100 / 100 100 ML @ 200 mls/hr IV.SIG Q4H VANESSA Rx#:[id number] Oral 1800 / 1800 Output: Urine 1500 / 1500 Other: Date of Last Bowel Movement 08/30/17 # Bowel Movements 2 <iMguelina Irwin M - 08/31/17 09:20> Vital Signs 08/28/17 12:00 08/28/17 16:00 08/28/17 18:00 Temperature 98.3 F 99.6 F Pulse Rate 101 H 106 H 94 H Respiratory Rate 16 16 Blood Pressure 111/70 116/66 Pulse Oximetry 96 95 08/28/17 20:00 08/29/17 00:00 08/29/17 00:25 Temperature 98.1 F 98.8 F Pulse Rate 108 H 97 H 107 H Respiratory Rate 18 18 Blood Pressure 120/62 114/65 Pulse Oximetry 98 100 08/29/17 04:00 08/29/17 04:05 Temperature 99 F Pulse Rate 93 H 92 H Respiratory Rate 18 Blood Pressure 108/65 Pulse Oximetry 97 Intake & Output 08/28/17 08/29/17 08/29/17 18:59 06:59 18:59 Intake Total 1400 / 1400 1999 Output Total 5150 / 5150 Balance 1400 / 1400 -3150 / -3150 Weight 58.9 kg Intake: IV 1400 / 1400 200 / 200 NS Inj 1,000 ML @ 100 mls/hr IV 1000 / 1000 .CONT .Q10H VANESSA Rx#:[id number] Prostaphlin Inj 2 GM In NS Inj 400 / 400 200 / 200 100 ML @ 200 mls/hr IV.SIG Q4H VANESSA Rx#:[id number] Oral 1800 / 1800 Output: Urine 5150 / 5150 Other: Date of Last Bowel Movement 08/29/17 # Bowel Movements 1 <Jomar Madison 08/29/17 10:33> - Constitutional no acute distress, thin, cooperative <Jomar Madison 08/29/17 10:33> - Routine HEENT Exam Head: Present: normocephalic, atraumatic <GriceldaJomar Harvey 08/29/17 10:33> - Routine Respiratory Exam Present: CTA bilaterally. Absent: accessory muscle use, prolonged expiratory phase, rales, respiratory distress, rhonchi, stridor, wheezes, crackles, diminished air movement <GriceldaJomar Candice 08/29/17 10:33> - Routine Cardiovascular Exam Present: RRR, murmur <MadisonJomar Candice 08/29/17 10:33> Comments: Non radiating holosystolic murmur <MadisonJomar Candice 08/29/17 10:33> - Routine Abdominal Exam Present: soft, normoactive bowel sounds. Absent: tenderness, distended, rebound , guarding <MadisonJomar gan 08/29/17 10:33> - Routine Extremities Exam Present: pulses intact. Absent: cyanosis, clubbing, edema <MadisonJomar Candice 10:33> - Detailed Upper Extremity Exam Forearm: Right swelling, Right wound, Right erythema <Jomar Madison 10:33> Hand/Fingers: Right erythema <MadisonJomar gan 08/29/17 10:33> - Routine Back/Spine/Pelvis Exam Back/Spine: Present: scoliosis <Jomar Madison 08/29/17 10:33> - Routine Skin Exam Present: intact, erythema <Jomar Madison 08/29/17 10:33> Comments: Skin overlying previous abscess on right forearm was erythematous and with a firm constancy Much less sowllen than yesterday. Swelling on dorsum of hand much improved from presentation. <Jomar Madison 08/29/17 10:33> - Routine Neurological Exam Present: alert, oriented X3, moving all extremities, hearing grossly intact, normal speech. Absent: motor deficit, altered mental status, facial asymmetry <Jomar Madison 08/29/17 10:33> - Detailed Neurological Exam: Coma Scale Eye Opening: Spontaneous <Jomar Madison 08/29/17 10:33> Verbal Response: Oriented <Jomar Madison 08/29/17 10:33> Motor Response: Obey commands <Jomar Madison 08/29/17 10:33> [place] Coma Scale Total: 15 <Jomar Madison 08/29/17 10:33> Assessment and Plan - Assessment (1) Sepsis Code(s): A41.9 - Sepsis, unspecified organism Status: Resolved (2) Endocarditis Code(s): I38 - Endocarditis, valve unspecified Status: Resolved (3) Acute septic pulmonary embolism Code(s): I26.90 - Septic pulmonary embolism without acute cor pulmonale Status : Acute (4) Cellulitis Code(s): L03.90 - Cellulitis, unspecified Status: Acute (5) Nutrition, metabolism, and development symptoms Code(s): R63.8 - Other symptoms and signs concerning food and fluid intake Status: Acute <Miguelina Irwin - 08/31/17 09:20> (1) Sepsis Code(s): A41.9 - Sepsis, unspecified organism Status: Acute Plan: This patient presented to the ED with a Tmax of 103.0, pulse of 92, RR 15 and lactic acid of 3.4 in the setting of chest pain, prior IV drug use, cellulitis, WBC of 12.5 and a CXR showing ground glass opacities and cavitations. Patient initially received Linezolid due to vanco contraindication as well as zosyn in the ED. Patient consulted by ID who stopped zyvox and daptomycin, and zosyn and started oxacillin. Blood cultures grew staph aureus in 4 bottles as well as wound cultures from drained arm abscess. Patient looking much better today. She reports still having significant chest pain as well as arm pain. Patient afebrile, with normal heart and respiratory rate and satting well. - Follow ID recommendations - Continue Oxacillin - Continue to de-escalate pain medication and transition to PO - Monitor vitals (2) Endocarditis Code(s): I38 - Endocarditis, valve unspecified Status: Resolved Plan: Patient known IV drug user who according to was sharing needles with friend who has unfortunately last week due to bacteremia. Alejo criteria level at possible. Patient presented with a previously existing murmur , septic pulmonary emboli and 4/4 positive blood cultures for staph aureus, as well as wound cultures from arm abscess also grew staph aureus. It is extremely likely that she has infective endocarditis. Transthoracic echo showed trace mitral and tricuspid regurgitation but no vegetations. Chest CT showed most likely septic emboli with cavitations. ID following. - Continue with ID recommendations - Consider Oxacillin - Follow up with recent blood cultures (3) Acute septic pulmonary embolism Code(s): I26.90 - Septic pulmonary embolism without acute cor pulmonale Status : Acute Plan: Patients presents with 1 day history of acute chest pain. Her chest CT shows patchy opacities and cavitations most consistent with septic embolism in the setting of sepsis and new heart murmur in known IV drug user. These findings lead to likely infective endocarditis vs ACS. US venous Doppler lower extremities was negative for DVT. Transthoracic echo negative for vegetations. Patient tachypneic previously but breathing at a more regular pace today and satting well. - Continue with ID recommendations - Monitor O2 saturation (4) Cellulitis Code(s): L03.90 - Cellulitis, unspecified Status: Acute Plan: Patient presents with significant hand and arm swelling in the setting of sepsis and known IV drug use. On presentation in the ED hand CT showed soft tissue swelling without abscess or fluid collection. Ct of forearm showed 2 needles within the soft tissue, no abscess, and diffuse soft tissue swelling likely cellulitis. Patient developed abscess on right thumb which was drained on 08/26/17. Right thumb wound culture grew staph aureus. Recently patient developed another abscess on right anterior forearm that the patient lanced herself by picking at her arm. Arm and hand look much better day, less swollen, less erythematous and the skin is no longer taut. Per surgery needles in arm are not of critical concern, removal will not be attempted during inpatient therapy. - Continue with ID recommendations - Trend Temp - Trend CBC (5) Compartment syndrome of left upper extremity Code(s): T79.A12A - Traumatic compartment syndrome of left upper extremity, initial encounter Status: Suspected Onset Date: ~08/26/17 Plan: Hand surgery consulter, compartment syndrome not likely at this point and time. Hand and forearm still swollen but radial pulse is 2+ in right hand and capillary refill less than 2 seconds in right finger tips. Arm abscess has been decompressed and hand swelling is significantly better. - Continue to monitor fir any new abscesses (6) Nutrition, metabolism, and development symptoms Code(s): R63.8 - Other symptoms and signs concerning food and fluid intake Status: Acute Plan: Fluids: 100ml/hr NS for maintenance. Electrolytes: Replete as needed Diet: Normal diet as tolerated. DVT Prophylaxis: SCDs <Jomar Madison O - 08/29/17 10:06> - Attending Attestation The exam, history, and the medical decision-making described in the above note were completed with the assistance of the resident physician. I reviewed and agree with the findings presented. I attest that I had a [id number] encounter with the patient on the same day, and personally performed and documented my assessment and findings in the medical record. she does have pain with her cellulitis but will need to be weaned down on her pain meds <Miguelina Irwin M - 08/31/17 09:20> <Jomar Madison - Last Filed: 08/29/17 10:06> (1) Sepsis Qualifiers: Sepsis type: sepsis due to unspecified organism Qualified Code(s): A41.9 - Sepsis, unspecified organism (2) Endocarditis Qualifiers: Endocarditis type: infective Infective endocarditis organism: bacterial Chronicity: acute Qualified Code(s): I33.0 - Acute and subacute infective endocarditis (3) Acute septic pulmonary embolism Qualifiers: Acute cor pulmonale presence: without acute cor pulmonale Qualified Code(s): I26.90 - Septic pulmonary embolism without acute cor pulmonale (4) Cellulitis Qualifiers: Site of cellulitis: extremity Site of cellulitis of extremity: upper extremity Laterality: right Qualified Code(s): L03.113 - Cellulitis of right upper limb (5) Compartment syndrome of left upper extremity Qualifiers: Encounter type: initial encounter Qualified Code(s): T79.A12A - Traumatic compartment syndrome of left upper extremity, initial encounter <Miguelina Irwin M - Last Filed: 08/31/17 09:20> (1) Sepsis Qualifiers: Sepsis type: sepsis due to unspecified organism Qualified Code(s): A41.9 - Sepsis, unspecified organism (2) Endocarditis Qualifiers: Endocarditis type: infective Infective endocarditis organism: bacterial Chronicity: acute Qualified Code(s): I33.0 - Acute and subacute infective endocarditis (3) Acute septic pulmonary embolism Qualifiers: Acute cor pulmonale presence: without acute cor pulmonale Qualified Code(s): I26.90 - Septic pulmonary embolism without acute cor pulmonale (4) Cellulitis Qualifiers: Site of cellulitis: extremity Site of cellulitis of extremity: upper extremity Laterality: right Qualified Code(s): L03.113 - Cellulitis of right upper limb <Jomar Madison O - Last Filed: 08/29/17 10:06> (1) Sepsis Qualifiers: Sepsis type: sepsis due to unspecified organism Qualified Code(s): A41.9 - Sepsis, unspecified organism (2) Endocarditis Qualifiers: Endocarditis type: infective Infective endocarditis organism: bacterial Chronicity: acute Qualified Code(s): I33.0 - Acute and subacute infective endocarditis (3) Acute septic pulmonary embolism Qualifiers: Acute cor pulmonale presence: without acute cor pulmonale Qualified Code(s): I26.90 - Septic pulmonary embolism without acute cor pulmonale (4) Cellulitis Qualifiers: Site of cellulitis: extremity Site of cellulitis of extremity: upper extremity Laterality: right Qualified Code(s): L03.113 - Cellulitis of right upper limb (5) Compartment syndrome of left upper extremity Qualifiers: Encounter type: initial encounter Qualified Code(s): T79.A12A - Traumatic compartment syndrome of left upper extremity, initial encounter <Miguelina Irwin - Last Filed: 08/31/17 09:20> (1) Sepsis Qualifiers: Sepsis type: sepsis due to unspecified organism Qualified Code(s): A41.9 - Sepsis, unspecified organism (2) Endocarditis Qualifiers: Endocarditis type: infective Infective endocarditis organism: bacterial Chronicity: acute Qualified Code(s): I33.0 - Acute and subacute infective endocarditis (3) Acute septic pulmonary embolism Qualifiers: Acute cor pulmonale presence: without acute cor pulmonale Qualified Code(s): I26.90 - Septic pulmonary embolism without acute cor pulmonale (4) Cellulitis Qualifiers: Site of cellulitis: extremity Site of cellulitis of extremity: upper extremity Laterality: right Qualified Code(s): L03.113 - Cellulitis of right upper limb
[2017-08-29] MEDS: Famotidine PF Inj 20 MG/2 ML Vial IV.PUSH SCH ×2 (11:05→21:18)
[2017-08-29] MEDS: Povidone Iodine 10% Top Soln 118 ML Bottle TOPICAL SCH (11:06)
[2017-08-29 12:19] LABS: Hematocrit 29.7 % (35.0-46.0); Hemoglobin 9.7 gm/dL (11.6-15.3); Mean Corpuscular HGB Conc 32.8 % (32.0-36.0); Mean Corpuscular Hemoglobin 26.6 pg (27.0-34.0); Mean Corpuscular Volume 81.2 fL (80.0-100.0); Platelet Count 351 th/mm3 (150-450); Red Blood Count 3.65 mil/mm3 (4.00-5.30); Red Cell Distribution Width 14.5 % (11.6-17.2); White Blood Count 8.7 th/mm3 (4.0-11.0)
[2017-08-29 12:45] LABS: Alanine Aminotransferase 29 U/L (10-53); Albumin 2.1 g/dL (3.4-5.0); Anion Gap 9 meq/L (5-15); Aspartate Aminotransferase 19 U/L (15-37); Blood Urea Nitrogen 8 mg/dL (7-18); Calcium 8.4 mg/dL (8.5-10.1); Carbon Dioxide 29.5 meq/L (21.0-32.0); Chloride 100 meq/L (98-107); Glomerular Filtration Rate Greater Than 89 mL/min (>89); Glucose,Random 124 mg/dL (74-106); Potassium 3.9 meq/L (3.5-5.1); Sodium 138 meq/L (136-145)
[2017-08-29 12:47] LABS: Alkaline Phosphatase 138 U/L (45-117); Total Protein 6.8 g/dL (6.4-8.2)
[2017-08-30] MEDS: HYDROmorphone PF Inj 2 MG/ML Vial IV.PUSH PRN ×3 (01:37→20:57)
[2017-08-30] MEDS: Acetaminophen 325 MG Tablet PO SCH ×4 (05:36→23:18)
[2017-08-30] MEDS: Famotidine PF Inj 20 MG/2 ML Vial IV.PUSH SCH ×2 (08:52→20:51)
[2017-08-30] MEDS: Sod Chloride 0.9% Inj 1,000 ML IV.CONT SCH ×3 (08:54→23:49)
[2017-08-30] MEDS: oxyCODONE/Acetaminophen 10/325 Tablet PO PRN ×3 (11:59→22:19)
[2017-08-30] MEDS: LORazepam 1 MG Tablet PO PRN ×2 (12:37→19:05)
--- NOTE | 2017-08-30 13:36 | P.PNFP ---
Subjective Interval history: Patient seen and examined this morning. No acute events overnight. Patient reports that she is overall better. This morning she is complaining of pleuritic chest pain left-sided chest. Denies any shortness of breath, fever, chills, or N/V. She reports her appetite is improving she is eating well. Her right arm pain and swelling has also improved. It has been explained to the patient that we will be weaning off of pain medication. <Keisha Fernandes D - 08/30/17 13:35> Results - Labs Result diagrams: 08/30/17 14:19 08/30/17 14:24 <Miguelina Irwin M - 08/31/17 13:12> Abnormal lab results 08/30/17 08/30/17 Range/Units 14:19 14:24 RBC 3.67 L (4.00-5.30) mil/mm3 Hgb 10.0 L (11.6-15.3) gm/dL Hct 30.3 L (35.0-46.0) % Random Glucose 107 H (74-106) mg/dL Calcium 8.3 L (8.5-10.1) mg/dL Short CBC 08/30/17 Range/Units 14:19 WBC 10.3 (4.0-11.0) th/mm3 Hgb 10.0 L (11.6-15.3) gm/dL Hct 30.3 L (35.0-46.0) % Plt Count 438 (150-450) th/mm3 BMP 08/30/17 14:24 Sodium 139 Potassium 4.0 Chloride 103 Carbon Dioxide 26.9 BUN 10 Creatinine 0.55 Calcium 8.3 L <Miguelina Irwin M - 08/31/17 13:12> Physical Exam Vital signs: Vital Signs 08/30/17 16:00 08/30/17 17:44 08/30/17 20:00 Temperature 98.9 F 97.7 F Pulse Rate 92 H 96 H Respiratory Rate 17 18 Blood Pressure 106/61 101/55 L Pulse Oximetry 94 L 94 L 98 08/30/17 21:38 08/30/17 23:44 08/31/17 00:00 Temperature 98.2 F Pulse Rate 94 H 92 H 93 H Respiratory Rate 16 Blood Pressure 103/58 L Pulse Oximetry 95 08/31/17 04:00 08/31/17 04:01 08/31/17 08:00 Temperature 97.3 F L 98.0 F Pulse Rate 77 78 84 Respiratory Rate 16 20 Blood Pressure 97/58 L 99/56 L Pulse Oximetry 97 96 08/31/17 09:00 Temperature Pulse Rate 87 Respiratory Rate Blood Pressure Pulse Oximetry Intake & Output 08/30/17 08/31/17 08/31/17 18:59 06:59 18:59 Intake Total 4100 / 4100 300 / 300 1200 / 1200 Output Total 1500 / 1500 Balance 2600 / 2600 300 / 300 1200 / 1200 Weight 58 kg Intake: IV 2300 / 2300 300 / 300 1200 / 1200 NS Inj 1,000 ML @ 100 mls/hr IV 2000 / 2000 1000 / 1000 .CONT .Q10H VANESSA Rx#:[id number] Prostaphlin Inj 2 GM In NS Inj 300 / 300 300 / 300 200 / 200 100 ML @ 200 mls/hr IV.SIG Q4H VANESSA Rx#:[id number] Oral 1800 / 1800 Output: Urine 1500 / 1500 Other: Date of Last Bowel Movement 08/30/17 08/30/17 # Bowel Movements 2 <Miguelina Irwin M - 08/31/17 13:12> Vital Signs 08/29/17 15:34 08/29/17 16:00 08/29/17 20:00 Temperature 97.6 F 99.2 F Pulse Rate 107 H 105 H 103 H Respiratory Rate 18 16 Blood Pressure 114/60 105/71 Pulse Oximetry 95 97 08/29/17 21:16 08/30/17 00:00 08/30/17 04:00 Temperature 97.9 F 97.9 F Pulse Rate 90 75 Respiratory Rate 16 16 Blood Pressure 98/69 L 108/68 Pulse Oximetry 98 98 97 08/30/17 08:00 08/30/17 08:15 08/30/17 09:34 Temperature 97.8 F Pulse Rate 84 78 Respiratory Rate 17 18 Blood Pressure 116/81 Pulse Oximetry 98 08/30/17 12:00 Temperature 98.1 F Pulse Rate 88 Respiratory Rate 17 Blood Pressure 101/61 Pulse Oximetry 95 Intake & Output 08/29/17 08/30/17 08/30/17 18:59 06:59 18:59 Intake Total 1500 / 1500 1979 1100 / 1100 Output Total 900 / 900 800 / 800 Balance 600 / 600 1180 / 1180 1100 / 1100 Weight 59 kg Intake: IV 300 / 300 1300 / 1300 1100 / 1100 NS Inj 1,000 ML @ 100 mls/hr IV 1000 / 1000 1000 / 1000 .CONT .Q10H VANESSA Rx#:[id number] Prostaphlin Inj 2 GM In NS Inj 300 / 300 300 / 300 100 / 100 100 ML @ 200 mls/hr IV.SIG Q4H VANESSA Rx#:[id number] Oral 1200 / 1200 680 / 680 Output: Urine 900 / 900 800 / 800 Other: Date of Last Bowel Movement 08/29/17 <Keisha Fernandes 08/30/17 13:35> - Constitutional no acute distress <Keisha Fernandes 08/30/17 13:35> - Routine HEENT Exam Eye: Present: EOMI, PERRL <Keisha Fernandes 08/30/17 13:35> ENT: Present: mucous membranes moist <Keisha Fernandes 08/30/17 13:35> - Routine Neck Exam Present: supple, full ROM. Absent: JVD <Keisha Fernandes 08/30/17 13:35> - Routine Respiratory Exam Present: CTA bilaterally. Absent: accessory muscle use <Keisha Fernandes 13:35> Comments: Tenderness to palpation along the left side of chest <Keisha Fernandes 08/30/17 13:35> - Routine Cardiovascular Exam Present: RRR, S1, S2, murmur. Absent: gallop, rubs <Keisha Fernandes 13:35> - Routine Abdominal Exam Present: soft, normoactive bowel sounds. Absent: tenderness, distended, rebound , guarding <Keisha Fernandes 08/30/17 13:35> - Routine Neurological Exam Present: alert, oriented X3, CN II-XII intact, normal reflexes, moving all extremities <Keisha Fernandes 08/30/17 13:35> No erythema of right arm. small pustule on the dorsum aspect of right arm forearm. Bandage in place around right thumb, attempted to remove bandages to look at incision from I&D patient refused. She will be okay with having nurse soak bandages in normal saline to aid in removal. Swelling of right arm has significantly improved. 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 <Keisha Fernandes D - 08/30/17 13:35> - Routine Psychiatric Exam Present: normal affect <Keisha Fernandes D - 08/30/17 13:35> Assessment and Plan - Assessment (1) Sepsis Code(s): A41.9 - Sepsis, unspecified organism Status: Resolved (2) Endocarditis Code(s): I38 - Endocarditis, valve unspecified Status: Resolved (3) Acute septic pulmonary embolism Code(s): I26.90 - Septic pulmonary embolism without acute cor pulmonale Status : Acute (4) Cellulitis Code(s): L03.90 - Cellulitis, unspecified Status: Acute (5) Nutrition, metabolism, and development symptoms Code(s): R63.8 - Other symptoms and signs concerning food and fluid intake Status: Acute <Miguelina Irwin Areli - 08/31/17 13:12> (1) Sepsis Code(s): A41.9 - Sepsis, unspecified organism Status: Resolved Plan: This patient presented to the ED with a Tmax of 103.0, pulse of 92, RR 15 and lactic acid of 3.4 in the setting of chest pain, prior IV drug use, cellulitis, WBC of 12.5 and a CXR showing ground glass opacities and cavitations. Patient initially received Linezolid due to vanco contraindication as well as zosyn in the ED. ID consulted, appreciate recommendations Discontinued: Zyvox, daptomycin and gentamicin. c/w oxacillin Blood cultures grew staph aureus in 4 bottles as well as wound cultures from drained arm abscess. Patient continues to improve clinically. Vital signs within normal limits. Repeat blood cultures from 08/29/17--no growth x1 day - Continue to de-escalate pain medication and transition to PO - Monitor vitals (2) Endocarditis Code(s): I38 - Endocarditis, valve unspecified Status: Resolved Plan: Patient known IV drug user who according to was sharing needles with friend who has unfortunately recently due to bacteremia. Alejo criteria level at possible. Patient presented with a previously existing murmur , septic pulmonary emboli and 4/4 positive blood cultures taken at admission grew staph aureus, as well as wound cultures from arm abscess also grew staph aureus. It is extremely likely that she has infective endocarditis. Transthoracic echo showed trace mitral and tricuspid regurgitation but no vegetations. Chest CT showed most likely septic emboli with cavitations. ID following. - Continue with ID recommendations - Follow up with recent blood cultures (3) Acute septic pulmonary embolism Code(s): I26.90 - Septic pulmonary embolism without acute cor pulmonale Status : Acute Plan: Patients presented with 1 day history of acute chest pain. Her chest CT shows patchy opacities and cavitations most consistent with septic embolism in the setting of sepsis and new heart murmur in known IV drug user. These findings lead to likely infective endocarditis vs ACS. US venous Doppler lower extremities was negative for DVT. Transthoracic echo negative for vegetations. ACS was ruled out. -Patient with complaints of pleuritic left-sided chest pain this morning, reproducible upon palpation. Continue with pain medication per pain scale. -Patient is on telemetry monitoring - Continue with ID recommendations - Monitor VS (4) Cellulitis Code(s): L03.90 - Cellulitis, unspecified Status: Acute Plan: Patient presented with significant hand and arm swelling in the setting of sepsis and known IV drug use. On presentation in the ED hand CT showed soft tissue swelling without abscess or fluid collection. Ct of forearm showed 2 needles within the soft tissue, no abscess, and diffuse soft tissue swelling likely cellulitis. Patient developed abscess on right thumb which was drained on 08/26/17. Right thumb wound culture grew staph aureus. Recently patient developed another abscess on right anterior forearm that the patient lanced herself by picking at her arm. Arm and hand continues to look clinically better , minimal swelling swollen, no erythematous and the skin is no longer taut. Per surgery needles in arm are not of critical concern, removal will not be attempted during inpatient therapy. - Continue with ID recommendations - Trend Temp - Trend CBC -Nurse advised to remove wrapping from right thumb including area (5) Nutrition, metabolism, and development symptoms Code(s): R63.8 - Other symptoms and signs concerning food and fluid intake Status: Acute Plan: Fluids: 100ml/hr NS for maintenance. Electrolytes: Replete as needed Diet: Normal diet as tolerated. DVT Prophylaxis: SCDs <Keisha Fernandes D - 08/30/17 13:04> - Assessment and Plan The exam, history, and the medical decision-making described in the above note were completed with the assistance of the resident physician. I reviewed and agree with the findings presented. I attest that I had a [id number] encounter with the patient on the same day, and personally performed and documented my assessment and findings in the medical record. she is improving overall day to day <Miguelina Irwin M - 08/31/17 13:12> <Keisha Fernandes D - Last Filed: 08/30/17 13:04> (1) Sepsis Qualifiers: Sepsis type: sepsis due to unspecified organism Qualified Code(s): A41.9 - Sepsis, unspecified organism (2) Endocarditis Qualifiers: Endocarditis type: infective Infective endocarditis organism: bacterial Chronicity: acute Qualified Code(s): I33.0 - Acute and subacute infective endocarditis (3) Acute septic pulmonary embolism Qualifiers: Acute cor pulmonale presence: without acute cor pulmonale Qualified Code(s): I26.90 - Septic pulmonary embolism without acute cor pulmonale (4) Cellulitis Qualifiers: Site of cellulitis: extremity Site of cellulitis of extremity: upper extremity Laterality: right Qualified Code(s): L03.113 - Cellulitis of right upper limb <Miguelina Irwin M - Last Filed: 08/31/17 13:12> (1) Sepsis Qualifiers: Sepsis type: sepsis due to unspecified organism Qualified Code(s): A41.9 - Sepsis, unspecified organism (2) Endocarditis Qualifiers: Endocarditis type: infective Infective endocarditis organism: bacterial Chronicity: acute Qualified Code(s): I33.0 - Acute and subacute infective endocarditis (3) Acute septic pulmonary embolism Qualifiers: Acute cor pulmonale presence: without acute cor pulmonale Qualified Code(s): I26.90 - Septic pulmonary embolism without acute cor pulmonale (4) Cellulitis Qualifiers: Site of cellulitis: extremity Site of cellulitis of extremity: upper extremity Laterality: right Qualified Code(s): L03.113 - Cellulitis of right upper limb <Keisha Fernandes D - Last Filed: 08/30/17 13:04> (1) Sepsis Qualifiers: Sepsis type: sepsis due to unspecified organism Qualified Code(s): A41.9 - Sepsis, unspecified organism (2) Endocarditis Qualifiers: Endocarditis type: infective Infective endocarditis organism: bacterial Chronicity: acute Qualified Code(s): I33.0 - Acute and subacute infective endocarditis (3) Acute septic pulmonary embolism Qualifiers: Acute cor pulmonale presence: without acute cor pulmonale Qualified Code(s): I26.90 - Septic pulmonary embolism without acute cor pulmonale (4) Cellulitis Qualifiers: Site of cellulitis: extremity Site of cellulitis of extremity: upper extremity Laterality: right Qualified Code(s): L03.113 - Cellulitis of right upper limb <Miguelina Irwin M - Last Filed: 08/31/17 13:12> (1) Sepsis Qualifiers: Sepsis type: sepsis due to unspecified organism Qualified Code(s): A41.9 - Sepsis, unspecified organism (2) Endocarditis Qualifiers: Endocarditis type: infective Infective endocarditis organism: bacterial Chronicity: acute Qualified Code(s): I33.0 - Acute and subacute infective endocarditis (3) Acute septic pulmonary embolism Qualifiers: Acute cor pulmonale presence: without acute cor pulmonale Qualified Code(s): I26.90 - Septic pulmonary embolism without acute cor pulmonale (4) Cellulitis Qualifiers: Site of cellulitis: extremity Site of cellulitis of extremity: upper extremity Laterality: right Qualified Code(s): L03.113 - Cellulitis of right upper limb
[2017-08-30 14:58] LABS: Hematocrit 30.3 % (35.0-46.0); Mean Corpuscular HGB Conc 32.9 % (32.0-36.0); Mean Corpuscular Hemoglobin 27.1 pg (27.0-34.0); Mean Corpuscular Volume 82.5 fL (80.0-100.0); Mean Platelet Volume 8.5 fL (7.0-11.0); Platelet Count 438 th/mm3 (150-450); Red Blood Count 3.67 mil/mm3 (4.00-5.30); Red Cell Distribution Width 14.7 % (11.6-17.2); White Blood Count 10.3 th/mm3 (4.0-11.0)
[2017-08-30 15:23] LABS: Anion Gap 9 meq/L (5-15); Blood Urea Nitrogen 10 mg/dL (7-18); Calcium 8.3 mg/dL (8.5-10.1); Carbon Dioxide 26.9 meq/L (21.0-32.0); Chloride 103 meq/L (98-107); Glomerular Filtration Rate Greater Than 89 mL/min (>89); Glucose,Random 107 mg/dL (74-106); Sodium 139 meq/L (136-145)
[2017-08-30] MEDS: Povidone Iodine 10% Top Soln 118 ML Bottle TOPICAL SCH (17:14)
[2017-08-30] MEDS: Temazepam 15 MG Capsule PO PRN (23:18)
[2017-08-31] MEDS: HYDROmorphone PF Inj 2 MG/ML Vial IV.PUSH PRN ×4 (01:06→21:56)
[2017-08-31] MEDS: LORazepam 1 MG Tablet PO PRN ×3 (01:06→18:17)
[2017-08-31] MEDS: oxyCODONE/Acetaminophen 10/325 Tablet PO PRN ×3 (04:42→18:16)
[2017-08-31] MEDS: Acetaminophen 325 MG Tablet PO SCH (06:58)
[2017-08-31] MEDS: Famotidine PF Inj 20 MG/2 ML Vial IV.PUSH SCH (08:20)
[2017-08-31] MEDS: Povidone Iodine 10% Top Soln 118 ML Bottle TOPICAL SCH (08:22)
[2017-08-31] MEDS: Sod Chloride 0.9% Inj 1,000 ML IV.CONT SCH (12:03)
--- NOTE | 2017-08-31 12:51 | P.PNFP ---
Subjective Interval history: Ms Luna was soundly sleeping when we entered the room today at around noon. She was arousable and talkative once she woke up but not happy. she does not like the idea of weaning down on her iv dilaudid and stated that her current dose did not let her sleep. she also was unhappy about her thumb. the bandage was to be removed yesterday but the dried blood made removal difficult. we asked the pt to soak her wound prior to removal but evidently she pulled the bandage off and now it bled and was painful so she refuses to allow anyone to check her thumb today. her cellulitis is very much better in the arm. she still complains about her chronic noncardiac chest pain but no changes fortunately, her latest blood cultures are negative so far. appreciate help of ID. Results - Labs Result diagrams: 08/30/17 14:19 08/30/17 14:24 Abnormal lab results 08/30/17 08/30/17 Range/Units 14:19 14:24 RBC 3.67 L (4.00-5.30) mil/mm3 Hgb 10.0 L (11.6-15.3) gm/dL Hct 30.3 L (35.0-46.0) % Random Glucose 107 H (74-106) mg/dL Calcium 8.3 L (8.5-10.1) mg/dL Short CBC 08/30/17 Range/Units 14:19 WBC 10.3 (4.0-11.0) th/mm3 Hgb 10.0 L (11.6-15.3) gm/dL Hct 30.3 L (35.0-46.0) % Plt Count 438 (150-450) th/mm3 BMP 08/30/17 14:24 Sodium 139 Potassium 4.0 Chloride 103 Carbon Dioxide 26.9 BUN 10 Creatinine 0.55 Calcium 8.3 L Physical Exam Vital signs: Vital Signs 08/30/17 16:00 08/30/17 17:44 08/30/17 20:00 Temperature 98.9 F 97.7 F Pulse Rate 92 H 96 H Respiratory Rate 17 18 Blood Pressure 106/61 101/55 L Pulse Oximetry 94 L 94 L 98 08/30/17 21:38 08/30/17 23:44 08/31/17 00:00 Temperature 98.2 F Pulse Rate 94 H 92 H 93 H Respiratory Rate 16 Blood Pressure 103/58 L Pulse Oximetry 95 08/31/17 04:00 08/31/17 04:01 08/31/17 08:00 Temperature 97.3 F L 98.0 F Pulse Rate 77 78 84 Respiratory Rate 16 20 Blood Pressure 97/58 L 99/56 L Pulse Oximetry 97 96 08/31/17 09:00 Temperature Pulse Rate 87 Respiratory Rate Blood Pressure Pulse Oximetry Intake & Output 08/30/17 08/31/17 08/31/17 18:59 06:59 18:59 Intake Total 4100 / 4100 300 / 300 1100 / 1100 Output Total 1500 / 1500 Balance 2600 / 2600 300 / 300 1100 / 1100 Weight 58 kg Intake: IV 2300 / 2300 300 / 300 1100 / 1100 NS Inj 1,000 ML @ 100 mls/hr IV 2000 / 2000 1000 / 1000 .CONT .Q10H VANESSA Rx#:[id number] Prostaphlin Inj 2 GM In NS Inj 300 / 300 300 / 300 100 / 100 100 ML @ 200 mls/hr IV.SIG Q4H VANESSA Rx#:[id number] Oral 1800 / 1800 Output: Urine 1500 / 1500 Other: Date of Last Bowel Movement 08/30/17 08/30/17 # Bowel Movements 2 - Constitutional no acute distress, thin - Routine HEENT Exam Head: Present: normocephalic, atraumatic. Absent: cushingoid faces, laceration Eye: Present: EOMI. Absent: conjunctival icterus, scleral injection ENT: Present: mucous membranes moist - Routine Neck Exam Absent: tracheal deviation, meningismus - Routine Respiratory Exam Present: CTA bilaterally. Absent: accessory muscle use, patient mechanically ventilated, decreased breath sounds, prolonged expiratory phase, rales, respiratory distress - Routine Cardiovascular Exam Present: RRR. Absent: bradycardia, tachycardia, irregular rhythm, irregularly irregular, JVD - Routine Abdominal Exam Present: soft. Absent: tenderness, rebound, guarding, firm, rigid - Routine Extremities Exam Present: full ROM. Absent: cyanosis, clubbing, edema, AV fistula - Routine Skin Exam Present: intact, normal turgor. Absent: cyanosis, erythema, lesions, jaundice, gangrene (her right arm is markedly reduced in size with decreased erythema) - Routine Neurological Exam Present: alert, oriented X3. Absent: sensory deficit, motor deficit - Detailed Neurological Exam: Coma Scale Eye Opening: To sound Verbal Response: Oriented Motor Response: Obey commands Rakesh Coma Scale Total: 14 - Routine Psychiatric Exam Present: normal thought process. Absent: cooperative Assessment and Plan - Assessment (1) Sepsis Code(s): A41.9 - Sepsis, unspecified organism Status: Resolved Plan: This patient presented to the ED with a Tmax of 103.0, pulse of 92, RR 15 and lactic acid of 3.4 in the setting of chest pain, prior IV drug use, cellulitis, WBC of 12.5 and a CXR showing ground glass opacities and cavitations. Patient initially received Linezolid due to vanco contraindication as well as zosyn in the ED. ID consulted, appreciate recommendations Discontinued: Zyvox, daptomycin and gentamicin. c/w oxacillin Blood cultures grew staph aureus in 4 bottles as well as wound cultures from drained arm abscess. Patient continues to improve clinically. Vital signs within normal limits. Repeat blood cultures from 08/29/17--no growth so far - Continue to de-escalate pain medication and transition to PO - Monitor vitals (2) Endocarditis Code(s): I38 - Endocarditis, valve unspecified Status: Resolved Plan: Patient known IV drug user who according to was sharing needles with friend who has unfortunately recently due to bacteremia. Alejo criteria level at possible. Patient presented with a previously existing murmur , septic pulmonary emboli and 4/4 positive blood cultures taken at admission grew staph aureus, as well as wound cultures from arm abscess also grew staph aureus. It is extremely likely that she has infective endocarditis. Transthoracic echo showed trace mitral and tricuspid regurgitation but no vegetations. Chest CT showed most likely septic emboli with cavitations. ID following. - Continue with ID recommendations - Follow up with recent blood cultures thankfully are no growth so far (3) Acute septic pulmonary embolism Code(s): I26.90 - Septic pulmonary embolism without acute cor pulmonale Status : Acute Plan: Patients presented with 1 day history of acute chest pain. Her chest CT shows patchy opacities and cavitations most consistent with septic embolism in the setting of sepsis and new heart murmur in known IV drug user. These findings lead to likely infective endocarditis vs ACS. US venous Doppler lower extremities was negative for DVT. Transthoracic echo negative for vegetations. ACS was ruled out. -Patient had complaints of pleuritic left-sided chest pain continuing, reproducible upon palpation. Continue with pain medication per pain scale. will work on stopping iv narcotics and transitioning to po and then off -Patient is on telemetry monitoring - Continue with ID recommendations - Monitor VS (4) Cellulitis Code(s): L03.90 - Cellulitis, unspecified Status: Acute Plan: Patient presented with significant hand and arm swelling in the setting of sepsis and known IV drug use. On presentation in the ED hand CT showed soft tissue swelling without abscess or fluid collection. Ct of forearm showed 2 needles within the soft tissue, no abscess, and diffuse soft tissue swelling likely cellulitis. Patient developed abscess on right thumb which was drained on 08/26/17. Right thumb wound culture grew staph aureus. Recently patient developed another abscess on right anterior forearm that the patient lanced herself by picking at her arm. Arm and hand continues to look clinically better , minimal swelling swollen, no erythematous and the skin is no longer taut. Per surgery needles in arm are not of critical concern, removal will not be attempted during inpatient therapy. - Continue with ID recommendations - Trend Temp - Trend CBC -Nurse advised to remove wrapping from right thumb including area (5) Nutrition, metabolism, and development symptoms Code(s): R63.8 - Other symptoms and signs concerning food and fluid intake Status: Acute Plan: Fluids: 100ml/hr NS for maintenance. can stop now. Electrolytes: Replete as needed Diet: Normal diet as tolerated. DVT Prophylaxis: SCDs (1) Sepsis Qualifiers: Sepsis type: sepsis due to unspecified organism Qualified Code(s): A41.9 - Sepsis, unspecified organism (2) Endocarditis Qualifiers: Endocarditis type: infective Infective endocarditis organism: bacterial Chronicity: acute Qualified Code(s): I33.0 - Acute and subacute infective endocarditis (3) Acute septic pulmonary embolism Qualifiers: Acute cor pulmonale presence: without acute cor pulmonale Qualified Code(s): I26.90 - Septic pulmonary embolism without acute cor pulmonale (4) Cellulitis Qualifiers: Site of cellulitis: extremity Site of cellulitis of extremity: upper extremity Laterality: right Qualified Code(s): L03.113 - Cellulitis of right upper limb
[2017-08-31 13:58] LABS: Baso % (Auto) 0.3 % (0.0-2.0); Eos # (Auto) 0.3 th/mm3 (0.0-0.4); Eos % (Auto) 2.7 % (0.0-4.0); Hematocrit 28.4 % (35.0-46.0); Hemoglobin 9.4 gm/dL (11.6-15.3); Lymph # (Auto) 1.6 th/mm3 (1.0-4.8); Lymph % (Auto) 14.3 % (9.0-44.0); Mean Corpuscular Hemoglobin 27.2 pg (27.0-34.0); Mean Corpuscular Volume 82.6 fL (80.0-100.0); Mean Platelet Volume 8.6 fL (7.0-11.0); Mono # (Auto) 0.6 th/mm3 (0.0-0.9); Mono % (Auto) 5.8 % (0.0-8.0); Neut # (Auto) 8.4 th/mm3 (1.8-7.7); Neut % (Auto) 76.9 % (16.0-70.0); Platelet Count 427 th/mm3 (150-450); Red Blood Count 3.44 mil/mm3 (4.00-5.30); Red Cell Distribution Width 14.8 % (11.6-17.2); White Blood Count 10.9 th/mm3 (4.0-11.0)
[2017-08-31 14:22] LABS: Anion Gap 11 meq/L (5-15); Blood Urea Nitrogen 13 mg/dL (7-18); Calcium 8.4 mg/dL (8.5-10.1); Carbon Dioxide 26.9 meq/L (21.0-32.0); Chloride 101 meq/L (98-107); Glomerular Filtration Rate Greater Than 89 mL/min (>89); Glucose,Random 98 mg/dL (74-106); Potassium 4.3 meq/L (3.5-5.1); Sodium 139 meq/L (136-145)
[2017-09-01] MEDS: LORazepam 1 MG Tablet PO PRN ×3 (00:09→18:56)
[2017-09-01] MEDS: oxyCODONE/Acetaminophen 10/325 Tablet PO PRN ×4 (00:09→22:43)
[2017-09-01] MEDS: HYDROmorphone PF Inj 2 MG/ML Vial IV.PUSH PRN ×2 (03:12→18:50)
[2017-09-01] MEDS: Povidone Iodine 10% Top Soln 118 ML Bottle TOPICAL SCH (09:23)
--- NOTE | 2017-09-01 10:29 | P.PNFP ---
Subjective Interval history: Patient seen and examined at bedside. patient had Tmax of 100.5F overnight. Patient still with c/o of pleuritic chest pain. She reports she does not want to work with physical therapy today. No N/V. No pain on Right arm. <Keisha Fernandes D - 09/01/17 10:29> Results - Labs Result diagrams: 09/03/17 09:04 09/03/17 09:04 <Miguelina Irwin M - 09/03/17 12:56> Abnormal lab results 09/03/17 09/03/17 Range/Units 09:04 09:04 WBC 14.3 H (4.0-11.0) th/mm3 Hgb 11.4 L (11.6-15.3) gm/dL MCH 26.4 L (27.0-34.0) pg Plt Count 495 H (150-450) th/mm3 Neut % (Auto) 80.2 H (16.0-70.0) % Neut # (Auto) 11.5 H (1.8-7.7) th/mm3 Sodium 134 L (136-145) meq/L Short CBC 09/03/17 Range/Units 09:04 WBC 14.3 H (4.0-11.0) th/mm3 Hgb 11.4 L (11.6-15.3) gm/dL Hct 35.1 (35.0-46.0) % Plt Count 495 H (150-450) th/mm3 BMP 09/03/17 09:04 Sodium 134 L Potassium 4.3 Chloride 99 Carbon Dioxide 22.9 BUN 12 Creatinine 0.67 Calcium 9.0 <Miguelina Irwin M - 09/03/17 12:56> Abnormal lab results 08/31/17 08/31/17 Range/Units 13:16 13:16 RBC 3.44 L (4.00-5.30) mil/mm3 Hgb 9.4 L (11.6-15.3) gm/dL Hct 28.4 L (35.0-46.0) % Neut % (Auto) 76.9 H (16.0-70.0) % Neut # (Auto) 8.4 H (1.8-7.7) th/mm3 Calcium 8.4 L (8.5-10.1) mg/dL Short CBC 08/31/17 Range/Units 13:16 WBC 10.9 (4.0-11.0) th/mm3 Hgb 9.4 L (11.6-15.3) gm/dL Hct 28.4 L (35.0-46.0) % Plt Count 427 (150-450) th/mm3 BMP 08/31/17 13:16 Sodium 139 Potassium 4.3 Chloride 101 Carbon Dioxide 26.9 BUN 13 Creatinine 0.65 Calcium 8.4 L <Keisha Fernandes - 09/01/17 10:29> Physical Exam Vital signs: Vital Signs 09/02/17 15:49 09/02/17 16:00 09/02/17 20:00 Temperature 99.3 F 99.3 F Pulse Rate 95 H 107 H 108 H Respiratory Rate 20 22 Blood Pressure 111/63 109/59 L Pulse Oximetry 97 97 09/03/17 00:00 09/03/17 04:00 09/03/17 08:00 Temperature 98.6 F 98.3 F 98.7 F Pulse Rate 104 H 99 H 104 H Respiratory Rate 16 16 18 Blood Pressure 109/65 112/63 98/53 L Pulse Oximetry 96 97 98 Intake & Output 09/02/17 09/03/17 09/03/17 18:59 06:59 18:59 Intake Total 1260 / 1260 440 / 440 100 / 100 Output Total 1800 / 1800 Balance -540 / -540 440 / 440 100 / 100 Intake: IV 300 / 300 200 / 200 100 / 100 Prostaphlin Inj 2 GM In NS Inj 300 / 300 200 / 200 100 / 100 100 ML @ 200 mls/hr IV.SIG Q4H [facility] Rx#:[id number] Oral 960 / 960 240 / 240 Output: Urine 1800 / 1800 Other: # Voids 2 # Bowel Movements 0 <Miguelina Irwin M - 09/03/17 12:56> Vital Signs 08/31/17 12:00 08/31/17 16:00 08/31/17 20:00 Temperature 97.3 F L 98.0 F 99.9 F H Pulse Rate 97 H 112 H 120 H Respiratory Rate 20 20 20 Blood Pressure 106/57 L 111/68 112/63 Pulse Oximetry 97 94 L 95 08/31/17 23:43 09/01/17 00:00 09/01/17 00:55 Temperature 99.9 F H 100.5 F H Pulse Rate 110 H 108 H Respiratory Rate 18 Blood Pressure 110/65 Pulse Oximetry 95 09/01/17 03:45 09/01/17 04:00 09/01/17 08:00 Temperature 97.4 F L Pulse Rate 94 H 82 Respiratory Rate 16 Blood Pressure 94/52 L Pulse Oximetry 96 96 09/01/17 09:00 Temperature Pulse Rate 92 H Respiratory Rate Blood Pressure Pulse Oximetry Intake & Output 08/31/17 09/01/17 09/01/17 18:59 06:59 18:59 Intake Total 2170 / 2170 440 / 440 Output Total 1500 / 1500 Balance 2170 / 2170 -1060 / -1060 Weight 59.1 kg Intake: IV 1450 / 1450 200 / 200 NS Inj 1,000 ML @ 100 mls/hr IV 1050 / 1050 .CONT .Q10H [facility] Rx#:[id number] Prostaphlin Inj 2 GM In NS Inj 400 / 400 200 / 200 100 ML @ 200 mls/hr IV.SIG Q4H [facility] Rx#:[id number] Oral 720 / 720 240 / 240 Output: Urine 1500 / 1500 Other: # Voids 4 Date of Last Bowel Movement 08/30/17 08/30/17 # Bowel Movements 2 0 <Keisha Fernandes 09/01/17 10:29> - Constitutional no acute distress <Keisha Fernandes 09/01/17 10:29> - Routine HEENT Exam Head: Present: normocephalic <Keisha Fernandes 09/01/17 10:29> Eye: Present: EOMI, PERRL <Keisha Fernandes 09/01/17 10:29> ENT: Present: mucous membranes moist <Keisha Fernandes 09/01/17 10:29> - Routine Neck Exam Present: supple, full ROM. Absent: JVD <Keisha Fernandes 09/01/17 10:29> - Routine Respiratory Exam Present: CTA bilaterally. Absent: accessory muscle use <Keisha Fernandes 10:29> - Routine Cardiovascular Exam Absent: RRR, S1, S2, murmur, gallop, rubs <Keisha Fernandes 09/01/17 10:29> - Routine Abdominal Exam Present: soft, normoactive bowel sounds <Keisha Fernandes 09/01/17 10:29> - Routine Extremities Exam Present: full ROM, pulses intact, normal capillary refill. Absent: cyanosis, clubbing, edema <Keisha Fernandes 09/01/17 10:29> Comments: Right arm with no edema or erythema. Right thumb with dressing in place. <Keisha Fernandes 09/01/17 10:29> - Routine Skin Exam Present: intact. Absent: cyanosis, erythema <Keisha Fernandes 09/01/17 10:29 > - Routine Neurological Exam Present: alert, oriented X3, CN II-XII intact <Keisha Fernandes 09/01/17 10: 29> Assessment and Plan - Assessment (1) Sepsis Code(s): A41.9 - Sepsis, unspecified organism Status: Resolved Plan: This patient presented to the ED with a Tmax of 103.0, pulse of 92, RR 15 and lactic acid of 3.4 in the setting of chest pain, prior IV drug use, cellulitis, WBC of 12.5 and a CXR showing ground glass opacities and cavitations. Patient initially received Linezolid due to vanco contraindication as well as zosyn in the ED. ID consulted, appreciate recommendations Discontinued: Zyvox, daptomycin and gentamicin. c/w oxacillin Blood cultures grew staph aureus in 4 bottles as well as wound cultures from drained arm abscess. Patient continues to improve clinically. Patient had mild fever over night of 100.5F, temp WNL this morning. Repeat blood cultures from 08/29/17--no growth x2 - Continue to de-escalate pain medication and transition to PO - Monitor vitals (2) Endocarditis Code(s): I38 - Endocarditis, valve unspecified Status: Resolved Plan: Patient known IV drug user who according to was sharing needles with friend who has unfortunately recently due to bacteremia. Alejo criteria level at possible. Patient presented with a previously existing murmur , septic pulmonary emboli and 4/4 positive blood cultures taken at admission grew staph aureus, as well as wound cultures from arm abscess also grew staph aureus. It is extremely likely that she has infective endocarditis. Transthoracic echo showed trace mitral and tricuspid regurgitation but no vegetations. Chest CT showed most likely septic emboli with cavitations. ID following. - Continue with ID recommendations - Follow up with repeat blood cultures, no growth so far (3) Acute septic pulmonary embolism Code(s): I26.90 - Septic pulmonary embolism without acute cor pulmonale Status : Acute Plan: Patients presented with 1 day history of acute chest pain. Her chest CT shows patchy opacities and cavitations most consistent with septic embolism in the setting of sepsis and new heart murmur in known IV drug user. These findings lead to likely infective endocarditis vs ACS. US venous Doppler lower extremities was negative for DVT. Transthoracic echo negative for vegetations. ACS was ruled out. -Patient had complaints of pleuritic left-sided chest pain, reproducible upon palpation. Continue with pain medication per pain scale. -Patient is on telemetry monitoring - Continue with ID recommendations - Monitor VS (4) Cellulitis Code(s): L03.90 - Cellulitis, unspecified Status: Acute Plan: Patient presented with significant hand and arm swelling in the setting of sepsis and known IV drug use. On presentation in the ED hand CT showed soft tissue swelling without abscess or fluid collection. Ct of forearm showed 2 needles within the soft tissue, no abscess, and diffuse soft tissue swelling likely cellulitis. Patient developed abscess on right thumb which was drained on 08/26/17. Right thumb wound culture grew staph aureus. Patient then developed another abscess on right anterior forearm that the patient lanced herself by picking at her arm. Arm and hand continues to look clinically better , no swelling , no erythematous and the skin is no longer taut. Per surgery needles in arm are not of critical concern, removal will not be attempted during inpatient therapy. - Continue with ID recommendations - Trend Temp - Trend CBC -Right thumb dressing changed (5) Nutrition, metabolism, and development symptoms Code(s): R63.8 - Other symptoms and signs concerning food and fluid intake Status: Acute Plan: Fluids: 100ml/hr NS for maintenance. can stop now. Electrolytes: Replete as needed Diet: Normal diet as tolerated. DVT Prophylaxis: SCDs <Keisha Fernandes D - 09/01/17 10:14> (1) Endocarditis Code(s): I38 - Endocarditis, valve unspecified Status: Resolved (2) Cellulitis Code(s): L03.90 - Cellulitis, unspecified Status: Acute (3) Acute septic pulmonary embolism Code(s): I26.90 - Septic pulmonary embolism without acute cor pulmonale Status : Acute (4) Sepsis Code(s): A41.9 - Sepsis, unspecified organism Status: Resolved (5) Nutrition, metabolism, and development symptoms Code(s): R63.8 - Other symptoms and signs concerning food and fluid intake Status: Acute <Miguelina Irwin Areli - 09/03/17 12:56> - Assessment and Plan The exam, history, and the medical decision-making described in the above note were completed with the assistance of the resident physician. I reviewed and agree with the findings presented. I attest that I had a [id number] encounter with the patient on the same day, and personally performed and documented my assessment and findings in the medical record. she is improving overall day to day <Keisha Fernandes - 09/01/17 10:29> - Attending Attestation The exam, history, and the medical decision-making described in the above note were completed with the assistance of the resident physician. I reviewed and agree with the findings presented. I attest that I had a [id number] encounter with the patient on the same day, and personally performed and documented my assessment and findings in the medical record. <Miguelina Irwin M - 09/03/17 12:56> <Keisha Fernandes - Last Filed: 09/01/17 10:14> (1) Sepsis Qualifiers: Sepsis type: sepsis due to unspecified organism Qualified Code(s): A41.9 - Sepsis, unspecified organism (2) Endocarditis Qualifiers: Endocarditis type: infective Infective endocarditis organism: bacterial Chronicity: acute Qualified Code(s): I33.0 - Acute and subacute infective endocarditis (3) Acute septic pulmonary embolism Qualifiers: Acute cor pulmonale presence: without acute cor pulmonale Qualified Code(s): I26.90 - Septic pulmonary embolism without acute cor pulmonale (4) Cellulitis Qualifiers: Site of cellulitis: extremity Site of cellulitis of extremity: upper extremity Laterality: right Qualified Code(s): L03.113 - Cellulitis of right upper limb <Miguelina Irwin - Last Filed: 09/03/17 12:56> (1) Endocarditis Qualifiers: Endocarditis type: infective Infective endocarditis organism: bacterial Chronicity: acute Qualified Code(s): I33.0 - Acute and subacute infective endocarditis (2) Cellulitis Qualifiers: Site of cellulitis: extremity Site of cellulitis of extremity: upper extremity Laterality: right Qualified Code(s): L03.113 - Cellulitis of right upper limb (3) Acute septic pulmonary embolism Qualifiers: Acute cor pulmonale presence: without acute cor pulmonale Qualified Code(s): I26.90 - Septic pulmonary embolism without acute cor pulmonale (4) Sepsis Qualifiers: Sepsis type: sepsis due to unspecified organism Qualified Code(s): A41.9 - Sepsis, unspecified organism <Keisha Fernandes - Last Filed: 09/01/17 10:14> (1) Sepsis Qualifiers: Sepsis type: sepsis due to unspecified organism Qualified Code(s): A41.9 - Sepsis, unspecified organism (2) Endocarditis Qualifiers: Endocarditis type: infective Infective endocarditis organism: bacterial Chronicity: acute Qualified Code(s): I33.0 - Acute and subacute infective endocarditis (3) Acute septic pulmonary embolism Qualifiers: Acute cor pulmonale presence: without acute cor pulmonale Qualified Code(s): I26.90 - Septic pulmonary embolism without acute cor pulmonale (4) Cellulitis Qualifiers: Site of cellulitis: extremity Site of cellulitis of extremity: upper extremity Laterality: right Qualified Code(s): L03.113 - Cellulitis of right upper limb <Miguelina Irwin - Last Filed: 09/03/17 12:56> (1) Endocarditis Qualifiers: Endocarditis type: infective Infective endocarditis organism: bacterial Chronicity: acute Qualified Code(s): I33.0 - Acute and subacute infective endocarditis (2) Cellulitis Qualifiers: Site of cellulitis: extremity Site of cellulitis of extremity: upper extremity Laterality: right Qualified Code(s): L03.113 - Cellulitis of right upper limb (3) Acute septic pulmonary embolism Qualifiers: Acute cor pulmonale presence: without acute cor pulmonale Qualified Code(s): I26.90 - Septic pulmonary embolism without acute cor pulmonale (4) Sepsis Qualifiers: Sepsis type: sepsis due to unspecified organism Qualified Code(s): A41.9 - Sepsis, unspecified organism
[2017-09-02] MEDS: LORazepam 1 MG Tablet PO PRN ×4 (01:47→21:29)
[2017-09-02] MEDS: HYDROmorphone PF Inj 2 MG/ML Vial IV.PUSH PRN ×4 (01:48→21:29)
[2017-09-02] MEDS: oxyCODONE/Acetaminophen 10/325 Tablet PO PRN ×3 (04:56→18:27)
--- NOTE | 2017-09-02 09:29 | P.PNFP ---
Subjective Interval history: Patient was seen this morning at bedside. Patient was laying comfortably in her bed. There were no acute overnight events. Patient had no concerns at this time. She denies shortness of breath, subjective fever, chills, nausea or vomiting. Results - Labs Result diagrams: 08/31/17 13:16 08/31/17 13:16 Physical Exam Vital signs: Vital Signs 09/01/17 09:00 09/01/17 12:00 09/01/17 16:00 Temperature 98.9 F 99.1 F Pulse Rate 92 H 99 H 104 H Respiratory Rate 20 20 Blood Pressure 97/55 L 108/58 L Pulse Oximetry 94 L 97 09/01/17 19:41 09/01/17 22:21 09/02/17 00:00 Temperature 98.7 F 99.8 F H Pulse Rate 111 H 108 H 106 H Respiratory Rate 18 18 Blood Pressure 102/58 L 103/57 L Pulse Oximetry 95 95 09/02/17 03:58 09/02/17 04:00 Temperature 98.9 F Pulse Rate 104 H 97 H Respiratory Rate 16 Blood Pressure 115/66 Pulse Oximetry 95 Intake & Output 09/01/17 09/02/17 09/02/17 18:59 06:59 18:59 Intake Total 560 / 560 1260 / 1260 Output Total 2900 / 2900 3000 / 3000 Balance -2340 / -2340 -1740 / -1740 Weight 58.6 kg Intake: IV 200 / 200 300 / 300 Prostaphlin Inj 2 GM In NS Inj 200 / 200 300 / 300 100 ML @ 200 mls/hr IV.SIG Q4H [facility] Rx#:[id number] Oral 360 / 360 960 / 960 Output: Urine 2900 / 2900 3000 / 3000 Stool 0 / 0 Other: Date of Last Bowel Movement 08/30/17 # Bowel Movements 0 - Constitutional no acute distress, thin, cooperative - Routine HEENT Exam Head: Present: normocephalic, atraumatic Eye: Present: EOMI - Routine Respiratory Exam Present: CTA bilaterally, diminished air movement. Absent: accessory muscle use , patient mechanically ventilated, prolonged expiratory phase, rales, respiratory distress, rhonchi, stridor, wheezes, crackles - Routine Cardiovascular Exam Present: RRR, S1, S2. Absent: murmur, gallop, rubs - Routine Abdominal Exam Present: soft, normoactive bowel sounds. Absent: tenderness, distended, rebound , guarding - Routine Extremities Exam Present: full ROM, pulses intact. Absent: cyanosis, clubbing, edema - Routine Skin Exam Present: intact. Absent: cyanosis, erythema - Routine Neurological Exam Present: alert, CN II-XII intact, moving all extremities, normal tone, vision grossly intact, hearing grossly intact, normal speech. Absent: altered mental status, facial asymmetry - Detailed Neurological Exam: Coma Scale Eye Opening: Spontaneous Verbal Response: Oriented Motor Response: Obey commands [place] Coma Scale Total: 15 - Routine Psychiatric Exam Present: normal affect, normal thought process, cooperative, good insight, good judgment. Absent: anxious, agitated, paranoid Assessment and Plan - Assessment (1) Sepsis Code(s): A41.9 - Sepsis, unspecified organism Status: Resolved Plan: This patient presented to the ED with a Tmax of 103.0, pulse of 92, RR 15 and lactic acid of 3.4 in the setting of chest pain, prior IV drug use, cellulitis, WBC of 12.5 and a CXR showing ground glass opacities and cavitations. Patient initially received Linezolid due to vanco contraindication as well as zosyn in the ED. Blood cultures grew staph aureus in 4 bottles as well as wound cultures from drained arm abscess. ID consulted, Zyvox, daptomycin and gentamicin have been discontinued. Patient is currently oxacillin. Repeat blood cultures from 02/04--no growth x3 - Continue Oxacillin - Continue to de-escalate pain medication and transition to PO. Patient currently on Percocet and on .5 Dilaudid for break through pain. - Monitor vitals (2) Endocarditis Code(s): I38 - Endocarditis, valve unspecified Status: Resolved Plan: Patient known IV drug user who according to was sharing needles with friend who has unfortunately recently due to bacteremia. Patient presented with a previously existing murmur, septic pulmonary emboli and 4/4 positive blood cultures taken at admission grew staph aureus, as well as wound cultures from arm abscess also grew staph aureus. It is extremely likely that she has infective endocarditis. Transthoracic echo showed trace mitral and tricuspid regurgitation but no vegetations. Chest CT showed most likely septic emboli with cavitations. ID following. - Continue with ID recommendations - Follow up with repeat blood cultures, no growth X3 days (3) Acute septic pulmonary embolism Code(s): I26.90 - Septic pulmonary embolism without acute cor pulmonale Status : Acute Plan: Patients presented with 1 day history of acute chest pain. Her chest CT shows patchy opacities and cavitations most consistent with septic embolism in the setting of sepsis and new heart murmur in known IV drug user. These findings lead to likely infective endocarditis vs ACS. US venous Doppler lower extremities was negative for DVT. Transthoracic echo negative for vegetations. ACS was ruled out. -Patient had complaints of pleuritic left-sided chest pain, reproducible upon palpation. Pain greatly subsided. Continue with pain medication per pain scale transition off of IV to PO. - Continue Oxacillin - Monitor VS (4) Cellulitis Code(s): L03.90 - Cellulitis, unspecified Status: Acute Plan: Patient presented with significant hand and arm swelling in the setting of sepsis and known IV drug use. On presentation in the ED hand CT showed soft tissue swelling without abscess or fluid collection. Ct of forearm showed 2 needles within the soft tissue, no abscess, and diffuse soft tissue swelling likely cellulitis. Patient developed abscess on right thumb which was drained on 08/26/17. Right thumb wound culture grew staph aureus. Patient then developed another abscess on right anterior forearm that the patient lanced herself by picking at her arm. Arm and hand continues to look clinically better , no swelling , no erythematous and the skin is no longer taut. Per surgery needles in arm are not of critical concern, removal will not be attempted during inpatient therapy. - Continue with ID recommendations - Trend Temp - Trend CBC - Right thumb dressing changed (5) Nutrition, metabolism, and development symptoms Code(s): R63.8 - Other symptoms and signs concerning food and fluid intake Status: Acute Plan: Fluids: Not indicated at this time. Electrolytes: Replete as needed Diet: Normal diet as tolerated. DVT Prophylaxis: SCDs - Assessment and Plan The exam, history, and the medical decision-making described in the above note were completed with the assistance of the resident physician. I reviewed and agree with the findings presented. I attest that I had a [id number] encounter with the patient on the same day, and personally performed and documented my assessment and findings in the medical record. she is improving overall day to day (1) Sepsis Qualifiers: Sepsis type: sepsis due to unspecified organism Qualified Code(s): A41.9 - Sepsis, unspecified organism (2) Endocarditis Qualifiers: Endocarditis type: infective Infective endocarditis organism: bacterial Chronicity: acute Qualified Code(s): I33.0 - Acute and subacute infective endocarditis (3) Acute septic pulmonary embolism Qualifiers: Acute cor pulmonale presence: without acute cor pulmonale Qualified Code(s): I26.90 - Septic pulmonary embolism without acute cor pulmonale (4) Cellulitis Qualifiers: Site of cellulitis: extremity Site of cellulitis of extremity: upper extremity Laterality: right Qualified Code(s): L03.113 - Cellulitis of right upper limb
[2017-09-02] MEDS: Povidone Iodine 10% Top Soln 118 ML Bottle TOPICAL SCH (12:22)
[2017-09-03] MEDS: oxyCODONE/Acetaminophen 10/325 Tablet PO PRN ×4 (01:35→21:46)
[2017-09-03] MEDS: HYDROmorphone PF Inj 2 MG/ML Vial IV.PUSH PRN ×6 (03:28→23:47)
[2017-09-03] MEDS: LORazepam 1 MG Tablet PO PRN ×4 (03:34→21:47)
[2017-09-03 09:50] LABS: Baso # (Auto) 0.1 th/mm3 (0.0-0.2); Baso % (Auto) 0.5 % (0.0-2.0); Eos % (Auto) 0.3 % (0.0-4.0); Hematocrit 35.1 % (35.0-46.0); Hemoglobin 11.4 gm/dL (11.6-15.3); Lymph % (Auto) 13.9 % (9.0-44.0); Mean Corpuscular HGB Conc 32.5 % (32.0-36.0); Mean Corpuscular Hemoglobin 26.4 pg (27.0-34.0); Mean Corpuscular Volume 81.4 fL (80.0-100.0); Mean Platelet Volume 8.3 fL (7.0-11.0); Mono # (Auto) 0.7 th/mm3 (0.0-0.9); Mono % (Auto) 5.1 % (0.0-8.0); Neut # (Auto) 11.5 th/mm3 (1.8-7.7); Neut % (Auto) 80.2 % (16.0-70.0); Platelet Count 495 th/mm3 (150-450); Red Blood Count 4.31 mil/mm3 (4.00-5.30); Red Cell Distribution Width 14.6 % (11.6-17.2); White Blood Count 14.3 th/mm3 (4.0-11.0)
[2017-09-03 09:58] LABS: Anion Gap 12 meq/L (5-15); Blood Urea Nitrogen 12 mg/dL (7-18); Carbon Dioxide 22.9 meq/L (21.0-32.0); Chloride 99 meq/L (98-107); Glomerular Filtration Rate Greater Than 89 mL/min (>89); Glucose,Random 102 mg/dL (74-106); Potassium 4.3 meq/L (3.5-5.1)
[2017-09-03 10:00] LABS: Sodium 134 meq/L (136-145)
--- NOTE | 2017-09-03 10:49 | P.PNFP ---
Subjective Interval history: Patient seen and examined by medical team this morning. No events overnight per report. Upon entering the room, the patient is lying in bed in no acute distress with her significant other at bedside. However she then becomes visibly upset complaining that her thumb is "very itchy" to the point where she removed her bandage but refrain from scratching. She continues to report 10/10 pain and subjective fevers. Otherwise she has no acute complaints and denied any shortness of breath, chest pain, NVD, abdominal pain, or calf tenderness. <Todd Rudolph H - 09/03/17 14:28> Results - Labs Result diagrams: 09/03/17 09:04 09/03/17 09:04 <Miguelina Irwin M - 09/03/17 14:34> Abnormal lab results 09/03/17 09/03/17 Range/Units 09:04 09:04 WBC 14.3 H (4.0-11.0) th/mm3 Hgb 11.4 L (11.6-15.3) gm/dL MCH 26.4 L (27.0-34.0) pg Plt Count 495 H (150-450) th/mm3 Neut % (Auto) 80.2 H (16.0-70.0) % Neut # (Auto) 11.5 H (1.8-7.7) th/mm3 Sodium 134 L (136-145) meq/L Short CBC 09/03/17 Range/Units 09:04 WBC 14.3 H (4.0-11.0) th/mm3 Hgb 11.4 L (11.6-15.3) gm/dL Hct 35.1 (35.0-46.0) % Plt Count 495 H (150-450) th/mm3 [facility] 09/03/17 09:04 Sodium 134 L Potassium 4.3 Chloride 99 Carbon Dioxide 22.9 BUN 12 Creatinine 0.67 Calcium 9.0 <Miguelina Irwin M - 09/03/17 14:34> Abnormal lab results 09/03/17 09/03/17 Range/Units 09:04 09:04 WBC 14.3 H (4.0-11.0) th/mm3 Hgb 11.4 L (11.6-15.3) gm/dL MCH 26.4 L (27.0-34.0) pg Plt Count 495 H (150-450) th/mm3 Neut % (Auto) 80.2 H (16.0-70.0) % Neut # (Auto) 11.5 H (1.8-7.7) th/mm3 Sodium 134 L (136-145) meq/L Short CBC 09/03/17 Range/Units 09:04 WBC 14.3 H (4.0-11.0) th/mm3 Hgb 11.4 L (11.6-15.3) gm/dL Hct 35.1 (35.0-46.0) % Plt Count 495 H (150-450) th/mm3 BMP 09/03/17 09:04 Sodium 134 L Potassium 4.3 Chloride 99 Carbon Dioxide 22.9 BUN 12 Creatinine 0.67 Calcium 9.0 <Todd Rudolph H - 09/03/17 10:49> Physical Exam Vital signs: Vital Signs 09/02/17 15:49 09/02/17 16:00 09/02/17 20:00 Temperature 99.3 F 99.3 F Pulse Rate 95 H 107 H 108 H Respiratory Rate 20 22 Blood Pressure 111/63 109/59 L Pulse Oximetry 97 97 09/03/17 00:00 09/03/17 04:00 09/03/17 08:00 Temperature 98.6 F 98.3 F 98.7 F Pulse Rate 104 H 99 H 104 H Respiratory Rate 16 16 18 Blood Pressure 109/65 112/63 98/53 L Pulse Oximetry 96 97 98 09/03/17 09:00 09/03/17 12:00 Temperature 98.8 F Pulse Rate 114 H 99 H Respiratory Rate 18 Blood Pressure 101/56 L Pulse Oximetry 98 Intake & Output 09/02/17 09/03/17 09/03/17 18:59 06:59 18:59 Intake Total 1260 / 1260 440 / 440 200 / 200 Output Total 1800 / 1800 Balance -540 / -540 440 / 440 200 / 200 Intake: IV 300 / 300 200 / 200 200 / 200 Prostaphlin Inj 2 GM In NS Inj 300 / 300 200 / 200 200 / 200 100 ML @ 200 mls/hr IV.SIG Q4H VANESSA Rx#:[id number] Oral 960 / 960 240 / 240 Output: Urine 1800 / 1800 Other: # Voids 2 # Bowel Movements 0 <Miguelina Irwin - 09/03/17 14:34> Vital Signs 09/02/17 12:00 09/02/17 15:49 09/02/17 16:00 Temperature 98.8 F 99.3 F Pulse Rate 110 H 95 H 107 H Respiratory Rate 20 20 Blood Pressure 108/66 111/63 Pulse Oximetry 95 97 09/02/17 20:00 09/03/17 00:00 09/03/17 04:00 Temperature 99.3 F 98.6 F 98.3 F Pulse Rate 108 H 104 H 99 H Respiratory Rate 22 16 16 Blood Pressure 109/59 L 109/65 112/63 Pulse Oximetry 97 96 97 09/03/17 08:00 Temperature 98.7 F Pulse Rate 104 H Respiratory Rate 18 Blood Pressure 98/53 L Pulse Oximetry 98 Intake & Output 09/02/17 09/03/17 09/03/17 18:59 06:59 18:59 Intake Total 1260 / 1260 440 / 440 100 / 100 Output Total 1800 / 1800 Balance -540 / -540 440 / 440 100 / 100 Intake: IV 300 / 300 200 / 200 100 / 100 Prostaphlin Inj 2 GM In NS Inj 300 / 300 200 / 200 100 / 100 100 ML @ 200 mls/hr IV.SIG Q4H VANESSA Rx#:[id number] Oral 960 / 960 240 / 240 Output: Urine 1800 / 1800 Other: # Voids 2 # Bowel Movements 0 <Todd Rudolph H - 09/03/17 10:49> Narrative: GENERAL: Thin appearing female lying in bed in no acute distress with significant other at bedside. SKIN: Warm and dry. No rash. RUE: Right thumb bandaged significantly decreased in size from admission with improved erythema. No acute drainage or bleeding. Right forearm significantly decreased in size from admission with small areas of desquamation likely due to decreased size and skin irritation from bandaging. No acute signs of active infection or bleeding. Sensation, range of motion, and strength intact. 2+ radial pulse. HEENT: Atraumatic, normocephalic with extraocular motions intact. No rhinorrhea. No visible lymphadenopathy or jugulovenous distension appreciated. CARDIOVASCULAR: Tachycardic rate with regular rhythm. No obvious MGR. 2+ pulses in all 4 extremities. RESPIRATORY: Clear to auscultation bilaterally with no crackles, wheezes, or rhonchi. No increased work of breathing. GASTROINTESTINAL: Abdomen soft, non-tender, nondistended with positive bowel sounds. No masses appreciated. MUSCULOSKELETAL: No cyanosis or edema. No calf tenderness. NEURO/PSYCH: Afocal. Awake, alert, and oriented x3. Normal speech and judgement. <Todd Rudolph - 09/03/17 12:23> Assessment and Plan - Assessment (1) Endocarditis Code(s): I38 - Endocarditis, valve unspecified Status: Resolved (2) Cellulitis Code(s): L03.90 - Cellulitis, unspecified Status: Acute (3) Acute septic pulmonary embolism Code(s): I26.90 - Septic pulmonary embolism without acute cor pulmonale Status : Acute (4) Sepsis Code(s): A41.9 - Sepsis, unspecified organism Status: Resolved (5) Opiate addiction Code(s): F11.20 - Opioid dependence, uncomplicated Status: Acute (6) Nutrition, metabolism, and development symptoms Code(s): R63.8 - Other symptoms and signs concerning food and fluid intake Status: Acute <Miguelina Irwin - 09/03/17 14:34> (1) Endocarditis Code(s): I38 - Endocarditis, valve unspecified Status: Resolved Plan: Patient known IV drug user who according to was sharing needles with friend who has unfortunately recently due to bacteremia. Patient presented with a previously existing murmur, septic pulmonary emboli and 4/4 positive blood cultures taken at admission grew staph aureus, as well as wound cultures from arm abscess also grew staph aureus. It is extremely likely that she has infective endocarditis. Transthoracic echo showed trace mitral and tricuspid regurgitation but no vegetations. Chest CT showed most likely septic emboli with cavitations. ID following. - Continue with ID recommendations -Continue oxacillin -Repeat blood cultures on 08/29/17 negative (2) Cellulitis Code(s): L03.90 - Cellulitis, unspecified Status: Acute Plan: Patient presented with significant hand and arm swelling in the setting of sepsis and known IV drug use. On presentation in the ED hand CT showed soft tissue swelling without abscess or fluid collection. Ct of forearm showed 2 needles within the soft tissue, no abscess, and diffuse soft tissue swelling likely cellulitis. Patient developed abscess on right thumb which was drained on 08/26/17. Right thumb wound culture grew staph aureus. Patient then developed another abscess on right anterior forearm that the patient lanced herself by picking at her arm. Arm and hand continues to look clinically better , no swelling , no erythematous and the skin is no longer taut. Per surgery needles in arm are not of critical concern, removal will not be attempted during inpatient therapy. - Continue with ID recommendations - Right thumb dressings per hand surgery - Benadryl added to assist with itching as needed (3) Acute septic pulmonary embolism Code(s): I26.90 - Septic pulmonary embolism without acute cor pulmonale Status : Acute Plan: Patients presented with 1 day history of acute chest pain. Her chest CT shows patchy opacities and cavitations most consistent with septic embolism in the setting of sepsis and new heart murmur in known IV drug user. These findings lead to likely infective endocarditis vs ACS. US venous Doppler lower extremities was negative for DVT. Transthoracic echo negative for vegetations. ACS was ruled out. -Patient had complaints of pleuritic left-sided chest pain, reproducible upon palpation. Pain greatly subsided. Continue with pain medication per pain scale transition off of IV to PO. - Continue Oxacillin - Monitor VS (4) Sepsis Code(s): A41.9 - Sepsis, unspecified organism Status: Resolved Plan: This patient presented to the ED with a Tmax of 103.0, pulse of 92, RR 15 and lactic acid of 3.4 in the setting of chest pain, prior IV drug use, cellulitis, WBC of 12.5 and a CXR showing ground glass opacities and cavitations. Patient initially received Linezolid due to vanco contraindication as well as zosyn in the ED. Blood cultures grew staph aureus in 4 bottles as well as wound cultures from drained arm abscess. ID consulted, Zyvox, daptomycin and gentamicin have been discontinued. Patient is currently oxacillin. Repeat blood cultures from 02/04--no growth x3 - ID consulted, appreciate recommendations - Continue Oxacillin - Monitor vitals (5) Opiate addiction Code(s): F11.20 - Opioid dependence, uncomplicated Status: Acute Plan: Patient with known opiate addiction disorder -Continue to wean narcotic medications as tolerated -Plan to transition to strictly p.o. medications in the coming days with future plans to discharge patient without narcotic medication -Dilaudid 0.2 mg IV every 3 hours as needed for breakthrough pain -Continue Percocet 10 mg every 6 hours as needed for pain 6-10 (6) Nutrition, metabolism, and development symptoms Code(s): R63.8 - Other symptoms and signs concerning food and fluid intake Status: Acute Plan: Fluids: Not indicated at this time. Electrolytes: Replete as needed Diet: Normal diet as tolerated. DVT Prophylaxis: SCDs <Todd Rudolph - 09/03/17 14:19> - Assessment and Plan The exam, history, and the medical decision-making described in the above note were completed with the assistance of the resident physician. I reviewed and agree with the findings presented. I attest that I had a [id number] encounter with the patient on the same day, and personally performed and documented my assessment and findings in the medical record. she is improving overall day to day <Todd Rudolph - 09/03/17 10:49> - Attending Attestation The exam, history, and the medical decision-making described in the above note were completed with the assistance of the resident physician. I reviewed and agree with the findings presented. I attest that I had a [id number] encounter with the patient on the same day, and personally performed and documented my assessment and findings in the medical record. Agree with weaning her narcotics slowly day by day to not cause withdrawal. Would be very concerned if she decided to leave AMA <DcMiguelina cevallos M - 09/03/17 14:34> <Todd Rudolph H - Last Filed: 09/03/17 14:19> (1) Endocarditis Qualifiers: Endocarditis type: infective Infective endocarditis organism: bacterial Chronicity: acute Qualified Code(s): I33.0 - Acute and subacute infective endocarditis (2) Cellulitis Qualifiers: Site of cellulitis: extremity Site of cellulitis of extremity: upper extremity Laterality: right Qualified Code(s): L03.113 - Cellulitis of right upper limb (3) Acute septic pulmonary embolism Qualifiers: Acute cor pulmonale presence: without acute cor pulmonale Qualified Code(s): I26.90 - Septic pulmonary embolism without acute cor pulmonale (4) Sepsis Qualifiers: Sepsis type: sepsis due to unspecified organism Qualified Code(s): A41.9 - Sepsis, unspecified organism (5) Opiate addiction Qualifiers: Substance use status: with unspecified opioid-induced disorder Qualified Code (s): F11.29 - Opioid dependence with unspecified opioid-induced disorder <Miguelina Irwin M - Last Filed: 09/03/17 14:34> (1) Endocarditis Qualifiers: Endocarditis type: infective Infective endocarditis organism: bacterial Chronicity: acute Qualified Code(s): I33.0 - Acute and subacute infective endocarditis (2) Cellulitis Qualifiers: Site of cellulitis: extremity Site of cellulitis of extremity: upper extremity Laterality: right Qualified Code(s): L03.113 - Cellulitis of right upper limb (3) Acute septic pulmonary embolism Qualifiers: Acute cor pulmonale presence: without acute cor pulmonale Qualified Code(s): I26.90 - Septic pulmonary embolism without acute cor pulmonale (4) Sepsis Qualifiers: Sepsis type: sepsis due to unspecified organism Qualified Code(s): A41.9 - Sepsis, unspecified organism (5) Opiate addiction Qualifiers: Substance use status: with unspecified opioid-induced disorder Qualified Code (s): F11.29 - Opioid dependence with unspecified opioid-induced disorder <Todd Rudolph - Last Filed: 09/03/17 14:19> (1) Endocarditis Qualifiers: Endocarditis type: infective Infective endocarditis organism: bacterial Chronicity: acute Qualified Code(s): I33.0 - Acute and subacute infective endocarditis (2) Cellulitis Qualifiers: Site of cellulitis: extremity Site of cellulitis of extremity: upper extremity Laterality: right Qualified Code(s): L03.113 - Cellulitis of right upper limb (3) Acute septic pulmonary embolism Qualifiers: Acute cor pulmonale presence: without acute cor pulmonale Qualified Code(s): I26.90 - Septic pulmonary embolism without acute cor pulmonale (4) Sepsis Qualifiers: Sepsis type: sepsis due to unspecified organism Qualified Code(s): A41.9 - Sepsis, unspecified organism (5) Opiate addiction Qualifiers: Substance use status: with unspecified opioid-induced disorder Qualified Code (s): F11.29 - Opioid dependence with unspecified opioid-induced disorder <Miguelina Irwin M - Last Filed: 09/03/17 14:34> (1) Endocarditis Qualifiers: Endocarditis type: infective Infective endocarditis organism: bacterial Chronicity: acute Qualified Code(s): I33.0 - Acute and subacute infective endocarditis (2) Cellulitis Qualifiers: Site of cellulitis: extremity Site of cellulitis of extremity: upper extremity Laterality: right Qualified Code(s): L03.113 - Cellulitis of right upper limb (3) Acute septic pulmonary embolism Qualifiers: Acute cor pulmonale presence: without acute cor pulmonale Qualified Code(s): I26.90 - Septic pulmonary embolism without acute cor pulmonale (4) Sepsis Qualifiers: Sepsis type: sepsis due to unspecified organism Qualified Code(s): A41.9 - Sepsis, unspecified organism (5) Opiate addiction Qualifiers: Substance use status: with unspecified opioid-induced disorder Qualified Code (s): F11.29 - Opioid dependence with unspecified opioid-induced disorder
[2017-09-03] MEDS ORDERED: Petrolatum Oint 30 GM Tube TOPICAL PRN (10:50)
[2017-09-03] MEDS: Povidone Iodine 10% Top Soln 118 ML Bottle TOPICAL SCH (13:09)
--- NOTE | 2017-09-03 17:01 | P.PNID ---
Subjective Remarks: Patient complains of pain in the r. arm. Afebrile. Right arm wound culture has staph aureus. Blood culture has staph aureus. ECHO 2D on 08/26/17 without mention of vegetations. Repeat blood culture has no growth. This is a 32-year-old white female who uses IV drugs. The patient reports that she last used IV drugs 2 days ago. She was brought to the emergency department complaining of chest pain and shortness of breath. She reportedly noted that it started a couple days ago. The pain is located at the left side of her chest and she has difficulty breathing. The patient used IV heroin prior to the admission. She was noted to have large area of swelling and erythema on the right forearm and hand, which is markedly swollen and she has an area of grayish discoloration with swelling at the right thumb. She was evaluated in the emergency department. She had temperature of 99.8 and heart rate of 102 and the temperature increased to 103 degrees and a white blood cell count was elevated at 12.5. Lactic acid was 3.4. The patient had blood cultures taken and all 4 bottles of the blood cultures have gram-positive cocci. White blood cell count has increased to 16.6. Hand surgeon was called to evaluate the patient and the right thumb was debrided. Antibiotics: Oxacillin Lines: Peripheral IV Past Medical History: Medical History (Last Reviewed 08/27/17 @ 07:41 by SHIRLEY Molina) Arm vein blood clot (Acute) Allergies/Adverse Reactions: Allergies clindamycin Allergy (Severe, Verified 08/25/17 11:06) Hives "CAN'T BREATHE" ketorolac Allergy (Severe, Verified 08/25/17 11:06) Hives "CAN'T BREATHE" vancomycin Allergy (Severe, Verified 08/25/17 11:06) Hives "CAN'T BREATHE" Objective Vital Signs 09/02/17 20:00 09/03/17 00:00 09/03/17 04:00 Temperature 99.3 F 98.6 F 98.3 F Pulse Rate 108 H 104 H 99 H Respiratory Rate 22 16 16 Blood Pressure 109/59 L 109/65 112/63 Pulse Oximetry 97 96 97 09/03/17 08:00 09/03/17 09:00 09/03/17 12:00 Temperature 98.7 F 98.8 F Pulse Rate 104 H 114 H 99 H Respiratory Rate 18 18 Blood Pressure 98/53 L 101/56 L Pulse Oximetry 98 98 Intake & Output 09/02/17 09/03/17 09/03/17 18:59 06:59 18:59 Intake Total 1260 / 1260 440 / 440 300 / 300 Output Total 1800 / 1800 Balance -540 / -540 440 / 440 300 / 300 Intake: IV 300 / 300 200 / 200 300 / 300 Prostaphlin Inj 2 GM In NS Inj 300 / 300 200 / 200 300 / 300 100 ML @ 200 mls/hr IV.SIG Q4H VANESSA Rx#:[id number] Oral 960 / 960 240 / 240 Output: Urine 1800 / 1800 Other: # Voids 2 # Bowel Movements 0 08/29/17 11:55 Blood - Peripheral Aerobic Blood Culture - Final No growth in 5 days 08/29/17 11:55 Blood - Peripheral Anaerobic Blood Culture - Final No growth in 5 days 08/29/17 12:00 Blood - Peripheral Aerobic Blood Culture - Final No growth in 5 days 08/29/17 12:00 Blood - Peripheral Anaerobic Blood Culture - Final No growth in 5 days Lab - Hematology Results 09/03/17 09:04 WBC 14.3 H RBC 4.31 Hgb 11.4 L Hct 35.1 MCV 81.4 MCH 26.4 L MCHC 32.5 RDW 14.6 Plt Count 495 H MPV 8.3 Neut % (Auto) 80.2 H Lymph % (Auto) 13.9 [place] % (Auto) 5.1 Eos % (Auto) 0.3 Baso % (Auto) 0.5 Neut # (Auto) 11.5 H Lymph # (Auto) 2.0 [place] # (Auto) 0.7 Eos # (Auto) 0.0 Baso # (Auto) 0.1 WBC Differential . Differential Comment Auto diff final Lab - Chemistry Results 09/03/17 09:04 Sodium 134 L Potassium 4.3 Chloride 99 Carbon Dioxide 22.9 Anion Gap 12 BUN 12 Creatinine 0.67 Estimated GFR Greater than 89 Random Glucose 102 Calcium 9.0 Imaging: ITS Impressions Venous Doppler Study 08/25/17 00:00 CONCLUSION: 1. The study is negative for lower extremity deep venous thrombosis. Chest CTA 08/25/17 11:22 CONCLUSION: 1. Bilateral scattered groundglass nodules with suggestion of minimal cavitation likely infectious/inflammatory. Septic emboli is also a consideration. Treatment and follow-up. 2. No evidence for pulmonary motion. 3. Prominent right axillary lymph node. Forearm CT 08/25/17 11:22 CONCLUSION: 1. 2 needles are seen within the soft tissue as described above. 2. No abscess. 3. Diffuse soft tissue swelling likely cellulitis. Hand CT 08/25/17 11:22 CONCLUSION: 1. Soft tissue swelling without abscess or fluid collection. Upper Extremity Ultrasound 08/26/17 00:00 CONCLUSION: 1. No drainable abscess is yet. Excessive induration over the cephalic vein partial thrombosis of the cephalic vein. Chest X-Ray 08/26/17 10:03 CONCLUSION: Increasing consolidative changes left base with developing air bronchograms. Physical Exam: GENERAL: No acute distress. HEAD, EARS, EYES, NOSE AND THROAT: head is atraumatic. Extraocular movements are grossly intact. Pupils reactive to light. No icterus. No conjunctival erythema. Oropharynx mucosa is moist. No visible lesions. NECK: Supple without adenopathy. LUNGS: Decreased breath sounds. HEART: Regular rate and rhythm without audible murmurs, rubs or gallops. ABDOMEN: Bowel sounds present. Soft, no tenderness appreciated. EXTREMITIES: Less swelling with erythema at the post aspect of the right forearm with erythema at the mid forearm. The dorsum of the right hand is less swollen and the thumb is post-debridement No visible embolic lesions. SKIN: No diffuse rash. NEUROLOGIC: No gross focal findings. PSYCHOLOGIC: Calm and cooperative. Assessment and Plan - Plan IMPRESSION: 1. Sepsis due to staph aureus. 2. Septic emboli of the lung. 3. Severe cellulitis of the right forearm with abscess of the right thumb. 4. IV drug abuse. 5. Hypoxemia. 6. Probable endocarditis in a patient with IV drug abuse. RECOMMENDATIONS: 1. Continue Oxacillin. 2. Anticipate IV antibiotics for at least 2 weeks. 3. Will need SETH to rule out endocarditis. 3. Repeat CXR to see if lung infiltrates are improved.
--- NOTE | 2017-09-03 18:30 | XR ---
EXAM DATE: 09/03/2017 6:20 PM EDT AGE/SEX: 32 years / Female INDICATIONS: . Shortness of breath. CLINICAL DATA: This is the patient's subsequent encounter. Patient reports that signs and symptoms h ave been present for 1 week and indicates a pain score of 0/10. MEDICAL/SURGICAL HISTORY: . Deep vein arm thrombosis. None. COMPARISON: [facility] [place], CHEST 1V SINGLE AP, 08/26/2017. [facility] [place], CTA PULMONARY W CONTRAST W 3D, 08/25/2017. . FINDINGS: Interval development of a large opacity laterally in the left mid and lower lung with rounded medial margin. This opacity causes complete loss of the left heart border and left hemidiaphragm. The opacit y measures in excess of 12 cm in superior/inferior extent. The heart is normal in size. The right tawny g is clear. CONCLUSION: New greater than 12 cm consolidative opacity in the left mid and lower lung. Differential considerati ons include a large loculated left pleural effusion, lobar consolidation, or combination of both. Electronically signed by: Trino Menendez MD 09/03/2017 6:29 PM EDT
[2017-09-03 22:28] LABS: Bilirubin,Urine Negative (Negative); Clarity,Urine Clear (Clear); Color,Urine Yellow (Yellw/Straw); Glucose,Urine (UA) Negative (Negative); Leukocyte Esterase,Urine Small (Negative); Nitrite,Urine Negative (Negative); Specific Gravity,Urine 1.008 (1.002-1.035); Squamous Epithelial Cell,Urine 1 /hpf (0-5)
[2017-09-04] MEDS: LORazepam 1 MG Tablet PO PRN ×4 (03:42→21:51)
[2017-09-04] MEDS: oxyCODONE/Acetaminophen 10/325 Tablet PO PRN ×4 (03:42→21:51)
[2017-09-04] MEDS: HYDROmorphone PF Inj 2 MG/ML Vial IV.PUSH PRN ×6 (07:18→23:18)
[2017-09-04] MEDS: Povidone Iodine 10% Top Soln 118 ML Bottle TOPICAL SCH (10:35)
--- NOTE | 2017-09-04 11:57 | P.PNFP ---
Subjective Interval history: Patient seen and examined at bedside this morning. No acute events overnight. Patient still reports of mild left-sided chest pain reproducible upon palpation. Otherwise she is doing better. <Keisha Frenandes - 09/04/17 14:07> Results - Labs Result diagrams: 09/03/17 09:04 09/03/17 09:04 <Miguelina Irwin Areli - 09/07/17 14:08> Abnormal lab results 09/03/17 Range/Units 21:59 Ur Leukocyte Esterase Small H (Negative) Urine 09/03/17 Range/Units 21:59 Urine Color Yellow (Yellw/Straw) Urine Clarity Clear (Clear) Urine pH 6.0 (5.0-8.5) Ur Specific [place] 1.008 (1.002-1.035) Urine Protein Negative (Neg-Trace) mg/dL Urine Glucose (UA) Negative (Negative) mg/dL <Keisha Fernandes - 09/04/17 11:57> - Imaging Impressions Chest X-Ray 09/03/17 00:00 CONCLUSION: New greater than 12 cm consolidative opacity in the left mid and lower lung. Differential considerations include a large loculated left pleural effusion, lobar consolidation, or combination of both. <Keisha Fernandes - 09/04/17 11:57> Physical Exam Vital signs: Vital Signs 09/03/17 12:00 09/03/17 16:00 09/03/17 20:00 Temperature 98.8 F 98.6 F 98.7 F Pulse Rate 99 H 105 H 112 H Respiratory Rate 18 18 18 Blood Pressure 101/56 L 109/56 L 115/67 Pulse Oximetry 98 97 97 09/04/17 00:00 09/04/17 04:00 09/04/17 08:00 Temperature 99.0 F 98.9 F Pulse Rate 111 H 104 H 96 H Respiratory Rate 16 14 Blood Pressure 110/63 101/55 L Pulse Oximetry 95 96 Intake & Output 09/03/17 09/04/17 09/04/17 18:59 06:59 18:59 Intake Total 780 / 780 300 / 300 100 / 100 Balance 780 / 780 300 / 300 100 / 100 Weight 57.4 kg Intake: IV 300 / 300 300 / 300 100 / 100 Prostaphlin Inj 2 GM In NS Inj 300 / 300 300 / 300 100 / 100 100 ML @ 200 mls/hr IV.SIG Q4H VANESSA Rx#:[id number] Oral 480 / 480 Other: # Voids 5 # Bowel Movements 1 <Keisha Fernandes 09/04/17 11:57> - Constitutional no acute distress <Keisha Fernandes 09/04/17 14:07> - Routine HEENT Exam Head: Present: normocephalic <Keisha Fernandes 09/04/17 14:07> Eye: Present: EOMI, PERRL <Keisha Fernandes 09/04/17 14:07> ENT: Present: mucous membranes moist <Keisha Fernandes 09/04/17 14:07> - Routine Neck Exam Present: supple, full ROM. Absent: JVD <Keisha Fernandes 09/04/17 14:07> - Routine Respiratory Exam Present: CTA bilaterally, distant breath sounds (Left lower lung ). Absent: accessory muscle use <Keisha Fernandes 09/04/17 14:07> - Routine Cardiovascular Exam Present: RRR, S1, S2. Absent: murmur, gallop, rubs <Keisha Fernandes 14:07> - Routine Abdominal Exam Present: soft, normoactive bowel sounds. Absent: tenderness <Keisha Fernandes 09/04/17 14:07> - Routine Extremities Exam Present: full ROM, pulses intact, normal capillary refill. Absent: cyanosis, clubbing, edema <Keisha eFrnandes 09/04/17 14:07> Comments: Right arm cellulitis resolved, healing well, there is no swelling erythema. Right thumb is healing well since I&D procedure <Keisha Fernandes 09/04/17 14:07> - Routine Neurological Exam Present: alert, oriented X3, CN II-XII intact <Keisha Fernandes 09/04/17 14: 07> Assessment and Plan - Assessment (1) Lung consolidation Code(s): J18.1 - Lobar pneumonia, unspecified organism Status: Acute (2) Acute septic pulmonary embolism Code(s): I26.90 - Septic pulmonary embolism without acute cor pulmonale Status : Acute (3) Endocarditis Code(s): I38 - Endocarditis, valve unspecified Status: Acute (4) Opiate addiction Code(s): F11.20 - Opioid dependence, uncomplicated Status: Chronic (5) Nutrition, metabolism, and development symptoms Code(s): R63.8 - Other symptoms and signs concerning food and fluid intake Status: Acute <Miguelina Irwin - 09/07/17 14:08> (1) Lung consolidation Code(s): J18.1 - Lobar pneumonia, unspecified organism Status: Acute Plan: chest x-ray 09/03/17: Showed a greater than 12 cm consolidative opacity in the mid and lower left lung. Right lung is clear. On exam patient continues to have reproducible left-sided chest pain upon palpation. Patient with O2 sats of 96 on room air and no respiratory distress. Follow-up chest CTA (2) Acute septic pulmonary embolism Code(s): I26.90 - Septic pulmonary embolism without acute cor pulmonale Status : Acute Plan: Patients presented with 1 day history of acute chest pain. Her chest CT shows patchy opacities and cavitations most consistent with septic embolism in the setting of sepsis and new heart murmur in known IV drug user. These findings lead to likely infective endocarditis vs ACS. US venous Doppler lower extremities was negative for DVT. Transthoracic echo negative for vegetations. ACS was ruled out. -Patient had complaints of pleuritic left-sided chest pain, reproducible upon palpation. Pain greatly subsided. Continue with pain medication per pain scale transition off of IV to PO. - Continue Oxacillin - Monitor VS (3) Endocarditis Code(s): I38 - Endocarditis, valve unspecified Status: Acute Plan: Patient known IV drug user who according to was sharing needles with friend who has unfortunately recently due to bacteremia. Patient presented with a previously existing murmur, septic pulmonary emboli and 4/4 positive blood cultures taken at admission grew staph aureus, as well as wound cultures from arm abscess also grew staph aureus. It is extremely likely that she has infective endocarditis. Transthoracic echo showed trace mitral and tricuspid regurgitation but no vegetations. Chest CT showed most likely septic emboli with cavitations. ID following. - Continue with ID recommendations Follow-up repeat SETH -Continue oxacillin -Repeat blood cultures on 08/29/17 negative (4) Cellulitis Code(s): L03.90 - Cellulitis, unspecified Status: Resolved Plan: Patient presented with significant hand and arm swelling in the setting of sepsis and known IV drug use. On presentation in the ED hand CT showed soft tissue swelling without abscess or fluid collection. Ct of forearm showed 2 needles within the soft tissue, no abscess, and diffuse soft tissue swelling likely cellulitis. Patient developed abscess on right thumb which was drained on 08/26/17. Right thumb wound culture grew staph aureus. Patient then developed another abscess on right anterior forearm that the patient lanced herself by picking at her arm. Arm and hand continues to look clinically better , no swelling , no erythematous and the skin is no longer taut. Per surgery needles in arm are not of critical concern, removal will not be attempted during inpatient therapy. - Continue with ID recommendations - Right thumb dressings per hand surgery - Benadryl added to assist with itching as needed (5) Opiate addiction Code(s): F11.20 - Opioid dependence, uncomplicated Status: Chronic Plan: Patient with known opiate addiction disorder -Continue to wean narcotic medications as tolerated -Plan to transition to strictly p.o. medications in the coming days with future plans to discharge patient without narcotic medication -Dilaudid 0.2 mg IV every 3 hours as needed for breakthrough pain -Continue Percocet 10 mg every 6 hours as needed for pain 6-10 (6) Nutrition, metabolism, and development symptoms Code(s): R63.8 - Other symptoms and signs concerning food and fluid intake Status: Acute Plan: Fluids: Not indicated at this time. Electrolytes: Replete as needed Diet: Normal diet as tolerated. DVT Prophylaxis: SCDs <Keisha Fernandes - 09/04/17 13:42> - Assessment and Plan The exam, history, and the medical decision-making described in the above note were completed with the assistance of the resident physician. I reviewed and agree with the findings presented. I attest that I had a [id number] encounter with the patient on the same day, and personally performed and documented my assessment and findings in the medical record. she is improving overall day to day <Keisha Fernandes - 09/04/17 11:57> - Attending Attestation The exam, history, and the medical decision-making described in the above note were completed with the assistance of the resident physician. I reviewed and agree with the findings presented. I attest that I had a [id number] encounter with the patient on the same day, and personally performed and documented my assessment and findings in the medical record. gradually weaning off all meds <Miguelina Irwin M - 09/07/17 14:08> <Keisha Fernandes - Last Filed: 09/04/17 13:42> (2) Acute septic pulmonary embolism Qualifiers: Acute cor pulmonale presence: without acute cor pulmonale Qualified Code(s): I26.90 - Septic pulmonary embolism without acute cor pulmonale (3) Endocarditis Qualifiers: Endocarditis type: infective Infective endocarditis organism: bacterial Chronicity: acute Qualified Code(s): I33.0 - Acute and subacute infective endocarditis (4) Cellulitis Qualifiers: Site of cellulitis: extremity Site of cellulitis of extremity: upper extremity Laterality: right Qualified Code(s): L03.113 - Cellulitis of right upper limb (5) Opiate addiction Qualifiers: Substance use status: with unspecified opioid-induced disorder Qualified Code (s): F11.29 - Opioid dependence with unspecified opioid-induced disorder <Miguelina Irwin M - Last Filed: 09/07/17 14:08> (2) Acute septic pulmonary embolism Qualifiers: Acute cor pulmonale presence: without acute cor pulmonale Qualified Code(s): I26.90 - Septic pulmonary embolism without acute cor pulmonale (3) Endocarditis Qualifiers: Endocarditis type: infective Infective endocarditis organism: bacterial Chronicity: acute Qualified Code(s): I33.0 - Acute and subacute infective endocarditis (4) Opiate addiction Qualifiers: Substance use status: with unspecified opioid-induced disorder Qualified Code (s): F11.29 - Opioid dependence with unspecified opioid-induced disorder <Keisha Fernandes D - Last Filed: 09/04/17 13:42> (2) Acute septic pulmonary embolism Qualifiers: Acute cor pulmonale presence: without acute cor pulmonale Qualified Code(s): I26.90 - Septic pulmonary embolism without acute cor pulmonale (3) Endocarditis Qualifiers: Endocarditis type: infective Infective endocarditis organism: bacterial Chronicity: acute Qualified Code(s): I33.0 - Acute and subacute infective endocarditis (4) Cellulitis Qualifiers: Site of cellulitis: extremity Site of cellulitis of extremity: upper extremity Laterality: right Qualified Code(s): L03.113 - Cellulitis of right upper limb (5) Opiate addiction Qualifiers: Substance use status: with unspecified opioid-induced disorder Qualified Code (s): F11.29 - Opioid dependence with unspecified opioid-induced disorder <Miguelina Irwin M - Last Filed: 09/07/17 14:08> (2) Acute septic pulmonary embolism Qualifiers: Acute cor pulmonale presence: without acute cor pulmonale Qualified Code(s): I26.90 - Septic pulmonary embolism without acute cor pulmonale (3) Endocarditis Qualifiers: Endocarditis type: infective Infective endocarditis organism: bacterial Chronicity: acute Qualified Code(s): I33.0 - Acute and subacute infective endocarditis (4) Opiate addiction Qualifiers: Substance use status: with unspecified opioid-induced disorder Qualified Code (s): F11.29 - Opioid dependence with unspecified opioid-induced disorder
--- NOTE | 2017-09-04 16:45 | P.PNID ---
Subjective Remarks: Patient complains of pain in the r. arm. Afebrile. Right arm wound culture has staph aureus. Blood culture has staph aureus. ECHO 2D on 08/26/17 without mention of vegetations. Repeat blood culture has no growth. This is a 32-year-old white female who uses IV drugs. The patient reports that she last used IV drugs 2 days ago. She was brought to the emergency department complaining of chest pain and shortness of breath. She reportedly noted that it started a couple days ago. The pain is located at the left side of her chest and she has difficulty breathing. The patient used IV heroin prior to the admission. She was noted to have large area of swelling and erythema on the right forearm and hand, which is markedly swollen and she has an area of grayish discoloration with swelling at the right thumb. She was evaluated in the emergency department. She had temperature of 99.8 and heart rate of 102 and the temperature increased to 103 degrees and a white blood cell count was elevated at 12.5. Lactic acid was 3.4. The patient had blood cultures taken and all 4 bottles of the blood cultures have gram-positive cocci. White blood cell count has increased to 16.6. Hand surgeon was called to evaluate the patient and the right thumb was debrided. Antibiotics: Oxacillin Lines: Peripheral IV Past Medical History: Medical History (Last Reviewed 08/27/17 @ 07:41 by SHIRLEY Molina) Arm vein blood clot (Acute) Allergies/Adverse Reactions: Allergies clindamycin Allergy (Severe, Verified 08/25/17 11:06) Hives "CAN'T BREATHE" ketorolac Allergy (Severe, Verified 08/25/17 11:06) Hives "CAN'T BREATHE" vancomycin Allergy (Severe, Verified 08/25/17 11:06) Hives "CAN'T BREATHE" Objective Vital Signs 09/03/17 20:00 09/04/17 00:00 09/04/17 04:00 Temperature 98.7 F 99.0 F Pulse Rate 112 H 111 H 104 H Respiratory Rate 18 16 Blood Pressure 115/67 110/63 Pulse Oximetry 97 95 09/04/17 08:00 09/04/17 09:00 09/04/17 12:00 Temperature 98.9 F 99.1 F Pulse Rate 96 H 100 H 97 H Respiratory Rate 14 16 Blood Pressure 101/55 L 114/55 L Pulse Oximetry 96 98 Intake & Output 09/03/17 09/04/17 09/04/17 18:59 06:59 18:59 Intake Total 780 / 780 300 / 300 300 / 300 Balance 780 / 780 300 / 300 300 / 300 Weight 57.4 kg Intake: IV 300 / 300 300 / 300 300 / 300 Prostaphlin Inj 2 GM In NS Inj 300 / 300 300 / 300 300 / 300 100 ML @ 200 mls/hr IV.SIG Q4H VANESSA Rx#:[id number] Oral 480 / 480 Other: # Voids 5 # Bowel Movements 1 08/29/17 11:55 Blood - Peripheral Aerobic Blood Culture - Final No growth in 5 days 08/29/17 11:55 Blood - Peripheral Anaerobic Blood Culture - Final No growth in 5 days 08/29/17 12:00 Blood - Peripheral Aerobic Blood Culture - Final No growth in 5 days 08/29/17 12:00 Blood - Peripheral Anaerobic Blood Culture - Final No growth in 5 days Lab - Hematology Results 09/03/17 09:04 WBC 14.3 H RBC 4.31 Hgb 11.4 L Hct 35.1 MCV 81.4 MCH 26.4 L MCHC 32.5 RDW 14.6 Plt Count 495 H MPV 8.3 Neut % (Auto) 80.2 H Lymph % (Auto) 13.9 [place] % (Auto) 5.1 Eos % (Auto) 0.3 Baso % (Auto) 0.5 Neut # (Auto) 11.5 H Lymph # (Auto) 2.0 Dawson # (Auto) 0.7 Eos # (Auto) 0.0 Baso # (Auto) 0.1 WBC Differential . Differential Comment Auto diff final Lab - Chemistry Results 09/03/17 09:04 Sodium 134 L Potassium 4.3 Chloride 99 Carbon Dioxide 22.9 Anion Gap 12 BUN 12 Creatinine 0.67 Estimated GFR Greater than 89 Random Glucose 102 Calcium 9.0 Imaging: ITS Impressions Venous Doppler Study 08/25/17 00:00 CONCLUSION: 1. The study is negative for lower extremity deep venous thrombosis. Chest CTA 08/25/17 11:22 CONCLUSION: 1. Bilateral scattered groundglass nodules with suggestion of minimal cavitation likely infectious/inflammatory. Septic emboli is also a consideration. Treatment and follow-up. 2. No evidence for pulmonary motion. 3. Prominent right axillary lymph node. Forearm CT 08/25/17 11:22 CONCLUSION: 1. 2 needles are seen within the soft tissue as described above. 2. No abscess. 3. Diffuse soft tissue swelling likely cellulitis. Hand CT 08/25/17 11:22 CONCLUSION: 1. Soft tissue swelling without abscess or fluid collection. Upper Extremity Ultrasound 08/26/17 00:00 CONCLUSION: 1. No drainable abscess is yet. Excessive induration over the cephalic vein partial thrombosis of the cephalic vein. Chest X-Ray 09/03/17 00:00 CONCLUSION: New greater than 12 cm consolidative opacity in the left mid and lower lung. Differential considerations include a large loculated left pleural effusion, lobar consolidation, or combination of both. Physical Exam: GENERAL: No acute distress. HEAD, EARS, EYES, NOSE AND THROAT: head is atraumatic. Extraocular movements are grossly intact. Pupils reactive to light. No icterus. No conjunctival erythema. Oropharynx mucosa is moist. No visible lesions. NECK: Supple without adenopathy. LUNGS: Decreased breath sounds with basilar rhonchi.. HEART: Regular rate and rhythm without audible murmurs, rubs or gallops. ABDOMEN: Bowel sounds present. Soft, no tenderness appreciated. EXTREMITIES: Less swelling with erythema at the post aspect of the right forearm with erythema at the mid forearm. The dorsum of the right hand is less swollen and the thumb is post-debridement No visible embolic lesions. SKIN: No diffuse rash. NEUROLOGIC: No gross focal findings. PSYCHOLOGIC: Calm and cooperative. Assessment and Plan - Plan IMPRESSION: 1. Sepsis due to staph aureus. 2. Septic emboli of the lung. 3. Severe cellulitis of the right forearm with abscess of the right thumb. 4. IV drug abuse. 5. Hypoxemia. 6. Probable endocarditis in a patient with IV drug abuse. 7. Continued chest pain - ? large loculated pleural effusion at the left lung on chest x-ray. RECOMMENDATIONS: 1. Continue Oxacillin. 2. Given lung findings will need long course of antibiotic. 3. Will need SETH to rule out endocarditis. 4. CT scan of the lung to evaluate the lung lesion which is likely abscess. 5. Send sputum culture.
--- NOTE | 2017-09-04 18:36 | CT ---
EXAM DATE: 09/04/2017 6:16 PM EDT AGE/SEX: 32 years / Female INDICATIONS: Left chest pain. CLINICAL DATA: This is the patient's initial encounter. Patient reports that signs and symptoms have been present for 1 day and indicates a pain score of 5/10. MEDICAL/SURGICAL HISTORY: Deep venous thrombosis. None. RADIATION DOSE: 4.51 CTDI (mGy) COMPARISON: [facility], CTA PULMONARY W CONTRAST W 3D, 08/25/2017. . TECHNIQUE: Multiple contiguous axial images were obtained through the chest during bolus infusion of 75 ml Omnipaque 350 (iohexol) nonionic water-soluble contrast as a single exam dose. Images were obtained in suspended respiration using multiple row detector helical technique. Using automated exp osure control and adjustment of the mA and/or kV according to patient size, radiation dose was kept a s low as reasonably achievable to obtain optimal diagnostic quality images. DICOM format image data is available electronically for review and comparison. FINDINGS: Lungs: Interval development of consolidation and volume loss in the left lower lobe with air broncho grams. Multiple nodular opacities in the right lung similar to prior CT, with one of the lesions, loc ated lateral right midlung (image #20) demonstrating new central cavitation. Mediastinum: There is good visualization of the great vessels of the middle mediastinum. No evidenc e of mediastinal or hilar adenopathy/mass. Pleurae: No evidence of focal thickening or pleural effusion. Axillae: Bilateral prominent axillary lymph nodes measuring up to 1.8 cm, similar to prior. Bony Structures: Unremarkable. CONCLUSION: 1. Significant change in the appearance of the chest when compared to prior CT pulmonary angiogram ; interval development of large left pleural effusion and collapse with air bronchograms in th e left lower lobe. Multiple nodules in the right lung similar in size, but with increasing cavitation . Electronically signed by: Trino Menendez MD 09/04/2017 6:35 PM EDT
[2017-09-04] MEDS: Temazepam 15 MG Capsule PO PRN (23:17)
[2017-09-05] MEDS: LORazepam 1 MG Tablet PO PRN ×2 (03:41→09:17)
[2017-09-05] MEDS: oxyCODONE/Acetaminophen 10/325 Tablet PO PRN ×2 (03:41→09:17)
[2017-09-05] MEDS: HYDROmorphone PF Inj 2 MG/ML Vial IV.PUSH PRN (05:28)
--- NOTE | 2017-09-05 11:46 | P.PNFP ---
Subjective Interval history: Patient was seen at bedside this morning. There were no acute events overnight and she reports feeling overall well but experienced significant anxiety when finding out about her chest tube placement for her pleural effusion. Myself and attending Dr. Irwin went to bedside to discuss the procedure with the patient as well as possible risks and benefits and necessity of the procedure. At the time the patient was extremely anxious and was explained to her that we will give her some Ativan to help her through the procedure. After consulting with the patient she felt much better and was laughing and joking as we departed the room. Patient denies any subjective fevers, chills, shortness of breath, chest pain, nausea, or vomiting. All questions were answered to the patient's satisfaction. <Jomar Madison - 09/05/17 17:33> Results - Labs Result diagrams: 09/03/17 09:04 09/03/17 09:04 <Miguelina Irwin - 09/07/17 13:05> - Imaging Impressions Chest CT 09/04/17 00:00 CONCLUSION: 1. Significant change in the appearance of the chest when compared to prior CT pulmonary angiogram 08/25/2017; interval development of large left pleural effusion and collapse with air bronchograms in the left lower lobe. Multiple nodules in the right lung similar in size, but with increasing cavitation. <Jomar Madison - 09/05/17 11:46> Physical Exam Vital signs: Vital Signs 09/04/17 12:00 09/04/17 16:00 09/04/17 20:00 Temperature 99.1 F 99.2 F 98.0 F Pulse Rate 97 H 105 H 97 H Respiratory Rate 16 14 18 Blood Pressure 114/55 L 104/58 L 108/60 Pulse Oximetry 98 98 97 09/04/17 21:02 09/05/17 00:00 09/05/17 04:00 Temperature 98.0 F 98.1 F Pulse Rate 106 H 98 H 92 H Respiratory Rate 16 18 Blood Pressure 103/61 104/54 L Pulse Oximetry 95 97 09/05/17 04:03 09/05/17 08:00 Temperature 98.1 F Pulse Rate 104 H 101 H Respiratory Rate 20 Blood Pressure 95/52 L Pulse Oximetry 97 Intake & Output 09/04/17 09/05/17 09/05/17 18:59 06:59 18:59 Intake Total 1500 / 1500 2720 / 2720 Output Total 1000 / 1000 1999 Balance 500 / 500 720 / 720 Weight 56.9 kg Intake: IV 300 / 300 300 / 300 Prostaphlin Inj 2 GM In NS Inj 300 / 300 300 / 300 100 ML @ 200 mls/hr IV.SIG Q4H VANESSA Rx#:[id number] Oral 1200 / 1200 2420 / 2420 Output: Urine 1000 / 1000 1999 Other: # Voids 5 Date of Last Bowel Movement 09/05/17 # Bowel Movements 1 <Jomar Madison 09/05/17 11:46> - Constitutional moderate distress, thin, cooperative, agitated <Jomar Madison 09/05/17 17:33 > - Routine HEENT Exam Head: Present: normocephalic, atraumatic <Jomar Madison 09/05/17 17:33> Eye: Present: EOMI <Jomar Madison 09/05/17 17:33> ENT: Present: mucous membranes moist <Jomar Madison 09/05/17 17:33> - Routine Respiratory Exam Present: CTA bilaterally. Absent: accessory muscle use, patient mechanically ventilated, prolonged expiratory phase, rales, respiratory distress, rhonchi, stridor, wheezes, crackles, distant breath sounds, diminished air movement < Jomar Madison 09/05/17 17:33> - Routine Cardiovascular Exam Present: RRR, S1, S2. Absent: murmur, gallop <Jomar Madison 09/05/17 17:33> - Routine Abdominal Exam Present: soft, normoactive bowel sounds. Absent: tenderness, distended, rebound , guarding <Jomar Madison 09/05/17 17:33> - Routine Extremities Exam Present: full ROM, pulses intact. Absent: cyanosis, clubbing, edema <Jomar Madison 09/05/17 17:33> - Routine Skin Exam Present: intact. Absent: cyanosis, erythema <Jomar Madison 09/05/17 17:33> - Routine Neurological Exam Present: alert, oriented X3, CN II-XII intact, moving all extremities, vision grossly intact, hearing grossly intact, normal speech. Absent: altered mental status, facial asymmetry <Jomar Madison - 09/05/17 17:33> - Routine Psychiatric Exam Present: anxious, agitated <Jomar Madison - 09/05/17 17:33> Assessment and Plan - Assessment (1) Lung consolidation Code(s): J18.1 - Lobar pneumonia, unspecified organism Status: Acute (2) Acute septic pulmonary embolism Code(s): I26.90 - Septic pulmonary embolism without acute cor pulmonale Status : Acute (3) Endocarditis Code(s): I38 - Endocarditis, valve unspecified Status: Acute (4) Opiate addiction Code(s): F11.20 - Opioid dependence, uncomplicated Status: Chronic (5) Nutrition, metabolism, and development symptoms Code(s): R63.8 - Other symptoms and signs concerning food and fluid intake Status: Acute <Miguelina Irwin - 09/07/17 13:05> (1) Lung consolidation Code(s): J18.1 - Lobar pneumonia, unspecified organism Status: Acute Plan: Chest x-ray 09/03/17: Showed a greater than 12 cm consolidative opacity in the mid and lower left lung. Right lung is clear. On exam patient continues to have reproducible left-sided chest pain upon palpation. Patient with O2 sats of 96 on room air and no respiratory distress. Patient scheduled for chest tube via IR for decompression pleural effusion. -Chest tube placement for decompression this afternoon -Follow-up with chest tube drainage (2) Acute septic pulmonary embolism Code(s): I26.90 - Septic pulmonary embolism without acute cor pulmonale Status : Acute Plan: Patients presented with 1 day history of acute chest pain. Her chest CT shows patchy opacities and cavitations most consistent with septic embolism in the setting of sepsis and new heart murmur in known IV drug user. These findings lead to likely infective endocarditis vs ACS. US venous Doppler lower extremities was negative for DVT. Transthoracic echo negative for vegetations. ACS was ruled out. Patient had complaints of pleuritic left-sided chest pain, reproducible upon palpation. Pain greatly subsided. Chest x-ray from September 03, 2017 showed a greater than 12 cm consolidative opacity in the mid and lower left lung. - Chest tube via IR for decompression - Continue with pain medication per pain scale transition off of IV to PO. - Continue Oxacillin - Monitor VS (3) Endocarditis Code(s): I38 - Endocarditis, valve unspecified Status: Acute Plan: Patient known IV drug user who according to was sharing needles with friend who has unfortunately recently due to bacteremia. Patient presented with a previously existing murmur, septic pulmonary emboli and 4/4 positive blood cultures taken at admission grew staph aureus, as well as wound cultures from arm abscess also grew staph aureus. It is extremely likely that she has infective endocarditis. Transthoracic echo showed trace mitral and tricuspid regurgitation but no vegetations. Chest CT showed most likely septic emboli with cavitations. ID following. - Continue with ID recommendations Follow-up repeat SETH -Continue oxacillin -Repeat blood cultures on 08/29/17 negative (4) Opiate addiction Code(s): F11.20 - Opioid dependence, uncomplicated Status: Chronic Plan: Patient with known opiate addiction disorder -Continue to wean narcotic medications as tolerated -Plan to transition to strictly p.o. medications in the coming days with future plans to discharge patient without narcotic medication -Dilaudid 0.2 mg IV every 3 hours as needed for breakthrough pain -Continue Percocet 10 mg every 6 hours as needed for pain 6-10 (5) Nutrition, metabolism, and development symptoms Code(s): R63.8 - Other symptoms and signs concerning food and fluid intake Status: Acute Plan: Fluids: Not indicated at this time. Electrolytes: Replete as needed Diet: Normal diet as tolerated. DVT Prophylaxis: SCDs <Jomar Madison - 09/05/17 16:51> - Assessment and Plan The exam, history, and the medical decision-making described in the above note were completed with the assistance of the resident physician. I reviewed and agree with the findings presented. I attest that I had a [id number] encounter with the patient on the same day, and personally performed and documented my assessment and findings in the medical record. she is improving overall day to day <Jomar Madison - 09/05/17 11:46> - Attending Attestation The exam, history, and the medical decision-making described in the above note were completed with the assistance of the resident physician. I reviewed and agree with the findings presented. I attest that I had a [id number] encounter with the patient on the same day, and personally performed and documented my assessment and findings in the medical record. Spoke to the patient and her , it has been explained extensively how she has a serious infectious problem. She was extremely frightened about the thought of having "a needle in my back". Her has been encouraging her to stick with her medical treatments. It was explained to her that being on the antibiotics has helped her to feel better but without the antibiotics she will quickly deteriorate. <Miguelina Irwin M - 09/07/17 13:05> <Jomar Madison O - Last Filed: 09/05/17 16:51> (2) Acute septic pulmonary embolism Qualifiers: Acute cor pulmonale presence: without acute cor pulmonale Qualified Code(s): I26.90 - Septic pulmonary embolism without acute cor pulmonale (3) Endocarditis Qualifiers: Endocarditis type: infective Infective endocarditis organism: bacterial Chronicity: acute Qualified Code(s): I33.0 - Acute and subacute infective endocarditis (4) Opiate addiction Qualifiers: Substance use status: with unspecified opioid-induced disorder Qualified Code (s): F11.29 - Opioid dependence with unspecified opioid-induced disorder <Miguelina Irwin M - Last Filed: 09/07/17 13:05> (2) Acute septic pulmonary embolism Qualifiers: Acute cor pulmonale presence: without acute cor pulmonale Qualified Code(s): I26.90 - Septic pulmonary embolism without acute cor pulmonale (3) Endocarditis Qualifiers: Endocarditis type: infective Infective endocarditis organism: bacterial Chronicity: acute Qualified Code(s): I33.0 - Acute and subacute infective endocarditis (4) Opiate addiction Qualifiers: Substance use status: with unspecified opioid-induced disorder Qualified Code (s): F11.29 - Opioid dependence with unspecified opioid-induced disorder <Jomar Madison O - Last Filed: 09/05/17 16:51> (2) Acute septic pulmonary embolism Qualifiers: Acute cor pulmonale presence: without acute cor pulmonale Qualified Code(s): I26.90 - Septic pulmonary embolism without acute cor pulmonale (3) Endocarditis Qualifiers: Endocarditis type: infective Infective endocarditis organism: bacterial Chronicity: acute Qualified Code(s): I33.0 - Acute and subacute infective endocarditis (4) Opiate addiction Qualifiers: Substance use status: with unspecified opioid-induced disorder Qualified Code (s): F11.29 - Opioid dependence with unspecified opioid-induced disorder <Miguelina Irwin M - Last Filed: 09/07/17 13:05> (2) Acute septic pulmonary embolism Qualifiers: Acute cor pulmonale presence: without acute cor pulmonale Qualified Code(s): I26.90 - Septic pulmonary embolism without acute cor pulmonale (3) Endocarditis Qualifiers: Endocarditis type: infective Infective endocarditis organism: bacterial Chronicity: acute Qualified Code(s): I33.0 - Acute and subacute infective endocarditis (4) Opiate addiction Qualifiers: Substance use status: with unspecified opioid-induced disorder Qualified Code (s): F11.29 - Opioid dependence with unspecified opioid-induced disorder
--- NOTE | 2017-09-05 12:50 | P.PNADD ---
Addendum to Inpatient Note Reason for Addendum: Additional Documentation Additional information: Unfortunately Ms Luna decided to leave AGAINST MEDICAL ADVICE. When we saw her this morning she was extremely upset about having a "needle stuck in her chest". She had requested to have her physicians explained this to her and we explained the procedure and the reasoning behind it. She seemed to understand and be more accepting. However she decided to leave the hospital. The patient physician relationship has been severed. Our suspicion is that she has gone back out and will likely resume her drug use. We have had multiple discussions with her and her about the lethality of that course of action. Because of her choosing to leave the hospital AMA we will not take her back on our service.
--- NOTE | 2017-09-05 17:34 | P.DS ---
Date of admission: 08/25/17 14:05 Primary care physician: UNKNOWN Brief History from admission: Shira Luna is a 32 year old F who presented with a 1 day history of chest pain and right arm/ hand swelling. Patient reported that the chest pain started at 8am on the morning of her admission, was constant, and characterized as sharp and did not radiate. There are no aggravating or alleviating factors. The pain was located just under the left breast. She reported nausea, vomiting, chills and fever that began the night before which was also the time that she noticed her right arm/ hand beginning to swell. Patient reports chest pain was worse when breathing but unrelated to position, food or activity. Patient reported abusing IV heroin with last use being yesterday. She also reports that uses her left hand to shoot up and not her right. Of note: At time of examination patient was difficult to awaken and was not conversational due to the pain but became more awake and cooperative towards the end of interview. At the time of her admission her temperature was 99.8, her pulse was 102, respiratory rate was 22, her blood pressure was 133/74, she was satting 99% on 1 L nasal cannula, and had a white blood cell count of 12.5. Patient's chest x- ray in the ED showed ground glass opacities with cavitations. Her chest CT showed opacities in cavitations most consistent with septic embolisms. Due to a vancomycin allergy the patient was started on linezolid as well as Zosyn for broad-spectrum coverage. She was found to be in severe sepsis and was admitted to our service. DS: Diagnosis - Discharge Diagnosis (1) Lung consolidation Status: Acute (2) Acute septic pulmonary embolism Status: Acute (3) Endocarditis Status: Acute (4) Opiate addiction Status: Chronic (5) Nutrition, metabolism, and development symptoms Status: Acute DS: Summary Hospital Course: After this patient was admitted she was treated for presumptive infective endocarditis due to a murmur, sepsis, septic emboli, and cellulitis in the known IV drug user. Modified Alejo criteria was at probable. This patient was also found to have 2 broken needles in the posterior part of her right forearm. It was decided by his surgery that removal of needles would not be attempted during her stay. During patient's hospital course her right thumb underwent an incision and drainage for abscess, wound cultures later grew methicillin sensitive staph aureus. On the second night of her inpatient stay the patient developed an abscess on the anterior portion of her right forearm that drained naturally. An assessment for compartment syndrome was made and was found to be negative. Blood cultures grew methicillin sensitive Staphylococcus aureus. Zosyn was discontinued, and her vancomycin was switched to oxacillin. Patient continued to have shortness of breath for several days after admission but over the course of her inpatient care her shortness of breath steadily improved but worsened towards the end of her. Due to her history of opioid drug abuse her Dilaudid pain medication was slowly titrated down to 0.2 mg for breakthrough pain with Percocet as her pain medication. On September 03 chest x-ray was ordered that showed a 12 cm consolidative opacity in the left mid and lower lung. A follow-up chest CT was ordered on September 04 that confirmed a large left pleural effusion and collapse with air bronchograms in the left lower lobe, as well as multiple nodules in the right lung similar size, but with increasing cavitation. Patient required chest tube for drainage of left-sided pleural effusion. On September 05 the team was informed that the patient was having severe anxiety due to the information of having to need a chest tube. Myself and Dr. Irwin went to the patient's room to explain to her the necessity of the chest tube as well as the details of the procedure. We also told the patient that we would give her Ativan for anxiety in order to undergo the procedure. Patient was significantly more calm, agreed with our plan, and was laughing and smiling by the time we left the room. Shortly afterward we were notified that the patient left AMA. Per nursing, it was confirmed that her IV was removed before the patient left hospital. Of note: While her inpatient stay it was explained to her the danger of restarting IV heroin drug use due to her change in tolerance. - Time Spent with Patient Total time spent providing and/or coordinating discharge services: - Quality: VTE Deep Vein Thrombosis/Pulmonary Embolism Present on Admission: Yes Exam Vital signs: Vital Signs 09/04/17 20:00 09/04/17 21:02 09/05/17 00:00 Temperature 98.0 F 98.0 F Pulse Rate 97 H 106 H 98 H Respiratory Rate 18 16 Blood Pressure 108/60 103/61 Pulse Oximetry 97 95 09/05/17 04:00 09/05/17 04:03 09/05/17 08:00 Temperature 98.1 F 98.1 F Pulse Rate 92 H 104 H 101 H Respiratory Rate 18 20 Blood Pressure 104/54 L 95/52 L Pulse Oximetry 97 97 Intake & Output 09/04/17 09/05/17 09/05/17 18:59 06:59 18:59 Intake Total 1500 / 1500 2720 / 2720 Output Total 1000 / 1000 1999 / 1999 Balance 500 / 500 720 / 720 Weight 56.9 kg Intake: IV 300 / 300 300 / 300 Prostaphlin Inj 2 GM In NS Inj 300 / 300 300 / 300 100 ML @ 200 mls/hr IV.SIG Q4H VANESSA Rx#:[id number] Oral 1200 / 1200 2420 / 2420 Output: Urine 1000 / 1000 1999 Other: # Voids 5 Date of Last Bowel Movement 09/05/17 09/05/17 # Bowel Movements 1 - Constitutional moderate distress, agitated - Routine HEENT Exam Head: Present: normocephalic, atraumatic - Routine Respiratory Exam Present: distant breath sounds, diminished air movement. Absent: accessory muscle use, CTA bilaterally Comments: Patient has significantly diminished air movement and decreased lung sounds in the left lower base. As well as dullness to percussion. - Routine Cardiovascular Exam Present: RRR, S1, S2, murmur Comments: Patient continues to have holosystolic murmur is heard left sternal border which is nonradiating to the axilla or carotids. - Routine Abdominal Exam Present: soft, normoactive bowel sounds. Absent: tenderness, distended, rebound , guarding - Routine Extremities Exam Present: pulses intact. Absent: cyanosis, clubbing, edema - Routine Skin Exam Present: intact. Absent: cyanosis, erythema - Routine Neurological Exam Present: alert, oriented X3, moving all extremities, normal speech. Absent: sensory deficit, motor deficit, altered mental status, vision grossly intact, hearing grossly intact - Routine Psychiatric Exam Present: cooperative, anxious, agitated. Absent: good insight, good judgment Comments: Patient was significantly distressed and anxious at time of interview. Patient verbalized her fear of getting a chest tube as well as her desire to not have one. The importance of the chest tube was discussed and the patient seemed to agree to the procedure. Results Procedures completed during hospitalization: On August 26 patient underwent incision and drainage of superficial abscess of the right thumb. - Impressions ITS Impressions Venous Doppler Study 08/25/17 00:00 CONCLUSION: 1. The study is negative for lower extremity deep venous thrombosis. Chest CTA 08/25/17 11:22 CONCLUSION: 1. Bilateral scattered groundglass nodules with suggestion of minimal cavitation likely infectious/inflammatory. Septic emboli is also a consideration. Treatment and follow-up. 2. No evidence for pulmonary motion. 3. Prominent right axillary lymph node. Forearm CT 08/25/17 11:22 CONCLUSION: 1. 2 needles are seen within the soft tissue as described above. 2. No abscess. 3. Diffuse soft tissue swelling likely cellulitis. Hand CT 08/25/17 11:22 CONCLUSION: 1. Soft tissue swelling without abscess or fluid collection. Upper Extremity Ultrasound 08/26/17 00:00 CONCLUSION: 1. No drainable abscess is yet. Excessive induration over the cephalic vein partial thrombosis of the cephalic vein. Chest X-Ray 09/03/17 00:00 CONCLUSION: New greater than 12 cm consolidative opacity in the left mid and lower lung. Differential considerations include a large loculated left pleural effusion, lobar consolidation, or combination of both. Chest CT 09/04/17 00:00 CONCLUSION: 1. Significant change in the appearance of the chest when compared to prior CT pulmonary angiogram 08/25/2017; interval development of large left pleural effusion and collapse with air bronchograms in the left lower lobe. Multiple nodules in the right lung similar in size, but with increasing cavitation. Discharge Plan - Discharge Disposition Patient Disposition: Left Against Medical Advice - Discharge Condition Condition: Stable - Physicians Team Primary Care Provider: UNKNOWN, Attending Provider: Miguelina Irwin Other Providers: Connor Kauffman MD ; Lorraine Hannon MD ; Joseph Taylor MD
== END 2017-09-05 11:05 | disposition left against medical advice (07) ==
LOC: NEPC 10:45 → NEDA 14:05 → N07 16:29 → HIMC 08-26 10:39 → N04 08-27 14:05
PROVIDERS: ADMIT Family Medicine; ATTEND Family Medicine

== ENCOUNTER 2017-09-06 21:05 | Inpatient (IN) ==
[2017-09-06] MEDS ORDERED: Aluminum/Magnesium/Simethacone Susp 30 ML UDC PO ONE (21:25)
[2017-09-06 23:05] LABS: Baso # (Auto) 0.1 th/mm3 (0.0-0.2); Baso % (Auto) 0.6 % (0.0-2.0); Eos # (Auto) 0.1 th/mm3 (0.0-0.4); Eos % (Auto) 0.9 % (0.0-4.0); Hematocrit 26.7 % (35.0-46.0); Hemoglobin 8.7 gm/dL (11.6-15.3); Lymph % (Auto) 17.4 % (9.0-44.0); Mean Corpuscular HGB Conc 32.6 % (32.0-36.0); Mean Corpuscular Hemoglobin 26.2 pg (27.0-34.0); Mean Corpuscular Volume 80.3 fL (80.0-100.0); Mono # (Auto) 0.6 th/mm3 (0.0-0.9); Mono % (Auto) 5.7 % (0.0-8.0); Neut # (Auto) 8.5 th/mm3 (1.8-7.7); Neut % (Auto) 75.4 % (16.0-70.0); Platelet Count 744 th/mm3 (150-450); Red Blood Count 3.32 mil/mm3 (4.00-5.30); Red Cell Distribution Width 14.3 % (11.6-17.2); White Blood Count 11.3 th/mm3 (4.0-11.0)
[2017-09-06 23:24] LABS: Alanine Aminotransferase 40 U/L (10-53); Albumin 2.7 g/dL (3.4-5.0); Alkaline Phosphatase 269 U/L (45-117); Anion Gap 9 meq/L (5-15); Aspartate Aminotransferase 21 U/L (15-37); Blood Urea Nitrogen 10 mg/dL (7-18); Calcium 8.9 mg/dL (8.5-10.1); Carbon Dioxide 29.4 meq/L (21.0-32.0); Chloride 96 meq/L (98-107); Glomerular Filtration Rate Greater Than 89 mL/min (>89); Glucose,Random 93 mg/dL (74-106); Potassium 3.2 meq/L (3.5-5.1); Sodium 134 meq/L (136-145); Total Protein 8.4 g/dL (6.4-8.2)
[2017-09-06 23:27] LABS: Bacteria,Urine Rare /hpf; Bilirubin,Urine Negative (Negative); Clarity,Urine Clear (Clear); Color,Urine Yellow (Yellw/Straw); Glucose,Urine (UA) Negative (Negative); Leukocyte Esterase,Urine Negative (Negative); Nitrite,Urine Negative (Negative); Specific Gravity,Urine 1.006 (1.002-1.035); Squamous Epithelial Cell,Urine <1 /hpf (0-5)
--- NOTE | 2017-09-07 00:05 | ED ---
HPI General Chief Complaint: Chest Pain Stated Complaint: Evac/Chest Pain Time Seen by Provider: 09/06/17 21:20 Source: patient Mode of arrival: ambulatory Limitations: no limitations History of Present Illness HPI narrative: Patient is an IVDA drug abuser who was recently admitted for infection abscess in her right hand and apparently while she was inpatient receiving IV and patient lesion as well as a pleural effusion apparently she refused to have a chest tube to drain it and left AMA returns now saying it is getting worse and she wants to be admitted she denies shortness of breath but she says she feels the pain in her chest. At triage her temperature is 100.1 septic blood work is sent chest x-ray is ordered I review her films from yesterday and the CT that showed the pleural effusion getting worse I will call and readmit her to the [facility] floor with a pulmonary consult for possible pigtail placement or chest tube to drain the pleural effusion. Patient had debridement of her right thumb patient was on oh oxacillin after recommendation by the ID consult when she was inpatient she had a CT that showed possible septic emboli as well as large left pleural effusion again she left because she did not want to comply with the pigtails they were the placed to drain the effusion I explained to her that like an abscess that she had of her hand needs to be cut so that the pus has a way out of her long the way the pleasant due to way out of her hand she agrees and she will stay this time she will be readmitted to the resident staff Complete Quality Measures for STEMI Alert Patients Duration: progressively worsening Related Data Home Medications Medication Instructions Recorded Confirmed No Known Home Medications 08/25/17 09/06/17 Allergies Allergy/AdvReac Type Severity Reaction Status Date / Time clindamycin Allergy Severe Hives Verified 08/25/17 11:06 ketorolac Allergy Severe Hives Verified 08/25/17 11:06 vancomycin Allergy Severe Hives Verified 08/25/17 11:06 Review of Systems Except as stated in HPI: all other systems reviewed are negative PMFSH Social History Social History Substance History: Active Abuse Second Hand Smoke Exposure: Yes Smoking Status: Current every day smoker Tobacco Type: Cigarettes How Often Do You Have a Drink Containing Alcohol: Never Recent Travel in [facility] [place] within the Last 8 Weeks: No Recent Out of Country Travel within the Last 8 Weeks: No Substance Abuse Detail Heroin: Substance Use Status: Active Route Used Substance Abuse: Intravenously Last Used: today morning Reason for Use: Feels Good Immunization History Tetanus Immunization: <5 Years Tetanus Immunization Year if Known: 2016 Hx Influenza Vaccine This Season: Yes Exam Narrative Exam Narrative: GENERAL: Patient is tearful looks fearful complaining of pain SKIN: Focused skin assessment warm/dry. HEAD: Atraumatic. Normocephalic. EYES: Pupils equal and round. No scleral icterus. No injection or drainage. ENT: No nasal bleeding or discharge. Mucous membranes pink and moist. NECK: Trachea midline. No JVD. CARDIOVASCULAR: Regular rate and rhythm. No murmur appreciated. RESPIRATORY: Decreased breath sounds on the left lateral during auscultation otherwise lung drake are clear on the right and minimal wheeze heard in the upper left GASTROINTESTINAL: Abdomen soft, non-tender, nondistended. Hepatic and splenic margins not palpable. MUSCULOSKELETAL: Patient's right thumb and thenar eminence area is erythematous healing from the prior abscess on her finger painful "patient reports it is improved " NEUROLOGICAL: Awake and alert. No obvious cranial nerve deficits. Motor grossly within normal limits. Normal speech. PSYCHIATRIC: Appropriate mood and affect; insight and judgment normal. Course Initial Documented Vital Signs Temperature 100.1 F H 09/06/17 21:13 Pulse Rate 98 H 09/06/17 21:13 Respiratory Rate 16 09/06/17 21:13 Blood Pressure 111/66 09/06/17 21:13 Pulse Oximetry 97 09/06/17 21:13 Last Documented Vital Signs Temperature 100.1 F H 09/06/17 21:13 Pulse Rate 92 H 09/07/17 01:58 Respiratory Rate 16 09/07/17 01:58 Blood Pressure 113/66 09/07/17 01:58 Pulse Oximetry 98 09/07/17 01:58 Medical Decision Making MDM Narrative Medical decision making narrative: Patient's chart is reviewed from the recent admission oxacillin at the recommendation of the ID consult . she had also been seen by a cardiothoracic surgeon and she will be readmitted I will continue the Oxacillin and toradol for pain Differential Diagnosis Differential Diagnosis: Versus bronchitis versus pneumonia versus empyema Lab Data Result diagrams: 09/06/17 22:15 09/06/17 22:15 Lab Results 09/06/17 09/06/17 09/06/17 Range/Units 22:15 22:15 22:30 WBC 11.3 H (4.0-11.0) th/mm3 RBC 3.32 L (4.00-5.30) mil/mm3 Hgb 8.7 L (11.6-15.3) gm/dL Hct 26.7 L (35.0-46.0) % MCV 80.3 (80.0-100.0) fL MCH 26.2 L (27.0-34.0) pg MCHC 32.6 (32.0-36.0) % RDW 14.3 (11.6-17.2) % Plt Count 744 H D (150-450) th/mm3 MPV 8.0 (7.0-11.0) fL Neut % (Auto) 75.4 H (16.0-70.0) % Lymph % (Auto) 17.4 (9.0-44.0) % [place] % (Auto) 5.7 (0.0-8.0) % Eos % (Auto) 0.9 (0.0-4.0) % Baso % (Auto) 0.6 (0.0-2.0) % Neut # (Auto) 8.5 H (1.8-7.7) th/mm3 Lymph # (Auto) 2.0 (1.0-4.8) th/mm3 [place] # (Auto) 0.6 (0.0-0.9) th/mm3 Eos # (Auto) 0.1 (0.0-0.4) th/mm3 Baso # (Auto) 0.1 (0.0-0.2) th/mm3 WBC Differential . Differential Comment Auto diff final Sodium 134 L (136-145) meq/L Potassium 3.2 L (3.5-5.1) meq/L Chloride 96 L (98-107) meq/L Carbon Dioxide 29.4 (21.0-32.0) meq/L Anion Gap 9 (5-15) meq/L BUN 10 (7-18) mg/dL Creatinine 0.73 (0.50-1.00) mg/dL Estimated GFR Greater than 89 (>89) mL/min POC Glucose (68-110) mg/dl Random Glucose 93 (74-106) mg/dL Lactic Acid 0.5 (0.4-2.0) mmol/L Calcium 8.9 (8.5-10.1) mg/dL Total Bilirubin 0.3 (0.2-1.0) mg/dL AST 21 (15-37) U/L ALT 40 (10-53) U/L Alkaline Phosphatase 269 H (45-117) U/L Total Protein 8.4 H (6.4-8.2) g/dL Albumin 2.7 L (3.4-5.0) g/dL Urine Color (Yellw/Straw) Urine Clarity (Clear) Urine pH (5.0-8.5) Ur Specific [place] (1.002-1.035) Urine Protein (Neg-Trace) mg/dL Urine Glucose (UA) (Negative) mg/dL Urine Ketones (Negative) mg/dL Urine Occult Blood (Negative) Urine Nitrate (Negative) Urine Bilirubin (Negative) Urine Urobilinogen (Less than 2) mg/dL Ur Leukocyte Esterase (Negative) Urine RBC (0-3) /hpf Urine WBC (0-5) /hpf Ur Squamous Epith Cells (0-5) /hpf Urine Bacteria (None) /hpf Micro UA Comment Urine Culture Comments 09/06/17 09/06/17 Range/Units 22:45 22:58 WBC (4.0-11.0) th/mm3 RBC (4.00-5.30) mil/mm3 Hgb (11.6-15.3) gm/dL Hct (35.0-46.0) % MCV (80.0-100.0) fL MCH (27.0-34.0) pg MCHC (32.0-36.0) % RDW (11.6-17.2) % Plt Count (150-450) th/mm3 MPV (7.0-11.0) fL Neut % (Auto) (16.0-70.0) % Lymph % (Auto) (9.0-44.0) % [place] % (Auto) (0.0-8.0) % Eos % (Auto) (0.0-4.0) % Baso % (Auto) (0.0-2.0) % Neut # (Auto) (1.8-7.7) th/mm3 Lymph # (Auto) (1.0-4.8) th/mm3 [place] # (Auto) (0.0-0.9) th/mm3 Eos # (Auto) (0.0-0.4) th/mm3 Baso # (Auto) (0.0-0.2) th/mm3 WBC Differential Differential Comment Sodium (136-145) meq/L Potassium (3.5-5.1) meq/L Chloride (98-107) meq/L Carbon Dioxide (21.0-32.0) meq/L Anion Gap (5-15) meq/L BUN (7-18) mg/dL Creatinine (0.50-1.00) mg/dL Estimated GFR (>89) mL/min POC Glucose 103 (68-110) mg/dl Random Glucose (74-106) mg/dL Lactic Acid (0.4-2.0) mmol/L Calcium (8.5-10.1) mg/dL Total Bilirubin (0.2-1.0) mg/dL AST (15-37) U/L ALT (10-53) U/L Alkaline Phosphatase (45-117) U/L Total Protein (6.4-8.2) g/dL Albumin (3.4-5.0) g/dL Urine Color Yellow (Yellw/Straw) Urine Clarity Clear (Clear) Urine pH 6.0 (5.0-8.5) Ur Specific [place] 1.006 (1.002-1.035) Urine Protein Negative (Neg-Trace) mg/dL Urine Glucose (UA) Negative (Negative) mg/dL Urine Ketones Negative (Negative) mg/dL Urine Occult Blood Negative (Negative) Urine Nitrate Negative (Negative) Urine Bilirubin Negative (Negative) Urine Urobilinogen 2.0 H (Less than 2) mg/dL Ur Leukocyte Esterase Negative (Negative) Urine RBC 1 (0-3) /hpf Urine WBC 1 (0-5) /hpf Ur Squamous Epith Cells <1 (0-5) /hpf Urine Bacteria Rare H (None) /hpf Micro UA Comment Culture not ind Urine Culture Comments Culture not ind Imaging Data Radiologist's impression: Chest X-Ray 09/06/17 23:34 CONCLUSION: Decrease in moderate-sized opacity at the left lung base indicating a combination of pulmonary consolidation and pleural effusion. Discharge Plan Discharge Disposition Patient Disposition: 32 Still Patient Physicians Team ED Provider: Joel Sykes Primary Care Provider: Primary Care Yasmeen Coronado Attending Provider: Liv Lanza Status ED Status: Admitted Patient
--- NOTE | 2017-09-07 00:29 | XR ---
EXAM DATE: 09/06/2017 11:55 PM EDT AGE/SEX: 32 years / Female INDICATIONS: . Short of breath. Pleural effusion. CLINICAL DATA: This is the patient's subsequent encounter. Patient reports that signs and symptoms h ave been present for 3 days and indicates a pain score of 10/10. MEDICAL/SURGICAL HISTORY: Deep venous thrombosis. . Left breast biopsy. COMPARISON: [facility] [place], CHEST 1V SINGLE AP, 09/03/2017. . FINDINGS: PA and lateral views of the chest. Decrease in size of confluent opacity at the left lung base repres enting a combination of pulmonary consolidation and pleural effusion. It remains moderate in size. Ri ght lung is clear. Cardiac silhouette within normal limits. No evidence of pneumothorax. CONCLUSION: Decrease in moderate-sized opacity at the left lung base indicating a combination of pulmonary consol idation and pleural effusion. Electronically signed by: Zia Childs MD 09/07/2017 12:28 AM EDT
[2017-09-07] MEDS ORDERED: Morphine Inj 4 MG/ML Vial IV.PUSH ONE (00:59)
[2017-09-07] MEDS ORDERED: Acetaminophen 325 MG Tablet PO PRN (01:15)
[2017-09-07] MEDS ORDERED: Bisacodyl 10 MG Supp RECTAL PRN (01:15)
[2017-09-07] MEDS: Sod Chloride 0.9% Inj 1,000 ML IV.CONT SCH ×2 (02:12→13:22)
--- NOTE | 2017-09-07 03:28 | P.HPIM ---
History of Present Illness Primary Care Physician: No Primary Care Physician History of Present Illness: This is a 32-year-old female with a PMH of IVDU who was recently admitted for Chest Pain w/ concern for Endocarditis, found to have RUE Cellulitis w/ I &D Right Thumb Abscess by Dr. Hannon 08/26/17, in addition to Bacteremia w/ Blood Cultures + Staph Aureus, Septic Emboli and large left pleural effusion for which patient was scheduled to undergo chest tube insertion. S/p eval by ID on Oxacillin w/ plans for long-term antibiotics, however pt LEFT AMA on . Returns now w/ ongoing c/o chest pain and wishes to be admitted for treatment. Residents paged for admission, however declined as pt LEFT AMA from their service, therefore we're asked to admit. BP 111/66, HR 98, O2 sat 97% on RA, Temp 100.1. WBC 11.3,, previously 14.3 and 09/03/2017. Chemistry essentially unremarkable except for K+ 3.2. CXR with decrease in moderate size opacity left lung base indicating combination of pulmonary consolidation and pleural effusion - Diagnosis (1) IVDU (intravenous drug user) (2) Chest pain (3) Bacteremia (4) Cellulitis Inpatient Certification: I certify that the inpatient services were ordered in accordance with Medicare regulations governing the order. This includes certification that hospital inpatient services are reasonable and necessary and in the case of services not specified as inpatient-only under 42 CFR 419.22(n), that they are appropriately provided as inpatient services in accordance to with the 2-midnight benchmark under 43 CFR 412.3(e) Estimated Total Length of Stay (Days): 2 Plans for Post Hospital Care: Not yet determined Review of Systems All other systems reviewed negative except as stated in HPI PMFSH - History History Provided By: Patient, Director Of Content Marketing / EMT - Medical History Medical History: Medical History (Last Reviewed 09/03/17 @ 09:22 by Akbar Hairston) Arm vein blood clot - Surgical History Surgical History: Surgical History (Last Reviewed 09/03/17 @ 09:22 by Akbar Hairston) History of surgery on arm - Tobacco History Second Hand Smoke Exposure: Yes Tobacco Use In Past 30 Days: Yes Smoking Status: Current every day smoker Tobacco Type: Cigarettes - Alcohol History How Often Do You Have a Drink Containing Alcohol: Never - Substance Use History Substance History: Active Abuse - Substance Use Type Heroin Status: Active Route Used: Intravenously Last Used: today morning Reason for Use: Feels Good - Travel History Recent Travel in the [place] Within the Last 8 Weeks: No Recent Travel Out of the Country Within the Last 8 Weeks: No - Immunization History Tetanus Immunization: <5 Years Tetanus Immunization Year if Known: 2016 Hx Influenza Vaccine This Season: Yes Medications and Allergies Active Medications: Active Medications Acetaminophen (Tylenol) 650 mg PO Q4H PRN PRN Reason: Temp > 100.4 Al Hydroxide/Mg Hydroxide (Milk Of Magnesia Liq) 30 ml PO Q12H PRN PRN Reason: Mild Constipation Bisacodyl (Dulcolax Supp) 10 mg RECTAL DAILY PRN PRN Reason: SEVERE CONSITIPATION Sodium Chloride (Ns Inj) 1,000 mls @ 100 mls/hr IV.CONT .Q10H [facility] Last Admin: 09/07/17 02:12 Dose: 100 mls/hr Oxacillin Sodium 2 gm/ Sodium (Chloride) 100 mls @ 200 mls/hr IV.SIG Q4H [facility] Last Admin: 09/07/17 02:13 Dose: 200 mls/hr Lactulose (Lactulose Liq) 30 ml PO DAILY PRN PRN Reason: SEVERE CONSITIPATION Lorazepam (Ativan Inj) 1 mg IV.PUSH Q2H PRN PRN Reason: ANXIETY/WITHDRAWAL Ondansetron HCl (Zofran Odt) 4 mg PO Q6H PRN PRN Reason: NAUSEA OR VOMITING Oxycodone HCl (Roxicodone) 5 mg PO Q4H PRN PRN Reason: PAIN 3-5 Oxycodone HCl (Roxicodone) 10 mg PO Q4H PRN PRN Reason: PAIN 6-10 Senna/Docusate Sodium (Dede-Colace) 1 tab PO BID [facility] Sennosides (Senokot) 17.2 mg PO Q12H PRN PRN Reason: Moderate Constipation Temazepam (Restoril) 15 mg PO HS PRN PRN Reason: INSOMNIA Allergies Allergy/AdvReac Type Severity Reaction Status Date / Time clindamycin Allergy Severe Hives Verified 08/25/17 11:06 ketorolac Allergy Severe Hives Verified 08/25/17 11:06 vancomycin Allergy Severe Hives Verified 08/25/17 11:06 Home Medications Medication Instructions Recorded Confirmed Type No Known Home Medications 08/25/17 09/06/17 History Exam Vital signs: Vital Signs 09/06/17 21:13 09/06/17 22:49 09/06/17 22:50 Temperature 100.1 F H Pulse Rate 98 H 96 H Respiratory Rate 16 Blood Pressure 111/66 Pulse Oximetry 97 98 09/07/17 01:57 09/07/17 01:58 Temperature Pulse Rate 92 H 92 H Respiratory Rate 16 Blood Pressure 113/66 Pulse Oximetry 98 Intake & Output 09/06/17 09/06/17 09/07/17 06:59 18:59 06:59 Weight 51.256 kg Narrative: PE: GENERAL: Young female in no acute distress, tearful/crying, complaining of pain. HEENT: PERRLA, EOMI. No scleral icterus or conjunctival pallor. No lid lag or facial droop. CARDIOVASCULAR: Regular rate and rhythm. No obvious murmurs to auscultation. No chest tenderness to palpation. RESPIRATORY: No obvious rhonchi or wheezing. Clear to auscultation. Breath sounds equal bilaterally. GASTROINTESTINAL: Abdomen soft, non-tender, nondistended. BS normal. MUSCULOSKELETAL: Extremities without clubbing, cyanosis, or edema. No obvious deformities. Right hand w/ mild erythema at thumb, healing. NEUROLOGICAL: Awake, alert and oriented x4. No focal neurologic deficits. Moving both upper and lower extremities spontaneously. Results - Labs CBC & Chem 7: 09/06/17 22:15 09/06/17 22:15 Labs: Short CBC 09/06/17 Range/Units 22:15 WBC 11.3 H (4.0-11.0) th/mm3 Hgb 8.7 L (11.6-15.3) gm/dL Hct 26.7 L (35.0-46.0) % Plt Count 744 H D (150-450) th/mm3 BMP 09/06/17 22:15 Sodium 134 L Potassium 3.2 L Chloride 96 L Carbon Dioxide 29.4 BUN 10 Creatinine 0.73 Calcium 8.9 Liver Function 09/06/17 Range/Units 22:15 Total Bilirubin 0.3 (0.2-1.0) mg/dL AST 21 (15-37) U/L ALT 40 (10-53) U/L Alkaline Phosphatase 269 H (45-117) U/L Albumin 2.7 L (3.4-5.0) g/dL Urine 09/06/17 Range/Units 22:45 Urine Color Yellow (Yellw/Straw) Urine Clarity Clear (Clear) Urine pH 6.0 (5.0-8.5) Ur Specific [place] 1.006 (1.002-1.035) Urine Protein Negative (Neg-Trace) mg/dL Urine Glucose (UA) Negative (Negative) mg/dL - Imaging Impressions Chest X-Ray 09/06/17 23:34 CONCLUSION: Decrease in moderate-sized opacity at the left lung base indicating a combination of pulmonary consolidation and pleural effusion. Caprini VTE Risk Assessment Caprini VTE Risk Assessment: No/Low Risk (score <= 1) Caprini Risk Assessment Model: Point Value = 1 Point Value = 2 Point Value = 3 Point Value = 5 Age 41-60 Minor surgery BMI > 25 kg/m2 Swollen legs Varicose veins or History of unexplained or recurrent spontaneous Oral contraceptives or hormone replacement Sepsis (< 1 month) Serious lung disease, including pneumonia (< 1 month) Abnormal pulmonary function Acute myocardial infarction Congestive heart failure (< 1 month) History of inflammatory bowel disease Medical patient at bed rest Age 61-74 Arthroscopic surgery Major open surgery (> 45 min) Laparoscopic surgery (> 45 min) Malignancy Confined to bed (> 72 hours) Immobilizing plaster cast Central venous access Age >= 75 History of VTE Family history of VTE Factor V Leiden Prothrombin [id number] Lupus anticoagulant Anticardiolipin antibodies Elevated serum homocysteine Heparin-induced thrombocytopenia Other congenital or acquired thrombophilia Stroke (< 1 month) Elective arthroplasty Hip, pelvis, or leg fracture Acute spinal cord injury (< 1 month) Prophylaxis Regimen: Total Risk Factor Score Risk Level Prophylaxis Regimen 0-1 Low Early ambulation 2 Moderate Order ONE of the following: *Sequential Compression Device (SCD) *Heparin 5000 units SQ BID 3-4 Higher Order ONE of the following medications: *Heparin 5000 units SQ TID *Enoxaparin/Lovenox 40 mg SQ daily (WT < 150 kg, CrCl > 30 mL/min) *Enoxaparin/Lovenox 30 mg SQ daily (WT < 150 kg, CrCl > 10-29 mL/min) *Enoxaparin/Lovenox 30 mg SQ BID (WT < 150 kg, CrCl > 30 mL/min) AND/OR *Sequential Compression Device (SCD) 5 or more Highest Order ONE of the following medications: *Heparin 5000 units SQ TID (Preferred with Epidurals) *Enoxaparin/Lovenox 40 mg SQ daily (WT < 150 kg, CrCl > 30 mL/min) *Enoxaparin/Lovenox 30 mg SQ daily (WT < 150 kg, CrCl > 10-29 mL/min) *Enoxaparin/Lovenox 30 mg SQ BID (WT < 150 kg, CrCl > 30 mL/min) AND *Sequential Compression Device (SCD) Assessment and Plan - Assessment (1) IVDU (intravenous drug user) Code(s): F19.90 - Other psychoactive substance use, unspecified, uncomplicated Status: Acute (2) Chest pain Code(s): R07.9 - Chest pain, unspecified Status: Acute (3) Bacteremia Code(s): R78.81 - Bacteremia Status: Acute (4) Cellulitis Code(s): L03.90 - Cellulitis, unspecified Status: Resolved - Plan A/P: 1. Bacteremia: Recent admit 08/26/17 for chest pain, +IVDU, concern for Endocarditis, Blood Cultures +MSSA, Echo w/ no evidence of vegetation, plan for [facility] for further eval, however pt LEFT AMA prior to eval. Continue w/ IV Oxacillin per ID recommendation on last admit, Consult ID for further recommendations at this time. Repeat Blood Cultures. 2. Chest Pain: found to have septic pulmonary emboli and large left pleural effusion likely loculated, was to undergo chest tube insertion by IR however pt declined and LEFT AMA. CXR w/ decreasing moderate size opacity at left lung base indicating combination of pulmonary consolidation and effusion, images reviewed. Continue w/ IV Abx, Pulmonary/IR eval for possible intervention. 3. Cellulitis: Right hand cellulitis, s/p I&D right thumb by Dr. Hannon, healing, continue w/ IV Abx. 4. IVDU: Ongoing, Ativan prn. 5. DVT Prophylaxis: SCDs/teds. 6. Social work for d/c planning as needed. 7. Case discussed at length with the ER physician
[2017-09-07] MEDS: Senna/Docusate Sodium 8.6/50 MG Tablet PO SCH ×2 (08:32→20:40)
[2017-09-07] MEDS ORDERED: Naloxone Inj 0.4 MG/ML Vial IV.PUSH PRN (09:26)
--- NOTE | 2017-09-07 09:32 | P.PNIM ---
Subjective Interval history: This is a 32-year-old female with a PMH of IVDU who was recently admitted for Chest Pain w/ concern for Endocarditis, found to have RUE Cellulitis w/ I &D Right Thumb Abscess by Dr. Hannon 08/26/17, in addition to Bacteremia w/ Blood Cultures + Staph Aureus, Septic Emboli and large left pleural effusion for which patient was scheduled to undergo chest tube insertion. S/p eval by ID on Oxacillin w/ plans for long-term antibiotics, however pt LEFT AMA on . Returns now w/ ongoing c/o chest pain and wishes to be admitted for treatment. Residents paged for admission, however declined as pt LEFT AMA from their service, therefore we're asked to admit. BP 111/66, HR 98, O2 sat 97% on RA, Temp 100.1. WBC 11.3,, previously 14.3 and 09/03/2017. Chemistry essentially unremarkable except for K+ 3.2. CXR with decrease in moderate size opacity left lung base indicating combination of pulmonary consolidation and pleural effusion 09-07 WILL DECREASE THE DOSING SCHEDULE ON HER PAIN MEDS TO Q6H PATIENT NEEDS TO STAY IN THE HOSPITAL AND CONTINUE TREATMENT INSTEAD OF LEAVING TO KEEP DOING DRUGS DW RN AND PT AND FAMILY Physical Exam Vital signs: Vital Signs 09/06/17 21:13 09/06/17 22:49 09/06/17 22:50 Temperature 100.1 F H Pulse Rate 98 H 96 H Respiratory Rate 16 Blood Pressure 111/66 Pulse Oximetry 97 98 09/07/17 01:57 09/07/17 01:58 09/07/17 04:00 Temperature 98.4 F Pulse Rate 92 H 92 H 80 Respiratory Rate 16 18 Blood Pressure 113/66 95/64 L Pulse Oximetry 98 99 09/07/17 08:00 Temperature 98.1 F Pulse Rate 83 Respiratory Rate 16 Blood Pressure 96/60 L Pulse Oximetry 95 Intake & Output 09/06/17 09/07/17 09/07/17 18:59 06:59 18:59 Intake Total 340 / 340 Balance 340 / 340 Weight 57.5 kg Intake: IV 100 / 100 Prostaphlin Inj 2 GM In NS Inj 100 / 100 100 ML @ 200 mls/hr IV.SIG Q4H [facility] Rx#:[id number] Oral 240 / 240 Other: # Voids 1 Date of Last Bowel Movement 09/06/17 Weight On Admission 57.5 kg Narrative: GENERAL: Young female in no acute distress, tearful/crying, complaining of pain. HEAD: Normocephalic atraumatic HEENT: PERRLA, EOMI. No scleral icterus or conjunctival pallor. No lid lag or facial droop. Tongue is midline oral mucosa moist Neck is supple no JVD CARDIOVASCULAR: Regular rate and rhythm. No obvious murmurs to auscultation. No chest tenderness to palpation. S1-S2 no S3 or S4 RESPIRATORY: No obvious rhonchi or wheezing. Clear to auscultation. Breath sounds equal bilaterally. GASTROINTESTINAL: Abdomen soft, non-tender, nondistended. BS normal. MUSCULOSKELETAL: Extremities without clubbing, cyanosis, or edema. No obvious deformities. Right hand w/ mild erythema at thumb, healing. NEUROLOGICAL: Awake, alert and oriented x4. No focal neurologic deficits. Moving both upper and lower extremities spontaneously. Insight and judgment is quite limited mood and behavior is drug-seeking and inappropriate Results - Labs CBC & Chem 7: 09/06/17 22:15 09/06/17 22:15 Laboratory Results - last 24 hr 09/06/17 09/06/17 09/06/17 22:15 22:15 22:30 WBC 11.3 H RBC 3.32 L Hgb 8.7 L Hct 26.7 L MCV 80.3 MCH 26.2 L MCHC 32.6 RDW 14.3 Plt Count 744 H D MPV 8.0 Neut % (Auto) 75.4 H Lymph % (Auto) 17.4 [place] % (Auto) 5.7 Eos % (Auto) 0.9 Baso % (Auto) 0.6 Neut # (Auto) 8.5 H Lymph # (Auto) 2.0 [place] # (Auto) 0.6 Eos # (Auto) 0.1 Baso # (Auto) 0.1 WBC Differential . Differential Comment Auto diff final Sodium 134 L Potassium 3.2 L Chloride 96 L Carbon Dioxide 29.4 Anion Gap 9 BUN 10 Creatinine 0.73 Estimated GFR Greater than 89 POC Glucose Random Glucose 93 Lactic Acid 0.5 Calcium 8.9 Total Bilirubin 0.3 AST 21 ALT 40 Alkaline Phosphatase 269 H Total Protein 8.4 H Albumin 2.7 L Urine Color Urine Clarity Urine pH Ur Specific [place] Urine Protein Urine Glucose (UA) Urine Ketones Urine Occult Blood Urine Nitrate Urine Bilirubin Urine Urobilinogen Ur Leukocyte Esterase Urine RBC Urine WBC Ur Squamous Epith Cells Urine Bacteria Micro UA Comment Urine Culture Comments 09/06/17 09/06/17 22:45 22:58 WBC RBC Hgb Hct MCV MCH MCHC RDW Plt Count MPV Neut % (Auto) Lymph % (Auto) [place] % (Auto) Eos % (Auto) Baso % (Auto) Neut # (Auto) Lymph # (Auto) [place] # (Auto) Eos # (Auto) Baso # (Auto) WBC Differential Differential Comment Sodium Potassium Chloride Carbon Dioxide Anion Gap BUN Creatinine Estimated GFR POC Glucose 103 Random Glucose Lactic Acid Calcium Total Bilirubin AST ALT Alkaline Phosphatase Total Protein Albumin Urine Color Yellow Urine Clarity Clear Urine pH 6.0 Ur Specific [place] 1.006 Urine Protein Negative Urine Glucose (UA) Negative Urine Ketones Negative Urine Occult Blood Negative Urine Nitrate Negative Urine Bilirubin Negative Urine Urobilinogen 2.0 H Ur Leukocyte Esterase Negative Urine RBC 1 Urine WBC 1 Ur Squamous Epith Cells <1 Urine Bacteria Rare H Micro UA Comment Culture not ind Urine Culture Comments Culture not ind - Imaging Impressions Chest X-Ray 09/06/17 23:34 CONCLUSION: Decrease in moderate-sized opacity at the left lung base indicating a combination of pulmonary consolidation and pleural effusion. Assessment and Plan - Assessment (1) IVDU (intravenous drug user) Code(s): F19.90 - Other psychoactive substance use, unspecified, uncomplicated Status: Acute (2) Chest pain Code(s): R07.9 - Chest pain, unspecified Status: Acute (3) Bacteremia Code(s): R78.81 - Bacteremia Status: Acute (4) Cellulitis Code(s): L03.90 - Cellulitis, unspecified Status: Resolved - Plan 1. Bacteremia: Recent admit 08/26/17 for chest pain, +IVDU, concern for Endocarditis, Blood Cultures +MSSA, Echo w/ no evidence of vegetation, plan for [facility] for further eval, however pt LEFT AMA prior to eval. Continue w/ IV Oxacillin per ID recommendation on last admit, Consult ID for further recommendations at this time. Repeat Blood Cultures. 2. Chest Pain: found to have septic pulmonary emboli and large left pleural effusion likely loculated, was to undergo chest tube insertion by IR however pt declined and LEFT AMA. CXR w/ decreasing moderate size opacity at left lung base indicating combination of pulmonary consolidation and effusion, images reviewed. Continue w/ IV Abx, Pulmonary/IR eval for possible intervention. 3. Cellulitis: Right hand cellulitis, s/p I&D right thumb by Dr. Hannon, healing, continue w/ IV Abx. 4. IVDU: Ongoing, Ativan prn. Hypokalemia will replace 5. DVT Prophylaxis: SCDs/teds. 6. Social work for d/c planning as needed. A.m. labs Consult ID Continue on oxacillin Adjust pain medications to every 6 instead of every 4 hours Discussed with RN and patient Code Status: Full code Discussed Condition With: RN and patient Discharge Planning: We will be in the hospital for an extended period time for treatment with the oxacillin
[2017-09-07 12:01] LABS: Hepatitits B Surface Antigen Nonreactive (Nonreactive)
[2017-09-07 12:21] LABS: Hepatitis A IgM Antibody Nonreactive (Nonreactive)
--- NOTE | 2017-09-07 15:32 | P.CONID ---
History of Present Illness Service: ID Consult date: 11/08/17 Requesting Physician: Liv Lanza Reason for Consult: septic emboli and endocarditis Primary Care Provider: No Primary Care Physician Family Provider: No Primary Care Physician History of Present Illness: pt has a h/o IVDU admitted 2 weeks ago actively doing drugs presented with high grade MSSA bacteremia started on Oxacillin, left AMA 2D echo without vegeetations she came back c/o sevre pain L chest CT showed large pleural effusion L she also c/o BL LE pain, last admission she had US done and it was negative for DVT She did not complete her w/u or treatment and left AMA She had CTA done on previous admisssion and it showed septic emboli Review of Systems All other systems reviewed negative except as stated in HPI PMFSH - History History Provided By: Patient - Medical History Medical History: Medical History (Last Reviewed 11/05/17 @ 09:42 by Scarlet Power MD) Arm vein blood clot - Surgical History Surgical History: Surgical History (Last Reviewed 11/05/17 @ 09:42 by Scarlet Power MD) History of surgery on arm - Family History Family History: Family History (Last Updated 11/05/17 @ 09:42 by Scarlet Power MD) Other No pertinent family history - Social History I have reviewed the patient's Social History: Yes - Tobacco History Second Hand Smoke Exposure: Yes Tobacco Use In Past 30 Days: Yes Smoking Status: Light tobacco smoker Tobacco Type: Cigarettes - Alcohol History How Often Do You Have a Drink Containing Alcohol: Never - Substance Use History Substance History: Active Abuse - Substance Use Type Heroin Status: Active Route Used: Intravenously Frequency: HEROIN Last Used: today morning Reason for Use: Feels Good - Travel History Recent Travel in the [facility] Within the Last 8 Weeks: No Recent Travel Out of the Country Within the Last 8 Weeks: No - Immunization History Tetanus Immunization: <5 Years Tetanus Immunization Year if Known: 2017 Hx Influenza Vaccine This Season: Yes Medications and Allergies Active Medications: Active Medications Acetaminophen (Tylenol) 650 mg PO Q4H PRN PRN Reason: Temp > 100.4 Al Hydroxide/Mg Hydroxide (Milk Of Magnesia Liq) 30 ml PO Q12H PRN PRN Reason: Mild Constipation Bisacodyl (Dulcolax Supp) 10 mg RECTAL DAILY PRN PRN Reason: SEVERE CONSITIPATION Sodium Chloride (Ns Inj) 1,000 mls @ 100 mls/hr IV.CONT .Q10H [facility] Last Admin: 09/07/17 13:22 Dose: 100 mls/hr Oxacillin Sodium 2 gm/ Sodium (Chloride) 100 mls @ 200 mls/hr IV.SIG Q4H [facility] Last Infusion: 09/07/17 14:40 Dose: Infused Lactulose (Lactulose Liq) 30 ml PO DAILY PRN PRN Reason: SEVERE CONSITIPATION Lorazepam (Ativan Inj) 1 mg IV.PUSH Q2H PRN PRN Reason: ANXIETY/WITHDRAWAL Naloxone HCl (Narcan Inj) 0.4 mg IV.PUSH UNSCH PRN PRN Reason: SEE LABEL COMMENTS Ondansetron HCl (Zofran Odt) 4 mg PO Q6H PRN PRN Reason: NAUSEA OR VOMITING Oxycodone HCl (Roxicodone) 5 mg PO Q6H PRN PRN Reason: PAIN SCALE 3 TO 5 Oxycodone HCl (Roxicodone) 10 mg PO Q6H PRN PRN Reason: PAIN SCALE 6 TO 10 Last Admin: 09/07/17 14:39 Dose: 10 mg Senna/Docusate Sodium (Dede-Colace) 1 tab PO BID [facility] Last Admin: 09/07/17 08:32 Dose: Not Given Sennosides (Senokot) 17.2 mg PO Q12H PRN PRN Reason: Moderate Constipation Temazepam (Restoril) 15 mg PO HS PRN PRN Reason: INSOMNIA Allergies Allergy/AdvReac Type Severity Reaction Status Date / Time clindamycin Allergy Severe Hives Verified 08/25/17 11:06 ketorolac Allergy Severe Hives Verified 08/25/17 11:06 vancomycin Allergy Severe Hives Verified 08/25/17 11:06 Home Medications Medication Instructions Recorded Confirmed Type No Known Home Medications 08/25/17 09/06/17 History Exam Vital signs: Vital Signs 09/06/17 21:13 09/06/17 22:49 09/06/17 22:50 Temperature 100.1 F H Pulse Rate 98 H 96 H Respiratory Rate 16 Blood Pressure 111/66 Pulse Oximetry 97 98 09/07/17 01:57 09/07/17 01:58 09/07/17 04:00 Temperature 98.4 F Pulse Rate 92 H 92 H 80 Respiratory Rate 16 18 Blood Pressure 113/66 95/64 L Pulse Oximetry 98 99 09/07/17 08:00 09/07/17 12:00 Temperature 98.1 F 98.3 F Pulse Rate 83 84 Respiratory Rate 16 18 Blood Pressure 96/60 L 106/69 Pulse Oximetry 95 96 Intake & Output 09/06/17 09/07/17 09/07/17 18:59 06:59 18:59 Intake Total 340 / 340 1200 / 1200 Balance 340 / 340 1200 / 1200 Weight 57.5 kg Intake: IV 100 / 100 1200 / 1200 NS Inj 1,000 ML @ 100 mls/hr IV 1000 / 1000 .CONT .Q10H [facility] Rx#:[id number] Prostaphlin Inj 2 GM In NS Inj 100 / 100 200 / 200 100 ML @ 200 mls/hr IV.SIG Q4H [facility] Rx#:[id number] Oral 240 / 240 Other: # Voids 1 Date of Last Bowel Movement 09/06/17 Weight On Admission 57.5 kg - Constitutional mild distress (pain), thin - Routine HEENT Exam Head: Present: normocephalic, atraumatic Eye: Present: EOMI, PERRL, normal accommodation ENT: Present: mucous membranes moist, oropharynx clear, dentition normal Comments: no conjunctival petechia or hemorrhages - Routine Neck Exam Present: supple, full ROM - Routine Respiratory Exam Present: decreased breath sounds, rales (L), rhonchi (L), diminished air movement (L) - Routine Cardiovascular Exam Present: RRR, S1, S2 (no murmurs rubs gallops) - Routine Abdominal Exam Present: soft, normoactive bowel sounds Comments: no organomgaly or masses - Routine Extremities Exam Comments: no cyanosis clubbing edema no cords, no Raul's signs R thumb with ill defined swellin, tenderness and drainage - Routine Skin Exam Present: warm, scars, wounds (scattered previos injection sites) - Routine Neurological Exam Present: alert, oriented X3, CN II-XII intact, moving all extremities, normal tone, vision grossly intact, hearing grossly intact, normal speech - Routine Psychiatric Exam Present: normal affect, cooperative, anxious Results - Labs CBC & Chem 7: 09/06/17 22:15 09/06/17 22:15 Labs: Laboratory Results - last 24 hr 09/06/17 09/06/17 09/06/17 22:15 22:15 22:30 WBC 11.3 H RBC 3.32 L Hgb 8.7 L Hct 26.7 L MCV 80.3 MCH 26.2 L MCHC 32.6 RDW 14.3 Plt Count 744 H D MPV 8.0 Neut % (Auto) 75.4 H Lymph % (Auto) 17.4 [place] % (Auto) 5.7 Eos % (Auto) 0.9 Baso % (Auto) 0.6 Neut # (Auto) 8.5 H Lymph # (Auto) 2.0 [place] # (Auto) 0.6 Eos # (Auto) 0.1 Baso # (Auto) 0.1 WBC Differential . Differential Comment Auto diff final Sodium 134 L Potassium 3.2 L Chloride 96 L Carbon Dioxide 29.4 Anion Gap 9 BUN 10 Creatinine 0.73 Estimated GFR Greater than 89 POC Glucose Random Glucose 93 Lactic Acid 0.5 Calcium 8.9 Total Bilirubin 0.3 AST 21 ALT 40 Alkaline Phosphatase 269 H Total Protein 8.4 H Albumin 2.7 L Urine Color Urine Clarity Urine pH Ur Specific [place] Urine Protein Urine Glucose (UA) Urine Ketones Urine Occult Blood Urine Nitrate Urine Bilirubin Urine Urobilinogen Ur Leukocyte Esterase Urine RBC Urine WBC Ur Squamous Epith Cells Urine Bacteria Micro UA Comment Urine Culture Comments Hepatitis A IgM Ab Hep Bs Antigen Hep B Core IgM Ab Hep C IgG Ab 09/06/17 09/06/17 09/07/17 22:45 22:58 10:20 WBC RBC Hgb Hct MCV MCH MCHC RDW Plt Count MPV Neut % (Auto) Lymph % (Auto) [place] % (Auto) Eos % (Auto) Baso % (Auto) Neut # (Auto) Lymph # (Auto) [place] # (Auto) Eos # (Auto) Baso # (Auto) WBC Differential Differential Comment Sodium Potassium Chloride Carbon Dioxide Anion Gap BUN Creatinine Estimated GFR POC Glucose 103 Random Glucose Lactic Acid Calcium Total Bilirubin AST ALT Alkaline Phosphatase Total Protein Albumin Urine Color Yellow Urine Clarity Clear Urine pH 6.0 Ur Specific [place] 1.006 Urine Protein Negative Urine Glucose (UA) Negative Urine Ketones Negative Urine Occult Blood Negative Urine Nitrate Negative Urine Bilirubin Negative Urine Urobilinogen 2.0 H Ur Leukocyte Esterase Negative Urine RBC 1 Urine WBC 1 Ur Squamous Epith Cells <1 Urine Bacteria Rare H Micro UA Comment Culture not ind Urine Culture Comments Culture not ind Hepatitis A IgM Ab Nonreactive Hep Bs Antigen Nonreactive Hep B Core IgM Ab Nonreactive Hep C IgG Ab Reactive H - Imaging Impressions Chest X-Ray 09/06/17 23:34 CONCLUSION: Decrease in moderate-sized opacity at the left lung base indicating a combination of pulmonary consolidation and pleural effusion. 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 osteo Active IVDU Non compliance cont oxacillin fu blood clx CT guided thoracocenthesis R thumb Xray
--- NOTE | 2017-09-07 16:17 | ECG ---
Date Performed: 09/06/2017 Time Performed: 21:48:37 PTAGE: 32 years EKG: Sinus rhythm NONSPECIFIC T-WAVE ABNORMALITY BORDERLINE ECG Since PREVIOUS TRACING , no significant change noted PREVIOUS TRACIN08/25/2017 22.31 DOCTOR: Alfredo Chavez Interpretating Date/Time 09/07/2017 16:17:12
--- NOTE | 2017-09-07 17:18 | XR ---
EXAM DATE: 09/07/2017 5:14 PM EDT AGE/SEX: 32 years / Female INDICATIONS: Right hand first digit swelling. Unknown injury. CLINICAL DATA: This is the patient's initial encounter. Patient reports that signs and symptoms have been present for 1 month and indicates a pain score of 5/10. MEDICAL/SURGICAL HISTORY: None. None. COMPARISON: No prior exams available for comparison. FINDINGS: Bony structures are intact and in normal alignment. Joints are intact without dislocation or signifi cant arthropathy. Osseous density is normal. There is mild soft tissue swelling about the mid and di stal first digit. No radiopaque foreign bodies.. No radiopaque foreign bodies seen. CONCLUSION: The osseous structures of the first digit are radiographically intact. Electronically signed by: Trino Menendez MD 09/07/2017 5:17 PM EDT
[2017-09-07] MEDS ORDERED: Lidocaine 1%/Epinephrine 1:100,000 Inj 20 ML Vial ONE (17:30)
[2017-09-07] MEDS ORDERED: fentaNYL Citrate Inj 100 MCG/2 ML Ampul ONE ×3 (17:58→18:47)
--- NOTE | 2017-09-07 19:28 | P.RAD ---
Post CT Procedure Prog Note - Pre Procedure Diagnosis (1) Pleural effusion (2) Lung consolidation - Post Procedure Diagnosis (1) Pleural effusion (2) Lung consolidation - Procedure Information Procedure Date: 09/07/17 Supervising Radiologist: Sheng Fuller MD Anesthesia: Local, Analgesia - Plan of Activity Patient to Unit: Nursing Unit Patient condition: Good See PACS Report for procedural detail/treatment. Drainage Procedure left Chest Tube Non-Tunneled Fluid Description: Yellow, Red Findings: 100 cc sent to lab for evaluation
--- NOTE | 2017-09-07 19:34 | CT ---
EXAM DATE: 09/07/2017 7:14 PM EDT AGE/SEX: 32 years / Female INDICATIONS: Pleural effusion. CLINICAL DATA: This is the patient's initial encounter. Patient reports that signs and symptoms have been present for 1 day and indicates a pain score of 7/10. MEDICAL/SURGICAL HISTORY: None. None. RADIATION DOSE: CTDI (mGy) COMPARISON: No prior exams available for comparison. MEDICATION(S): 2mg lorazepam (Ativan) IV 100mcg fentanyl (Sublimaze) IV DEVICE(S): 10 Fr Chris FLUID: Total volume of 200 of clear, yellow fluid was removed. Fluid was sent to lab for ordered studies.. . . PROCEDURE: CT guided left thoracentesis with chest tube placement. The site was prepped in sterile fashion. Full sterile technique was used, including cap, mask, steri le gloves and gown and a large sterile sheet. Hand hygiene and 2% chlorhexidine and/or betadine/alco hol prep was utilized per protocol for cutaneous antisepsis. The skin and subcutaneous tissues were infiltrated with local anesthetic solution. Using automated exposure control and adjustment of the m A and/or kV according to patient size, radiation dose was kept as low as reasonably achievable to obt ain optimal diagnostic quality images. DICOM format image data is available electronically for revie w and comparison. Under CT guidance a 10 Fr Chris catheter was placed in the left pleural space, and clear, yellow fl uid were gently aspirated out of the chest. Chest tube was inserted. Post procedural scan show reduc tion in the amount of fluid with no evidence of pneumothorax. The patient tolerated the procedure well and there were no complications. The patient was sent to [facility] in stable condition. CONCLUSION: 1. Uncomplicated CT-guided thoracentesis. Electronically signed by: Sheng Fuller MD 09/07/2017 7:33 PM EDT
[2017-09-07 20:03] LABS: Total Protein,Pleural Fluid 5.7 gm/dL
[2017-09-07] MEDS: Temazepam 15 MG Capsule PO PRN (20:40)
[2017-09-08] MEDS: Sod Chloride 0.9% Inj 1,000 ML IV.CONT SCH ×3 (01:01→23:41)
[2017-09-08 03:38] LABS: Eosinophils,Pleural Fluid 1 %; Lymphocytes,Pleural Fluid 82 %; Neutrophils,Pleural Fluid 17 %
[2017-09-08] MEDS ORDERED: Haloperidol Inj 5 MG/ML Ampul IV.PUSH PRN (11:18)
--- NOTE | 2017-09-08 11:22 | P.PNIM ---
Subjective Interval history: This is a 32-year-old female with a PMH of IVDU who was recently admitted for Chest Pain w/ concern for Endocarditis, found to have RUE Cellulitis w/ I &D Right Thumb Abscess by Dr. Hannon 08/26/17, in addition to Bacteremia w/ Blood Cultures + Staph Aureus, Septic Emboli and large left pleural effusion for which patient was scheduled to undergo chest tube insertion. S/p eval by ID on Oxacillin w/ plans for long-term antibiotics, however pt LEFT AMA on . Returns now w/ ongoing c/o chest pain and wishes to be admitted for treatment. Residents paged for admission, however declined as pt LEFT AMA from their service, therefore we're asked to admit. BP 111/66, HR 98, O2 sat 97% on RA, Temp 100.1. WBC 11.3,, previously 14.3 and 09/03/2017. Chemistry essentially unremarkable except for K+ 3.2. CXR with decrease in moderate size opacity left lung base indicating combination of pulmonary consolidation and pleural effusion 09-07 WILL DECREASE THE DOSING SCHEDULE ON HER PAIN MEDS TO Q6H PATIENT NEEDS TO STAY IN THE HOSPITAL AND CONTINUE TREATMENT INSTEAD OF LEAVING TO KEEP DOING DRUGS DW RN AND PT AND FAMILY 09-08 HAD LEFT SIDE CHEST TUBE PLACED BY IR ON 09-07 WANTS MORE PAIN MEDICATIONS DW RN AND PT DRUG SEEKING BEHAVIOR IS QUITE OBVIOUS Physical Exam Vital signs: Vital Signs 09/07/17 12:00 09/07/17 16:00 09/07/17 20:00 Temperature 98.3 F Pulse Rate 76 76 88 Respiratory Rate 18 Blood Pressure 106/69 Pulse Oximetry 96 09/07/17 20:35 09/08/17 00:00 09/08/17 04:00 Temperature 98.2 F 98.4 F 98 F Pulse Rate 90 91 H 88 Respiratory Rate 20 18 18 Blood Pressure 54/36 L 125/60 104/66 Pulse Oximetry 95 97 96 09/08/17 04:01 09/08/17 08:00 Temperature 98.1 F Pulse Rate 88 85 Respiratory Rate 18 Blood Pressure 105/66 Pulse Oximetry 98 Intake & Output 09/07/17 09/08/17 09/08/17 18:59 06:59 18:59 Intake Total 2200 / 2200 2443 / 2443 Balance 2200 / 2200 2443 / 2443 Weight 61.1 kg Intake: IV 1300 / 1300 1141 / 1141 NS Inj 1,000 ML @ 100 mls/hr IV 1000 / 1000 841 / 841 .CONT .Q10H VANESSA Rx#:[id number] Prostaphlin Inj 2 GM In NS Inj 300 / 300 300 / 300 100 ML @ 200 mls/hr IV.SIG Q4H VANESSA Rx#:[id number] Oral 900 / 900 1302 / 1302 Other: # Voids 6 2 Narrative: GENERAL: Young female in no acute distress, tearful/crying, complaining of pain. HEAD: Normocephalic atraumatic HEENT: PERRLA, EOMI. No scleral icterus or conjunctival pallor. No lid lag or facial droop. Tongue is midline oral mucosa moist Neck is supple no JVD CARDIOVASCULAR: Regular rate and rhythm. No obvious murmurs to auscultation. No chest tenderness to palpation. S1-S2 no S3 or S4 RESPIRATORY: No obvious rhonchi or wheezing. Clear to auscultation. Breath sounds equal bilaterally. CHEST TUBE ON LEFT NOW GASTROINTESTINAL: Abdomen soft, non-tender, nondistended. BS normal. MUSCULOSKELETAL: Extremities without clubbing, cyanosis, or edema. No obvious deformities. Right hand w/ mild erythema at thumb, healing. NEUROLOGICAL: Awake, alert and oriented x4. No focal neurologic deficits. Moving both upper and lower extremities spontaneously. Insight and judgment is quite limited mood and behavior is drug-seeking and inappropriate Results - Labs CBC & Chem 7: 09/06/17 22:15 09/06/17 22:15 Laboratory Results - last 24 hr 09/07/17 09/07/17 09/07/17 10:20 18:45 18:45 Pleural RBC 49355 H Pleural Nuc Cells 323 H Pleural Neutrophils 17 Pleural Lymphocytes 82 Pleural Eosinophils 1 Pleural Fluid Comment Pleural Total Protein 5.7 Pleural Glucose 71 Hepatitis A IgM Ab Nonreactive Hep Bs Antigen Nonreactive Hep B Core IgM Ab Nonreactive Hep C IgG Ab Reactive H Microbiology 09/06/17 22:15 Blood - Peripheral Aerobic Blood Culture - Preliminary No growth in 2 days 09/06/17 22:15 Blood - Peripheral Anaerobic Blood Culture - Preliminary No growth in 2 days 09/06/17 22:30 Blood - Peripheral Aerobic Blood Culture - Preliminary No growth in 2 days 09/06/17 22:30 Blood - Peripheral Anaerobic Blood Culture - Preliminary No growth in 2 days 09/07/17 18:45 Fluid - Pleural fluid Gram Stain - Final - Imaging Impressions Chest Tube Insertion 09/07/17 00:00 CONCLUSION: 1. Uncomplicated CT-guided thoracentesis. Finger X-Ray 09/07/17 00:00 CONCLUSION: The osseous structures of the first digit are radiographically intact. - Procedures CHEST TUBE ON LEFT BY IR 09-07 Assessment and Plan - Assessment (1) IVDU (intravenous drug user) Code(s): F19.90 - Other psychoactive substance use, unspecified, uncomplicated Status: Acute (2) Chest pain Code(s): R07.9 - Chest pain, unspecified Status: Acute (3) Bacteremia Code(s): R78.81 - Bacteremia Status: Acute (4) Cellulitis Code(s): L03.90 - Cellulitis, unspecified Status: Resolved - Plan 1. Bacteremia: Recent admit 08/26/17 for chest pain, +IVDU, concern for Endocarditis, Blood Cultures +MSSA, Echo w/ no evidence of vegetation, plan for SETH for further eval, however pt LEFT AMA prior to eval. Continue w/ IV Oxacillin per ID recommendation on last admit, Consult ID for further recommendations at this time. Repeat Blood Cultures. 2. Chest Pain: found to have septic pulmonary emboli and large left pleural effusion likely loculated, was to undergo chest tube insertion by IR however pt declined and LEFT AMA. CXR w/ decreasing moderate size opacity at left lung base indicating combination of pulmonary consolidation and effusion, images reviewed. Continue w/ IV Abx, Pulmonary/IR eval for possible intervention. 3. Cellulitis: Right hand cellulitis, s/p I&D right thumb by Dr. Hannon, healing, continue w/ IV Abx. 4. IVDU: Ongoing, Ativan prn. Hypokalemia will replace 5. DVT Prophylaxis: SCDs/teds. 6. Social work for d/c planning as needed. LEFT SIDE CHEST TUBE SP THORACENTESIS AND LEFT SIDE CHEST TUBE ON 7-21 A.m. labs Consult ID Continue on oxacillin Adjust pain medications to every 5 instead of every 6 hours Discussed with RN and patient Code Status: FULL CODE Discussed Condition With: RN AND PT AND FAMILY Discharge Planning: We will be in the hospital for an extended period time for treatment with the oxacillin
[2017-09-08] MEDS: Senna/Docusate Sodium 8.6/50 MG Tablet PO SCH ×2 (11:39→20:18)
[2017-09-08] MEDS: LORazepam 1 MG Tablet PO PRN (13:31)
--- NOTE | 2017-09-08 19:40 | XR ---
EXAM DATE: 09/08/2017 7:32 PM EDT AGE/SEX: 32 years / Female INDICATIONS: S/P chest tube placement, left chest. CLINICAL DATA: This is the patient's subsequent encounter. Patient reports that signs and symptoms h ave been present for 1 day and indicates a pain score of 10/10. MEDICAL/SURGICAL HISTORY: . Deep venous thrombosis. . Left breast biopsy. [place] [facility] [place]. . FINDINGS: Left chest drainage tube has been placed since prior examination with the tip projecting in the media l left chest. Persistent opacity laterally in the left lower lung and consolidation in the retrocardi ac region with associated loss of delineation of the entire left hemidiaphragm is similar to prior ex amination. The right lung is clear. No evidence of mediastinal shift. No evidence of pneumothorax. CONCLUSION: Interval placement left chest drainage catheter with persistent lateral left lower chest opacity and left lower lung consolidation. No evidence of pneumothorax. Electronically signed by: Trino Menendez MD 09/08/2017 7:39 PM EDT
[2017-09-08] MEDS: Temazepam 15 MG Capsule PO PRN (23:27)
[2017-09-09] MEDS: OXACILLIN IV.SIG SCH ×5 (04:41→20:55)
[2017-09-09] MEDS: SODIUM CHLOR 0.9% IV.SIG SCH ×5 (04:41→20:55)
[2017-09-09] MEDS: Senna/Docusate Sodium 8.6/50 MG Tablet PO SCH ×2 (08:08→21:40)
--- NOTE | 2017-09-09 11:58 | P.PNIM ---
Subjective Interval history: This is a 32-year-old female with a PMH of IVDU who was recently admitted for Chest Pain w/ concern for Endocarditis, found to have RUE Cellulitis w/ I &D Right Thumb Abscess by Dr. Hannon 08/26/17, in addition to Bacteremia w/ Blood Cultures + Staph Aureus, Septic Emboli and large left pleural effusion for which patient was scheduled to undergo chest tube insertion. S/p eval by ID on Oxacillin w/ plans for long-term antibiotics, however pt LEFT AMA on . Returns now w/ ongoing c/o chest pain and wishes to be admitted for treatment. Residents paged for admission, however declined as pt LEFT AMA from their service, therefore we're asked to admit. BP 111/66, HR 98, O2 sat 97% on RA, Temp 100.1. WBC 11.3,, previously 14.3 and 09/03/2017. Chemistry essentially unremarkable except for K+ 3.2. CXR with decrease in moderate size opacity left lung base indicating combination of pulmonary consolidation and pleural effusion 09-07 WILL DECREASE THE DOSING SCHEDULE ON HER PAIN MEDS TO Q6H PATIENT NEEDS TO STAY IN THE HOSPITAL AND CONTINUE TREATMENT INSTEAD OF LEAVING TO KEEP DOING DRUGS DW RN AND PT AND FAMILY 09-08 HAD LEFT SIDE CHEST TUBE PLACED BY IR ON 09-07 WANTS MORE PAIN MEDICATIONS DW RN AND PT DRUG SEEKING BEHAVIOR IS QUITE OBVIOUS 09-09 HAS DRUG SEEKING BEHAVIOR WANTS MORE PAIN MEDS HAS OBVIOUS DRUG SEEKING BEHAVIOR WAS RESTING THEN DECIDED TO BE IN PAIN SOON I WALKED IN THE ROOM- LOOKED COMFORTABLE WHEN I OBSERVED HER PRIOR TO WALKING IN THE ROOM HAS CHEST TUBE ON LEFT SIDE STILL REFUSING LABS TODAY Physical Exam Vital signs: Vital Signs 09/08/17 12:00 09/08/17 16:00 09/08/17 20:00 Temperature 98.2 F 98.2 F 98.4 F Pulse Rate 97 H 85 87 Respiratory Rate 18 18 17 Blood Pressure 102/68 112/57 L 106/58 L Pulse Oximetry 98 98 97 09/09/17 00:00 09/09/17 00:37 09/09/17 04:00 Temperature 98.8 F 97.8 F Pulse Rate 83 85 80 Respiratory Rate 19 17 Blood Pressure 124/61 106/72 Pulse Oximetry 97 97 09/09/17 04:02 09/09/17 08:00 Temperature 97.4 F L Pulse Rate 88 77 Respiratory Rate 19 Blood Pressure 93/62 L Pulse Oximetry 96 Intake & Output 09/08/17 09/09/17 09/09/17 18:59 06:59 18:59 Intake Total 2500 / 2500 2080 / 2080 100 / 100 Output Total 30 / 30 780 / 780 Balance 2470 / 2470 1300 / 1300 100 / 100 Weight 60 kg Intake: IV 1300 / 1300 1200 / 1200 100 / 100 NS Inj 1,000 ML @ 100 mls/hr IV 1000 / 1000 1000 / 1000 .CONT .Q10H VANESSA Rx#:[id number] Prostaphlin Inj 2 GM In NS Inj 100 / 100 100 / 100 100 ML @ 200 mls/hr IV.SIG Q4H VANESSA Rx#:[id number] Prostaphlin Inj 2 GM In NS Inj 300 / 300 100 / 100 100 ML @ 200 mls/hr IV.SIG Q4H VANESSA Rx#:[id number] Oral 1200 / 1200 880 / 880 Output: Urine 750 / 750 Chest Tube Drainage #1 Left Upper Pleural Other: # Voids 4 5 # Incontinent Voids 1 Date of Last Bowel Movement 09/06/17 Narrative: GENERAL: Young female in no acute distress, tearful/crying, complaining of pain. HEAD: Normocephalic atraumatic HEENT: PERRLA, EOMI. No scleral icterus or conjunctival pallor. No lid lag or facial droop. Tongue is midline oral mucosa moist Neck is supple no JVD CARDIOVASCULAR: Regular rate and rhythm. No obvious murmurs to auscultation. No chest tenderness to palpation. S1-S2 no S3 or S4 RESPIRATORY: No obvious rhonchi or wheezing. Clear to auscultation. Breath sounds equal bilaterally. CHEST TUBE ON LEFT NOW GASTROINTESTINAL: Abdomen soft, non-tender, nondistended. BS normal. MUSCULOSKELETAL: Extremities without clubbing, cyanosis, or edema. No obvious deformities. Right hand w/ mild erythema at thumb, healing. NEUROLOGICAL: Awake, alert and oriented x4. No focal neurologic deficits. Moving both upper and lower extremities spontaneously. Insight and judgment is quite limited mood and behavior is drug-seeking and inappropriate Results - Labs CBC & Chem 7: 09/06/17 22:15 09/06/17 22:15 Microbiology 09/06/17 22:15 Blood - Peripheral Aerobic Blood Culture - Preliminary No growth in 3 days 09/06/17 22:15 Blood - Peripheral Anaerobic Blood Culture - Preliminary No growth in 3 days 09/06/17 22:30 Blood - Peripheral Aerobic Blood Culture - Preliminary No growth in 3 days 09/06/17 22:30 Blood - Peripheral Anaerobic Blood Culture - Preliminary No growth in 3 days 09/07/17 18:45 Fluid - Pleural fluid Gram Stain - Final 09/07/17 18:45 Fluid - Pleural fluid Body Fluid Culture - Preliminary No growth in 48 hours - Imaging Impressions Chest X-Ray 09/08/17 19:20 CONCLUSION: Interval placement left chest drainage catheter with persistent lateral left lower chest opacity and left lower lung consolidation. No evidence of pneumothorax. - Procedures CHEST TUBE ON LEFT BY IR 09-07 Assessment and Plan - Assessment (1) IVDU (intravenous drug user) Code(s): F19.90 - Other psychoactive substance use, unspecified, uncomplicated Status: Acute (2) Chest pain Code(s): R07.9 - Chest pain, unspecified Status: Acute (3) Bacteremia Code(s): R78.81 - Bacteremia Status: Acute (4) Cellulitis Code(s): L03.90 - Cellulitis, unspecified Status: Resolved - Plan 1. Bacteremia: Recent admit 08/26/17 for chest pain, +IVDU, concern for Endocarditis, Blood Cultures +MSSA, Echo w/ no evidence of vegetation, plan for SETH for further eval, however pt LEFT AMA prior to eval. Continue w/ IV Oxacillin per ID recommendation on last admit, Consult ID for further recommendations at this time. Repeat Blood Cultures. 2. Chest Pain: found to have septic pulmonary emboli and large left pleural effusion likely loculated, was to undergo chest tube insertion by IR however pt declined and LEFT AMA. CXR w/ decreasing moderate size opacity at left lung base indicating combination of pulmonary consolidation and effusion, images reviewed. Continue w/ IV Abx, Pulmonary/IR eval for possible intervention. 3. Cellulitis: Right hand cellulitis, s/p I&D right thumb by Dr. Hannon, healing, continue w/ IV Abx. 4. IVDU: Ongoing, Ativan prn. Hypokalemia will replace 5. DVT Prophylaxis: SCDs/teds. 6. Social work for d/c planning as needed. LEFT SIDE CHEST TUBE SP THORACENTESIS AND LEFT SIDE CHEST TUBE ON 09-07 A.m. labs Consult ID Continue on oxacillin Adjust pain medications to every 5 instead of every 6 hours Discussed with RN and patient PATIENT IS REFUSING LABS TODAY 09-09 WILL REORDER LABS FOR TOMORROW DW RN AND PT AND CM Code Status: FULL CODE Discussed Condition With: RN AND PT AND CM Discharge Planning: We will be in the hospital for an extended period time for treatment with the oxacillin
--- NOTE | 2017-09-09 14:12 | P.PNPLA ---
Subjective Remarks: Patient complaining of pain. Objective Vital Signs: Vital Signs - 24 hr 09/08/17 16:00 09/08/17 20:00 09/09/17 00:00 Temperature 98.2 F 98.4 F 98.8 F Pulse Rate 85 87 83 Respiratory Rate 18 17 19 Blood Pressure 112/57 L 106/58 L 124/61 Pulse Oximetry 98 97 97 09/09/17 00:37 09/09/17 04:00 09/09/17 04:02 Temperature 97.8 F Pulse Rate 85 80 88 Respiratory Rate 17 Blood Pressure 106/72 Pulse Oximetry 97 09/09/17 08:00 09/09/17 12:00 09/09/17 12:41 Temperature 97.4 F L 98.6 F Pulse Rate 77 97 H 95 H Respiratory Rate 19 18 Blood Pressure 93/62 L 112/55 L Pulse Oximetry 96 96 Intake & Output 09/07/17 09/08/17 09/09/17 09/10/17 06:59 06:59 06:59 06:59 Intake Total 340 / 340 4643 / 4643 4580 / 4580 200 / 200 Output Total 810 / 810 Balance 340 / 340 4643 / 4643 3770 / 3770 200 / 200 Weight 57.5 kg 61.1 kg 60 kg Laboratory Results: Microbiology 09/06/17 22:15 Aerobic Blood Culture - Preliminary Blood - Peripheral No growth in 3 days Anaerobic Blood Culture - Preliminary No growth in 3 days 09/06/17 22:30 Aerobic Blood Culture - Preliminary Blood - Peripheral No growth in 3 days Anaerobic Blood Culture - Preliminary No growth in 3 days 09/07/17 18:45 Gram Stain - Final Fluid - Pleural fluid Body Fluid Culture - Preliminary No growth in 48 hours Result Diagrams: 09/06/17 22:15 09/06/17 22:15 Exam Findings: No further swelling in the right arm. The right thumb is healing nicely. The new nail will push out the old one. No further infection is noted in the right thumb. X-ray is negative for osteomyelitis. Assessment and Plan - Diagnosis (1) Cellulitis Status: Resolved Code(s): L03.90 - Cellulitis, unspecified - Plan Impression: The right upper extremity infections have resolved. Plan: Local wound care to the right thumb.
[2017-09-09] MEDS: Sod Chloride 0.9% Inj 1,000 ML IV.CONT SCH ×2 (15:26→15:27)
--- NOTE | 2017-09-09 16:21 | P.PNID ---
Subjective Remarks: This is a 32-year-old white female who uses IV drugs. The patient reports that she last used IV drugs 2 days ago. She was brought to the emergency department complaining of chest pain and shortness of breath. She reportedly noted that it started a couple days ago. The pain is located at the left side of her chest and she has difficulty breathing. The patient used IV heroin prior to the admission. She was noted to have large area of swelling and erythema on the right forearm and hand, which is markedly swollen and she has an area of grayish discoloration with swelling at the right thumb. She was evaluated in the emergency department. She had temperature of 99.8 and heart rate of 102 and the temperature increased to 103 degrees and a white blood cell count was elevated at 12.5. Lactic acid was 3.4. The patient had blood cultures taken and all 4 bottles of the blood cultures have gram-positive cocci. White blood cell count has increased to 16.6. Hand surgeon was called to evaluate the patient and the right thumb was debrided. Allergies/Adverse Reactions: Allergies clindamycin Allergy (Severe, Verified 08/25/17 11:06) Hives "CAN'T BREATHE" ketorolac Allergy (Severe, Verified 08/25/17 11:06) Hives "CAN'T BREATHE" vancomycin Allergy (Severe, Verified 08/25/17 11:06) Hives "CAN'T BREATHE" Objective Vital Signs 09/08/17 20:00 09/09/17 00:00 09/09/17 00:37 Temperature 98.4 F 98.8 F Pulse Rate 87 83 85 Respiratory Rate 17 19 Blood Pressure 106/58 L 124/61 Pulse Oximetry 97 97 09/09/17 04:00 09/09/17 04:02 09/09/17 08:00 Temperature 97.8 F 97.4 F L Pulse Rate 80 88 77 Respiratory Rate 17 19 Blood Pressure 106/72 93/62 L Pulse Oximetry 97 96 09/09/17 12:00 09/09/17 12:41 Temperature 98.6 F Pulse Rate 97 H 95 H Respiratory Rate 18 Blood Pressure 112/55 L Pulse Oximetry 96 Intake & Output 09/08/17 09/09/17 09/09/17 18:59 06:59 18:59 Intake Total 2500 / 2500 2080 / 2080 300 / 300 Output Total 30 / 30 780 / 780 Balance 2470 / 2470 1300 / 1300 300 / 300 Weight 60 kg Intake: IV 1300 / 1300 1200 / 1200 300 / 300 NS Inj 1,000 ML @ 100 mls/hr IV 1000 / 1000 1000 / 1000 .CONT .Q10H VANESSA Rx#:[id number] Prostaphlin Inj 2 GM In NS Inj 100 / 100 300 / 300 100 ML @ 200 mls/hr IV.SIG Q4H VANESSA Rx#:[id number] Prostaphlin Inj 2 GM In NS Inj 300 / 300 100 / 100 100 ML @ 200 mls/hr IV.SIG Q4H VANESSA Rx#:[id number] Oral 1200 / 1200 880 / 880 Output: Urine 750 / 750 Chest Tube Drainage #1 Left Upper Pleural Other: # Voids 4 5 # Incontinent Voids 1 Date of Last Bowel Movement 09/06/17 09/06/17 22:15 Blood - Peripheral Aerobic Blood Culture - Preliminary No growth in 3 days 09/06/17 22:15 Blood - Peripheral Anaerobic Blood Culture - Preliminary No growth in 3 days 09/06/17 22:30 Blood - Peripheral Aerobic Blood Culture - Preliminary No growth in 3 days 09/06/17 22:30 Blood - Peripheral Anaerobic Blood Culture - Preliminary No growth in 3 days 09/07/17 18:45 Fluid - Pleural fluid Gram Stain - Final 09/07/17 18:45 Fluid - Pleural fluid Body Fluid Culture - Preliminary No growth in 48 hours Imaging: ITS Impressions Chest Tube Insertion 09/07/17 00:00 CONCLUSION: 1. Uncomplicated CT-guided thoracentesis. Finger X-Ray 09/07/17 00:00 CONCLUSION: The osseous structures of the first digit are radiographically intact. Chest X-Ray 09/08/17 19:20 CONCLUSION: Interval placement left chest drainage catheter with persistent lateral left lower chest opacity and left lower lung consolidation. No evidence of pneumothorax. Physical Exam: Physical Exam: GENERAL: No acute distress. HEAD, EARS, EYES, NOSE AND THROAT: head is atraumatic. Extraocular movements are grossly intact. Pupils reactive to light. No icterus. No conjunctival erythema. Oropharynx mucosa is moist. No visible lesions. NECK: Supple without adenopathy. LUNGS: Decreased breath sounds. HEART: Regular rate and rhythm without audible murmurs, rubs or gallops. ABDOMEN: Bowel sounds present. Soft, no tenderness appreciated. EXTREMITIES: Less swelling with erythema at the aspect of the right forearm with erythema at the mid forearm. The dorsum of the right hand is less swollen and the thumb is post-debridement No visible embolic lesions. SKIN: No diffuse rash. NEUROLOGIC: No gross focal findings. PSYCHOLOGIC: Calm and cooperative. Assessment and Plan - Plan IMPRESSION: 1. Sepsis due to staph aureus. Presumed endocarditis. 2. Septic emboli of the lung. 3. Left lung pleural effusion/empyema. 4. Recent severe cellulitis of the right forearm with abscess of the left thumb - post debridement and resolved. Right finger x-ray shows the bone structure to be intact. 5. IV drug abuse. 6. Noncompliance. Patient signed out AGAINST MEDICAL ADVICE and returned for readmission. RECOMMENDATIONS: 1. Continue Oxacillin IV. 2. Follow the pleural fluid culture. 3. Continue IV antibiotic treatment for sepsis/septic pulmonary emboli/ endocarditis. She needs to be on IV antibiotics until October 07, 2017.
[2017-09-10] MEDS: OXACILLIN IV.SIG SCH ×7 (00:45→23:18)
[2017-09-10] MEDS: SODIUM CHLOR 0.9% IV.SIG SCH ×7 (00:45→23:18)
[2017-09-10] MEDS: Temazepam 15 MG Capsule PO PRN ×2 (00:46→21:39)
[2017-09-10] MEDS: Sod Chloride 0.9% Inj 1,000 ML IV.CONT SCH ×3 (10:37→21:48)
--- NOTE | 2017-09-10 11:04 | P.PNIM ---
Subjective Interval history: This is a 32-year-old female with a PMH of IVDU who was recently admitted for Chest Pain w/ concern for Endocarditis, found to have RUE Cellulitis w/ I &D Right Thumb Abscess by Dr. Hannon 08/26/17, in addition to Bacteremia w/ Blood Cultures + Staph Aureus, Septic Emboli and large left pleural effusion for which patient was scheduled to undergo chest tube insertion. S/p eval by ID on Oxacillin w/ plans for long-term antibiotics, however pt LEFT AMA on . Returns now w/ ongoing c/o chest pain and wishes to be admitted for treatment. Residents paged for admission, however declined as pt LEFT AMA from their service, therefore we're asked to admit. BP 111/66, HR 98, O2 sat 97% on RA, Temp 100.1. WBC 11.3,, previously 14.3 and 09/03/2017. Chemistry essentially unremarkable except for K+ 3.2. CXR with decrease in moderate size opacity left lung base indicating combination of pulmonary consolidation and pleural effusion 09-07 WILL DECREASE THE DOSING SCHEDULE ON HER PAIN MEDS TO Q6H PATIENT NEEDS TO STAY IN THE HOSPITAL AND CONTINUE TREATMENT INSTEAD OF LEAVING TO KEEP DOING DRUGS DW RN AND PT AND FAMILY 09-08 HAD LEFT SIDE CHEST TUBE PLACED BY IR ON 09-07 WANTS MORE PAIN MEDICATIONS DW RN AND PT DRUG SEEKING BEHAVIOR IS QUITE OBVIOUS 09-09 HAS DRUG SEEKING BEHAVIOR WANTS MORE PAIN MEDS HAS OBVIOUS DRUG SEEKING BEHAVIOR WAS RESTING THEN DECIDED TO BE IN PAIN SOON I WALKED IN THE ROOM- LOOKED COMFORTABLE WHEN I OBSERVED HER PRIOR TO WALKING IN THE ROOM HAS CHEST TUBE ON LEFT SIDE STILL REFUSING LABS TODAY 09-10 NO NEW COMPLAINTS NEEDS TO STAY THRU OCTOBER 07, 2017 FOR ANTIBIOTICS COMPLAINS OF PAIN STILL HAS CHEST TUBE ON LEFT Physical Exam Vital signs: Vital Signs 09/09/17 12:00 09/09/17 12:41 09/09/17 16:00 Temperature 98.6 F Pulse Rate 97 H 95 H 91 H Respiratory Rate 18 Blood Pressure 112/55 L Pulse Oximetry 96 09/09/17 16:19 09/09/17 20:00 09/09/17 23:51 Temperature 98.0 F 98.2 F Pulse Rate 89 88 75 Respiratory Rate 20 18 Blood Pressure 105/60 108/71 Pulse Oximetry 96 96 09/10/17 00:00 09/10/17 03:52 09/10/17 04:00 Temperature 98.2 F 98.1 F Pulse Rate 77 73 92 H Respiratory Rate 18 18 Blood Pressure 107/71 102/68 Pulse Oximetry 97 97 Intake & Output 09/09/17 09/10/17 09/10/17 18:59 06:59 18:59 Intake Total 1020 / 1020 3460 / 3460 Output Total 1300 / 1300 1999 Balance -280 / -280 1460 / 1460 Weight 58.5 kg Intake: IV 300 / 300 1300 / 1300 NS Inj 1,000 ML @ 100 mls/hr IV 1000 / 1000 .CONT .Q10H VANESSA Rx#:[id number] Prostaphlin Inj 2 GM In NS Inj 300 / 300 300 / 300 100 ML @ 200 mls/hr IV.SIG Q4H VANESSA Rx#:[id number] Oral 720 / 720 2160 / 2160 Output: Urine 1300 / 1300 1999 Other: Date of Last Bowel Movement 09/06/17 # Bowel Movements 0 Narrative: GENERAL: Young female in no acute distress, tearful/crying, complaining of pain. HEAD: Normocephalic atraumatic HEENT: PERRLA, EOMI. No scleral icterus or conjunctival pallor. No lid lag or facial droop. Tongue is midline oral mucosa moist Neck is supple no JVD CARDIOVASCULAR: Regular rate and rhythm. No obvious murmurs to auscultation. No chest tenderness to palpation. S1-S2 no S3 or S4 RESPIRATORY: No obvious rhonchi or wheezing. Clear to auscultation. Breath sounds equal bilaterally. CHEST TUBE ON LEFT NOW GASTROINTESTINAL: Abdomen soft, non-tender, nondistended. BS normal. MUSCULOSKELETAL: Extremities without clubbing, cyanosis, or edema. No obvious deformities. Right hand IMPROVED at thumb, healing. NEUROLOGICAL: Awake, alert and oriented x4. No focal neurologic deficits. Moving both upper and lower extremities spontaneously. Insight and judgment is quite limited mood and behavior is drug-seeking and inappropriate Results - Labs CBC & Chem 7: 09/06/17 22:15 09/06/17 22:15 Microbiology 09/06/17 22:15 Blood - Peripheral Aerobic Blood Culture - Preliminary No growth in 3 days 09/06/17 22:15 Blood - Peripheral Anaerobic Blood Culture - Preliminary No growth in 3 days 09/06/17 22:30 Blood - Peripheral Aerobic Blood Culture - Preliminary No growth in 3 days 09/06/17 22:30 Blood - Peripheral Anaerobic Blood Culture - Preliminary No growth in 3 days 09/07/17 18:45 Fluid - Pleural fluid Gram Stain - Final 09/07/17 18:45 Fluid - Pleural fluid Body Fluid Culture - Preliminary No growth in 48 hours - Procedures CHEST TUBE ON LEFT BY IR 09-07 Assessment and Plan - Assessment (1) IVDU (intravenous drug user) Code(s): F19.90 - Other psychoactive substance use, unspecified, uncomplicated Status: Acute (2) Chest pain Code(s): R07.9 - Chest pain, unspecified Status: Acute (3) Bacteremia Code(s): R78.81 - Bacteremia Status: Acute (4) Cellulitis Code(s): L03.90 - Cellulitis, unspecified Status: Resolved - Plan 1. Bacteremia: Recent admit 08/26/17 for chest pain, +IVDU, concern for Endocarditis, Blood Cultures +MSSA, Echo w/ no evidence of vegetation, plan for SETH for further eval, however pt LEFT AMA prior to eval. Continue w/ IV Oxacillin per ID recommendation on last admit, Consult ID for further recommendations at this time. Repeat Blood Cultures. CONTINUE THRU 10-07-17 2. Chest Pain: found to have septic pulmonary emboli and large left pleural effusion likely loculated, was to undergo chest tube insertion by IR however pt declined and LEFT AMA. CXR w/ decreasing moderate size opacity at left lung base indicating combination of pulmonary consolidation and effusion, images reviewed. Continue w/ IV Abx, Pulmonary/IR eval for possible intervention. 3. Cellulitis: Right hand cellulitis, s/p I&D right thumb by Dr. Hannon, healing, continue w/ IV Abx. 4. IVDU: Ongoing, Ativan prn. Hypokalemia will replace 5. DVT Prophylaxis: SCDs/teds. 6. Social work for d/c planning as needed. LEFT SIDE CHEST TUBE SP THORACENTESIS AND LEFT SIDE CHEST TUBE ON 7-21 A.m. labs Consult ID Continue on oxacillin Adjust pain medications to every 5 instead of every 6 hours Discussed with RN and patient PATIENT IS REFUSING LABS TODAY 09-09 WILL REORDER LABS FOR TOMORROW DW RN AND PT AND CM CONTINUE OXACILLIN THROUGH 10-07 Code Status: FULL CODE Discussed Condition With: RN AND PT AND CM AND FAMILY Discharge Planning: We will be in the hospital for an extended period time for treatment with the oxacillin THRU OCTOBER 07, 2017
[2017-09-10] MEDS: Senna/Docusate Sodium 8.6/50 MG Tablet PO SCH ×2 (11:57→20:00)
--- NOTE | 2017-09-10 12:46 | XR ---
EXAM DATE: 09/10/2017 12:41 PM EDT AGE/SEX: 32 years / Female INDICATIONS: . Pleural effusion. Left chest tube. CLINICAL DATA: This is the patient's subsequent encounter. Patient reports that signs and symptoms h ave been present for 4 - 6 days and indicates a pain score of 8/10. MEDICAL/SURGICAL HISTORY: None. None. COMPARISON: C, CT THORACENTESIS LEFT W INSERT, 09/07/2017. [facility] [place], CHEST EXPIRATION ONLY, 09/09/19 18. . FINDINGS: There is a small left-sided chest tube noted in the left hemithorax. The chest tubes is positioned po steriorly. No evidence of pneumothorax. The right lung is grossly clear. There appears to be some res idual left-sided pleural effusion. The heart size is within normal limits. The bony structures are gr ossly intact. CONCLUSION: 1. Left-sided chest tube in place with no evidence of pneumothorax. 2. There appears to be a small amount of residual left-sided pleural effusion. Electronically signed by: Yoni Lam MD 09/10/2017 12:45 PM EDT
[2017-09-11] MEDS: SODIUM CHLOR 0.9% IV.SIG SCH ×6 (03:10→23:39)
[2017-09-11] MEDS: OXACILLIN IV.SIG SCH ×6 (03:10→23:39)
[2017-09-11] MEDS: Senna/Docusate Sodium 8.6/50 MG Tablet PO SCH ×2 (11:34→20:22)
[2017-09-11] MEDS: Sod Chloride 0.9% Inj 1,000 ML IV.CONT SCH ×2 (11:34→23:40)
--- NOTE | 2017-09-11 11:45 | P.PNIM ---
Subjective Interval history: Cheerful and wants more pain medication. Asked for IV Dilaudid. Physical Exam Vital signs: Vital Signs 09/10/17 12:00 09/10/17 14:09 09/10/17 16:00 Temperature 97.9 F 97.7 F Pulse Rate 84 88 Respiratory Rate 17 16 16 Blood Pressure 97/56 L 104/57 L Pulse Oximetry 97 97 09/10/17 20:00 09/11/17 00:00 09/11/17 04:00 Temperature 97.4 F L 98.0 F 97.9 F Pulse Rate 92 H 75 76 Respiratory Rate 18 16 16 Blood Pressure 100/58 L 106/54 L 95/52 L Pulse Oximetry 97 98 98 09/11/17 08:00 Temperature 97.9 F Pulse Rate 79 Respiratory Rate 18 Blood Pressure 91/58 L Pulse Oximetry 96 Intake & Output 09/10/17 09/11/17 09/11/17 18:59 06:59 18:59 Intake Total 1060 / 1060 4700 / 4700 1100 / 1100 Output Total 1200 / 1200 2500 / 2500 Balance -140 / -140 2200 / 2200 1100 / 1100 Weight 58.9 kg Intake: IV 100 / 100 2300 / 2300 1100 / 1100 NS Inj 1,000 ML @ 100 mls/hr IV 2000 / 2000 1000 / 1000 .CONT .Q10H VANESSA Rx#:[id number] Prostaphlin Inj 2 GM In NS Inj 100 / 100 300 / 300 100 / 100 100 ML @ 200 mls/hr IV.SIG Q4H VANESSA Rx#:[id number] Oral 960 / 960 2400 / 2400 Output: Urine 1200 / 1200 2500 / 2500 Other: Date of Last Bowel Movement 09/10/17 # Bowel Movements 0 0 Narrative: GENERAL: This is a well-nourished, well-developed patient, in no apparent distress. CARDIOVASCULAR: Regular rate and rhythm without murmurs, gallops, or rubs. RESPIRATORY: Clear to auscultation. Breath sounds equal bilaterally. No wheezes , rales, or rhonchi. GASTROINTESTINAL: Abdomen soft, non-tender, nondistended. Normal active bowel sounds MUSCULOSKELETAL: Extremities without clubbing, cyanosis, or edema. NEURO: Alert & Oriented x4 to person, place, time, situation. Moves all ext x4 Results - Labs CBC & Chem 7: 09/06/17 22:15 09/06/17 22:15 Microbiology 09/06/17 22:15 Blood - Peripheral Aerobic Blood Culture - Final No growth in 5 days 09/06/17 22:15 Blood - Peripheral Anaerobic Blood Culture - Final No growth in 5 days 09/06/17 22:30 Blood - Peripheral Aerobic Blood Culture - Final No growth in 5 days 09/06/17 22:30 Blood - Peripheral Anaerobic Blood Culture - Final No growth in 5 days 09/07/17 18:45 Fluid - Pleural fluid Gram Stain - Final 09/07/17 18:45 Fluid - Pleural fluid Body Fluid Culture - Final No growth in 72 hours (aerobically and anaerobically ) - Imaging Impressions Chest X-Ray 09/10/17 00:00 CONCLUSION: 1. Left-sided chest tube in place with no evidence of pneumothorax. 2. There appears to be a small amount of residual left-sided pleural effusion. - Procedures CHEST TUBE ON LEFT BY IR 09-07 Assessment and Plan - Assessment (1) IVDU (intravenous drug user) Code(s): F19.90 - Other psychoactive substance use, unspecified, uncomplicated Status: Acute (2) Chest pain Code(s): R07.9 - Chest pain, unspecified Status: Acute (3) Bacteremia Code(s): R78.81 - Bacteremia Status: Acute (4) Cellulitis Code(s): L03.90 - Cellulitis, unspecified Status: Resolved - Plan 1. Sepsis emboli with suspected endocarditis with underlying MS as a bacteremia : Recent admit 08/26/17 for chest pain, +IVDU, concern for Endocarditis, Blood Cultures +MSSA, Echo w/ no evidence of vegetation, plan for SETH for further eval , however pt LEFT AMA prior to evaluation. Continue w/ IV Oxacillin per ID recommendation on last admit with end day of October 07, Consult ID for further recommendations at this time. Repeat Blood Cultures. CONTINUE THRU 10-07-17 2. Chest Pain: found to have septic pulmonary emboli and large left pleural effusion likely loculated, was to undergo chest tube insertion by IR however pt declined and LEFT AMA. CXR w/ decreasing moderate size opacity at left lung base indicating combination of pulmonary consolidation and effusion, images reviewed. Continue w/ IV Abx, Pulmonary/IR eval for possible intervention. 3. Cellulitis: Right hand cellulitis, s/p I&D right thumb by Dr. Hannon, healing, continue w/ IV Abx. Resolving. 4. IVDU: Ongoing, Ativan prn. Hypokalemia will replace 5. DVT Prophylaxis: SCDs/teds. Adjust pain medications to every 4 hours on Percocet 5, discussed with patient I will not be prescribing IV Dilaudid due to her IV drug abuse history. Discussed with RN and patient
[2017-09-11] MEDS: Temazepam 15 MG Capsule PO PRN (21:21)
[2017-09-12] MEDS: Sod Chloride 0.9% Inj 1,000 ML IV.CONT SCH ×3 (03:16→23:49)
[2017-09-12] MEDS: OXACILLIN IV.SIG SCH ×6 (03:41→23:49)
[2017-09-12] MEDS: SODIUM CHLOR 0.9% IV.SIG SCH ×6 (03:41→23:49)
[2017-09-12] MEDS: LORazepam 1 MG Tablet PO PRN ×4 (09:14→21:46)
[2017-09-12] MEDS: Senna/Docusate Sodium 8.6/50 MG Tablet PO SCH ×2 (09:15→20:56)
--- NOTE | 2017-09-12 11:24 | P.PNIM ---
Subjective Interval history: No complaints at this time. Gave permission to speak to mother over the phone. Physical Exam Vital signs: Vital Signs 09/11/17 12:00 09/11/17 16:00 09/11/17 20:00 Temperature 98.0 F 98.0 F 97.4 F L Pulse Rate 89 92 H 86 Respiratory Rate 16 18 18 Blood Pressure 101/63 104/59 L 102/55 L Pulse Oximetry 98 97 97 09/12/17 00:00 09/12/17 04:00 09/12/17 08:00 Temperature 97.8 F 97.6 F 97.6 F Pulse Rate 73 79 74 Respiratory Rate 18 18 16 Blood Pressure 104/58 L 106/58 L 93/54 L Pulse Oximetry 97 09/12/17 09:10 Temperature Pulse Rate 84 Respiratory Rate Blood Pressure 96/53 L Pulse Oximetry Intake & Output 09/11/17 09/12/17 09/12/17 18:59 06:59 18:59 Intake Total 1300 / 1300 2300 / 2300 Balance 1300 / 1300 2300 / 2300 Weight 60 kg Intake: IV 1300 / 1300 1300 / 1300 NS Inj 1,000 ML @ 100 mls/hr IV 1000 / 1000 1000 / 1000 .CONT .Q10H VANESSA Rx#:[id number] Prostaphlin Inj 2 GM In NS Inj 300 / 300 300 / 300 100 ML @ 200 mls/hr IV.SIG Q4H VANESSA Rx#:[id number] Oral 1000 / 1000 Other: Date of Last Bowel Movement 09/10/17 Narrative: GENERAL: This is a well-nourished, well-developed patient, in no apparent distress. Chest wall : left chest tube in place CARDIOVASCULAR: Regular rate and rhythm without murmurs, gallops, or rubs. RESPIRATORY: Clear to auscultation. Breath sounds equal bilaterally. No wheezes , rales, or rhonchi. GASTROINTESTINAL: Abdomen soft, non-tender, nondistended. Normal active bowel sounds MUSCULOSKELETAL: Extremities without clubbing, cyanosis, or edema. NEURO: Alert & Oriented x4 to person, place, time, situation. Moves all ext x4 Results - Labs CBC & Chem 7: 09/06/17 22:15 09/06/17 22:15 Microbiology 09/06/17 22:15 Blood - Peripheral Aerobic Blood Culture - Final No growth in 5 days 09/06/17 22:15 Blood - Peripheral Anaerobic Blood Culture - Final No growth in 5 days 09/06/17 22:30 Blood - Peripheral Aerobic Blood Culture - Final No growth in 5 days 09/06/17 22:30 Blood - Peripheral Anaerobic Blood Culture - Final No growth in 5 days - Procedures CHEST TUBE ON LEFT BY IR 09-07 Assessment and Plan - Assessment (1) IVDU (intravenous drug user) Code(s): F19.90 - Other psychoactive substance use, unspecified, uncomplicated Status: Acute (2) Chest pain Code(s): R07.9 - Chest pain, unspecified Status: Acute (3) Bacteremia Code(s): R78.81 - Bacteremia Status: Acute (4) Cellulitis Code(s): L03.90 - Cellulitis, unspecified Status: Resolved - Plan 1. Sepsis emboli with suspected endocarditis with underlying MS as a bacteremia : Recent admit 08/26/17 for chest pain, +IVDU, concern for Endocarditis, previous blood Cultures +MSSA, Echo w/ no evidence of vegetation, plan for SETH for further evaluation, however pt LEFT AMA prior to evaluation. Continue w/ IV Oxacillin per ID recommendation on last admit with end day of October 07, Repeat Blood Cultures shows no acute growth. CONTINUE THRU 10-07-17 2. Chest Pain: found to have septic pulmonary emboli and large left pleural effusion likely loculated, was to undergo chest tube insertion by IR however pt declined and LEFT AMA. CXR w/ decreasing moderate size opacity at left lung base indicating combination of pulmonary consolidation and effusion Continue w / IV Abx, Pulmonary/IR evaluate 3. Cellulitis: Right hand cellulitis, s/p I&D right thumb by Dr. Hannon, healing, continue w/ IV Abx. Resolving. 4. IVDU: Ongoing, Ativan prn. Hypokalemia will replace 5. DVT Prophylaxis: SCDs/teds. Adjust pain medications to every 4 hours on Percocet 5, discussed with patient yesterday I will not be prescribing IV Dilaudid due to her IV drug abuse history. Discussed with RN and patient
[2017-09-12] MEDS: Temazepam 15 MG Capsule PO PRN (20:57)
[2017-09-13] MEDS: LORazepam 1 MG Tablet PO PRN ×5 (01:34→20:54)
[2017-09-13] MEDS: OXACILLIN IV.SIG SCH ×5 (03:22→20:57)
[2017-09-13] MEDS: SODIUM CHLOR 0.9% IV.SIG SCH ×5 (03:22→20:57)
--- NOTE | 2017-09-13 07:07 | XR ---
EXAM DATE: 09/13/2017 7:00 AM EDT AGE/SEX: 32 years / Female INDICATIONS: Short of breath, evaluate pleural effusion and chest tube CLINICAL DATA: This is the patient's subsequent encounter. Patient reports that signs and symptoms h ave been present for 1 week and indicates a pain score of 10/10. MEDICAL/SURGICAL HISTORY: . pleural effusion . chest tube COMPARISON: C, CHEST 2V PA&LAT, 09/10/2017. . FINDINGS: Left pleural effusion has not changed. Left chest tube is again seen without pneumothorax. Left lung base consolidation is difficult to exclude. CONCLUSION: Left pleural effusion not significantly changed. Electronically signed by: Darci Allison MD 09/13/2017 7:06 AM EDT
[2017-09-13] MEDS: Senna/Docusate Sodium 8.6/50 MG Tablet PO SCH ×2 (09:36→20:56)
--- NOTE | 2017-09-13 12:15 | P.PNIM ---
Subjective Interval history: Complaining of a lot of pain around the left chest tube would like to have it out soon. Tearful. Physical Exam Vital signs: Vital Signs 09/12/17 16:00 09/12/17 16:01 09/12/17 20:00 Temperature 98.5 F 97.9 F Pulse Rate 84 78 72 Respiratory Rate 17 18 Blood Pressure 102/58 L 99/51 L Pulse Oximetry 97 98 09/13/17 00:00 09/13/17 03:55 09/13/17 04:00 Temperature 97.9 F 97.7 F Pulse Rate 80 79 72 Respiratory Rate 18 18 Blood Pressure 104/55 L 104/59 L Pulse Oximetry 97 100 09/13/17 08:00 Temperature 97.9 F Pulse Rate 80 Respiratory Rate 17 Blood Pressure 95/54 L Pulse Oximetry 99 Intake & Output 09/12/17 09/13/17 09/13/17 18:59 06:59 18:59 Intake Total 2740 / 2740 2350 / 2350 Output Total 3000 / 3000 3450 / 3450 Balance -260 / -260 -1100 / -1100 Weight 58.9 kg Intake: IV 1300 / 1300 1150 / 1150 NS Inj 1,000 ML @ 100 mls/hr IV 1000 / 1000 850 / 850 .CONT .Q10H VANESSA Rx#:[id number] Prostaphlin Inj 2 GM In NS Inj 300 / 300 300 / 300 100 ML @ 200 mls/hr IV.SIG Q4H VANESSA Rx#:[id number] Oral 1440 / 1440 1200 / 1200 Output: Urine 3000 / 3000 3450 / 3450 Other: Date of Last Bowel Movement 09/10/17 09/10/17 # Bowel Movements 0 0 Narrative: GENERAL: This is a well-nourished, well-developed patient, in no apparent distress. Chest wall : left chest tube in place CARDIOVASCULAR: Regular rate and rhythm without murmurs, gallops, or rubs. RESPIRATORY: Clear to auscultation. Breath sounds equal bilaterally. No wheezes , rales, or rhonchi. GASTROINTESTINAL: Abdomen soft, non-tender, nondistended. Normal active bowel sounds MUSCULOSKELETAL: Extremities without clubbing, cyanosis, or edema. NEURO: Alert & Oriented x4 to person, place, time, situation. Moves all ext x4 Results - Labs CBC & Chem 7: 09/06/17 22:15 09/06/17 22:15 - Imaging Impressions Chest X-Ray 09/13/17 06:00 CONCLUSION: Left pleural effusion not significantly changed. - Procedures CHEST TUBE ON LEFT BY IR 09-07 Assessment and Plan - Assessment (1) IVDU (intravenous drug user) Code(s): F19.90 - Other psychoactive substance use, unspecified, uncomplicated Status: Acute (2) Chest pain Code(s): R07.9 - Chest pain, unspecified Status: Acute (3) Bacteremia Code(s): R78.81 - Bacteremia Status: Acute (4) Cellulitis Code(s): L03.90 - Cellulitis, unspecified Status: Resolved - Plan 1. Sepsis emboli with suspected endocarditis with underlying MS as a bacteremia : Recent admit 08/26/17 for chest pain, +IVDU, concern for Endocarditis, previous blood Cultures +MSSA, Echo w/ no evidence of vegetation, plan for SETH for further evaluation, however pt LEFT AMA prior to evaluation. Continue w/ IV Oxacillin per ID recommendation on last admit with end day of October 07, Repeat Blood Cultures shows no acute growth. CONTINUE THRU 10-07-17 2. Chest Pain/ pleural effusion, suspect empyema: found to have septic pulmonary emboli and large left pleural effusion likely loculated, was to undergo chest tube insertion by IR however pt declined and LEFT AMA. CXR w/ decreasing moderate size opacity at left lung base indicating combination of pulmonary consolidation and effusion Continue w/ IV Abx, Pulmonary/IR evaluate left pleural effusion/empyema with current chest tube. Cultures shows no growth. At this time no significant drainage will consult cardiothoracic surgery to determine if further intervention will need to be done versus removal of chest tube. 3. Cellulitis: Right hand cellulitis, s/p I&D right thumb by Dr. Hannon, healing, continue w/ IV Abx. Resolving. 4. IVDU: Ongoing, Ativan prn. Hypokalemia will replace 5. DVT Prophylaxis: SCDs/teds. Adjust pain medications to every 4 hours on Percocet 5, discussed with patient I will not be prescribing IV Dilaudid due to her IV drug abuse history. Discussed with RN and patient
[2017-09-13] MEDS: Sod Chloride 0.9% Inj 1,000 ML IV.CONT SCH (13:56)
--- NOTE | 2017-09-13 15:10 | MB ---
cc: Sugey Hein Jacqueline R ARNP DATE: 09/13/2017 DATE OF : 1985 HISTORY OF PRESENT ILLNESS: A 32-year-old female who was just recently in the hospital from 08/26/2017, signed herself out AMA on 09/05/2017. Initially admitted with chest pain, history of IV drug abuse of heroin. She says she last used approximately a few weeks ago prior to her ER admission. After she signed out AMA, she was home for just less than a day, was outside in the rain and felt worse, was more short of breath and with chest discomfort. During her course of her initial admission, she was found to have a cellulitis on her right thumb from a prior cut, which grew Staph. She was also found to have Staph aureus in her blood. She had an I and D by Dr. Hannon. On 08/26/2017 she was to be treated for oxacillin long-term outpatient treatment. However, she again signed out AMA. They also found some septic emboli and a large left pleural effusion. She was scheduled to have a chest tube placement. She states that when they told they were going to put her to sleep she got scared and signed out AMA. On this admission, she was found to have a left pleural effusion, combination consolidation versus effusion. She underwent left got a left CT-guided thoracentesis on 09/07/2017 and drained about 200 mL of yellowish fluid. The fluid culture did not grow out anything since the , aerobically and anaerobically. Her white cell count on this admission is 11.3. She has been afebrile on this admission. We were consulted in regards to possible left lower lobe empyema versus need for a left video-assisted thoracoscopy, decortication. PAST MEDICAL HISTORY: Again, recent right thumb cellulitis with Staphylococcus aureus, recent diagnosis of bacteremia, Staphylococcus aureus, hepatitis C positive, hep B negative, apparent IV drug use, last was 3-4 weeks ago. She has been injecting heroin off and on for the past 10 years. She mainly uses her right forearm for injection. Some chronic anemia. PAST SURGICAL HISTORY: Her surgeries include a recent I and D of her right thumb. INSULATION PACKER HISTORY: She has had her last menstrual period a couple months ago. She has 3 children that live with her aunt. FAMILY HISTORY: Mother and father are still alive, rather healthy. SOCIAL HISTORY: Apparently and lives with her . She is not employed. She denies smoking cigarettes; however, per her initial admission, she is a light tobacco smoker, apparently does not drink alcohol. Active heroin use. REVIEW OF SYSTEMS: As above in the HPI, the 12 systems are unremarkable. PHYSICAL EXAMINATION: VITAL SIGNS: Blood pressure 100/60, heart rate is 75, temperature T-max 97.4. GENERAL: The patient is awake, alert, in no acute distress. She is rather tearful, somewhat anxious. HEENT: Head is normocephalic, atraumatic. Pupils equal and reactive. Oral mucosa pink, moist. NECK: Supple. No JVD. HEART: Sounds S1, S2. Regular rate and rhythm. No audible rubs or gallops. LUNGS: Diminished left lower lobe, otherwise clear to auscultation. CHEST: She had a left-sided pigtail catheter with no air leak, has drained minimal drainage since the 09/09/2017. ABDOMEN: Soft, nontender. No masses or organomegaly. EXTREMITIES: No cyanosis, clubbing or edema. She does have some track todd on her right forearm. She has got a scar in her left arm. Apparently, she said she had an abscess from using methamphetamines. LABORATORY DATA: Urinalysis on this admission showed rare bacteria. Sodium 134, potassium 3.2, BUN of 10, creatinine 0.73. Hemoglobin 8.7, hematocrit 26, white cell count of 11, platelet count of 274. Pleural fluid showed nucleated cells 323, neutrophils 17, total protein 5.7, glucose 71, RBCs were 20,000. Pleural fluid shows negative for any bacteria. This is a 32-year-old female who was recently admitted with sepsis, Staph aureus, with history of recent cellulitis of her right thumb, which underwent incision and drainage. She did have an echocardiogram on 08/26/2017, which showed an EF of 55-60%, trace valvular regurgitation, tricuspid regurgitation. No mention of any vegetation, structurally normal tricuspid valve, structurally normal mitral valve. IMPRESSION: A 32-year-old with a left effusion that drained 200 mL of yellowish fluid that did not show evidence for any bacteria. PLAN: We will check CT scan to rule out any further fluid collection. At this time, the CT will be evaluated by Dr. Owusu. If no need for any further evaluation, then recommend removal of the chest tube by Interventional Radiology. I have discussed ongoing drug use with the patient and counseled. Sugey Hein [facility] MD MATEUS Mederos/MONA , 02:33 PM , 02:48 PM
--- NOTE | 2017-09-13 18:17 | CT ---
EXAM DATE: 09/13/2017 5:58 PM EDT AGE/SEX: 32 years / Female INDICATIONS: Chest pain, evaluate left pleural effusion. CLINICAL DATA: This is the patient's subsequent encounter. Patient reports that signs and symptoms h ave been present for 1 week and indicates a pain score of 5/10. MEDICAL/SURGICAL HISTORY: . Endocarditis. Substance abuse. Cellulitis. None. RADIATION DOSE: 7.13 CTDI (mGy) COMPARISON: [facility] – [place], CT CHEST W CONTRAST, 09/04/2017. . TECHNIQUE: Multiple contiguous axial images were obtained through the chest without contrast. Image s were obtained in suspended respiration using multiple row detector helical technique. Using automa kiko exposure control and adjustment of the mA and/or kV according to patient size, radiation dose was kept as low as reasonably achievable to obtain optimal diagnostic quality images. DICOM format imag e data is available electronically for review and comparison. FINDINGS: Lungs: There is increased density seen throughout the posterior aspect of the left lower lobe likely related to atelectasis or consolidation. There are patchy areas of mild increased parenchymal densit y in the left upper lung. There appears to be a cavitary lesion measuring 0.9 cm in the posterior asp ect of the right upper lobe. Mediastinum: There is good visualization of the great vessels of the middle mediastinum. No evidenc e of mediastinal or hilar adenopathy/mass. Pleurae: There is a mild left pleural effusion. There is a drain in the left pleural space. There is minimal right pleural effusion. Axillae: There are mildly prominent lymph nodes in the right axillary region. Bony Structures: Unremarkable. Miscellaneous: The examination was extended to include the upper abdomen, and both adrenal glands ar e normal in size and configuration. CONCLUSION: 1. Left chest tube and a mild left pleural effusion. 2. Minimal right pleural effusion. 3. Persistent cavitary lesion in the right upper lobe. There is also some vague small patchy areas o f density in the right upper lung. 4. Suspected atelectasis or consolidation at the left lung base. Given the effusion, atelectasis wou ld be more likely. Electronically signed by: Brandon Aragon MD 09/13/2017 6:16 PM EDT
[2017-09-13] MEDS: Temazepam 15 MG Capsule PO PRN (20:54)
[2017-09-14] MEDS: OXACILLIN IV.SIG SCH ×5 (00:31→16:28)
[2017-09-14] MEDS: SODIUM CHLOR 0.9% IV.SIG SCH ×5 (00:31→16:28)
[2017-09-14] MEDS: LORazepam 1 MG Tablet PO PRN ×6 (00:32→20:27)
--- NOTE | 2017-09-14 10:23 | P.PNIM ---
Subjective Interval history: Pt seen and examined for f/u of endocarditis. Complaints of pain at chest tube site and wants it out. No other complaints. Physical Exam Vital signs: Vital Signs 09/13/17 12:00 09/13/17 14:01 09/13/17 16:00 Temperature 98.5 F 98.2 F Pulse Rate 82 75 Respiratory Rate 17 18 16 Blood Pressure 96/58 L 92/55 L Pulse Oximetry 98 98 09/13/17 20:00 09/14/17 00:00 09/14/17 04:00 Temperature 97.9 F 98.1 F 98.0 F Pulse Rate 85 68 65 Respiratory Rate 14 14 14 Blood Pressure 130/69 121/70 119/78 Pulse Oximetry 95 95 95 Intake & Output 09/13/17 09/14/17 09/14/17 18:59 06:59 18:59 Intake Total 2725 / 2725 1400 / 1400 100 / 100 Output Total 3200 / 3200 3000 / 3000 Balance -475 / -475 -1600 / -1600 100 / 100 Intake: IV 1300 / 1300 200 / 200 100 / 100 NS Inj 1,000 ML @ 100 mls/hr IV 1000 / 1000 0 / 0 .CONT .Q10H VANESSA Rx#:[id number] Prostaphlin Inj 2 GM In NS Inj 300 / 300 200 / 200 100 / 100 100 ML @ 200 mls/hr IV.SIG Q4H VANESSA Rx#:[id number] Oral 1425 / 1425 1200 / 1200 Output: Urine 3200 / 3200 3000 / 3000 Chest Tube Drainage 0 / 0 0 / 0 #1 Left Upper Pleural 0 / 0 0 / 0 Other: # Voids 4 Date of Last Bowel Movement 09/13/17 09/14/17 # Bowel Movements 2 Narrative: GENERAL: Thin female resting in bed in NAD. SKIN: Warm and dry. NECK: Supple no tender LAD or JVD. HEART: RRR with 1/6 LAURA. LUNGS: CTAB without wheezes or crackles. ABDOMEN: +BS, soft, NT, ND. EXTREMITIES: No LE edema. NEURO: Awake and alert. Results - Labs CBC & Chem 7: 09/06/17 22:15 09/06/17 22:15 - Imaging Impressions Chest X-Ray 09/13/17 06:00 CONCLUSION: Left pleural effusion not significantly changed. Chest CT 09/13/17 13:09 CONCLUSION: 1. Left chest tube and a mild left pleural effusion. 2. Minimal right pleural effusion. 3. Persistent cavitary lesion in the right upper lobe. There is also some vague small patchy areas of density in the right upper lung. 4. Suspected atelectasis or consolidation at the left lung base. Given the effusion, atelectasis would be more likely. - Procedures CHEST TUBE ON LEFT BY IR 09-07 Assessment and Plan - Assessment (1) IVDU (intravenous drug user) Code(s): F19.90 - Other psychoactive substance use, unspecified, uncomplicated Status: Acute (2) Chest pain Code(s): R07.9 - Chest pain, unspecified Status: Acute (3) Bacteremia Code(s): R78.81 - Bacteremia Status: Acute - Plan 32 year old female with history of IVDU originally admitted on 08/26 for high- grade MSSA bacteremia and started on oxacillin but left AMA. She returned to the ER on 09/07 complaining of chest pain with CT showing a large left pleural effusion. 1. 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 R thumb abscess/cellulitis - XR negative for osteo - S/P I&D by Dr. Hannon - Continue IV abx 3. IVDU - Counseled on cessation - Ativan PRN - Avoid IV pain medications DVT prophylaxis: SCDs, ambulate
--- NOTE | 2017-09-14 10:54 | P.PNCV ---
- Note Subjective/Hospital Course: Minimal drainage from the chest drain. CT does not demonstrate any loculated fluid cavities. There is area of atelectasis with a possible small effusion which is irrelevant at this point. No surgical therapy is indicated given near complete drainage of the fluid collection. Okay to DC the chest tube from my standpoint. Should the fluid recur, she will need a formal drainage and decortication procedure We will sign off for now. Please feel free to contact me if I can be of any further assistance. Objective: Vital Signs - 24 hr 09/13/17 12:00 09/13/17 14:01 09/13/17 16:00 Temperature 98.5 F 98.2 F Pulse Rate 82 75 Respiratory Rate 17 18 16 Blood Pressure 96/58 L 92/55 L Pulse Oximetry 98 98 09/13/17 20:00 09/14/17 00:00 09/14/17 04:00 Temperature 97.9 F 98.1 F 98.0 F Pulse Rate 85 68 65 Respiratory Rate 14 14 14 Blood Pressure 130/69 121/70 119/78 Pulse Oximetry 95 95 95 Result Diagrams: 09/06/17 22:15 09/06/17 22:15
[2017-09-14] MEDS: Senna/Docusate Sodium 8.6/50 MG Tablet PO SCH ×2 (12:04→20:26)
[2017-09-14] MEDS: Temazepam 15 MG Capsule PO PRN (22:00)
[2017-09-15] MEDS: LORazepam 1 MG Tablet PO PRN ×6 (00:34→20:34)
[2017-09-15] MEDS: OXACILLIN IV.SIG SCH ×7 (00:35→20:34)
[2017-09-15] MEDS: SODIUM CHLOR 0.9% IV.SIG SCH ×7 (00:35→20:34)
[2017-09-15] MEDS: Senna/Docusate Sodium 8.6/50 MG Tablet PO SCH ×2 (08:27→20:35)
[2017-09-15] MEDS: Sod Chloride 0.9% Inj 1,000 ML IV.CONT SCH ×4 (12:22→20:35)
--- NOTE | 2017-09-15 13:17 | P.PNIM ---
Subjective Interval history: Pt seen and examined for f/u of MSSA bacteremia, septic emboli, and presumed endocarditis. She is sleeping comfortably in bed upon entering the room but when awakened she complains of pain at the chest tube site and becomes very agitated using profanities and raising her voice. She does not allow me to examine her today. Physical Exam Vital signs: Vital Signs 09/14/17 16:00 09/14/17 20:00 09/15/17 00:00 Temperature 97.7 F 97.8 F 97.9 F Pulse Rate 84 76 86 Respiratory Rate 16 16 18 Blood Pressure 100/60 100/58 L 109/64 Pulse Oximetry 98 100 97 09/15/17 04:00 09/15/17 07:42 09/15/17 08:00 Temperature 97.9 F 97.5 F L Pulse Rate 68 80 Respiratory Rate 18 18 20 Blood Pressure 94/58 L 80/65 L Pulse Oximetry 98 99 09/15/17 12:00 Temperature Pulse Rate 76 Respiratory Rate Blood Pressure Pulse Oximetry Intake & Output 09/14/17 09/15/17 09/15/17 18:59 06:59 18:59 Intake Total 400 / 400 1920 / 1920 900 / 900 Balance 400 / 400 1920 / 1920 900 / 900 Weight 59.9 kg Intake: IV 400 / 400 1200 / 1200 300 / 300 NS Inj 1,000 ML @ 100 mls/hr IV 0 / 0 1000 / 1000 .CONT .Q10H VANESSA Rx#:[id number] Prostaphlin Inj 2 GM In NS Inj 400 / 400 200 / 200 300 / 300 100 ML @ 200 mls/hr IV.SIG Q4H VANESSA Rx#:[id number] Oral 720 / 720 600 / 600 Other: # Voids 8 3 # Bowel Movements 2 Narrative: Pt resting in bed comfortably upon entering room but then became very agitated and refused physical exam. Results - Labs CBC & Chem 7: 09/06/17 22:15 09/06/17 22:15 - Procedures CHEST TUBE ON LEFT BY IR 7 Assessment and Plan - Assessment (1) IVDU (intravenous drug user) Code(s): F19.90 - Other psychoactive substance use, unspecified, uncomplicated Status: Acute (2) Chest pain Code(s): R07.9 - Chest pain, unspecified Status: Acute (3) Bacteremia Code(s): R78.81 - Bacteremia Status: Acute - Plan 32 year old female with history of IVDU originally admitted on 08/26 for high- grade MSSA bacteremia and started on oxacillin but left AMA. She returned to the ER on 09/07 complaining of chest pain with CT showing a large left pleural effusion. 1. 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 Unfortunately, it may not be done until tomorrow. Discussed this with the patient who became very upset and hostile 2. R thumb abscess/cellulitis - XR negative for osteo - S/P I&D by Dr. Hannon - Continue IV abx 3. IVDU - Ativan PRN - Avoid IV pain medications DVT prophylaxis: SCDs, ambulate Discharge Planning: On IV oxacillin through 10/07
[2017-09-15] MEDS: Temazepam 15 MG Capsule PO PRN (21:30)
[2017-09-16] MEDS: SODIUM CHLOR 0.9% IV.SIG SCH ×5 (00:27→16:26)
[2017-09-16] MEDS: OXACILLIN IV.SIG SCH ×5 (00:27→16:26)
[2017-09-16] MEDS: LORazepam 1 MG Tablet PO PRN ×5 (00:27→16:29)
[2017-09-16] MEDS: Sod Chloride 0.9% Inj 1,000 ML IV.CONT SCH ×2 (04:48→16:31)
--- NOTE | 2017-09-16 09:09 | XR ---
EXAM DATE: 09/16/2017 8:46 AM EDT AGE/SEX: 32 years / Female INDICATIONS: Shortness of breath, left sided chest pain. CLINICAL DATA: This is the patient's subsequent encounter. Patient reports that signs and symptoms h ave been present for 3 days and indicates a pain score of 6/10. MEDICAL/SURGICAL HISTORY: None. . Left chest tube. COMPARISON: [facility] – [place], CT CHEST W/O CONTRAST, 09/13/2017. . FINDINGS: A left sided chest tube is identified. I do not see a pneumothorax. Heart size normal. Minimal atelec tasis at the left base. Small left effusion. CONCLUSION: Small left effusion. Electronically signed by: Rj Dean MD 09/16/2017 9:07 AM EDT
[2017-09-16] MEDS: Senna/Docusate Sodium 8.6/50 MG Tablet PO SCH (09:38)
[2017-09-16 14:27] VITALS: O2SAT 99
[2017-09-16 16:15] VITALS: BP 102/63; PULSE 86; RESP 18; TEMP 98.1
--- NOTE | 2017-09-16 16:33 | XR ---
EXAM DATE: 09/16/2017 4:25 PM EDT AGE/SEX: 32 years / Female INDICATIONS: Post left side chest tube removed. CLINICAL DATA: This is the patient's initial encounter. Patient reports that signs and symptoms have been present for 3 weeks and indicates a pain score of 0/10. MEDICAL/SURGICAL HISTORY: . deep vein arm thrombosis . left breast biopsy COMPARISON: . FINDINGS: There is streaky infiltrate or atelectasis at the left base. I do not see a pneumothorax. The chest t ube has been removed. Right lung is clear. Osseous structures are intact. CONCLUSION: Mild streaky parenchymal density at the left base with air bronchograms suggesting airspace disease o r atelectasis. There is no evidence of pneumothorax. Electronically signed by: Rj Dean MD 09/16/2017 4:32 PM EDT
--- NOTE | 2017-09-16 17:47 | P.PNIM ---
Subjective Interval history: Late entry note. Patient seen this morning. Only complaint is pain at the chest tube site. Denies shortness of breath, abdominal pain, N/V. Physical Exam Vital signs: Vital Signs 09/15/17 20:00 09/15/17 21:00 09/16/17 00:00 Temperature 97.9 F 98 F Pulse Rate 88 84 Respiratory Rate 18 20 16 Blood Pressure 105/59 L 104/56 L Pulse Oximetry 97 96 09/16/17 04:00 09/16/17 08:00 09/16/17 08:48 Temperature 97.9 F 98.3 F Pulse Rate 64 60 Respiratory Rate 18 16 Blood Pressure 103/53 L 102/60 Pulse Oximetry 96 98 09/16/17 12:00 09/16/17 16:00 Temperature 98.4 F 98.1 F Pulse Rate 79 86 Respiratory Rate 16 18 Blood Pressure 114/68 102/63 Pulse Oximetry 99 99 Intake & Output 09/15/17 09/16/17 09/16/17 18:59 06:59 18:59 Intake Total 1720 / 1720 5580 / 5580 1200 / 1200 Output Total 1850 / 1850 Balance 1720 / 1720 3730 / 3730 1200 / 1200 Weight 60.9 kg Intake: IV 400 / 400 2300 / 2300 1200 / 1200 NS Inj 1,000 ML @ 100 mls/hr IV 2000 / 2000 1000 / 1000 .CONT .Q10H VANESSA Rx#:[id number] Prostaphlin Inj 2 GM In NS Inj 400 / 400 300 / 300 200 / 200 100 ML @ 200 mls/hr IV.SIG Q4H VANESSA Rx#:[id number] Oral 1320 / 1320 3280 / 3280 Output: Urine 1850 / 1850 Other: # Voids 3 Narrative: GENERAL: Thin female resting in bed in NAD. SKIN: Warm and dry. NECK: Supple no tender LAD or JVD. HEART: RRR with 1/6 LAURA. LUNGS: CTAB without wheezes or crackles. BACK: Chest tube in place L low back. ABDOMEN: +BS, soft, NT, ND. EXTREMITIES: No LE edema. NEURO: Awake and alert. Results - Labs CBC & Chem 7: 09/06/17 22:15 09/06/17 22:15 - Imaging Impressions Chest X-Ray 09/16/17 08:12 CONCLUSION: Small left effusion. Chest X-Ray 09/16/17 15:09 CONCLUSION: Mild streaky parenchymal density at the left base with air bronchograms suggesting airspace disease or atelectasis. There is no evidence of pneumothorax. - Procedures CHEST TUBE ON LEFT BY IR 09-07 Assessment and Plan - Assessment (1) IVDU (intravenous drug user) Code(s): F19.90 - Other psychoactive substance use, unspecified, uncomplicated Status: Acute (2) Chest pain Code(s): R07.9 - Chest pain, unspecified Status: Acute (3) Bacteremia Code(s): R78.81 - Bacteremia Status: Acute - Plan 32 year old female with history of IVDU originally admitted on 08/26 for high- grade MSSA bacteremia and started on oxacillin but left AMA. She returned to the ER on 09/07 complaining of chest pain with CT showing a large left pleural effusion. 1. 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 R thumb abscess/cellulitis - XR negative for osteo - S/P I&D by Dr. Hannon - Continue IV abx 3. IVDU - Ativan PRN - Avoid IV pain medications DVT prophylaxis: SCDs, ambulate Discussed Condition With: The patient Discharge Planning: On IV oxacillin through 10/07
--- NOTE | 2017-09-17 09:49 | IR ---
EXAM DATE: 09/16/2017 3:04 PM EDT AGE/SEX: 32 years / Female INDICATIONS: Pleural effusion COMPARISON: No prior exams available for comparison. DEVICE(S): Vaseline occlusive dressing +gauze PROCEDURE: 1. Chest tube removal. Using aseptic technique the previously placed chest tube was easily removed in one piece and Vaseline gauze and sterile dressing was applied. Chest radiograph is to be obtained. CONCLUSION: 1. Uncomplicated chest tube removal. Electronically signed by: Librado Schwartz MD 09/17/2017 9:48 AM EDT
--- NOTE | 2017-10-15 11:07 | P.DS ---
Date of admission: 09/07/17 01:09 Primary care physician: No Primary Care Physician Attending physician on discharge: Ella Chavez Brief History from admission: This is a 32-year-old female with a PMH of IVDU who was recently admitted for Chest Pain w/ concern for Endocarditis, found to have RUE Cellulitis w/ I &D Right Thumb Abscess by Dr. Hannon 08/26/17, in addition to Bacteremia w/ Blood Cultures + Staph Aureus, Septic Emboli and large left pleural effusion for which patient was scheduled to undergo chest tube insertion. S/p eval by ID on Oxacillin w/ plans for long-term antibiotics, however pt LEFT AMA on . Returns now w/ ongoing c/o chest pain and wishes to be admitted for treatment. Residents paged for admission, however declined as pt LEFT AMA from their service, therefore we're asked to admit. BP 111/66, HR 98, O2 sat 97% on RA, Temp 100.1. WBC 11.3,, previously 14.3 and 09/03/2017. Chemistry essentially unremarkable except for K+ 3.2. CXR with decrease in moderate size opacity left lung base indicating combination of pulmonary consolidation and pleural effusion DS: Diagnosis - Discharge Diagnosis (1) IVDU (intravenous drug user) Status: Acute (2) Chest pain Status: Acute (3) Bacteremia Status: Acute DS: Summary Hospital Course: 32 year old female with history of IVDU originally admitted on 08/26 for high- grade MSSA bacteremia and started on oxacillin but left AMA. She returned to the ER on 09/07 complaining of chest pain with CT showing a large left pleural effusion. Chest tube was placed by IR on date of admission and removed on 09/16. CT surgery was consulted and there was no indication for surgical intervention. She was also found to have right thumb abscess/cellulitis that was I&D'd by plastic surgery. Her XR was negative for osteo. ID was consulted and recommended oxacillin through 10/07. Unfortunately the patient left AMA on 09/16. - Time Spent with Patient Total time spent providing and/or coordinating discharge services: Less than 30 minutes - Quality: VTE Deep Vein Thrombosis/Pulmonary Embolism Present on Admission: Yes Exam Narrative: GENERAL: Thin female resting in bed in NAD. SKIN: Warm and dry. NECK: Supple no tender LAD or JVD. HEART: RRR with 1/6 LAURA. LUNGS: CTAB without wheezes or crackles. BACK: Chest tube in place L low back. ABDOMEN: +BS, soft, NT, ND. EXTREMITIES: No LE edema. NEURO: Awake and alert. Results Procedures completed during hospitalization: CHEST TUBE ON LEFT BY IR 7-21 - Impressions ITS Impressions Chest Tube Insertion 09/07/17 00:[address]: [address]-guided thoracentesis. Finger X-Ray 09/07/17 00:00 CONCLUSION: The osseous structures of the first digit are radiographically intact. Chest CT 09/13/17 13:09 CONCLUSION: 1. Left chest tube and a mild left pleural effusion. 2. Minimal right pleural effusion. 3. Persistent cavitary lesion in the right upper lobe. There is also some vague small patchy areas of density in the right upper lung. 4. Suspected atelectasis or consolidation at the left lung base. Given the effusion, atelectasis would be more likely. Tunnelled Chest Tube Removal 09/16/17 00:00 CONCLUSION: 1. Uncomplicated chest tube removal. Chest X-Ray 09/16/17 15:09 CONCLUSION: Mild streaky parenchymal density at the left base with air bronchograms suggesting airspace disease or atelectasis. There is no evidence of pneumothorax. Discharge Plan - Discharge Disposition Patient Disposition: Left Against Medical Advice - Physicians Team Primary Care Provider: Primary Care Physici,No Attending Provider: Ella Chavez Other Providers: Erna Contreras MD ; Scarlet Power MD ; Ale Owusu MD ; Lorraine Hannon MD
== END 2017-09-16 18:46 | disposition left against medical advice (07) ==
LOC: NEPE 21:05 → NEDA 09-07 01:09 → N04 09-07 04:28 → H7ONC 09-12 15:05 → N04 09-12 15:57
PROVIDERS: ADMIT Family Medicine; ATTEND Family Medicine